=== PATIENT | female | born 1935 | race Caucasian/White ===

== ENCOUNTER 2016-07-20 14:30 | Inpatient (IN) | payer OTHER ==
--- NOTE | 2016-07-20 15:15 | PDOC ---
History of Present Illness - General Chief Complaint: Revisit, Lab Variance Stated Complaint: ABNORMAL, LabS Time Seen by Provider: 07/20/16 14:53 History Source: Patient Exam Limitations: No Limitations - History of Present Illness Initial Comments: 07/20/16 15:15 CHIEF COMPLAINT: Abnormal labs HISTORY OF PRESENT ILLNESS: This is an 81-year-old SNF resident with a history of atrial fibrillation (on digoxin and her friend), [id number] hypertension, hyperlipidemia, osteoarthritis, hypothyroidism, and dementia sent from her residence for abnormal labs. Labs dated 07/16 show H/H 5.6/22.6. She reports lightheadedness, weakness, and shortness of breath. She denies rectal bleeding or any other known bleeding. She reports that they do not serve Kosher food in her facility, so she has not been eating. V/s on arrival are unremarkable. PCP is Dr. Staton. REVIEW OF SYSTEMS: GENERAL/CONSTITUTIONAL: generalized weakness. No fever or chills. HEAD, EYES, EARS, NOSE AND THROAT: No change in vision. No ear pain or discharge. No sore throat. CARDIOVASCULAR: Lightheadedness, shortness of breath. No chest pain or palpitations. RESPIRATORY: No cough or wheezing. GASTROINTESTINAL: No nausea, vomiting, diarrhea or constipation. GENITOURINARY: No dysuria, frequency, or change in urination. MUSCULOSKELETAL: No joint or muscle swelling or pain. No neck or back pain. SKIN: No rash or easy bruising. NEUROLOGIC: No headache, vertigo, loss of consciousness, or loss of sensation. PSYCHIATRIC: No depression or anxiety. ENDOCRINE: No increased thirst. No abnormal weight change. HEMATOLOGIC/LYMPHATIC: History of anemia, s/p one transfusion - thinks it was earlier this year. ALLERGIC/IMMUNOLOGIC: No hives or skin allergy. No latex allergy. PHYSICAL EXAM: GENERAL: The patient is awake, alert, and fully oriented, in no acute distress. ENT: Pupils equal, round and reactive to light, extraocular movements intact, sclera anicteric, conjunctivae pale. Neck supple. LUNGS: Clear to auscultation bilaterally. Normal excursion. No respiratory distress or use of accessory muscles. CV: RRR, S1/S2, no MRG. Cap refill < 2 sec. ABDOMEN: Soft, non-distended, non-tender. EXTREMITIES: Normal range of motion, no edema. NEUROLOGICAL: Normal speech, normal gait. CN II-XII grossly intact. PSYCH: Normal mood, normal affect. SKIN: Warm, pale, normal turgor, no rashes or lesions noted. Past History - Past Medical History Allergies/Adverse Reactions: Allergies Allergy/AdvReac Type Severity Reaction Status Date / Time shellfish derived Allergy Verified 07/20/16 14:44 Home Medications: Ambulatory Orders Digoxin [Lanoxin -] 0.25 mg PO DAILY 07/20/16 Donepezil HCl [Aricept -] 10 mg PO DAILY 07/20/16 Glipizide [Glipizide ER] 10 mg PO DAILY 07/20/16 Levothyroxine [Synthroid -] 175 mcg PO DAILY 07/20/16 Metoprolol Tartrate 25 mg PO DAILY 07/20/16 Pioglitazone HCl/Metformin HCl [Actoplus Met 15 mg-500 mg Tab] 1 each PO DAILY 07/20/16 Simvastatin [Zocor -] 20 mg PO HS 07/20/16 Warfarin Na [Coumadin] 2 mg PO DAILY 07/20/16 Heart Score/ECG Review - ECG Intrepretation Comment:: 07/20/16 16:37 Sinus rhythm with 1st degree AVB; TWI in lateral leads (no prior available for comparison) ED Treatment Course - LABORATORY CBC & Chemistry Diagram: 07/20/16 16:08 07/20/16 16:08 - RADIOLOGY Radiology Studies Ordered: Category Date Time Status CHEST PA & LAT [RAD] Stat Radiology 07/20/16 15:13 Ordered Medical Decision Making - Medical Decision Making 07/20/16 16:33 A/P: 81 year old female with symptomatic anemia. 1. Labs: CBC, comp, PT/INR, cardiac profile 2. Stool guaiac 3. Likely transfusion, admission 07/20/16 17:11 Hgb 5.4/19.2 PRBCs ordered Troponin 0.06 TWI new when compared to office EKG from [address] Lester- will place on telemetry *DC/Admit/Observation/Transfer Diagnosis at time of Disposition: Symptomatic anemia, Acute electrocardiogram changes - Discharge Dispostion Admit: Yes - Referrals Referrals: Parul Staton MD [Primary Care Provider] -
[2016-07-20 16:52] LABS: INR 1.43 (0.82-1.09); PROTHROMBIN TIME (PATIENT) 15.9 SEC (9.98-11.88)
[2016-07-20 16:58] LABS: BASOPHIL 0.4 % (0-2.0); EOSINOPHIL 1.1 % (0-4.5); MCHC 28.3 g/dl (32.0-36.0); MEAN CELL VOLUME 56.7 fl (80-96); MEAN PLT VOLUME 8.8 fl (7.5-11.1); NEUTROPHILS 73.5 % (42.8-82.8); PLATELET COUNT 340 K/MM3 (134-434); WHITE BLOOD COUNT 4.5 K/mm3 (4.0-10.0)
[2016-07-20 16:59] LABS: ALBUMIN 3.1 g/dl (3.4-5.0); ANION GAP 14 (8-16); CALCIUM 8.4 mg/dL (8.5-10.1); CO2 20 mmol/L (21-32); COCKROFT - GAULT 68.8415; CREATININE 0.7 mg/dL (0.55-1.02); GLUCOSE,RANDOM 134 mg/dL (74-106); SGOT/AST 40 U/L (15-37); SGPT/ALT 25 U/L (12-78)
[2016-07-20 17:01] LABS: ALK PHOS 62 U/L (45-117); BILIRUBIN,TOTAL 0.6 mg/dL (0.2-1.0); TOT PROT 6.6 g/dl (6.4-8.2)
[2016-07-20 17:41] LABS: TROPONIN I 0.06 ng/ml (0.00-0.05)
[2016-07-20 20:07] LABS: PLATELET ESTIMATE ADEQUATE (NORMAL)
[2016-07-20 20:09] LABS: HYPOCHROMIA 3+; MICROCYTOSIS 3+; POIKILOCYTOSIS OCC; POLYCHROMASIA 1+
[2016-07-20 20:10] LABS: ANISOCYTOSIS 2+
[2016-07-20] MEDS ORDERED: INSULIN (NOVOLOG) ASPART 100 UNITS/ML 10ML VIAL SQ SCH (20:16)
--- NOTE | 2016-07-20 20:28 | HP ---
Admitting History and Physical - Primary Care Physician PCP: Parul Staton - Admission Chief Complaint: weakness and shortness of breath History of Present Illness: has been feeling faint and very weak with exertional dyspnea on minimal activity for month or two. saw had labs which showed severe anemia and was sent to er for further evaluation of note she has history of mild anemia, htc 30-33 at baseline and last available in may. History Source: Patient Limitations to Obtaining History: No Limitations - Past Medical History [employer]: Yes: Dementia (mild) Cardiovascular: Yes: AFIB, CAD (card cath with BMS to PDA on ), HTN Musculoskeletal: Yes: Chronic low back pain, Osteoarthritis Endocrine: Yes: Diabetes Mellitus, Hypothyroidism - Smoking History Smoking history: Never smoked - Social History Usual Living Arrangement: Yes: Assisted Living ADL: Support Services History of Recent Travel: No Home Medications - Allergies Allergies/Adverse Reactions: Allergies Allergy/AdvReac Type Severity Reaction Status Date / Time shellfish derived Allergy Verified 07/20/16 14:44 - Home Medications Home Medications: Ambulatory Orders Digoxin [Lanoxin -] 0.25 mg PO DAILY 07/20/16 Donepezil HCl [Aricept -] 10 mg PO DAILY 07/20/16 Glipizide [Glipizide ER] 10 mg PO DAILY 07/20/16 Levothyroxine [Synthroid -] 175 mcg PO DAILY 07/20/16 Metoprolol Tartrate 25 mg PO DAILY 07/20/16 Pioglitazone HCl/Metformin HCl [Actoplus Met 15 mg-500 mg Tab] 1 each PO DAILY 07/20/16 Simvastatin [Zocor -] 20 mg PO HS 07/20/16 Warfarin Na [Coumadin] 2 mg PO DAILY 07/20/16 Family Disease History - Family Disease History Family History: Unremarkable Review of Systems - Review of Systems Constitutional: reports: Malaise, Weakness. denies: Unintentional Wgt. Loss Cardiovascular: reports: Shortness of Breath Respiratory: reports: Exercise Intolerance, SOB on Exertion Gastrointestinal: reports: No Symptoms. denies: Abdominal Pain, Diarrhea, Melena, Rectal Bleeding, Vomiting Musculoskeletal: reports: Back Pain, Joint Pain Physical Examination Vital Signs: Vital Signs Temperature 98.6 F 07/20/16 19:31 Pulse Rate 61 07/20/16 19:31 Respiratory Rate 18 07/20/16 19:31 Blood Pressure 140/58 07/20/16 19:31 O2 Sat by Pulse Oximetry (%) 93 L 07/20/16 19:59 Constitutional: Yes: Calm, Pallor Eyes: Yes: Conjunctiva Clear HENT: Yes: Atraumatic, Normocephalic Neck: Yes: Supple, Trachea Midline Cardiovascular: Yes: Regular Rate and Rhythm, Murmur Respiratory: Yes: Regular, CTA Bilaterally Gastrointestinal: Yes: WNL, Normal Bowel Sounds ...Rectal Exam: Yes: Other (guiac negative in er) Edema: LLE: 1+, RLE: 1+ Peripheral Pulses WNL: Yes Neurological: Yes: WNL Labs: Laboratory Results - last 24 hr 07/20/16 07/20/16 07/20/16 16:08 16:08 16:08 WBC 4.5 RBC 3.39 L Hgb 5.4 L* Hct 19.2 L MCV 56.7 L MCHC 28.3 L RDW 20.0 H Plt Count 340 MPV 8.8 Neutrophils % 73.5 Lymphocytes % 15.3 Monocytes % 9.7 Eosinophils % 1.1 Basophils % 0.4 Differential Comment Slide scanned Platelet Estimate Adequate Polychromasia 1+ Hypochromic-Microcytic 3+ Poikilocytosis Occ Basophilic Stippling 1+ Anisocytosis 2+ Microcytosis 3+ INR 1.43 H Sodium Potassium Chloride Carbon Dioxide Anion Gap BUN Creatinine Creat Clearance w eGFR Random Glucose Calcium Total Bilirubin AST ALT Alkaline Phosphatase Creatine Kinase Troponin I Total Protein Albumin Stool Occult Blood Negative Blood Type Antibody Screen Crossmatch 07/20/16 07/20/16 07/20/16 16:08 16:08 16:39 WBC RBC Hgb Hct MCV MCHC RDW Plt Count MPV Neutrophils % Lymphocytes % Monocytes % Eosinophils % Basophils % Differential Comment Platelet Estimate Polychromasia Hypochromic-Microcytic Poikilocytosis Basophilic Stippling Anisocytosis Microcytosis INR Sodium 137 Potassium 4.1 Chloride 103 Carbon Dioxide 20 L Anion Gap 14 BUN 10 Creatinine 0.7 Creat Clearance w eGFR > 60 Random Glucose 134 H Calcium 8.4 L Total Bilirubin 0.6 AST 40 H ALT 25 Alkaline Phosphatase 62 Creatine Kinase 83 Troponin I 0.06 H Total Protein 6.6 Albumin 3.1 L Stool Occult Blood Blood Type A POSITIVE Antibody Screen Negative Crossmatch See Detail Imaging - Results Chest X-ray: Report Reviewed EKG: Image Reviewed Problem List - Problems (1) Symptomatic anemia Code(s): D64.9 - ANEMIA, UNSPECIFIED (2) Atrial fibrillation Code(s): I48.91 - UNSPECIFIED ATRIAL FIBRILLATION Qualifiers: Atrial fibrillation type: persistent Qualified Code(s): I48.1 - Persistent atrial fibrillation (3) Hypertension Code(s): I10 - ESSENTIAL (PRIMARY) HYPERTENSION Qualifiers: Hypertension type: essential hypertension Qualified Code(s): I10 - Essential (primary) hypertension (4) Diabetes mellitus Code(s): E11.9 - TYPE 2 DIABETES MELLITUS WITHOUT COMPLICATIONS Qualifiers: Diabetes mellitus type: type 2 (5) Hypothyroidism Code(s): E03.9 - HYPOTHYROIDISM, UNSPECIFIED Qualifiers: Hypothyroidism type: unspecified Qualified Code(s): E03.9 - Hypothyroidism, unspecified Assessment/Plan microcytic anemia r/o GI bleed hold warfarin transfuse 2 units PRBC, likely will need third in am guiac all stools GI evaluation cardiology f/up serial cardiac enzymes cont digoxin and BBlocker for now bedrest
[2016-07-20] MEDS: INSULIN SLIDING SCALE (NOVOLOG) 1 VIAL SQ SCH (21:45)
[2016-07-20] MEDS: PANTOPRAZOLE 40 MG TABLET (FP) PO SCH (21:45)
[2016-07-21 00:24] VITALS: BMI 24.7
[2016-07-21] MEDS ORDERED: FUROSEMIDE 40 MG/4 ML INJECTABLE VIAL ONE ×2 (05:42→17:15)
[2016-07-21] MEDS ORDERED: FUROSEMIDE 40 MG/4 ML INJECTABLE VIAL IVPUSH ONE ×2 (05:45→11:05)
[2016-07-21] MEDS: LEVOTHYROXINE NA 175 MCG TABLET PO SCH (06:17)
[2016-07-21] MEDS: INSULIN SLIDING SCALE (NOVOLOG) 1 VIAL SQ SCH ×4 (06:17→21:06)
--- NOTE | 2016-07-21 08:35 | PN ---
Progress Note (short form) - Note Progress Note: Chief Complaint: Events noted, notes reviewed, reports dyspnea with minimal activity, denies any chest pain History of Present Illness: Seen and examined on telemetry. Full consult dictated - Current Medication List Current Medications Digoxin (Lanoxin -) 0.25 mg PO DAILY [facility] Insulin Aspart (Novolog Vial Sliding Scale -) 1 vial SQ ACHS [facility] PRN Reason: Protocol Last Admin: 07/21/16 06:17 Dose: 2 units Levothyroxine Sodium (Synthroid -) 175 mcg PO ACBK [facility] Last Admin: 07/21/16 06:17 Dose: 175 mcg Metoprolol Tartrate (Lopressor -) 25 mg PO DAILY [facility] Pantoprazole Sodium (Protonix -) 40 mg PO DAILY [facility] Last Admin: 07/20/16 21:45 Dose: 40 mg Review of Systems Cardiovascular: As noted above Respiratory: denies: Cough or Sputum Production Gastrointestinal: denies: Nausea, Vomiting, Diarrhea, Constipation or Abdominal Discomfort Musculoskeletal: No Symptoms Reported Endocrine: No Symptoms Reported - Objective Vital Signs: Last Vital Signs Temp Pulse Resp BP Pulse Ox 98.0 F 65 22 168/70 97 07/21/16 06:25 07/21/16 06:25 07/21/16 06:25 07/21/16 06:25 07/20/16 20:30 HEENT: SOLO, EOMI Unicteric Sclera Neck: Supple Negative JVD Cardiovascular: S1 S2 Regular Rate and Rhythm Grade 2/6 ANDREA Respiratory: Clear to A&P Gastrointestinal: Soft Benign Normal Bowel Sounds Ext: Edema Labs: CBC, BMP 07/20/16 16:08 07/20/16 16:08 INR, PTT INR 1.43 (0.82-1.09) H 07/20/16 16:08 Hepatic Panel Total Bilirubin 0.6 mg/dL (0.2-1.0) 07/20/16 16:08 AST 40 U/L (15-37) H 07/20/16 16:08 ALT 25 U/L (12-78) 07/20/16 16:08 Alkaline Phosphatase 62 U/L (45-117) 07/20/16 16:08 Albumin 3.1 g/dl (3.4-5.0) L 07/20/16 16:08 Troponin, BNP 07/20/16 16:39 Troponin I 0.06 H Assessment/Plan ASSESSMENT: 1. CAD angina pectoris with evidence of demand ischemic injury in context of profound anemia 2. Diastolic LV dysfunction with class I NYHA classification LV failure 3. PAF currently in sinus rhythm, [id number] score of 6 on Coumadin therapy 4. Anemia, iron deficiency etiology to be determined, GI bleed to be considered as a differential 5. HTN 6. DM 7. Hypercholesterolemia 8. Organic brain syndrome 9. Hypothyroidism PLAN: 1. Continue B-Blockers but switch to Toprol XL 2. May D/C Digoxin (risk of toxicity considering her advanced age) 3. Recommend addition of ACCI or ARBS unless it is contraindicated 4. Transfuse to maintain Hg equal or > 8.0 5. Recommend GI evaluation to to determine source of bleed 6. Ideally A/C should be continued indefinitely unless source of bleed cannot be determined or treated, considering the above noted [id number] score of 6 Sohail Franco MD
--- NOTE | 2016-07-21 09:06 | PN ---
Progress Note (short form) - Note Progress Note: Received 2 units of PRBC overnight, developed wheezing and hypoxia at end of second unit. received iv lasix with good response. currently no complaints at rest, still dyspneic on exertion. am labs pending Vital Signs Period Temp Pulse Resp BP Sys/Gong Pulse Ox Last 24 Hr 97.9 F-99.2 F 53-88 18-22 136-168/46-74 93-100 S1S2 RRR +SM lungs occ exp.wheezing abd soft NT +BS tr edema Imp Sever, symptomatic anemia-likely GI bleed repeat CBC-will possibly need more transfusion cardiology evaluation greatly appreciated GI consult pending continue to hold ac Problem List - Problems (1) Symptomatic anemia Code(s): D64.9 - ANEMIA, UNSPECIFIED (2) Atrial fibrillation Code(s): I48.91 - UNSPECIFIED ATRIAL FIBRILLATION Qualifiers: Atrial fibrillation type: persistent Qualified Code(s): I48.1 - Persistent atrial fibrillation (3) Hypertension Code(s): I10 - ESSENTIAL (PRIMARY) HYPERTENSION Qualifiers: Hypertension type: essential hypertension Qualified Code(s): I10 - Essential (primary) hypertension (4) Diabetes mellitus Code(s): E11.9 - TYPE 2 DIABETES MELLITUS WITHOUT COMPLICATIONS Qualifiers: Diabetes mellitus type: type 2 (5) Hypothyroidism Code(s): E03.9 - HYPOTHYROIDISM, UNSPECIFIED Qualifiers: Hypothyroidism type: unspecified Qualified Code(s): E03.9 - Hypothyroidism, unspecified
[2016-07-21 09:18] LABS: BASOPHIL 0.5 % (0-2.0); EOSINOPHIL 1.6 % (0-4.5); MCHC 31.3 g/dl (32.0-36.0); MEAN CELL VOLUME 60.9 fl (80-96); MEAN PLT VOLUME 8.7 fl (7.5-11.1); NEUTROPHILS 75.5 % (42.8-82.8); PLATELET COUNT 310 K/MM3 (134-434); WHITE BLOOD COUNT 3.9 K/mm3 (4.0-10.0)
[2016-07-21 09:42] LABS: MCH 19.1 pg (25.7-33.7)
[2016-07-21 09:45] LABS: ALBUMIN 3.3 g/dl (3.4-5.0); ANION GAP 9 (8-16); BILIRUBIN,TOTAL 1.9 mg/dL (0.2-1.0); CALCIUM 8.2 mg/dL (8.5-10.1); CO2 28 mmol/L (21-32); COCKROFT - GAULT 70.295; CREATININE 0.7 mg/dL (0.55-1.02); GLUCOSE,RANDOM 148 mg/dL (74-106); SGOT/AST 43 U/L (15-37); TOT PROT 6.7 g/dl (6.4-8.2)
[2016-07-21 09:57] LABS: ALK PHOS 69 U/L (45-117); DIGOXIN LEVEL 0.9406 ng/ml (0.8-2.0); SGPT/ALT 25 U/L (12-78); TROPONIN I 0.07 ng/ml (0.00-0.05)
[2016-07-21] MEDS ORDERED: DIGOXIN 0.25 MG TABLET (FP) PO SCH (10:00)
[2016-07-21] MEDS ORDERED: METOPROLOL SUCCINATE 50 MG TAB.SR.24H (FP) PO SCH (10:00)
[2016-07-21] MEDS ORDERED: METOPROLOL TARTRATE 25 MG TABLET (FP) PO SCH (10:00)
[2016-07-21] MEDS: PANTOPRAZOLE 40 MG TABLET (FP) PO SCH (10:39)
--- NOTE | 2016-07-21 11:01 | EKG ---
Test Reason : Blood Pressure : / mmHG Vent. Rate : 064 BPM Atrial Rate : 064 BPM P-R Int : 212 ms QRS Dur : 074 ms QT Int : 414 ms P-R-T Axes : 019 074 -35 degrees QTc Int : 427 ms SINUS RHYTHM WITH 1ST DEGREE A-V BLOCK NONSPECIFIC ST AND T WAVE ABNORMALITY ABNORMAL ECG WHEN COMPARED WITH ECG OF 20-JUL-2016 16:21, NO SIGNIFICANT CHANGE WAS FOUND Confirmed by AVA SIU, LIZBET ([id number]) on 07/21/2016 11:01:18 AM Referred By: GERONIMO VICTORIA Confirmed By:LIZBET ESCALANTE MD
--- NOTE | 2016-07-21 11:45 | EKG ---
Test Reason : Blood Pressure : / mmHG Vent. Rate : 064 BPM Atrial Rate : 064 BPM P-R Int : 224 ms QRS Dur : 072 ms QT Int : 410 ms P-R-T Axes : 037 045 258 degrees QTc Int : 422 ms SINUS RHYTHM WITH 1ST DEGREE A-V BLOCK ABNORMAL ECG NO PREVIOUS ECGS AVAILABLE CLINICAL CORRELATION IS RECOMMENDED Confirmed by AVA SIU, LIZBET ([id number]) on 07/21/2016 11:44:43 AM Referred By: Confirmed By:LIZBET ESCALANTE MD
[2016-07-21] MEDS ORDERED: INSULIN (NOVOLOG) ASPART 100 UNITS/ML 10ML VIAL ONE (12:29)
--- NOTE | 2016-07-21 16:16 | CONS ---
DATE OF CONSULTATION: 07/21/2016 CONSULTATION REQUESTED BY: Sofía Lester MD CHIEF COMPLAINT: Dyspnea, cardiovascular evaluation. History was obtained from the patient partially and from the chart since patient has organic brain syndrome, dementia. An 81-year-old female with known history of coronary artery disease, angina pectoris, diastolic left ventricular dysfunction with chronic class 0 to 1 [place] [employer] classification left ventricular failure, paroxysmal atrial fibrillation ([id number] score of 6, on Coumadin therapy), hypertensive cardiovascular disease, diabetes mellitus, hypercholesterolemia, hypothyroidism, organic brain syndrome, dementia, who presented to [facility] with progressive dyspnea, which has been noted over the last several days. Dyspnea initially was noted with mild to moderate physical activity, and subsequently was noted with minimal physical exertion. Patient, on blood test, was noted to have profound anemia, and subsequently patient received 2 units of packed red blood cells. Patient denied any chest discomfort. Patient denied any orthopnea or paroxysmal nocturnal dyspnea. Patient reported intermittent bilateral lower extremity edema that worsens in the latter part of the day. Patient denied any palpitations. Patient reported intermittent dizziness and lightheadedness, specifically with postural changes. Patient denied any loss of consciousness. Patient reported profound fatigue and tiredness. Patient denied any bright red blood per rectum. In addition, patient denied any hematuria. PAST MEDICAL HISTORY: Coronary artery disease, angina pectoris, diastolic left ventricular dysfunction with class 0 to 1 [place] [employer] classification left ventricular failure, paroxysmal atrial fibrillation, [id number] score of 6 (on anticoagulation therapy with Coumadin), hypertensive cardiovascular disease, diabetes mellitus, hypercholesterolemia, organic brain syndrome, dementia, hypothyroidism. SOCIAL HISTORY: Denied tobacco abuse. FAMILY HISTORY: Positive for coronary artery disease. ALLERGIES: SHELLFISH. Medical therapy prior to admission included Coumadin 2 mg once a day, digoxin 0.25 mg once a day, glipizide 10 mg once a day, levothyroxine 175 mcg once a day, Toprol XL 25 mg once a day, Actos plus metformin 15/850 mg twice a day, Zocor 20 mg once a day, Aricept 10 mg once a day. REVIEW OF SYSTEMS: Head and Neck: Denies headache, photophobia, blurring of vision. Respiratory: No cough or sputum production. Cardiovascular: As noted above. Gastrointestinal: Denied nausea, vomiting, diarrhea, abdominal discomfort. Genitourinary: No symptoms reported. PHYSICAL EXAMINATION: Vital Signs: Blood pressure is 168/70 mmHg. Pulse rate is 68 beats per minute. Head and Neck: Pupils equal, react to light and accommodation. Extraocular muscles are intact. Anicteric sclerae. Negative JVD. No bruit appreciated. Chest: Clear to auscultation and percussion. Cardiovascular: S1, S2 regular. Grade 2/6 systolic ejection murmur. No clicks or gallops. Abdomen: Soft, benign. Normoactive bowel sound. Extremities: Trace edema. Decreased distal pulses. No calf tenderness. Electrocardiogram reveals sinus rhythm with an abnormal P wave and ST-T wave abnormalities suggestive of ischemia. CBC revealed a white cell count of 4.5, hemoglobin 5.4, platelet count 340. Basic metabolic profile revealed sodium 137, potassium 4.1, BUN 10, creatinine 0.7, glucose 134. INR 1.43. AST 40. Troponin I was noted at 0.06. ASSESSMENT: 1. Coronary artery disease, angina pectoris, with evidence of demand ischemic injury in context of profound anemia. 2. Diastolic left ventricular dysfunction with class 1 [place] [employer] classification left ventricular failure. 3. Paroxysmal atrial fibrillation, currently in sinus rhythm, CHADS-VASc score of 6, on Coumadin therapy, currently withheld. 4. Anemia, iron deficiency, etiology to be determined. Gastrointestinal bleed to be considered as a differential. 5. Hypertension. 6. [id number]-[id number] diabetes mellitus. 7. Hypercholesterolemia. 8. Organic brain syndrome/dementia. 9. Hypothyroidism. RECOMMENDATION: 1. Continuation of beta blockers and switch to Toprol XL. 2. May discontinue digoxin. Risk of toxicity, considering her advanced age. 3. Recommend addition of MODE inhibitors, angiotensin receptor blockers, unless it is contraindicated. 4. Transfusion to maintain hemoglobin equal or greater than 8. 5. Recommend GI evaluation to determine source of GI bleed. 6. Ideally anticoagulation should be continued indefinitely, unless source of bleed cannot be determined or treated, considering the above-noted CHADS-VASc score of 6. Thank you for the kind referral. LIZBET ESCALANTE M.D. [id number]
[2016-07-21] MEDS: amLODIPine BESYLATE 5 MG TABLET (FP) PO SCH (19:22)
--- NOTE | 2016-07-21 20:25 | CON.GI ---
Consult Consult Specialty:: GI Referred by:: Dr Toledo Reason for Consultation:: Anemia - History of Present Illness Chief Complaint: Sent from her facility for Hgb 5.6 History of Present Illness: 81 F with h/o CAD, PAF on AC, Anemia-patient states she has not had EGD or colon , HTN, DM,, HLD admitted with symptomatic anemia. - History Source History Provided By: Patient, Medical Record Limitations to Obtaining History: No Limitations - Past Medical History Cardio/Vascular: Yes: AFIB, CAD (card cath with BMS to PDA on ), HTN Musculoskeletal: Yes: Chronic low back pain, Osteoarthritis Endocrine: Yes: Diabetes Mellitus, Hypothyroidism - Alcohol/Substance Use Hx Alcohol Use: No - Smoking History Smoking history: Never smoked Have you smoked in the past 12 months: No - Social History ADL: Support Services History of Recent Travel: No Home Medications - Allergies Allergies/Adverse Reactions: Allergies Allergy/AdvReac Type Severity Reaction Status Date / Time shellfish derived Allergy Verified 07/20/16 14:44 - Home Medications Home Medications: Ambulatory Orders Digoxin [Lanoxin -] 0.25 mg PO DAILY 07/20/16 Donepezil HCl [Aricept -] 10 mg PO DAILY 07/20/16 Glipizide [Glipizide ER] 10 mg PO DAILY 07/20/16 Levothyroxine [Synthroid -] 175 mcg PO DAILY 07/20/16 Metoprolol Tartrate 25 mg PO DAILY 07/20/16 Pioglitazone HCl/Metformin HCl [Actoplus Met 15 mg-500 mg Tab] 1 each PO DAILY 07/20/16 Simvastatin [Zocor -] 20 mg PO HS 07/20/16 Warfarin Na [Coumadin] 2 mg PO DAILY 07/20/16 Physical Exam-GI Vital Signs: Vital Signs Temperature 98.9 F 07/21/16 14:41 Pulse Rate 58 L 07/21/16 18:45 Respiratory Rate 20 07/21/16 14:41 Blood Pressure 179/61 07/21/16 18:45 O2 Sat by Pulse Oximetry (%) 97 07/21/16 10:40 Constitutional: Yes: Well Nourished, No Distress HENT: Yes: Normocephalic Cardiovascular: Yes: Regular Rate and Rhythm, Murmur (2-3/6 blowing systolic murmur LSB) Respiratory: Yes: CTA Bilaterally Gastrointestinal Inspection: Yes: WNL ...Auscultate: Yes: Normoactive Bowel Sounds ...Palpate: Yes: Soft Labs: CBC, BMP 07/21/16 08:50 07/21/16 08:50 INR, PTT INR 1.43 (0.82-1.09) H 07/20/16 16:08 Hepatic Panel Total Bilirubin 1.9 mg/dL (0.2-1.0) H D 07/21/16 08:50 AST 43 U/L (15-37) H 07/21/16 08:50 ALT 25 U/L (12-78) 07/21/16 08:50 Alkaline Phosphatase 69 U/L (45-117) 07/21/16 08:50 Albumin 3.3 g/dl (3.4-5.0) L 07/21/16 08:50 Assessment/Plan Patient with profound microcytic anemia. Denies seeing black or red stools. Guaiac negative x 2 this admission. She states she is Kosher and at her facility, they don't serve Kosher food. As such, she hasn't eaten red meat for the past 3 years. She does not take an Fe supplement as per her med list This may be a nutritional deficiency or malabsorption. Unlikely bleeding and would refrain from endoscopy at this time due to co- morbids and age, unless she bleeds. Transfuse to Hgb of 9 Start PPI Full diet Trend H&H Consider heme consult
[2016-07-21] MEDS ORDERED: ACETAMINOPHEN 325 MG TABLET (FP) PO PRN (20:46)
[2016-07-22] MEDS ORDERED: PT OWN MED DRAWER 7, Y5N ONE ×2 (06:01→10:31)
[2016-07-22] MEDS: INSULIN SLIDING SCALE (NOVOLOG) 1 VIAL SQ SCH ×4 (06:20→21:19)
[2016-07-22] MEDS: LEVOTHYROXINE NA 175 MCG TABLET PO SCH (06:20)
[2016-07-22 07:17] LABS: ALBUMIN 3.2 g/dl (3.4-5.0); ANION GAP 8 (8-16); CO2 30 mmol/L (21-32); COCKROFT - GAULT 70.295; CREATININE 0.7 mg/dL (0.55-1.02); GLUCOSE,RANDOM 163 mg/dL (74-106); SGOT/AST 44 U/L (15-37); SGPT/ALT 25 U/L (12-78)
[2016-07-22 07:18] LABS: BASOPHIL 0.4 % (0-2.0); EOSINOPHIL 2.5 % (0-4.5); MCH 20.1 pg (25.7-33.7); MEAN CELL VOLUME 62.9 fl (80-96); MEAN PLT VOLUME 9.1 fl (7.5-11.1); NEUTROPHILS 77.4 % (42.8-82.8); PLATELET COUNT 301 K/MM3 (134-434); RDW 27.9 % (11.6-15.6); WHITE BLOOD COUNT 5.1 K/mm3 (4.0-10.0)
[2016-07-22 07:19] LABS: ALK PHOS 69 U/L (45-117); TOT PROT 6.6 g/dl (6.4-8.2)
--- NOTE | 2016-07-22 08:54 | PN ---
Progress Note (short form) - Note Progress Note: Received total of 3 units of PRBC, feels much better. Abnormal Lab Results 07/20/16 07/20/16 07/21/16 08:00 20:15 08:50 WBC 3.9 L Hgb 8.1 L D Hct 25.9 L D MCV 60.9 L MCHC 31.3 L RDW 26.0 H Potassium Random Glucose Calcium Iron 15 L Total Bilirubin AST Troponin I Albumin Crossmatch See Detail 07/21/16 07/22/16 07/22/16 08:50 05:38 05:38 WBC Hgb 9.6 L D Hct 29.9 L D MCV 62.9 L MCHC RDW 27.9 H Potassium 3.4 L Random Glucose 148 H 163 H Calcium 8.2 L 8.0 L Iron Total Bilirubin 1.9 H D AST 43 H 44 H Troponin I 0.07 H Albumin 3.3 L 3.2 L Crossmatch Vital Signs Period Temp Pulse Resp BP Sys/Gong Pulse Ox Last 24 Hr 98.2 F-99.9 F 53-76 18-20 148-179/47-85 97-97 S1S2 RRR +SM lungs clear abd soft NT +BS tr edema Imp Sever, symptomatic anemia-guiac negative twice CAD HTN NIDDM cardiology/GI evaluation greatly appreciated heme eval requested resume warfarin and dc planning if no further procedures planned physical therapy requested repeat CBC in am increase metoprolol Problem List - Problems (1) Symptomatic anemia Code(s): D64.9 - ANEMIA, UNSPECIFIED (2) Atrial fibrillation Code(s): I48.91 - UNSPECIFIED ATRIAL FIBRILLATION Qualifiers: Atrial fibrillation type: persistent Qualified Code(s): I48.1 - Persistent atrial fibrillation (3) Hypertension Code(s): I10 - ESSENTIAL (PRIMARY) HYPERTENSION Qualifiers: Hypertension type: essential hypertension Qualified Code(s): I10 - Essential (primary) hypertension (4) Diabetes mellitus Code(s): E11.9 - TYPE 2 DIABETES MELLITUS WITHOUT COMPLICATIONS Qualifiers: Diabetes mellitus type: type 2 (5) Hypothyroidism Code(s): E03.9 - HYPOTHYROIDISM, UNSPECIFIED Qualifiers: Hypothyroidism type: unspecified Qualified Code(s): E03.9 - Hypothyroidism, unspecified
[2016-07-22] MEDS ORDERED: POTASSIUM CHLORIDE TABS 20 MEQ TABLET.ER (FP) PO ONE (09:15)
--- NOTE | 2016-07-22 10:15 | PN ---
Progress Note (short form) - Note Progress Note: S: 81 year old female, history of noninsulin depended diabetes mellitus, coronary artery disease, hypertension, hyperlipidemia, history of atrial fibrillation, history of dementia as noted in the chart, admitted with history of weakness, lightheadedness and dypsnea. Found to have severe anemia, underwent multiple blood transfusions, history of hypothyroidism. Patient had mildly elevated troponin levels. She has a rattling cough, denies having chest pain or discomfort, no history of dyspnea, PND or orthopnea. Denies having palpitations, no presyncope or syncope reported. Active Medications Generic Name Dose Route Start Last Admin Trade Name Freq PRN Reason Stop Dose Admin Acetaminophen 650 mg 07/21/16 20:46 Tylenol - PO Q4H PRN PAIN OR FEVER >100.4 Amlodipine Besylate 5 mg 07/21/16 19:15 07/21/16 19:22 Norvasc - PO 5 mg DAILY CARO Administration Atorvastatin Calcium 10 mg 07/22/16 22:00 Lipitor - PO HS CARO Donepezil HCl 10 mg 07/22/16 10:00 Aricept - PO DAILY CARO Glipizide 10 mg 07/22/16 10:00 Glucotrol Xl - PO DAILY@0700 [facility]O Insulin Aspart 1 vial 07/20/16 20:26 07/22/16 06:20 Novolog Vial Sliding Scale - SQ 2 units ACHS CARO Administration Protocol Levothyroxine Sodium 175 mcg 07/21/16 07:00 07/22/16 06:20 Synthroid - PO 175 mcg ACBK CARO Administration Metoprolol Succinate 75 mg 07/22/16 08:29 Toprol Xl - PO DAILY CARO Pantoprazole Sodium 40 mg 07/20/16 20:30 07/21/16 10:39 Protonix - PO 40 mg DAILY [facility]O Administration O: 81 year old female was in no acute distress, no pallor, cyanosis, clubbing, or jaundice. Last Vital Signs Temp Pulse Resp BP Pulse Ox 98.8 F 72 20 152/66 97 07/22/16 05:58 07/22/16 05:58 07/22/16 05:58 07/22/16 05:58 07/21/16 21:00 Neck: Supple, no JVD, negative HJR, carotids were equal and upstrokes were normal, no thyromegaly appreciated. Heart: PMI was in the 5th intercostal space, no heaves or thrills, S1 and S2 were normal. Grade II/ ejection systolic heard at the second right intercoastal space and along the left sternal border. Grade I/ decresiando systolic murmur heard at the apex. No diastolic murmur heard. No gallops were appreciated. Lungs: Clear on auscultation bilaterally. Abdomen: Soft, nontender, no hepatosplenomegaly appreciated, and no palpable masses were felt. Extremities: No calf tenderness or dependent edema. Pulses are normal. CBC, BMP 07/22/16 05:38 07/22/16 05:38 Laboratory Results - last 24 hr 07/20/16 07/20/16 07/21/16 08:00 20:15 12:16 WBC RBC Hgb Hct MCV MCHC RDW Plt Count MPV Neutrophils % Lymphocytes % Monocytes % Eosinophils % Basophils % Sodium Potassium Chloride Carbon Dioxide Anion Gap BUN Creatinine Creat Clearance w eGFR POC Glucometer 187 Random Glucose Calcium Iron 15 L Total Bilirubin AST ALT Alkaline Phosphatase Total Protein Albumin Blood Type A POSITIVE Crossmatch See Detail 07/21/16 07/21/16 07/22/16 17:18 21:00 04:49 WBC RBC Hgb Hct MCV MCHC RDW Plt Count MPV Neutrophils % Lymphocytes % Monocytes % Eosinophils % Basophils % Sodium Potassium Chloride Carbon Dioxide Anion Gap BUN Creatinine Creat Clearance w eGFR POC Glucometer 228 154 168 Random Glucose Calcium Iron Total Bilirubin AST ALT Alkaline Phosphatase Total Protein Albumin Blood Type Crossmatch 07/22/16 07/22/16 05:38 05:38 WBC 5.1 D RBC 4.75 Hgb 9.6 L D Hct 29.9 L D MCV 62.9 L MCHC 32.0 RDW 27.9 H Plt Count 301 MPV 9.1 Neutrophils % 77.4 Lymphocytes % 11.7 Monocytes % 8.0 Eosinophils % 2.5 Basophils % 0.4 Sodium 138 Potassium 3.4 L Chloride 100 Carbon Dioxide 30 Anion Gap 8 BUN 16 D Creatinine 0.7 Creat Clearance w eGFR > 60 POC Glucometer Random Glucose 163 H Calcium 8.0 L Iron Total Bilirubin 1.0 D AST 44 H ALT 25 Alkaline Phosphatase 69 Total Protein 6.6 Albumin 3.2 L Blood Type Crossmatch Impression: (1) Hypertension, hypertensive cardiovascular disease Code(s): I10 - ESSENTIAL (PRIMARY) HYPERTENSION Qualifiers: Hypertension type: essential hypertension Qualified Code(s): I10 - Essential (primary) hypertension (2) Coronary artery disease Code(s): I25.10 - ATHSCL HEART DISEASE OF [place] CORONARY ARTERY W/O ANG PCTRS (3) Left ventricular diastolic dysfunction Code(s): I51.9 - HEART DISEASE, UNSPECIFIED (4) Anemia, etiology to be determined Code(s): D64.9 - ANEMIA, UNSPECIFIED (5) History of paroxysmal atrial fibrillation Code(s): I48.0 - PAROXYSMAL ATRIAL FIBRILLATION (6) Diabetes mellitus Code(s): E11.9 - TYPE 2 DIABETES MELLITUS WITHOUT COMPLICATIONS Qualifiers: Diabetes mellitus type: type 2 (7) Hypothyroidism Code(s): E03.9 - HYPOTHYROIDISM, UNSPECIFIED Qualifiers: Hypothyroidism type: unspecified Qualified Code(s): E03.9 - Hypothyroidism, unspecified (8) Hypercholesterolemia Code(s): E78.00 - PURE HYPERCHOLESTEROLEMIA, UNSPECIFIED (9) History of organic brain syndrome Code(s): F09 - UNSP MENTAL DISORDER DUE TO KNOWN PHYSIOLOGICAL CONDITION (10) Tricuspid regurgitation Code(s): I07.1 - RHEUMATIC TRICUSPID INSUFFICIENCY (11) Severe pulmonary hypertension (See echo report) Code(s): I27.2 - OTHER SECONDARY PULMONARY HYPERTENSION (12) Mitral valvular disease with moderate mitral regurgitation Code(s): I05.9 - RHEUMATIC MITRAL VALVE DISEASE, UNSPECIFIED (13) Aortic valve sclerosis Code(s): I35.0 - NONRHEUMATIC AORTIC (VALVE) (14) Mild to moderate aortic regurgitation Code(s): I35.1 - NONRHEUMATIC AORTIC (VALVE) INSUFFICIENCY (15) Chronic bronchitis / Interstitial pulmonary disease needs to be ruled out Code(s): J42 - UNSPECIFIED CHRONIC BRONCHITIS (16) Elevated troponin most likely related to demand injury due to severe anemia Code(s): R74.8 - ABNORMAL LEVELS OF OTHER SERUM ENZYMES Recommendations: 1. Consider pulmonary evaluation. 2. Continue current cardiac medication. 3. Evaluation for source of GI bleeding. Attestation: Documentation prepared by Ross Lezama, acting as emergency medical technician for Hawk Gonzales MD.
[2016-07-22] MEDS: amLODIPine BESYLATE 5 MG TABLET (FP) PO SCH (10:50)
[2016-07-22] MEDS: DONEPEZIL HCL 10 MG TABLET (FP) PO SCH (10:50)
[2016-07-22] MEDS: PANTOPRAZOLE 40 MG TABLET (FP) PO SCH (10:50)
[2016-07-22] MEDS: glipiZIDE-XL 10 MG TAB.ER.24 (FP) PO SCH (10:50)
[2016-07-22] MEDS: METOPROLOL SUCCINATE 50 MG TAB.SR.24H (FP) PO SCH (10:51)
[2016-07-22] MEDS: ATORVASTATIN CA 10 MG TABLET (FP) PO SCH (21:20)
--- NOTE | 2016-07-22 21:25 | CONSULT ---
Consult - text type - Consultation Consultation Note: 81 F with h/o CAD, PAF on AC, Anemia-patient states she has not had EGD or colonoscopy. 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 Denies any major complaints - History Source History Provided By: Patient, Medical Record - Past Medical History Cardio/Vascular: Yes: AFIB, CAD (card cath with BMS to PDA on ), HTN.hyperlipidemia Musculoskeletal: Yes: Chronic low back pain, Osteoarthritis Endocrine: Yes: Diabetes Mellitus, Hypothyroidism - Smoking History Smoking history: Never smoked - Social History ADL: Support Services Home Medications - Allergies Allergies/Adverse Reactions: Allergies Allergy/AdvReac Type Severity Reaction Status Date / Time shellfish derived Allergy Verified 07/20/16 14:44 - Home Medications Home Medications: Ambulatory Orders Digoxin [Lanoxin -] 0.25 mg PO DAILY 07/20/16 Donepezil HCl [Aricept -] 10 mg PO DAILY 07/20/16 Glipizide [Glipizide ER] 10 mg PO DAILY 07/20/16 Levothyroxine [Synthroid -] 175 mcg PO DAILY 07/20/16 Metoprolol Tartrate 25 mg PO DAILY 07/20/16 Pioglitazone HCl/Metformin HCl [Actoplus Met 15 mg-500 mg Tab] 1 each PO DAILY 07/20/16 Simvastatin [Zocor -] 20 mg PO HS 07/20/16 Warfarin Na [Coumadin] 2 mg PO DAILY 07/20/16 Active Medications Acetaminophen (Tylenol -) 650 mg PO Q4H PRN PRN Reason: PAIN OR FEVER >100.4 Amlodipine Besylate (Norvasc -) 5 mg PO DAILY [facility] Last Admin: 07/22/16 10:50 Dose: 5 mg Atorvastatin Calcium (Lipitor -) 10 mg PO HS [facility] Last Admin: 07/22/16 21:20 Dose: 10 mg Donepezil HCl (Aricept -) 10 mg PO DAILY [facility] Last Admin: 07/22/16 10:50 Dose: 10 mg Glipizide (Glucotrol Xl -) 10 mg PO DAILY@0700 [facility] Last Admin: 07/22/16 10:50 Dose: 10 mg Insulin Aspart (Novolog Vial Sliding Scale -) 1 vial SQ ACHS [facility] PRN Reason: Protocol Last Admin: 07/22/16 21:19 Dose: Not Given Levothyroxine Sodium (Synthroid -) 175 mcg PO ACBK [facility] Last Admin: 07/22/16 06:20 Dose: 175 mcg Metoprolol Succinate (Toprol Xl -) 75 mg PO DAILY [facility] Last Admin: 07/22/16 10:51 Dose: 75 mg Pantoprazole Sodium (Protonix -) 40 mg PO DAILY [facility] Last Admin: 07/22/16 10:50 Dose: 40 mg Physical Exam-GI Vital Signs: Last Vital Signs Temp Pulse Resp BP Pulse Ox 98.6 F 60 20 143/59 94 L 07/22/16 14:00 07/22/16 14:00 07/22/16 14:00 07/22/16 14:00 07/22/16 09:00 Constitutional: Yes: Well Nourished, No Distress HENT: Yes: Normocephalic Cardiovascular: Yes: Regular Rate and Rhythm, Murmur (2-3/6 blowing systolic murmur LSB) Respiratory: Yes: CTA Bilaterally Gastrointestinal Inspection: Yes: WNL ...Auscultate: Yes: Normoactive Bowel Sounds ext.--no c/c/e Abnormal Lab Results 07/20/16 07/22/16 07/22/16 08:00 05:38 05:38 Hgb 9.6 L D Hct 29.9 L D MCV 62.9 L RDW 27.9 H Potassium 3.4 L Random Glucose 163 H Calcium 8.0 L Iron 15 L AST 44 H Albumin 3.2 L Assessment/Plan Patient with profound microcytic anemia. Microcytosis is profound for degree of anemia. ? baseline thalassemia trait with worseing anemia Frrritin 14/stool occult neg. check iron saturation/ESR/CRP/B!@/folate/protein studies s/p transfusion Will replete iron based on above studies
[2016-07-23] MEDS ORDERED: PT OWN MED DRAWER 7, Y5N ONE (06:17)
[2016-07-23] MEDS: LEVOTHYROXINE NA 175 MCG TABLET PO SCH (06:40)
[2016-07-23] MEDS: INSULIN SLIDING SCALE (NOVOLOG) 1 VIAL SQ SCH ×4 (06:41→22:06)
[2016-07-23] MEDS: glipiZIDE-XL 10 MG TAB.ER.24 (FP) PO SCH (06:41)
[2016-07-23] MEDS: LEVOTHYROXINE 100 MCG, LEVOTHYROXINE 75 MCG PO SCH (06:53)
[2016-07-23 07:21] LABS: INR 1.13 (0.82-1.09); PROTHROMBIN TIME (PATIENT) 12.5 SEC (9.98-11.88)
[2016-07-23 07:40] LABS: ANION GAP 9 (8-16); CALCIUM 8.1 mg/dL (8.5-10.1); CO2 30 mmol/L (21-32); GLUCOSE,RANDOM 158 mg/dL (74-106)
[2016-07-23 07:42] LABS: BASOPHIL 0.6 % (0-2.0); MCHC 30.6 g/dl (32.0-36.0); MEAN CELL VOLUME 64.4 fl (80-96); MEAN PLT VOLUME 8.4 fl (7.5-11.1); NEUTROPHILS 68.9 % (42.8-82.8); PLATELET COUNT 311 K/MM3 (134-434); RDW 28.9 % (11.6-15.6); WHITE BLOOD COUNT 4.3 K/mm3 (4.0-10.0)
[2016-07-23 07:43] LABS: ALK PHOS 63 U/L (45-117); BILIRUBIN,TOTAL 0.6 mg/dL (0.2-1.0); COCKROFT - GAULT 70.295; CREATININE 0.7 mg/dL (0.55-1.02); SGOT/AST 51 U/L (15-37); SGPT/ALT 26 U/L (12-78); TOT PROT 6.4 g/dl (6.4-8.2)
[2016-07-23 08:14] LABS: MCH 19.7 pg (25.7-33.7)
[2016-07-23 09:08] LABS: C-REACTIVE PROTEIN 1.1 MG/DL (0.00-0.3)
[2016-07-23 09:14] LABS: FERRITIN 63.762 ng/ml (6.9-282.5)
[2016-07-23] MEDS: METOPROLOL SUCCINATE 50 MG TAB.SR.24H (FP) PO SCH (09:57)
[2016-07-23] MEDS: amLODIPine BESYLATE 5 MG TABLET (FP) PO SCH (09:57)
[2016-07-23] MEDS: PANTOPRAZOLE 40 MG TABLET (FP) PO SCH (09:57)
[2016-07-23] MEDS: DONEPEZIL HCL 10 MG TABLET (FP) PO SCH (09:58)
[2016-07-23] MEDS ORDERED: METOPROLOL SUCCINATE 50 MG TAB.SR.24H (FP) PO SCH (10:30)
--- NOTE | 2016-07-23 10:41 | PN ---
Progress Note, Physician History of Present Illness: No complaints, denies chest pain, dyspnea, bleeding. - Current Medication List Current Medications: Active Medications Acetaminophen (Tylenol -) 650 mg PO Q4H PRN PRN Reason: PAIN OR FEVER >100.4 Amlodipine Besylate (Norvasc -) 5 mg PO DAILY [facility] Last Admin: 07/23/16 09:57 Dose: 5 mg Atorvastatin Calcium (Lipitor -) 10 mg PO HS [facility] Last Admin: 07/22/16 21:20 Dose: 10 mg Donepezil HCl (Aricept -) 10 mg PO DAILY [facility] Last Admin: 07/23/16 09:58 Dose: 10 mg Glipizide (Glucotrol Xl -) 10 mg PO DAILY@0700 [facility] Last Admin: 07/23/16 06:41 Dose: 10 mg Insulin Aspart (Novolog Vial Sliding Scale -) 1 vial SQ ACHS [facility] PRN Reason: Protocol Last Admin: 07/23/16 06:41 Dose: 2 units Levothyroxine Sodium 100 mcg/ (Levothyroxine Sodium 75 mcg) 175 mcg PO DAILY@ 0700 [facility] Last Admin: 07/23/16 06:53 Dose: Not Given Metoprolol Succinate (Toprol Xl -) 50 mg PO DAILY [facility] Pantoprazole Sodium (Protonix -) 40 mg PO DAILY [facility] Last Admin: 07/23/16 09:57 Dose: 40 mg Warfarin Sodium (Coumadin -) 2 mg PO DAILY@1800 [facility] - Objective Vital Signs: Vital Signs Temperature 98.4 F 07/23/16 06:00 Pulse Rate 73 07/23/16 06:00 Respiratory Rate 18 07/23/16 08:43 Blood Pressure 153/70 07/23/16 06:00 O2 Sat by Pulse Oximetry (%) 96 07/23/16 08:43 Constitutional: Yes: No Distress, Calm Neck: Yes: Supple Cardiovascular: Yes: Regular Rate and Rhythm Respiratory: Yes: Regular, Diminished Gastrointestinal: Yes: Normal Bowel Sounds, Soft Edema: No Labs: CBC, BMP 07/23/16 05:35 07/23/16 05:35 INR, PTT INR 1.13 (0.82-1.09) 07/23/16 05:35 Problem List - Problems (1) CAD (coronary artery disease) Code(s): I25.10 - ATHSCL HEART DISEASE OF [place] CORONARY ARTERY W/O ANG PCTRS Qualifiers: Coronary Disease-Associated Artery/Lesion type: [place] artery [place] vs. transplanted heart: [place] heart Associated angina: without angina Qualified Code(s): I25.10 - Atherosclerotic heart disease of [place] coronary artery without angina pectoris (2) Diabetes mellitus Code(s): E11.9 - TYPE 2 DIABETES MELLITUS WITHOUT COMPLICATIONS Qualifiers: Diabetes mellitus type: type 2 (3) Hypercholesterolemia Code(s): E78.00 - PURE HYPERCHOLESTEROLEMIA, UNSPECIFIED (4) Hypertension Code(s): I10 - ESSENTIAL (PRIMARY) HYPERTENSION Qualifiers: Hypertension type: essential hypertension Qualified Code(s): I10 - Essential (primary) hypertension (5) Hypothyroidism Code(s): E03.9 - HYPOTHYROIDISM, UNSPECIFIED Qualifiers: Hypothyroidism type: unspecified Qualified Code(s): E03.9 - Hypothyroidism, unspecified (6) Left ventricular diastolic dysfunction Code(s): I51.9 - HEART DISEASE, UNSPECIFIED (7) Paroxysmal atrial fibrillation Code(s): I48.0 - PAROXYSMAL ATRIAL FIBRILLATION (8) Pulmonary hypertension Code(s): I27.2 - OTHER SECONDARY PULMONARY HYPERTENSION (9) Demand ischemia Code(s): I24.8 - OTHER FORMS OF ACUTE ISCHEMIC HEART DISEASE Assessment/Plan 1. CAD angina pectoris with evidence of demand ischemic injury in context of profound anemia 2. Diastolic LV dysfunction with class I NYHA classification LV failure and pulm HTN 3. PAF currently in sinus rhythm, [id number] score of 6 on Coumadin therapy with subtherapeutic INR 4. Anemia, iron deficiency etiology to be determined, GI bleed considered unlikely 5. HTN 6. DM 7. Hypercholesterolemia 8. Organic brain syndrome 9. Hypothyroidism PLAN: 1. Continue Toprol XL 50 qd and Lipitor 10 qhs, change Norvasc to losartan 25 qd and uptitrate as hemodynamics tolerate 2. Transfuse to maintain Hg equal or > 8.0 3. GI evaluation appreciated, continue PPI 4. Resumed coumadin per INR given above noted [id number] score of 6
--- NOTE | 2016-07-23 11:28 | PN ---
Progress Note (short form) - Note Progress Note: Received total of 3 units of PRBC, feels much better. Still dyspneic on exertion. Has wet cough. CBC, BMP 07/23/16 05:35 07/23/16 05:35 S1S2 RRR +SM lungs scattered rhonchi abd soft NT +BS tr edema Imp Sever, symptomatic anemia-guiac negative twice CAD HTN NIDDM cardiology/GI evaluation greatly appreciated heme eval and pulmonary evaluation resume warfarin repeat CBC in am check CXR dc planning in am Problem List - Problems (1) Symptomatic anemia Code(s): D64.9 - ANEMIA, UNSPECIFIED (2) Atrial fibrillation Code(s): I48.91 - UNSPECIFIED ATRIAL FIBRILLATION Qualifiers: Atrial fibrillation type: persistent Qualified Code(s): I48.1 - Persistent atrial fibrillation (3) Hypertension Code(s): I10 - ESSENTIAL (PRIMARY) HYPERTENSION Qualifiers: Hypertension type: essential hypertension Qualified Code(s): I10 - Essential (primary) hypertension (4) Diabetes mellitus Code(s): E11.9 - TYPE 2 DIABETES MELLITUS WITHOUT COMPLICATIONS Qualifiers: Diabetes mellitus type: type 2 (5) Hypothyroidism Code(s): E03.9 - HYPOTHYROIDISM, UNSPECIFIED Qualifiers: Hypothyroidism type: unspecified Qualified Code(s): E03.9 - Hypothyroidism, unspecified
[2016-07-23] MEDS: LOSARTAN POTASSIUM 25 MG TABLET PO SCH (12:36)
--- NOTE | 2016-07-23 15:21 | CON.PULM ---
Consult Consult Specialty:: PULMONARY Referred by:: Dr. Segovia Reason for Consultation:: shortness of breath - History of Present Illness Chief Complaint: generalized weakness History of Present Illness: 81yo female with h/o HTN, DM, hyperlipidemia, hypothyroidism, CAD, LV dysfunction, pulmonary HTN, atrial fibrillation who was admitted with generalized weakness and was found to be anemic. She has been transfused 3 units PRBC so far. Noted to have rhonchi on exam today, pulmonary consulted for evaluation. She denies any current shortness of breath. No cough or wheezing. No chest pain or palpitations. Denies any history of asthma or COPD. She is a never smoker. No fevers, chills or sweats. 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) Cardio/Vascular: Yes: AFIB, CAD (card cath with BMS to PDA on ), HTN Musculoskeletal: Yes: Chronic low back pain, Osteoarthritis Endocrine: Yes: Diabetes Mellitus, Hypothyroidism - Alcohol/Substance Use Hx Alcohol Use: No - Smoking History Smoking history: Never smoked Have you smoked in the past 12 months: No - Social History ADL: Support Services History of Recent Travel: No Home Medications - Allergies Allergies/Adverse Reactions: Allergies Allergy/AdvReac Type Severity Reaction Status Date / Time shellfish derived Allergy Verified 07/20/16 14:44 - Home Medications Home Medications: Ambulatory Orders Digoxin [Lanoxin -] 0.25 mg PO DAILY 07/20/16 Donepezil HCl [Aricept -] 10 mg PO DAILY 07/20/16 Glipizide [Glipizide ER] 10 mg PO DAILY 07/20/16 Levothyroxine [Synthroid -] 175 mcg PO DAILY 07/20/16 Metoprolol Tartrate 25 mg PO DAILY 07/20/16 Pioglitazone HCl/Metformin HCl [Actoplus Met 15 mg-500 mg Tab] 1 each PO DAILY 07/20/16 Simvastatin [Zocor -] 20 mg PO HS 07/20/16 Warfarin Na [Coumadin] 2 mg PO DAILY 07/20/16 Review of Systems - Review of Systems Constitutional: reports: Weakness. denies: Chills, Fever Eyes: denies: Recent Change in Vision HENT: denies: Nasal Congestion, Throat Pain Neck: denies: Stiffness, Tenderness Cardiovascular: denies: Chest Pain, Palpitations, Shortness of Breath Respiratory: denies: Cough, Hemoptysis, SOB, Wheezing Gastrointestinal: denies: Abdominal Pain, Nausea, Vomiting Genitourinary: denies: Dysuria, Hematuria Neurological: denies: Dizziness, Headache Physical Exam Vital Sings: Vital Signs Temperature 98.2 F 07/23/16 14:15 Pulse Rate 54 L 07/23/16 14:15 Respiratory Rate 18 07/23/16 14:15 Blood Pressure 115/54 07/23/16 14:15 O2 Sat by Pulse Oximetry (%) 96 07/23/16 08:43 Constitutional: Yes: Calm Eyes: Yes: Conjunctiva Clear, EOM Intact HENT: Yes: Atraumatic, Normocephalic Neck: Yes: Supple, Trachea Midline Cardiovascular: Yes: Pulse Irregular Respiratory: Yes: Rhonchi, Wheezes ...Clubbing: No Gastrointestinal: Yes: Normal Bowel Sounds, Soft. No: Tenderness Edema: No Neurological: Yes: Alert, Oriented Labs: CBC, BMP 07/23/16 05:35 07/23/16 05:35 Imaging - Results Chest X-ray: Report Reviewed, Image Reviewed (no infiltrates) Problem List - Problems (1) Anemia Code(s): D64.9 - ANEMIA, UNSPECIFIED (2) Atrial fibrillation Code(s): I48.91 - UNSPECIFIED ATRIAL FIBRILLATION Qualifiers: Atrial fibrillation type: persistent Qualified Code(s): I48.1 - Persistent atrial fibrillation (3) Diabetes mellitus Code(s): E11.9 - TYPE 2 DIABETES MELL[place]US WITHOUT COMPLICATIONS Qualifiers: Diabetes mellitus type: type 2 (4) Hypertension Code(s): I10 - ESSENTIAL (PRIMARY) HYPERTENSION Qualifiers: Hypertension type: essential hypertension Qualified Code(s): I10 - Essential (primary) hypertension (5) Left ventricular diastolic dysfunction Code(s): I51.9 - HEART DISEASE, UNSPECIFIED Assessment/Plan Anemia s/p PRBC transfusions LV Diastolic Dysfunction Atrial Fibrillation Pulmonary HTN CAD HTN DM - agree with CXR to rule out pulmonary vascular congestion - will start inhaled bronchodilators as pt wheezing on exam - O2 as needed - rate controlled - continue anticoagulation - further recommendations pending CXR Thank you for this consult Negro Pyle MD
[2016-07-23] MEDS: ALBUTEROL SO4 2.5/IPRATROPIUM 0.5 INH SOL 3 ML VIAL.NEB. NEB SCH ×2 (17:00→22:00)
[2016-07-23] MEDS: WARFARIN NA 2 MG TABLET (UD) PO SCH (17:22)
[2016-07-23] MEDS: ATORVASTATIN CA 10 MG TABLET (FP) PO SCH (22:05)
--- NOTE | 2016-07-23 22:15 | PN ---
Progress Note (short form) - Note Progress Note: Patient seen and examined vitals/labs/meds reviewed Denies any complaints AFVSS Cor: RSR, No murmurs, No gallops Lungs: decreased at bases Abd: Soft, Normal bowel sounds, No organomegaly Ext:No significant edema Abnormal Lab Results 07/20/16 07/23/16 07/24/16 16:08 05:35 05:35 Hgb 9.8 L Hct 31.3 L MCV 64.3 L MCHC 31.2 L RDW 29.4 H Monocytes % 11.9 H Eosinophils % 5.0 H Iron 23 L Iron Saturation 6 L Crossmatch See Detail A/P Patient with profound microcytic anemia. Microcytosis is profound for degree of anemia. ? baseline thalassemia trait with worseing anemia coumadin on hold for afib Frrritin 14/stool occult neg. check iron saturation/ESR/CRP/B 12/folate/protein studies s/p transfusion awaiting above w/u if iron saturation is low will replete iron
[2016-07-24 06:07] LABS: HEMATOCRIT 34.4 % (34.0-46.6); SERUM IRON 23 ug/dL (27-139); TOTAL IRON BINDING CAPACITY 378 ug/dL (250-450); UIBC 355 ug/dL (118-369)
[2016-07-24] MEDS ORDERED: LEVOTHYROXINE NA 100 MCG TABLET (FP) ONE (06:38)
[2016-07-24] MEDS ORDERED: LEVOTHYROXINE NA 75 MCG TABLET (FP) ONE (06:39)
[2016-07-24] MEDS ORDERED: PT OWN MED DRAWER 7, Y5N ONE (06:40)
[2016-07-24] MEDS: ALBUTEROL SO4 2.5/IPRATROPIUM 0.5 INH SOL 3 ML VIAL.NEB. NEB SCH ×3 (06:42→21:38)
[2016-07-24] MEDS ORDERED: INSULIN (NOVOLOG) ASPART 100 UNITS/ML 10ML VIAL ONE (06:47)
[2016-07-24 06:48] LABS: BASOPHIL 0.5 % (0-2.0); MCH 20.1 pg (25.7-33.7); MCHC 31.2 g/dl (32.0-36.0); MEAN CELL VOLUME 64.3 fl (80-96); MEAN PLT VOLUME 8.7 fl (7.5-11.1); NEUTROPHILS 52.9 % (42.8-82.8); PLATELET COUNT 263 K/MM3 (134-434); RDW 29.4 % (11.6-15.6); WHITE BLOOD COUNT 4.1 K/mm3 (4.0-10.0)
[2016-07-24] MEDS: glipiZIDE-XL 10 MG TAB.ER.24 (FP) PO SCH (06:50)
[2016-07-24] MEDS: INSULIN SLIDING SCALE (NOVOLOG) 1 VIAL SQ SCH ×4 (06:50→22:20)
[2016-07-24] MEDS: LEVOTHYROXINE 100 MCG, LEVOTHYROXINE 75 MCG PO SCH (06:50)
[2016-07-24 07:11] LABS: INR 1.12 (0.82-1.09); PROTHROMBIN TIME (PATIENT) 12.4 SEC (9.98-11.88)
--- NOTE | 2016-07-24 09:21 | DS ---
Physical Examination Vital Signs: Vital Signs Temperature 98.2 F 07/24/16 06:53 Pulse Rate 65 07/24/16 06:53 Respiratory Rate 20 07/24/16 06:53 Blood Pressure 144/55 07/24/16 06:53 O2 Sat by Pulse Oximetry (%) 91 L 07/23/16 22:14 Constitutional: Yes: No Distress Eyes: Yes: EOM Intact HENT: Yes: Normocephalic Neck: Yes: Trachea Midline Cardiovascular: Yes: Regular Rate and Rhythm Respiratory: Yes: CTA Bilaterally Gastrointestinal: Yes: Normal Bowel Sounds, Soft Edema: No Peripheral Pulses WNL: Yes Neurological: Yes: WNL Psychiatric: Yes: WNL Labs: CBC, BMP 07/24/16 05:35 07/23/16 05:35 Discharge Summary Reason For Visit: SECONDARY ANEMIA Current Active Problems Acute electrocardiogram changes (Acute) Anemia (Acute) Aortic regurgitation (Acute) Aortic valvar stenosis (Acute) Atrial fibrillation (Acute) CAD (coronary artery disease) (Acute) Chronic bronchitis (Acute) Demand ischemia (Acute) Diabetes mellitus (Acute) Elevated troponin (Acute) Hypercholesterolemia (Acute) Hypertension (Acute) Hypothyroidism (Acute) Left ventricular diastolic dysfunction (Acute) Mitral valvular disorder (Acute) Organic brain syndrome (Acute) Paroxysmal atrial fibrillation (Acute) Pulmonary hypertension (Acute) Symptomatic anemia (Acute) Tricuspid regurgitation (Acute) Hospital Course: Admitted for symptomatic anemia, received 3 unit PRBC transfusions. Echo showed pulmonary HTN. CXR repeatedly negative for CHF or PNA. iron studies low. guiac negative times two. d/w , given multiple comorbidities and history of poor nutrition, would treat with iron replacement first and defer endoscopy. heme evaluation was done, pt will start oral iron supplementation. resume low dose warfarin, monitor INR and CBC weekly. dc planning to SNF. - Instructions Referrals: Parul Staton MD [Primary Care Provider] - - Home Medications Comprehensive Discharge Medication List: Ambulatory Orders Digoxin [Lanoxin -] 0.25 mg PO DAILY 07/20/16 Donepezil HCl [Aricept -] 10 mg PO DAILY 07/20/16 Glipizide [Glipizide ER] 10 mg PO DAILY 07/20/16 Levothyroxine [Synthroid -] 175 mcg PO DAILY 07/20/16 Metoprolol Tartrate 25 mg PO DAILY 07/20/16 Pioglitazone HCl/Metformin HCl [Actoplus Met 15 mg-500 mg Tab] 1 each PO DAILY 07/20/16 Simvastatin [Zocor -] 20 mg PO HS 07/20/16 Warfarin Na [Coumadin] 2 mg PO DAILY 07/20/16
[2016-07-24 09:23] LABS: HYPOCHROMIA 1+; PLATELET ESTIMATE ADEQUATE (NORMAL); POLYCHROMASIA FEW
[2016-07-24 09:24] LABS: ANISOCYTOSIS 2+; MICROCYTOSIS 1+; OVALOCYTES 1+
[2016-07-24] MEDS: PANTOPRAZOLE 40 MG TABLET (FP) PO SCH (10:20)
[2016-07-24] MEDS: DONEPEZIL HCL 10 MG TABLET (FP) PO SCH (10:21)
[2016-07-24] MEDS: LOSARTAN POTASSIUM 25 MG TABLET PO SCH (10:21)
--- NOTE | 2016-07-24 11:00 | PN ---
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 repeat CBC in am Problem List - Problems (1) Symptomatic anemia Code(s): D64.9 - ANEMIA, UNSPECIFIED (2) Atrial fibrillation Code(s): I48.91 - UNSPECIFIED ATRIAL FIBRILLATION Qualifiers: Atrial fibrillation type: persistent Qualified Code(s): I48.1 - Persistent atrial fibrillation (3) Hypertension Code(s): I10 - ESSENTIAL (PRIMARY) HYPERTENSION Qualifiers: Hypertension type: essential hypertension Qualified Code(s): I10 - Essential (primary) hypertension (4) Diabetes mellitus Code(s): E11.9 - TYPE 2 DIABETES [place] WITHOUT COMPLICATIONS Qualifiers: Diabetes mellitus type: type 2 (5) Hypothyroidism Code(s): E03.9 - HYPOTHYROIDISM, UNSPECIFIED Qualifiers: Hypothyroidism type: unspecified Qualified Code(s): E03.9 - Hypothyroidism, unspecified
--- NOTE | 2016-07-24 13:11 | PN ---
Progress Note, Physician History of Present Illness: No complaints, denies chest pain, dyspnea, bleeding. Slow aflutter on telemetry. - Current Medication List Current Medications: Active Medications Acetaminophen (Tylenol -) 650 mg PO Q4H PRN PRN Reason: PAIN OR FEVER >100.4 Albuterol/Ipratropium (Duoneb -) 1 amp NEB TIDR [facility] Last Admin: 07/24/16 06:42 Dose: 1 amp Atorvastatin Calcium (Lipitor -) 10 mg PO HS [facility] Last Admin: 07/23/16 22:05 Dose: 10 mg Donepezil HCl (Aricept -) 10 mg PO DAILY [facility] Last Admin: 07/24/16 10:21 Dose: 10 mg Glipizide (Glucotrol Xl -) 10 mg PO DAILY@0700 [facility] Last Admin: 07/24/16 06:50 Dose: Not Given Guaifenesin (Robitussin Dm -) 10 ml PO Q6H PRN PRN Reason: COUGH Insulin Aspart (Novolog Vial Sliding Scale -) 1 vial SQ ACHS [facility] PRN Reason: Protocol Last Admin: 07/24/16 12:18 Dose: 2 units Levothyroxine Sodium 100 mcg/ (Levothyroxine Sodium 75 mcg) 175 mcg PO DAILY@ 0700 [facility] Last Admin: 07/24/16 06:50 Dose: Not Given Losartan Potassium (Cozaar -) 25 mg PO DAILY [facility] Last Admin: 07/24/16 10:21 Dose: 25 mg Metoprolol Succinate (Toprol Xl -) 50 mg PO DAILY [facility] Last Admin: 07/24/16 12:16 Dose: Not Given Pantoprazole Sodium (Protonix -) 40 mg PO DAILY [facility] Last Admin: 07/24/16 10:20 Dose: 40 mg Polysaccharide Iron Complex (Niferex-150 -) 150 mg PO DAILY [facility] Warfarin Sodium (Coumadin -) 2 mg PO DAILY@1800 [facility] Last Admin: 07/23/16 17:22 Dose: 2 mg - Objective Vital Signs: Vital Signs Temperature 98.2 F 07/24/16 06:53 Pulse Rate 65 07/24/16 06:53 Respiratory Rate 20 07/24/16 06:53 Blood Pressure 144/55 07/24/16 06:53 O2 Sat by Pulse Oximetry (%) 91 L 07/23/16 22:14 Constitutional: Yes: No Distress, Calm Neck: Yes: Supple Cardiovascular: Yes: Regular Rate and Rhythm Respiratory: Yes: Regular, Diminished Gastrointestinal: Yes: Normal Bowel Sounds, Soft Edema: No Labs: CBC, BMP 07/24/16 05:35 07/23/16 05:35 INR, PTT INR 1.12 (0.82-1.09) 07/24/16 05:35 - ....Imaging EKG: Report Reviewed (Tele: Slow aflutter) Problem List - Problems (1) CAD (coronary artery disease) Code(s): I25.10 - ATHSCL HEART DISEASE OF [place] CORONARY ARTERY W/O ANG PCTRS Qualifiers: Coronary Disease-Associated Artery/Lesion type: [place] artery [place] vs. transplanted heart: [place] heart Associated angina: without angina Qualified Code(s): I25.10 - Atherosclerotic heart disease of [place] coronary artery without angina pectoris (2) Diabetes mellitus Code(s): E11.9 - TYPE 2 DIABETES MELLITUS WITHOUT COMPLICATIONS Qualifiers: Diabetes mellitus type: type 2 (3) Hypercholesterolemia Code(s): E78.00 - PURE HYPERCHOLESTEROLEMIA, UNSPECIFIED (4) Hypertension Code(s): I10 - ESSENTIAL (PRIMARY) HYPERTENSION Qualifiers: Hypertension type: essential hypertension Qualified Code(s): I10 - Essential (primary) hypertension (5) Hypothyroidism Code(s): E03.9 - HYPOTHYROIDISM, UNSPECIFIED Qualifiers: Hypothyroidism type: unspecified Qualified Code(s): E03.9 - Hypothyroidism, unspecified (6) Left ventricular diastolic dysfunction Code(s): I51.9 - HEART DISEASE, UNSPECIFIED (7) Paroxysmal atrial fibrillation Code(s): I48.0 - PAROXYSMAL ATRIAL FIBRILLATION (8) Pulmonary hypertension Code(s): I27.2 - OTHER SECONDARY PULMONARY HYPERTENSION (9) Demand ischemia Code(s): I24.8 - OTHER FORMS OF ACUTE ISCHEMIC HEART DISEASE Assessment/Plan 1. CAD angina pectoris with evidence of demand ischemic injury in context of profound anemia 2. Diastolic LV dysfunction with class I NYHA classification LV failure and pulm HTN 3. PAF currently in sinus rhythm, [id number] score of 6 on Coumadin therapy with subtherapeutic INR 4. Anemia, iron deficiency etiology to be determined, GI bleed considered unlikely 5. HTN 6. DM 7. Hypercholesterolemia 8. Organic brain syndrome 9. Hypothyroidism PLAN: 1. Decrease Toprol XL 25 qd and continue Lipitor 10 qhs and losartan 25 qd and uptitrate as hemodynamics tolerate 2. Transfuse to maintain Hg equal or > 8.0 3. GI evaluation appreciated, continue PPI 4. Resumed coumadin per INR given above noted [id number] score of 6
--- NOTE | 2016-07-24 13:44 | PN ---
Progress Note, Physician History of Present Illness: PULMONARY ALERT,NAD,+TINEO,-CP - Current Medication List Current Medications: Active Medications Acetaminophen (Tylenol -) 650 mg PO Q4H PRN PRN Reason: PAIN OR FEVER >100.4 Albuterol/Ipratropium (Duoneb -) 1 amp NEB TIDR [facility] Last Admin: 07/24/16 06:42 Dose: 1 amp Atorvastatin Calcium (Lipitor -) 10 mg PO HS [facility] Last Admin: 07/23/16 22:05 Dose: 10 mg Donepezil HCl (Aricept -) 10 mg PO DAILY [facility] Last Admin: 07/24/16 10:21 Dose: 10 mg Glipizide (Glucotrol Xl -) 10 mg PO DAILY@0700 [facility] Last Admin: 07/24/16 06:50 Dose: Not Given Guaifenesin (Robitussin Dm -) 10 ml PO Q6H PRN PRN Reason: COUGH Insulin Aspart (Novolog Vial Sliding Scale -) 1 vial SQ ACHS [facility] PRN Reason: Protocol Last Admin: 07/24/16 12:18 Dose: 2 units Levothyroxine Sodium 100 mcg/ (Levothyroxine Sodium 75 mcg) 175 mcg PO DAILY@ 0700 [facility] Last Admin: 07/24/16 06:50 Dose: Not Given Losartan Potassium (Cozaar -) 25 mg PO DAILY [facility] Last Admin: 07/24/16 10:21 Dose: 25 mg Metoprolol Succinate (Toprol Xl -) 25 mg PO DAILY [facility] Pantoprazole Sodium (Protonix -) 40 mg PO DAILY [facility] Last Admin: 07/24/16 10:20 Dose: 40 mg Polysaccharide Iron Complex (Niferex-150 -) 150 mg PO DAILY [facility] Warfarin Sodium (Coumadin -) 2 mg PO DAILY@1800 [facility] Last Admin: 07/23/16 17:22 Dose: 2 mg - Objective Vital Signs: Vital Signs Temperature 97.8 F 07/24/16 10:00 Pulse Rate 65 07/24/16 10:00 Respiratory Rate 20 07/24/16 10:00 Blood Pressure 140/56 07/24/16 10:00 O2 Sat by Pulse Oximetry (%) 91 L 07/24/16 10:00 Constitutional: Yes: Well Nourished, Calm Eyes: Yes: WNL HENT: Yes: WNL Neck: Yes: WNL Cardiovascular: Yes: Pulse Irregular, S1, S2 Respiratory: Yes: Rales (FEW BIBASILAR CRACKLES) Gastrointestinal: Yes: WNL Extremities: Yes: WNL Edema: No Labs: CBC, BMP 07/24/16 05:35 INR, PTT INR 1.12 (0.82-1.09) 07/24/16 05:35 Assessment/Plan Problem List - Problems (1) Anemia Code(s): D64.9 - ANEMIA, UNSPECIFIED (2) Atrial fibrillation Code(s): I48.91 - UNSPECIFIED ATRIAL FIBRILLATION Qualifiers: Atrial fibrillation type: persistent Qualified Code(s): I48.1 - Persistent atrial fibrillation (3) Diabetes mellitus Code(s): E11.9 - TYPE 2 DIABETES MELLITUS WITHOUT COMPLICATIONS Qualifiers: Diabetes mellitus type: type 2 (4) Hypertension Code(s): I10 - ESSENTIAL (PRIMARY) HYPERTENSION Qualifiers: Hypertension type: essential hypertension Qualified Code(s): I10 - Essential (primary) hypertension (5) Left ventricular diastolic dysfunction Code(s): I51.9 - HEART DISEASE, UNSPECIFIED Assessment/Plan Anemia s/p PRBC transfusions LV Diastolic Dysfunction Atrial Fibrillation Pulmonary HTN CAD HTN DM - inhaled bronchodilators - O2 as needed - rate controlled - continue anticoagulation DR GAMBLE
[2016-07-24] MEDS: guaiFENesin/D-METHORPHAN HB 10 ML UNIT-DOSE CUPS PO PRN ×2 (14:29→20:23)
[2016-07-24] MEDS: IRON POLYSACCHARIDES 150 MG CAPSULE PO SCH (17:08)
[2016-07-24] MEDS: WARFARIN NA 2 MG TABLET (UD) PO SCH (17:09)
[2016-07-24] MEDS: ATORVASTATIN CA 10 MG TABLET (FP) PO SCH (22:20)
[2016-07-25 02:52] LABS: ALBUMIN 2.9 g/dL (2.9-4.4); ALPHA-1-GLOBULIN 0.3 g/dL (0.0-0.4); GLOBULIN, TOTAL 3.2 g/dL (2.2-3.9); M-SPIKE Not Observed g/dL (Not Observed); TOTAL PROTEIN 6.1 g/dL (6.0-8.5)
[2016-07-25] MEDS ORDERED: LEVOTHYROXINE NA 100 MCG TABLET (FP) ONE (06:26)
[2016-07-25] MEDS ORDERED: LEVOTHYROXINE NA 75 MCG TABLET (FP) ONE (06:27)
[2016-07-25] MEDS ORDERED: PT OWN MED DRAWER 7, Y5N ONE ×2 (06:27→09:23)
[2016-07-25] MEDS: ALBUTEROL SO4 2.5/IPRATROPIUM 0.5 INH SOL 3 ML VIAL.NEB. NEB SCH ×3 (06:37→22:10)
[2016-07-25] MEDS: glipiZIDE-XL 10 MG TAB.ER.24 (FP) PO SCH (06:44)
[2016-07-25] MEDS: LEVOTHYROXINE 100 MCG, LEVOTHYROXINE 75 MCG PO SCH (06:44)
[2016-07-25] MEDS: INSULIN SLIDING SCALE (NOVOLOG) 1 VIAL SQ SCH ×4 (06:45→22:47)
[2016-07-25 07:32] LABS: BASOPHIL 0.4 % (0-2.0); EOSINOPHIL 4.4 % (0-4.5); MCHC 31.1 g/dl (32.0-36.0); MEAN CELL VOLUME 64.1 fl (80-96); PLATELET COUNT 278 K/MM3 (134-434); RDW 30.5 % (11.6-15.6); WHITE BLOOD COUNT 3.8 K/mm3 (4.0-10.0)
[2016-07-25 07:45] LABS: MCH 19.9 pg (25.7-33.7)
--- NOTE | 2016-07-25 07:48 | PN ---
Progress Note (short form) - Note Progress Note: Cough-non productive, persistent, chronic as per pt. CBC, BMP 07/25/16 06:00 07/25/16 06:00 Vital Signs Period Temp Pulse Resp BP Sys/Gong Pulse Ox Last 24 Hr 97.8 F-98.8 F 57-89 18-20 128-148/56-76 91-97 S1S2 RRR Lungs cta Abd soft NT +BS no edema Imp anemia-iron deficient progressive again on warfarin HTN Pulmonary HTN Afib DM cough-no fever, no infiltrate in CXR add nasal spray and robitussin Plan repeat CBC GI f/up CT abd/pelvis r/o bleed PT warfarin if no endoscopy done with close monitoring Problem List - Problems (1) Symptomatic anemia Code(s): D64.9 - ANEMIA, UNSPECIFIED (2) Atrial fibrillation Code(s): I48.91 - UNSPECIFIED ATRIAL FIBRILLATION Qualifiers: Atrial fibrillation type: persistent Qualified Code(s): I48.1 - Persistent atrial fibrillation (3) Hypertension Code(s): I10 - ESSENTIAL (PRIMARY) HYPERTENSION Qualifiers: Hypertension type: essential hypertension Qualified Code(s): I10 - Essential (primary) hypertension (4) Diabetes mellitus Code(s): E11.9 - TYPE 2 DIABETES MELLITUS WITHOUT COMPLICATIONS Qualifiers: Diabetes mellitus type: type 2 (5) Hypothyroidism Code(s): E03.9 - HYPOTHYROIDISM, UNSPECIFIED Qualifiers: Hypothyroidism type: unspecified Qualified Code(s): E03.9 - Hypothyroidism, unspecified
[2016-07-25 08:00] LABS: ALBUMIN 2.9 g/dl (3.4-5.0); ALK PHOS 60 U/L (45-117); ANION GAP 9 (8-16); BILIRUBIN,TOTAL 0.4 mg/dL (0.2-1.0); CALCIUM 8.3 mg/dL (8.5-10.1); CO2 27 mmol/L (21-32); COCKROFT - GAULT 70.295; CREATININE 0.7 mg/dL (0.55-1.02); GLUCOSE,RANDOM 189 mg/dL (74-106); SGOT/AST 48 U/L (15-37); SGPT/ALT 31 U/L (12-78)
[2016-07-25 08:11] LABS: INR 1.2 (0.82-1.09); PROTHROMBIN TIME (PATIENT) 13.3 SEC (9.98-11.88)
[2016-07-25] MEDS: PANTOPRAZOLE 40 MG TABLET (FP) PO SCH (09:42)
[2016-07-25] MEDS: IRON POLYSACCHARIDES 150 MG CAPSULE PO SCH (09:42)
[2016-07-25] MEDS: METOPROLOL SUCCINATE 25 MG TAB.SR.24H (FP) PO SCH (09:42)
[2016-07-25] MEDS: LOSARTAN POTASSIUM 25 MG TABLET PO SCH (09:42)
[2016-07-25] MEDS: FLUTICASONE PROP 0.05% 16 GM NASAL SPRAY NS SCH ×2 (09:43→22:51)
[2016-07-25] MEDS: DONEPEZIL HCL 10 MG TABLET (FP) PO SCH (09:43)
--- NOTE | 2016-07-25 12:01 | PN ---
Progress Note (short form) - Note Progress Note: Chief Complaint: Events noted, notes reviewed, reports persistent dyspnea, denies any chest pain History of Present Illness: Seen and examined on telemetry. Events noted, notes reviewed, reports persistent dyspnea, denies any chest pain A/C resumed with Coumadin Echocardiography revealed normal LV size and function, moderate MR, mild to moderate TR with severe pulmonary HTN RVSP > 60 mmHg - Current Medication List Current Medications Acetaminophen (Tylenol -) 650 mg PO Q4H PRN PRN Reason: PAIN OR FEVER >100.4 Albuterol/Ipratropium (Duoneb -) 1 amp NEB TIDR [facility] Last Admin: 07/25/16 06:37 Dose: 1 amp Atorvastatin Calcium (Lipitor -) 10 mg PO HS [facility] Last Admin: 07/24/16 22:20 Dose: 10 mg Benzocaine/Menthol (Cepacol Lozenge -) 1 each MM Q2H PRN PRN Reason: SORE THROAT Donepezil HCl (Aricept -) 10 mg PO DAILY [facility] Last Admin: 07/25/16 09:43 Dose: 10 mg Fluticasone Propionate (Flonase -) 1 spray NS BID [facility] Last Admin: 07/25/16 09:43 Dose: Not Given Glipizide (Glucotrol Xl -) 10 mg PO DAILY@0700 [facility] Last Admin: 07/25/16 06:44 Dose: 10 mg Guaifenesin (Robitussin Dm -) 10 ml PO Q6H PRN PRN Reason: COUGH Last Admin: 07/24/16 20:23 Dose: 10 ml Insulin Aspart (Novolog Vial Sliding Scale -) 1 vial SQ ACHS [facility] PRN Reason: Protocol Last Admin: 07/25/16 11:52 Dose: 2 units Levothyroxine Sodium 100 mcg/ (Levothyroxine Sodium 75 mcg) 175 mcg PO DAILY@ 0700 [facility] Last Admin: 07/25/16 06:44 Dose: 175 mcg Losartan Potassium (Cozaar -) 25 mg PO DAILY [facility] Last Admin: 07/25/16 09:42 Dose: 25 mg Metoprolol Succinate (Toprol Xl -) 25 mg PO DAILY [facility] Last Admin: 07/25/16 09:42 Dose: 25 mg Pantoprazole Sodium (Protonix -) 40 mg PO DAILY [facility] Last Admin: 07/25/16 09:42 Dose: 40 mg Polysaccharide Iron Complex (Niferex-150 -) 150 mg PO DAILY [facility] Last Admin: 07/25/16 09:42 Dose: 150 mg Warfarin Sodium (Coumadin -) 2 mg PO DAILY@1800 [facility] Last Admin: 07/24/16 17:09 Dose: 2 mg Review of Systems Cardiovascular: As noted above Respiratory: denies: Cough or Sputum Production Gastrointestinal: denies: Nausea, Vomiting, Diarrhea, Constipation or Abdominal Discomfort Musculoskeletal: No Symptoms Reported Endocrine: No Symptoms Reported - Objective Vital Signs: Last Vital Signs Temp Pulse Resp BP Pulse Ox 97.9 F 69 18 148/64 97 07/25/16 06:21 07/25/16 06:21 07/25/16 06:21 07/25/16 06:21 07/24/16 20:54 HEENT: SOLO, EOMI Unicteric Sclera Neck: Supple Negative JVD Cardiovascular: S1 S2 Regular Rate and Rhythm Grade 2/6 ANDREA Respiratory: Minimal Scattered Ronchi Bilaterally Gastrointestinal: Soft Benign Normal Bowel Sounds Ext: Trace Edema Labs: CBC, BMP 07/25/16 06:00 07/25/16 06:00 Assessment/Plan ASSESSMENT: 1. CAD angina pectoris with evidence of demand ischemic injury in context of profound anemia 2. Diastolic LV dysfunction with class I NYHA classification LV failure, compensated 3. PAF currently in sinus rhythm, [id number] score of 6 on Coumadin therapy, therapy resumed 4. Anemia, iron deficiency etiology undetermined 5. HTN 6. DM 7. Hypercholesterolemia 8. 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 Hypothyroidism PLAN: 1. Continue Toprol XL 2. Continue Cozaar 3. Continue Coumadin with caution and close monitoring of CBC and INR 4. Continue Lipitor 5. Transfuse as needed to maintain Hg > 8.0 6. As outlined in prior notes A/C should be continued indefinitely unless source of bleed cannot be determined or treated, considering the above noted [id number] score of 6 Sohail Franco MD
[2016-07-25] MEDS ORDERED: IRON SUCROSE INJECTION 100 MG in SODIUM CHLORIDE 95 ML IVPB ONE (13:38)
--- NOTE | 2016-07-25 13:38 | PN ---
Progress Note (short form) - Note Progress Note: Patient seen and examined Offers no complaints of chest pains, SOB, dyspnea. No abdominal pain, nausea, vomiting, diarrhea, constipation Last Vital Signs Temp Pulse Resp BP Pulse Ox 97.9 F 59 L 18 150/68 96 07/25/16 10:00 07/25/16 10:00 07/25/16 10:00 07/25/16 10:00 07/25/16 09:00 HEENT: SOLO, EOM Intact Oropharynx: No thrush, No mucositis Neck: Supple Breasts: Without masses Cor: irregular systolic murmur Lungs: Clear to P&A Abd: Soft, Normal bowel sounds, No organomegaly Ext:No significant edema Skin: No rashes, Integument intact CBC, BMP 07/25/16 06:00 07/25/16 06:00 Current Medications Generic Name Dose Route Start Last Admin Trade Name Freq PRN Reason Stop Dose Admin Acetaminophen 650 mg 07/21/16 20:46 Tylenol - PO Q4H PRN PAIN OR FEVER >100.4 Albuterol/Ipratropium 1 amp 07/23/16 16:00 07/25/16 06:37 Duoneb - NEB 1 amp TIDR [facility] Administration Atorvastatin Calcium 10 mg 07/22/16 22:00 07/24/16 22:20 Lipitor - PO 10 mg HS [facility] Administration Benzocaine/Menthol 1 each 07/24/16 22:09 Cepacol Lozenge - MM Q2H PRN SORE THROAT Donepezil HCl 10 mg 07/22/16 10:00 07/25/16 09:43 Aricept - PO 10 mg DAILY [facility] Administration Fluticasone Propionate 1 spray 07/25/16 10:00 07/25/16 09:43 Flonase - NS Not Given BID [facility] Glipizide 10 mg 07/22/16 10:00 07/25/16 06:44 Glucotrol Xl - PO 10 mg DAILY@0700 [facility] Administration Guaifenesin 10 ml 07/24/16 10:50 07/24/16 20:23 Robitussin Dm - PO 10 ml Q6H PRN Administration COUGH Insulin Aspart 1 vial 07/20/16 20:26 07/25/16 11:52 Novolog Vial Sliding Scale - SQ 2 units ACHS [facility] Administration Protocol Levothyroxine Sodium 100 mcg/ 175 mcg 07/23/16 07:00 07/25/16 06:44 Levothyroxine Sodium 75 mcg PO 175 mcg DAILY@0700 [facility] Administration Losartan Potassium 25 mg 07/23/16 12:00 07/25/16 09:42 Cozaar - PO 25 mg DAILY [facility] Administration Metoprolol Succinate 25 mg 07/24/16 13:18 07/25/16 09:42 Toprol Xl - PO 25 mg DAILY [facility] Administration Pantoprazole Sodium 40 mg 07/20/16 20:30 07/25/16 09:42 Protonix - PO 40 mg DAILY [facility] Administration Polysaccharide Iron Complex 150 mg 07/24/16 10:00 07/25/16 09:42 Niferex-150 - PO 150 mg DAILY [facility] Administration Warfarin Sodium 2 mg 07/23/16 18:00 07/24/16 17:09 Coumadin - PO 2 mg DAILY@1800 [facility] Administration Impression: Symptomatic anemia Suspect thalassemia ( HbE -pending) and Fe ++ deficiency ( low Fe++ sat and low ferritin) Stool guaics negative Leukopenia Plan: IV Venofer In view of need for a/c with coumadin for Atrial fib- will need GI work up. Await HbE Repeat CBC
--- NOTE | 2016-07-25 13:56 | PN ---
Progress Note (short form) - Note Progress Note: PULMONARY States breathing much improved. Denies cough or wheezing. Last Vital Signs Temp Pulse Resp BP Pulse Ox 97.9 F 59 L 18 150/68 96 07/25/16 10:00 07/25/16 10:00 07/25/16 10:00 07/25/16 10:00 07/25/16 09:00 Gen: NAD at rest Heart: RRR Lung: scattered wheeze Abd: soft, nontender Ext: no edema CBC, BMP 07/25/16 06:00 07/25/16 06:00 Active Medications Acetaminophen (Tylenol -) 650 mg PO Q4H PRN PRN Reason: PAIN OR FEVER >100.4 Albuterol/Ipratropium (Duoneb -) 1 amp NEB TIDR [facility] Last Admin: 07/25/16 06:37 Dose: 1 amp Atorvastatin Calcium (Lipitor -) 10 mg PO HS [facility] Last Admin: 07/24/16 22:20 Dose: 10 mg Benzocaine/Menthol (Cepacol Lozenge -) 1 each MM Q2H PRN PRN Reason: SORE THROAT Donepezil HCl (Aricept -) 10 mg PO DAILY [facility] Last Admin: 07/25/16 09:43 Dose: 10 mg Fluticasone Propionate (Flonase -) 1 spray NS BID [facility] Last Admin: 07/25/16 09:43 Dose: Not Given Glipizide (Glucotrol Xl -) 10 mg PO DAILY@0700 [facility] Last Admin: 07/25/16 06:44 Dose: 10 mg Guaifenesin (Robitussin Dm -) 10 ml PO Q6H PRN PRN Reason: COUGH Last Admin: 07/24/16 20:23 Dose: 10 ml Iron Sucrose 100 mg/ Sodium (Chloride) 100 mls @ 200 mls/hr IVPB ONCE ONE Stop: 07/25/16 14:07 Insulin Aspart (Novolog Vial Sliding Scale -) 1 vial SQ ACHS [facility] PRN Reason: Protocol Last Admin: 07/25/16 11:52 Dose: 2 units Levothyroxine Sodium 100 mcg/ (Levothyroxine Sodium 75 mcg) 175 mcg PO DAILY@ 0700 [facility] Last Admin: 07/25/16 06:44 Dose: 175 mcg Losartan Potassium (Cozaar -) 25 mg PO DAILY [facility] Last Admin: 07/25/16 09:42 Dose: 25 mg Metoprolol Succinate (Toprol Xl -) 25 mg PO DAILY [facility] Last Admin: 07/25/16 09:42 Dose: 25 mg Pantoprazole Sodium (Protonix -) 40 mg PO DAILY [facility] Last Admin: 07/25/16 09:42 Dose: 40 mg Polysaccharide Iron Complex (Niferex-150 -) 150 mg PO DAILY [facility] Last Admin: 07/25/16 09:42 Dose: 150 mg Warfarin Sodium (Coumadin -) 2 mg PO DAILY@1800 [facility] Last Admin: 07/24/16 17:09 Dose: 2 mg A/P Anemia s/p PRBC transfusions LV Diastolic Dysfunction Atrial Fibrillation Pulmonary HTN CAD HTN DM - inhaled bronchodilators - O2 as needed - rate controlled - continue anticoagulation Problem List - Problems (1) Anemia Code(s): D64.9 - ANEMIA, UNSPECIFIED (2) Atrial fibrillation Code(s): I48.91 - UNSPECIFIED ATRIAL FIBRILLATION Qualifiers: Atrial fibrillation type: persistent Qualified Code(s): I48.1 - Persistent atrial fibrillation (3) Diabetes mellitus Code(s): E11.9 - TYPE 2 DIABETES MELLITUS WITHOUT COMPLICATIONS Qualifiers: Diabetes mellitus type: type 2 (4) Hypertension Code(s): I10 - ESSENTIAL (PRIMARY) HYPERTENSION Qualifiers: Hypertension type: essential hypertension Qualified Code(s): I10 - Essential (primary) hypertension (5) Left ventricular diastolic dysfunction Code(s): I51.9 - HEART DISEASE, UNSPECIFIED
[2016-07-25] MEDS: WARFARIN NA 2 MG TABLET (UD) PO SCH (17:04)
[2016-07-25] MEDS: BENZOCAINE/MENTH/CETYLPYRD CL 1 EACH LOZENGE MM PRN ×2 (20:18→22:52)
[2016-07-25] MEDS: ATORVASTATIN CA 10 MG TABLET (FP) PO SCH (22:52)
[2016-07-25] MEDS: guaiFENesin/D-METHORPHAN HB 10 ML UNIT-DOSE CUPS PO PRN (22:52)
[2016-07-26] MEDS: ALBUTEROL SO4 2.5/IPRATROPIUM 0.5 INH SOL 3 ML VIAL.NEB. NEB SCH ×3 (05:27→22:18)
[2016-07-26] MEDS ORDERED: LEVOTHYROXINE NA 100 MCG TABLET (FP) ONE (06:29)
[2016-07-26] MEDS ORDERED: LEVOTHYROXINE NA 75 MCG TABLET (FP) ONE (06:29)
[2016-07-26] MEDS ORDERED: PT OWN MED DRAWER 7, Y5N ONE ×3 (06:30→21:29)
[2016-07-26] MEDS ORDERED: INSULIN (NOVOLOG) ASPART 100 UNITS/ML 10ML VIAL ONE (06:35)
[2016-07-26] MEDS: LEVOTHYROXINE 100 MCG, LEVOTHYROXINE 75 MCG PO SCH (06:39)
[2016-07-26] MEDS: INSULIN SLIDING SCALE (NOVOLOG) 1 VIAL SQ SCH ×4 (06:39→21:34)
[2016-07-26] MEDS: BENZOCAINE/MENTH/CETYLPYRD CL 1 EACH LOZENGE MM PRN ×2 (06:40→21:39)
[2016-07-26] MEDS: glipiZIDE-XL 10 MG TAB.ER.24 (FP) PO SCH (06:53)
--- NOTE | 2016-07-26 07:16 | PN ---
Progress Note (short form) - Note Progress Note: Cough-non productive, persistent, chronic as per pt. No further complaints. CBC, BMP 07/25/16 06:00 07/25/16 06:00 Vital Signs Period Temp Pulse Resp BP Sys/Gong Pulse Ox Last 24 Hr 96.0 F-98.3 F 57-62 18-20 123-178/52-77 94-96 S1S2 RRR Lungs cta Abd soft NT +BS no edema Imp anemia-iron deficient progressive again on warfarin HTN Pulmonary HTN Afib DM cough-no fever, no infiltrate in CXR add nasal spray and robitussin Plan repeat CBC GI evaluation requested to reconsider endoscopy CT abd/pelvis r/o bleed PT warfarin if no endoscopy done with close monitoring Problem List - Problems (1) Symptomatic anemia Code(s): D64.9 - ANEMIA, UNSPECIFIED (2) Atrial fibrillation Code(s): I48.91 - UNSPECIFIED ATRIAL FIBRILLATION Qualifiers: Atrial fibrillation type: persistent Qualified Code(s): I48.1 - Persistent atrial fibrillation (3) Hypertension Code(s): I10 - ESSENTIAL (PRIMARY) HYPERTENSION Qualifiers: Hypertension type: essential hypertension Qualified Code(s): I10 - Essential (primary) hypertension (4) Diabetes mellitus Code(s): E11.9 - TYPE 2 DIABETES MELLITUS WITHOUT COMPLICATIONS Qualifiers: Diabetes mellitus type: type 2 (5) Hypothyroidism Code(s): E03.9 - HYPOTHYROIDISM, UNSPECIFIED Qualifiers: Hypothyroidism type: unspecified Qualified Code(s): E03.9 - Hypothyroidism, unspecified
[2016-07-26 07:33] LABS: MEAN CELL VOLUME 64.4 fl (80-96); MEAN PLT VOLUME 8.3 fl (7.5-11.1); PLATELET COUNT 258 K/MM3 (134-434); RDW 30.3 % (11.6-15.6); WHITE BLOOD COUNT 4.1 K/mm3 (4.0-10.0)
[2016-07-26 07:36] LABS: MCH 19.9 pg (25.7-33.7)
[2016-07-26 08:44] LABS: THYROID STIMULATING HORMONE 1.29 uIU/ml (0.358-3.74)
[2016-07-26] MEDS: FLUTICASONE PROP 0.05% 16 GM NASAL SPRAY NS SCH ×2 (09:39→21:39)
[2016-07-26] MEDS: PANTOPRAZOLE 40 MG TABLET (FP) PO SCH (09:40)
[2016-07-26] MEDS: IRON POLYSACCHARIDES 150 MG CAPSULE PO SCH (09:40)
[2016-07-26] MEDS: DONEPEZIL HCL 10 MG TABLET (FP) PO SCH (09:40)
[2016-07-26] MEDS: METOPROLOL SUCCINATE 25 MG TAB.SR.24H (FP) PO SCH (09:40)
[2016-07-26] MEDS: LOSARTAN POTASSIUM 25 MG TABLET PO SCH (09:40)
--- NOTE | 2016-07-26 09:58 | PN ---
Progress Note (short form) - Note Progress Note: Chief Complaint: Events noted, notes reviewed, reports persistent dyspnea, denies any chest pain, monitor reveals atrial flutter/atypical atrial tachycardia rate controlled History of Present Illness: Seen and examined on telemetry. Events noted, notes reviewed, reports persistent dyspnea, denies any chest pain, monitor reveals atrial flutter/ atypical atrial tachycardia rate controlled A/C resumed with Coumadin, and recommend continuation if no intervention is planned Echocardiography revealed normal LV size and function, moderate MR, mild to moderate TR with severe pulmonary HTN RVSP > 60 mmHg - Current Medication List Current Medications Acetaminophen (Tylenol -) 650 mg PO Q4H PRN PRN Reason: PAIN OR FEVER >100.4 Albuterol/Ipratropium (Duoneb -) 1 amp NEB TIDR [facility] Last Admin: 07/26/16 05:27 Dose: 1 amp Atorvastatin Calcium (Lipitor -) 10 mg PO HS [facility] Last Admin: 07/25/16 22:52 Dose: 10 mg Benzocaine/Menthol (Cepacol Lozenge -) 1 each MM Q2H PRN PRN Reason: SORE THROAT Last Admin: 07/26/16 06:40 Dose: 1 each Donepezil HCl (Aricept -) 10 mg PO DAILY [facility] Last Admin: 07/26/16 09:40 Dose: 10 mg Fluticasone Propionate (Flonase -) 1 spray NS BID [facility] Last Admin: 07/26/16 09:39 Dose: 1 spray Glipizide (Glucotrol Xl -) 10 mg PO DAILY@0700 [facility] Last Admin: 07/26/16 06:53 Dose: 10 mg Guaifenesin (Robitussin Dm -) 10 ml PO Q6H PRN PRN Reason: COUGH Last Admin: 07/25/16 22:52 Dose: 10 ml Insulin Aspart (Novolog Vial Sliding Scale -) 1 vial SQ ACHS [facility] PRN Reason: Protocol Last Admin: 07/26/16 06:39 Dose: 2 units Levothyroxine Sodium 100 mcg/ (Levothyroxine Sodium 75 mcg) 175 mcg PO DAILY@ 0700 [facility] Last Admin: 07/26/16 06:39 Dose: 175 mcg Losartan Potassium (Cozaar -) 25 mg PO DAILY [facility] Last Admin: 07/26/16 09:40 Dose: 25 mg Metoprolol Succinate (Toprol Xl -) 25 mg PO DAILY [facility] Last Admin: 07/26/16 09:40 Dose: 25 mg Pantoprazole Sodium (Protonix -) 40 mg PO DAILY [facility] Last Admin: 07/26/16 09:40 Dose: 40 mg Polysaccharide Iron Complex (Niferex-150 -) 150 mg PO DAILY [facility] Last Admin: 07/26/16 09:40 Dose: 150 mg Review of Systems Cardiovascular: As noted above Respiratory: denies: Cough or Sputum Production Gastrointestinal: denies: Nausea, Vomiting, Diarrhea, Constipation or Abdominal Discomfort Musculoskeletal: No Symptoms Reported Endocrine: No Symptoms Reported - Objective Vital Signs: Last Vital Signs Temp Pulse Resp BP Pulse Ox 96.0 F L 59 L 18 168/77 94 L 07/26/16 05:32 07/26/16 05:32 07/26/16 05:32 07/26/16 05:32 07/25/16 21:00 HEENT: SOLO, EOMI Unicteric Sclera Neck: Supple Negative JVD Cardiovascular: S1 S2 Regular Rate and Rhythm Grade 2/6 ANDREA Respiratory: Minimal Scattered Ronchi Bilaterally Gastrointestinal: Soft Benign Normal Bowel Sounds Ext: Trace Edema Labs: CBC, BMP 07/26/16 07:15 07/25/16 06:00 Assessment/Plan ASSESSMENT: 1. CAD angina pectoris with evidence of demand ischemic injury in context of profound anemia 2. Diastolic LV dysfunction with class I NYHA classification LV failure, compensated 3. PAF currently in atrial flutter/atypical atrial tachycardia, [id number] score of 6 on Coumadin therapy, therapy resumed 4. Anemia, iron deficiency etiology undetermined 5. HTN, not at goal 6. DM 7. Hypercholesterolemia 8. 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 Hypothyroidism PLAN: 1. Continue Toprol XL 2. Continue Cozaar and increase dosage 3. Continue Coumadin (as outlined above) with caution and close monitoring of CBC and INR 4. Continue Lipitor 5. Obtain EKG this AM 6. Transfuse as needed to maintain Hg > 8.0 7. As outlined in prior notes A/C should be continued indefinitely unless source of bleed cannot be determined or treated, considering the above noted [id number] score of 6 Sohail Franco MD
[2016-07-26 10:18] LABS: INR 1.44 (0.82-1.09)
--- NOTE | 2016-07-26 12:55 | PN ---
Progress Note (short form) - Note Progress Note: Patient seen and examined In wheel chair - for CT of abdomen On oxygen for Dyspnea and SOB Last Vital Signs Temp Pulse Resp BP Pulse Ox 96.0 F L 59 L 18 168/77 94 L 07/26/16 05:32 07/26/16 05:32 07/26/16 05:32 07/26/16 05:32 07/25/16 21:00 SOLO Lungs - rhonchi Cor-irregular Abd-soft Extremities- 1+ edema CBC, BMP 07/26/16 07:15 07/25/16 06:00 Current Medications Generic Name Dose Route Start Last Admin Trade Name Freq PRN Reason Stop Dose Admin Acetaminophen 650 mg 07/21/16 20:46 Tylenol - PO Q4H PRN PAIN OR FEVER >100.4 Albuterol/Ipratropium 1 amp 07/23/16 16:00 07/26/16 05:27 Duoneb - NEB 1 amp TIDR CARO Administration Atorvastatin Calcium 10 mg 07/22/16 22:00 07/25/16 22:52 Lipitor - PO 10 mg HS CARO Administration Benzocaine/Menthol 1 each 07/24/16 22:09 07/26/16 06:40 Cepacol Lozenge - MM 1 each Q2H PRN Administration SORE THROAT Donepezil HCl 10 mg 07/22/16 10:00 07/26/16 09:40 Aricept - PO 10 mg DAILY CARO Administration Fluticasone Propionate 1 spray 07/25/16 10:00 07/26/16 09:39 Flonase - NS 1 spray BID CARO Administration Glipizide 10 mg 07/22/16 10:00 07/26/16 06:53 Glucotrol Xl - PO 10 mg DAILY@0700 CARO Administration Guaifenesin 10 ml 07/24/16 10:50 07/25/16 22:52 Robitussin Dm - PO 10 ml Q6H PRN Administration COUGH Insulin Aspart 1 vial 07/20/16 20:26 07/26/16 06:39 Novolog Vial Sliding Scale - SQ 2 units ACHS CARO Administration Protocol Levothyroxine Sodium 100 mcg/ 175 mcg 07/23/16 07:00 07/26/16 06:39 Levothyroxine Sodium 75 mcg PO 175 mcg DAILY@0700 [facility]O Administration Losartan Potassium 50 mg 07/26/16 22:00 Cozaar - PO BID CARO Metoprolol Succinate 25 mg 07/24/16 13:18 07/26/16 09:40 Toprol Xl - PO 25 mg DAILY [facility]O Administration Pantoprazole Sodium 40 mg 07/20/16 20:30 07/26/16 09:40 Protonix - PO 40 mg DAILY CARO Administration Polysaccharide Iron Complex 150 mg 07/24/16 10:00 07/26/16 09:40 Niferex-150 - PO 150 mg DAILY [facility] Administration Impression 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 Lester--in view of need for a/c with coumadin and in view of Fe++ deficiency - would favor GI assessment.
--- NOTE | 2016-07-26 14:43 | PN ---
Progress Note (short form) - Note Progress Note: PULMONARY States breathing continues to improve. Denies cough or wheezing. Last Vital Signs Temp Pulse Resp BP Pulse Ox 97.1 F L 58 L 18 156/57 94 L 07/26/16 13:59 07/26/16 13:59 07/26/16 13:59 07/26/16 13:59 07/25/16 21:00 Gen: NAD at rest Heart: RRR Lung: no wheezes appreciated Abd: soft, nontender Ext: no edema CBC, BMP 07/26/16 07:15 07/25/16 06:00 Active Medications Acetaminophen (Tylenol -) 650 mg PO Q4H PRN PRN Reason: PAIN OR FEVER >100.4 Albuterol/Ipratropium (Duoneb -) 1 amp NEB TIDR [facility] Last Admin: 07/26/16 05:27 Dose: 1 amp Atorvastatin Calcium (Lipitor -) 10 mg PO HS [facility] Last Admin: 07/25/16 22:52 Dose: 10 mg Benzocaine/Menthol (Cepacol Lozenge -) 1 each MM Q2H PRN PRN Reason: SORE THROAT Last Admin: 07/26/16 06:40 Dose: 1 each Donepezil HCl (Aricept -) 10 mg PO DAILY [facility] Last Admin: 07/26/16 09:40 Dose: 10 mg Fluticasone Propionate (Flonase -) 1 spray NS BID [facility] Last Admin: 07/26/16 09:39 Dose: 1 spray Glipizide (Glucotrol Xl -) 10 mg PO DAILY@0700 [facility] Last Admin: 07/26/16 06:53 Dose: 10 mg Guaifenesin (Robitussin Dm -) 10 ml PO Q6H PRN PRN Reason: COUGH Last Admin: 07/25/16 22:52 Dose: 10 ml Insulin Aspart (Novolog Vial Sliding Scale -) 1 vial SQ ACHS [facility] PRN Reason: Protocol Last Admin: 07/26/16 13:20 Dose: 2 units Levothyroxine Sodium 100 mcg/ (Levothyroxine Sodium 75 mcg) 175 mcg PO DAILY@ 0700 [facility] Last Admin: 07/26/16 06:39 Dose: 175 mcg Losartan Potassium (Cozaar -) 50 mg PO BID [facility] Metoprolol Succinate (Toprol Xl -) 25 mg PO DAILY [facility] Last Admin: 07/26/16 09:40 Dose: 25 mg Pantoprazole Sodium (Protonix -) 40 mg PO DAILY [facility] Last Admin: 07/26/16 09:40 Dose: 40 mg Polysaccharide Iron Complex (Niferex-150 -) 150 mg PO DAILY [facility] Last Admin: 07/26/16 09:40 Dose: 150 mg A/P Anemia s/p PRBC transfusions LV Diastolic Dysfunction Atrial Fibrillation Pulmonary HTN CAD HTN DM - inhaled bronchodilators - O2 as needed - rate controlled - resume anticoagulation when anemia stable Problem List - Problems (1) Anemia Code(s): D64.9 - ANEMIA, UNSPECIFIED (2) Atrial fibrillation Code(s): I48.91 - UNSPECIFIED ATRIAL FIBRILLATION Qualifiers: Atrial fibrillation type: persistent Qualified Code(s): I48.1 - Persistent atrial fibrillation (3) Diabetes mellitus Code(s): E11.9 - TYPE 2 DIABETES MELLITUS WITHOUT COMPLICATIONS Qualifiers: Diabetes mellitus type: type 2 (4) Hypertension Code(s): I10 - ESSENTIAL (PRIMARY) HYPERTENSION Qualifiers: Hypertension type: essential hypertension Qualified Code(s): I10 - Essential (primary) hypertension (5) Left ventricular diastolic dysfunction Code(s): I51.9 - HEART DISEASE, UNSPECIFIED
--- NOTE | 2016-07-26 15:24 | EKG ---
Test Reason : Blood Pressure : / mmHG Vent. Rate : 044 BPM Atrial Rate : 293 BPM P-R Int : 000 ms QRS Dur : 078 ms QT Int : 524 ms P-R-T Axes : 260 046 262 degrees QTc Int : 448 ms ATRIAL FLUTTER WITH VARIABLE A-V BLOCK ABNORMAL ECG WHEN COMPARED WITH ECG OF 21-JUL-2016 08:44, ATRIAL FLUTTER HAS REPLACED SINUS RHYTHM CLINICAL CORRELATION IS RECOMMENDED Confirmed by AAV SIU, LIZBET ([id number]) on 07/26/2016 3:24:28 PM Referred By: Harrison TORO Confirmed By:LIZBET ESCALANTE MD
[2016-07-26] MEDS: guaiFENesin/D-METHORPHAN HB 10 ML UNIT-DOSE CUPS PO PRN (21:39)
[2016-07-26] MEDS: LOSARTAN POTASSIUM 50 MG TABLET (FP) PO SCH (21:39)
[2016-07-26] MEDS: ATORVASTATIN CA 10 MG TABLET (FP) PO SCH (21:39)
[2016-07-27] MEDS: BENZOCAINE/MENTH/CETYLPYRD CL 1 EACH LOZENGE MM PRN (02:52)
[2016-07-27] MEDS: ALBUTEROL SO4 2.5/IPRATROPIUM 0.5 INH SOL 3 ML VIAL.NEB. NEB SCH (06:34)
[2016-07-27] MEDS ORDERED: LEVOTHYROXINE NA 75 MCG TABLET (FP) ONE (06:50)
[2016-07-27] MEDS ORDERED: LEVOTHYROXINE NA 100 MCG TABLET (FP) ONE (06:50)
[2016-07-27] MEDS ORDERED: PT OWN MED DRAWER 7, Y5N ONE (06:50)
[2016-07-27] MEDS: glipiZIDE-XL 10 MG TAB.ER.24 (FP) PO SCH (06:53)
[2016-07-27] MEDS: LEVOTHYROXINE 100 MCG, LEVOTHYROXINE 75 MCG PO SCH (06:53)
[2016-07-27] MEDS: INSULIN SLIDING SCALE (NOVOLOG) 1 VIAL SQ SCH (06:53)
--- NOTE | 2016-07-27 09:20 | DS ---
Physical Examination Vital Signs: Vital Signs Temperature 97.4 F L 07/27/16 06:25 Pulse Rate 52 L 07/27/16 06:25 Respiratory Rate 18 07/27/16 06:25 Blood Pressure 172/64 07/27/16 06:25 O2 Sat by Pulse Oximetry (%) 96 07/26/16 21:00 Constitutional: Yes: No Distress, Calm Eyes: Yes: EOM Intact HENT: Yes: Normocephalic Neck: Yes: Trachea Midline Cardiovascular: Yes: Regular Rate and Rhythm Respiratory: Yes: CTA Bilaterally Gastrointestinal: Yes: Normal Bowel Sounds, Soft Labs: CBC, BMP 07/26/16 07:15 07/25/16 06:00 Discharge Summary Reason For Visit: SECONDARY ANEMIA Current Active Problems Acute electrocardiogram changes (Acute) Anemia (Acute) Aortic regurgitation (Acute) Aortic valvar stenosis (Acute) Atrial fibrillation (Acute) CAD (coronary artery disease) (Acute) Chronic bronchitis (Acute) Demand ischemia (Acute) Diabetes mellitus (Acute) Elevated troponin (Acute) Hypercholesterolemia (Acute) Hypertension (Acute) Hypothyroidism (Acute) Left ventricular diastolic dysfunction (Acute) Mitral valvular disorder (Acute) Organic brain syndrome (Acute) Paroxysmal atrial fibrillation (Acute) Pulmonary hypertension (Acute) Symptomatic anemia (Acute) Tricuspid regurgitation (Acute) Hospital Course: Admitted for symptomatic anemia, received 3 units PRBC and iv iron. Anemia is iron deficient, stool guiac negative times four. INR subtherapeutic on admission. Was seen and evaluated by GI/Heme/PUlm and cardiology. Case d/w all and patient regarding optimal care. CBC has been stable since transfusion, pt was started on oral iron supplement. For now is to plan for STR with weekly INR and CBC monitoring and follow up as out pt for possible GI work up. Condition: Fair - Instructions Diet, Activity, Other Instructions: monitor INR CBC end of this week and weekly afterwards Referrals: Parul Staton MD [Primary Care Provider] - Disposition: CUSTODIAL FACILITY - Home Medications Comprehensive Discharge Medication List: Ambulatory Orders Donepezil HCl [Aricept -] 10 mg PO DAILY 07/20/16 Glipizide [Glipizide ER] 10 mg PO DAILY 07/20/16 Levothyroxine [Synthroid -] 175 mcg PO DAILY 07/20/16 Simvastatin [Zocor -] 20 mg PO HS 07/20/16 Warfarin Na [Coumadin -] 2 mg PO DAILY 07/20/16 Albuterol 2.5/Ipratropium 0.5 [Duoneb -] 1 amp NEB TIDR amp 07/24/16 Iron Polysaccharides [Niferex-150 -] 150 mg PO DAILY #30 tablet 07/24/16 Pantoprazole Sodium [Protonix -] 40 mg PO DAILY #30 tablet 07/24/16 Acetaminophen [Tylenol .Regular Strength -] 650 mg PO Q4H PRN #0 tablet Fluticasone Prop 0.05% Nasal [Flonase -] 1 spray NS BID spray 07/27/16 Losartan Potassium [Cozaar -] 50 mg PO BID tablet 07/27/16 Metoprolol Succinate [Toprol Xl -] 25 mg PO DAILY #30 tab.sr.24h 07/27/16
[2016-07-27] MEDS: FLUTICASONE PROP 0.05% 16 GM NASAL SPRAY NS SCH (09:49)
[2016-07-27] MEDS: DONEPEZIL HCL 10 MG TABLET (FP) PO SCH (09:49)
[2016-07-27] MEDS: PANTOPRAZOLE 40 MG TABLET (FP) PO SCH (09:49)
[2016-07-27] MEDS: LOSARTAN POTASSIUM 50 MG TABLET (FP) PO SCH (09:49)
[2016-07-27] MEDS: METOPROLOL SUCCINATE 25 MG TAB.SR.24H (FP) PO SCH (09:49)
[2016-07-27] MEDS: IRON POLYSACCHARIDES 150 MG CAPSULE PO SCH (09:50)
[2016-07-27 10:10] LABS: Hgb A2 1.8 % (0.7-3.1)
[2016-07-27 10:36] VITALS: BP 171/81; PULSE 71; TEMP 98.2
== END 2016-07-27 11:10 | DRG 663 ==
LOC: JER 14:30 → JERBED 17:57 → J4S 20:33
PROVIDERS: ADMIT Internal Medicine; ATTEND Internal Medicine
PROC: 30233N1 Transfusion of Nonautologous Red Blood Cells into Peripheral Vein, Percutaneous Approach (ICD-10-PCS; principal; 2016-07-21)
DX: D50.9 Iron deficiency anemia, unspecified (principal); I10 Essential (primary) hypertension; E78.5 Hyperlipidemia, unspecified; E03.9 Hypothyroidism, unspecified; F03.90 Unspecified dementia, unspecified severity, without behavioral disturbance, psychotic disturbance, mood disturbance, and anxiety; E11.9 Type 2 diabetes mellitus without complications; Z79.84 Long term (current) use of oral hypoglycemic drugs; I25.10 Atherosclerotic heart disease of native coronary artery without angina pectoris; I48.0 Paroxysmal atrial fibrillation; Z79.01 Long term (current) use of anticoagulants; Z91.013 Allergy to seafood; I27.2 Other secondary pulmonary hypertension; I35.1 Nonrheumatic aortic (valve) insufficiency; I34.0 Nonrheumatic mitral (valve) insufficiency; I36.1 Nonrheumatic tricuspid (valve) insufficiency; I24.8 Other forms of acute ischemic heart disease; D56.3 Thalassemia minor
CPT/HCPCS: 36415; 36430; 71010-TC; 71020-TC; 74176-TC; 80053; 80162; 82272; 82550; 82607; 82728; 82746; 82747; 82784; 83021; 83516; 83540; 83550; 84155; 84156; 84157; 84165; 84443; 84484; 85014; 85025; 85027; 85044; 85610; 85651; 85660; 86038; 86140; 86334; 86850; 86900; 86901; 86922; 93005; 93010; 93306-TC; 94640; 97116-GP; 97161-GP; 99283-25; J1756; P9038; P9058; Q9967

== ENCOUNTER 2016-09-28 22:42 | Inpatient (IN) | payer OTHER ==
--- NOTE | 2016-09-28 23:54 | PDOC ---
Attending Attestation - Resident Resident Name: Wilder Barlow - ED Attending Attestation I have performed the following: I have examined & evaluated the patient, The case was reviewed & discussed with the resident, I agree w/resident's findings & plan, Exceptions are as noted - HPI HPI: 09/30/16 19:45 diarrhea for one that has not improved the entire day. Denies fever or recent travel. - Physicial Exam PE: 09/29/16 04:36 *Physical Exam General Appearance: Yes: Appropriately Dressed. No: Apparent Distress, Intoxicated HEENT: positive: EOMI, MODESTO, Normal ENT Inspection, Normal Voice, TMs Normal, Pharynx Normal. negative: Pale Conjunctivae, Photophobia, Scleral Icterus (R), Scleral Icterus (L) Neck: positive: Trachea midline, Normal Thyroid, Supple. negative: Tender, Rigid, Carotid bruit, Stridor, Lymphadenopathy (R), Lymphadenopathy (L), Thyromegaly Respiratory/Chest: positive: Lungs Clear, Normal Breath Sounds. negative: Chest Tender, Respiratory Distress, Accessory Muscle Use, Labored Respiration, RES, Crackles, Rales, Rhonchi, Stridor, Wheezing, Dullness Cardiovascular: positive: Regular Rhythm, Regular Rate, S1, S2. negative: Edema , JVD, Murmur, Bradycardia, Tachycardia Vascular Pulses: Dorsalis-Pedis (R): 2+, Doralis-Pedis (L): 2+ Gastrointestinal/Abdominal: positive: Normal Bowel Sounds, Flat, Soft. negative : Tender, Organomegaly, Pulsatile Mass, Increased Bowel Sounds, Decreased BS, Distended, Guarding, Rebound, Hernia, Hepatomegaly, Spleenomegaly Lymphatic: negative: Adenopathy, Tenderness Musculoskeletal: positive: Normal Inspection. negative: CVA Tenderness, Decreased Range of Motion Extremity: positive: Normal Capillary Refill, Normal Inspection, Normal Range of Motion, Pelvis Stable. negative: Tender, Pedal Edema, Swelling, Erythema Integumentary: positive: Normal Color, Dry, Warm. 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 negative: EOM Palsy, Facial Droop, Sensory Deficit - Medical Decision Making 09/29/16 19:51 Pt admitted for Colitis and treatment of diarrhea. Discharge Disposition - Diagnosis Colitis Diarrhea Qualifiers: Diarrhea type: unspecified type Qualified Code(s): R19.7 - Diarrhea, unspecified - Discharge Dispostion Condition at time of disposition: Good Last Admission D/C Date: 07/27/16 Admit: Yes
[2016-09-28] MEDS ORDERED: SODIUM CHLORIDE 1,000 ML IV STA (23:55)
--- NOTE | 2016-09-29 00:04 | PDOC ---
History of Present Illness - General Chief Complaint: Diarrhea Stated Complaint: Diarrhea Time Seen by Provider: 09/28/16 23:26 - History of Present Illness Initial Comments: 09/28/16 23:58 81F w/ hx of mild dementia, a-fib, hypothyroidism, CAD presenting from [facility] with acute diarrhea. Pt reports that she started having continuous diarrhea since yesterday that is watery, non-bloody, malodorous. She states that her new roommate has chronic diarrhea. She reports no appetite and has some dizziness. She denies fevers, chills, headache, chest pain, SOB, abdominal pain, dysuria, and any recent consumption of uncooked meat. 09/29/16 00:05 Past History - Past Medical History Allergies/Adverse Reactions: Allergies Allergy/AdvReac Type Severity Reaction Status Date / Time shellfish derived Allergy Verified 09/28/16 22:58 Home Medications: Ambulatory Orders Donepezil HCl [Aricept -] 10 mg PO DAILY 07/20/16 Levothyroxine [Synthroid -] 175 mcg PO DAILY 07/20/16 Simvastatin [Zocor -] 20 mg PO HS 07/20/16 Albuterol 2.5/Ipratropium 0.5 [Duoneb -] 1 amp NEB TIDR amp 07/24/16 Fluticasone Prop 0.05% Nasal [Flonase -] 1 spray NS BID spray 07/27/16 Metoprolol Succinate [Toprol XL -] 25 mg PO DAILY #30 tab.sr.24h 07/27/16 Insulin Sliding Scale [Novolog Vial Sliding Scale -] 1 vial SQ ACHS PRN #0 units 10/08/16 Losartan Potassium [Cozaar -] 50 mg PO DAILY tablet 10/08/16 Polyethylene Glycol 3350 [Miralax 119 gm Btl -] 17 gm PO DAILY bottle 10/08/16 Warfarin Na [Coumadin -] 3 mg PO DAILY #0 tablet 10/08/16 Anemia: Yes Cardiac Disorders: Yes (afib) Dementia: Yes Diabetes: Yes HTN: Yes Hypercholesterolemia: Yes Seizures: Yes Thyroid Disease: Yes (hypothyroid) Comment:: 09/29/16 00:01 PMH: a-fib, HTN, DM, hypothyroidism, anemia, dementia, CAD (cath in 2010), and osteoarthritis PSH: L hip surgery Meds: donepezil, glipizide, levothyroxine, warfarin, protonix, losartan, metoprolol Allergies: shellfish Social Hx: social drinker, denies toxic habits - Surgical History Orthopedic Surgery: Yes (left leg) - Psycho/Social/Smoking Cessation Hx Suicidal Ideation: No Smoking History: Never smoked Have you smoked in the past 12 months: No Information on smoking cessation initiated: No Hx Alcohol Use: No Drug/Substance Use Hx: No Substance Use Type: None Hx Substance Use Treatment: No Review of Systems - Review of Systems Comments:: 09/29/16 00:02 GENERAL: No fever, chills, night sweats, or weakness. HEAD, EYES, EARS, NOSE AND THROAT: No change in vision, ear pain, or sore throat CARDIOVASCULAR: No chest pain or palpitations RESPIRATORY: No cough, wheezing, or hemoptysis. GASTROINTESTINAL: no nausea, no vomiting, + diarrhea, no constipation, or blood in the stool. GENITOURINARY: No dysuria, frequency, or urgency MUSCULOSKELETAL: No joint or muscle swelling or pain. SKIN: No rashes or pruritis ENDOCRINE: No increased thirst. No abnormal weight change NEUROLOGIC: No headache, + dizziness, no loss of consciousness, or change in strength/sensation. *Physical Exam - Vital Signs Last Vital Signs Temp Pulse Resp BP Pulse Ox 97.9 F 67 14 155/69 96 09/28/16 22:58 09/28/16 22:58 09/28/16 22:58 09/28/16 22:58 09/28/16 22:58 - Physical Exam Comments: 09/29/16 00:04 GENERAL: Awake, alert in mild distress HEAD: normocephalic, atraumatic HEENT: PERRLA, EOMI NECK: Normal ROM, supple, no lymphadenopathy, JVD, or masses HEART: Regular rate and rhythm, normal S1 and S2, no murmurs, rubs or gallops, peripheral pulses normal and equal bilaterally. LUNGS: CTAB, no wheezing, no rales ABDOMEN: Soft, minimally tender to palpation in suprapubic region, nondistended , normoactive bowel sounds. No guarding, no rebound. No masses EXTREMITIES: Normal range of motion, no edema. SKIN: Warm, dry, no rashes or lesions noted. NEUROLOGICAL: Cranial nerves II through XII grossly intact. rapid speech ED Treatment Course - LABORATORY CBC & Chemistry Diagram: 10/08/16 08:20 10/08/16 08:20 Medical Decision Making - Medical Decision Making 09/29/16 00:05 81F w/ hx of mild dementia, a-fib, hypothyroidism, CAD presenting from [facility] with acute watery diarrhea after having new roommate with chronic diarrhea. Exam significant for minimal tenderness to palpation in suprapubic region. 10/11/16 13:28 Pt signed out to attending. *DC/Admit/Observation/Transfer Diagnosis at time of Disposition: Diarrhea, Colitis - Discharge Dispostion Disposition: ASSISTED LIVING FACILITY Condition at time of disposition: Good
[2016-09-29 00:40] LABS: BASOPHIL 0.3 % (0-2.0); MCH 22.6 pg (25.7-33.7); MCHC 31.9 g/dl (32.0-36.0); MEAN CELL VOLUME 70.8 fl (80-96); MEAN PLT VOLUME 9.1 fl (7.5-11.1); NEUTROPHILS 79.3 % (42.8-82.8); PLATELET COUNT 246 K/MM3 (134-434); RDW 22.8 % (11.6-15.6); WHITE BLOOD COUNT 4.6 K/mm3 (4.0-10.0)
[2016-09-29 00:53] LABS: INR 3.93 (0.82-1.09); PROTHROMBIN TIME (PATIENT) 44.4 SEC (9.98-11.88)
[2016-09-29 01:05] LABS: ALBUMIN 3.4 g/dl (3.4-5.0); AMYLASE 43 U/L (25-115); ANION GAP 10 (8-16); BILIRUBIN,TOTAL 0.4 mg/dL (0.2-1.0); CALCIUM 9.1 mg/dL (8.5-10.1); CO2 28 mmol/L (21-32); CREATININE 0.7 mg/dL (0.55-1.02); GLUCOSE,RANDOM 148 mg/dL (74-106); MAGNESIUM 1.4 mg/dL (1.8-2.4); SGOT/AST 15 U/L (15-37); SGPT/ALT 23 U/L (12-78); TOT PROT 7.1 g/dl (6.4-8.2)
[2016-09-29 01:06] LABS: ALK PHOS 69 U/L (45-117); CPK 74 IU/L (26-192); TROPONIN I 0.03 ng/ml (0.00-0.05)
[2016-09-29] MEDS ORDERED: MAGNESIUM SULF 50% (8.12 MEQ/2 ML-1 GM VIAL) IVPB ONE (01:19)
[2016-09-29] MEDS ORDERED: LOPERAMIDE HCL 2 MG CAPSULE PO ONE ×2 (01:46→03:15)
[2016-09-29] MEDS ORDERED: MAGNESIUM SULF 50% (8.12 MEQ/2 ML-1 GM VIAL) ONE (01:46)
[2016-09-29] MEDS ORDERED: LOPERAMIDE HCL 2 MG CAPSULE ONE (01:46)
[2016-09-29] MEDS ORDERED: POTASSIUM CHLORIDE ORAL LIQUID 20 MEQ/15 ML ONE (01:47)
[2016-09-29] MEDS: POTASSIUM CHLORIDE ORAL LIQUID 20 MEQ/15 ML PO SCH ×3 (02:01→21:15)
--- NOTE | 2016-09-29 02:07 | PDOC ---
*Physical Exam - Vital Signs Last Vital Signs Temp Pulse Resp BP Pulse Ox 97.9 F 67 14 155/69 96 09/28/16 22:58 09/28/16 22:58 09/28/16 22:58 09/28/16 22:58 09/28/16 22:58 - Physical Exam General Appearance: Yes: Nourished, Appropriately Dressed HEENT: positive: EOMI, MODESTO Neck: positive: Trachea midline, Supple Respiratory/Chest: positive: Lungs Clear, Normal Breath Sounds Cardiovascular: positive: Regular Rhythm, Regular Rate, S1, S2 Gastrointestinal/Abdominal: positive: Normal Bowel Sounds, Soft Musculoskeletal: positive: Normal Inspection Extremity: positive: Normal Capillary Refill, Normal Inspection Integumentary: positive: Normal Color, Dry, Warm Neurologic: 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: pi/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 NML intact, Fully Oriented, Alert ED Treatment Course - LABORATORY CBC & Chemistry Diagram: 09/29/16 00:20 09/29/16 05:15 - ADDITIONAL ORDERS Additional order review: Laboratory Results 09/29/16 09/29/16 09/29/16 00:20 00:20 00:20 INR 3.93 H D Sodium 139 Potassium 3.2 L Chloride 101 Carbon Dioxide 28 Anion Gap 10 BUN 16 Creatinine 0.7 Creat Clearance w eGFR > 60 Random Glucose 148 H D Lactic Acid 2.3 H* Calcium 9.1 Magnesium 1.4 L Total Bilirubin 0.4 AST 15 D ALT 23 D Alkaline Phosphatase 69 Creatine Kinase 74 Troponin I 0.03 B-Natriuretic Peptide 1216.98 H Total Protein 7.1 Albumin 3.4 Total Amylase 43 Lipase 252 09/29/16 00:20 RBC 4.39 MCV 70.8 L MCHC 31.9 L RDW 22.8 H D MPV 9.1 Neutrophils % 79.3 D Lymphocytes % 8.8 D Monocytes % 9.6 Eosinophils % 2.0 Basophils % 0.3 - Medications Given in the ED: ED Medications Discontinued Medications Generic Name Dose Route Start Last Admin Trade Name Freq PRN Reason Stop Dose Admin Sodium Chloride 1,000 mls @ 1,000 mls/hr 09/28/16 23:55 09/29/16 00:41 Normal Saline - IV 09/29/16 00:54 1,000 mls/hr ASDIR STA Administration Loperamide HCl 2 mg 09/29/16 01:46 09/29/16 02:01 Imodium - PO 09/29/16 01:47 2 mg ONCE ONE Administration Magnesium Sulfate 1 gm 09/29/16 01:19 09/29/16 02:01 Magnesium Sulfate IVPB 09/29/16 01:20 1 gm ONCE ONE Administration Medical Decision Making - Medical Decision Making 09/29/16 02:06 Patient is an 81 y.o. female who presents from her intermediate with a c/o of 1 day h/o watery diarrhea. Differential diagnosis included viral gastritis vs. diverticulitis vs. C. Difficile colitis. CT Abdomen/Pelvis showed small bowel wall thickening with superimposed mild ileus or partial small bowel obstruction as well as acute diverticulitis of descending and sigmoid colon. Patient's CMP was significant for hypokalemia and hypomagnesia and repeat labs were pending at time of patient's admission to inpatient medicine floor. As patient was experiencing intermittent associated suprapubic pain, UA and UC were ordered and were also pending at time of transfer to inpatient service. 05:[address] Thea Tello who requested patient be given a OTD of Vancomycin and stated he would place orders later in the morning of 09/29. *DC/Admit/Observation/Transfer Diagnosis at time of Disposition: Colitis Diarrhea Qualifiers: Diarrhea type: unspecified type Qualified Code(s): R19.7 - Diarrhea, unspecified - Discharge Dispostion Condition at time of disposition: Good Admit: Yes - Attestations Physician Attestion: 09/29/16 05:17 I, Dr. Isabelle Dempsey, attest that this document has been prepared under my direction and personally reviewed by me in its entirety. I further attest, that it accurately reflects all work, treatment, procedures and medical decision -making performed by me.
[2016-09-29] MEDS ORDERED: VANCOMYCIN 250 MG/5 ML ORAL SOLUTION PO SCH (06:00)
[2016-09-29] MEDS ORDERED: metroNIDAZOLE 500 MG TABLET PO ONE (06:28)
[2016-09-29 06:30] LABS: ALBUMIN 3.1 g/dl (3.4-5.0); ANION GAP 9 (8-16); BILIRUBIN,TOTAL 0.3 mg/dL (0.2-1.0); CALCIUM 8.6 mg/dL (8.5-10.1); CO2 27 mmol/L (21-32); CREATININE 0.6 mg/dL (0.55-1.02); GLUCOSE,RANDOM 93 mg/dL (74-106); MAGNESIUM 1.9 mg/dL (1.8-2.4); SGOT/AST 13 U/L (15-37); SGPT/ALT 21 U/L (12-78); TOT PROT 6.2 g/dl (6.4-8.2)
[2016-09-29 06:31] LABS: ALK PHOS 62 U/L (45-117)
--- NOTE | 2016-09-29 11:24 | EKG ---
Test Reason : Blood Pressure : / mmHG Vent. Rate : 062 BPM Atrial Rate : 062 BPM P-R Int : 212 ms QRS Dur : 074 ms QT Int : 400 ms P-R-T Axes : 026 057 254 degrees QTc Int : 406 ms SINUS RHYTHM WITH 1ST DEGREE A-V BLOCK PROMINENT U WAVESIN V4 V5 AND PROLONGATION OF QTc,CANSIDER ELECTROLYTE AND/OR METABOLIC IMBALANCE OR ISCHEMIA ABNORMAL ECG WHEN COMPARED WITH ECG OF 26-JUL-2016 10:42, SINUS RHYTHM HAS REPLACED ATRIAL FLUTTER F/U TRACING RECOMMENDED Confirmed by TYLER ZULETA MD ([id number]) on 09/29/2016 11:24:35 AM Referred By: Confirmed By:TYLER ZULETA MD
[2016-09-29 11:29] VITALS: BMI 22.6
[2016-09-29] MEDS ORDERED: metroNIDAZOLE 250 MG TABLET ONE ×2 (12:05→16:53)
[2016-09-29] MEDS: POTASSIUM CHLORIDE 10 MEQ in SODIUM CHLORIDE 1,000 ML IVPB SCH (12:06)
[2016-09-29] MEDS: SODIUM CHLORIDE 0.45% 1,000 ML IV ONE ×2 (12:18→21:16)
--- NOTE | 2016-09-29 14:03 | CONSULT ---
Consult Consult Specialty:: GI Referred by:: Dr. Lester Reason for Consultation:: acute diarrhea - History of Present Illness Chief Complaint: diarrhea x 1week History of Present Illness: 81yo woman with PMH of Afib (on coumadin), CAD, NIDDM, hypothyroidism (on synthroid), HTN, pulmHTN, and severe microcytic anemia s/p transfusion who presents with 1xweek of acute onset watery, non-bloody diarrhea. [facility] and was last hospitalized at [facility] two months ago for symptomatic anemia. She was discharged on 07/27 and was at her [facility] when she started to have profuse diarrhea 1 week ago. She describes having constant diarrhea without any associated abdominal pain or cramps. She denies any nausea or vomiting. Her appetite has been decreased, but she been able to maintain PO intake. Mrs. Mckeon's [place] roommate also has diarrhea with multiple recent hospital admissions. She states the roommate is "contagious", but can not provide any additional information. She denies any recent travel, and other than her roommate denies any sick contacts or visits with her grandchildren. 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: Dementia (mild) Cardio/Vascular: Yes: AFIB (on coumadin), CAD (card cath with BMS to PDA on ), HTN Heme/Onc: Yes: Anemia Musculoskeletal: Yes: Chronic low back pain, Osteoarthritis Endocrine: Yes: Diabetes Mellitus, Hypothyroidism - Past Surgical History Past Surgical History: Yes: Joint Replacement - Alcohol/Substance Use Hx Alcohol Use: No - Smoking History Smoking history: Never smoked Have you smoked in the past 12 months: No - Social History Usual Living Arrangement: [facility] ADL: Support Services History of Recent Travel: No Home Medications - Allergies Allergies/Adverse Reactions: Allergies Allergy/AdvReac Type Severity Reaction Status Date / Time shellfish derived Allergy Verified 09/28/16 22:58 - Home Medications Home Medications: Ambulatory Orders Donepezil HCl [Aricept -] 10 mg PO DAILY 07/20/16 Glipizide [Glipizide ER] 10 mg PO DAILY 07/20/16 Levothyroxine [Synthroid -] 175 mcg PO DAILY 07/20/16 Simvastatin [Zocor -] 20 mg PO HS 07/20/16 Warfarin Na [Coumadin -] 4 mg PO Q48H 07/20/16 Albuterol 2.5/Ipratropium 0.5 [Duoneb -] 1 amp NEB TIDR amp 07/24/16 Pantoprazole Sodium [Protonix -] 40 mg PO DAILY #30 tablet 07/24/16 Fluticasone Prop 0.05% Nasal [Flonase -] 1 spray NS BID spray 07/27/16 Losartan Potassium [Cozaar -] 50 mg PO BID tablet 07/27/16 Metoprolol Succinate [Toprol Xl -] 25 mg PO DAILY #30 tab.sr.24h 07/27/16 Digoxin 250 mcg PO DAILY 09/29/16 Ferrous Sulfate 325 mg PO TID 09/29/16 Pioglitazone HCl/Metformin HCl [Actoplus Met 15 mg-850 mg Tab] 1 each PO BID Warfarin Na [Coumadin] 3 mg PO Q48H 09/29/16 Family Disease History - Family Disease History Family History: Unremarkable (no h/o cancer) Review of Systems - Review of Systems Constitutional: reports: No Symptoms Eyes: reports: No Symptoms HENT: reports: No Symptoms Neck: reports: No Symptoms Cardiovascular: reports: No Symptoms Respiratory: reports: No Symptoms Gastrointestinal: reports: Diarrhea. denies: Abdominal Pain, Nausea, Vomiting Genitourinary: reports: No Symptoms Musculoskeletal: reports: No Symptoms Integumentary: reports: No Symptoms Neurological: reports: No Symptoms Endocrine: reports: No Symptoms Physical Exam Vital Signs: Vital Signs Temperature 98.0 F 09/29/16 08:44 Pulse Rate 56 L 09/29/16 13:45 Respiratory Rate 18 09/29/16 13:45 Blood Pressure 149/59 09/29/16 13:45 O2 Sat by Pulse Oximetry (%) 100 on RA 09/29/16 13:45 Constitutional: Yes: Well Nourished, No Distress Eyes: No: Sclera Icterus Cardiovascular: Yes: Bradycardia, Murmur (2/6 pansystolic murmur at LSB), S1, S2. No: Gallop Respiratory: Yes: CTA Bilaterally. No: Accessory Muscle Use Gastrointestinal: Yes: Normal Bowel Sounds. No: Distention, Palpable Mass, Tenderness ...Rectal Exam: Yes: Guaiac Trace (positive), Sphincter Tone Normal. No: Mass Edema: LLE: 2+ (pedal), RLE: 2+ (pedal) Peripheral Pulses WNL: Yes (2+ DP/PT bilaterally) Neurological: Yes: WNL, Alert, Oriented Labs: CBC, BMP 09/29/16 00:20 09/29/16 05:15 INR 3.93 (0.82-1.09) H D 09/29/16 00:20 09/29/16 00:20 Troponin I 0.03 B-Natriuretic Peptide 1216.98 H Total Bilirubin 0.3 mg/dL (0.2-1.0) D 09/29/16 05:15 AST 13 U/L (15-37) L 09/29/16 05:15 ALT 21 U/L (12-78) 09/29/16 05:15 Alkaline Phosphatase 62 U/L (45-117) 09/29/16 05:15 Albumin 3.1 g/dl (3.4-5.0) L 09/29/16 05:15 09/29/16 09/29/16 09/29/16 00:20 00:20 05:15 Lactic Acid 2.3 H* Calcium 9.1 8.6 Magnesium 1.4 L 1.9 D Total Amylase 43 Lipase 252 Imaging - Results Chest X-ray: Image Reviewed (No acute pathology) Cat Scan: Image Reviewed (Abd/Pelvis CT (09/29/2016) w/o contrast: large hiatal hernia, cholelithiasis (1x small GB stone), sigmoid diverticula with thickening of wall, possible mild diverticulitis without abscess) Assessment/Plan Assessment: 81yo woman who presents with acute diarrhea of likely infectious etiology. Inflammatory causes, such as diverticulitis, is possible, but given lack of abdominal tenderness on exam is lower on the differential. Her history is notable for a skilled nursing roommate with recurrent diarrhea and recent hospitalizations, as well as Ms. Mckeon's recent admission here. Her vital signs are stable with labs notable for microcytic anemia, no leukocytosis, and elevated INR. Review of her current medications include digoxin, which can be associated with diarrhea, although her digoxin levels two months ago were wnl. She continues to have microcytic anemia (hgb 9.9), and per the patient she has yet to have a colonoscopy. Plan: #acute diarrhea -Stool norovirus PCR -Stool O&P -Stool culture -Stool C dif toxin & Ag -Suggest repeating digoxin level -d/c PPI -Flagyl 500mg PO TID -Bacid 1 tablet PO daily #microcytic anemia -consider colonoscopy as out-patient d/w Dr. Azalea Matamoros MD PGY-1 Visit type - Emergency Visit Emergency Visit: Yes ED Registration Date: 09/29/16 Care time: The patient presented to the Emergency Department on the above date and was hospitalized for further evaluation of their emergent condition. - New Patient This patient is new to me today: Yes Date on this admission: 09/29/16 - Critical Care Critical Care patient: No
--- NOTE | 2016-09-29 14:55 | PN ---
Teaching Attending Note Name of Resident: Tanya Matamoros ATTENDING PHYSICIAN STATEMENT: Consult performed for Dr. Caldwell I saw and evaluated the patient. I reviewed the resident's note and discussed the case with the resident. I agree with the resident's findings and plan as documented. SUBJECTIVE: 81F admitted from [facility] for evaluation of diarrhea x 1 week No associated N/V rectal bleeding No abdominal pain Roommate with diarrhea frequently Given Imodium in ER. No BM as of yet while in ER She was recently hospitlized 08/01 for severe microcytic anemia. Seen by GI Dr. Rapp. No interventions performed OBJECTIVE: On exam: Anicteric Hrt: + 2/6 holosystolic murmur LSB>RSB Lungs: CTA B/L Abd: ? horizontal pelvic surgical scar, + normoactive BS, NT/D Ext: 1+ LE edema HAYLIE: light brown stool, trace guaiac positive ASSESSMENT Acute diarrhea Microcytic anemia PLAN: 1. Stool for C. Diff, O&P, culture, Norovirus 2. OK w/ Flagyl for now 500mg PO TID 3. Probiotic 4. Consider checking digoxin level. Uncertain if any medications recently started as an outpatient. To be reviewed by PMD 5. Avoid PPI (associated w/ incr. risk of C. Diff infxn) 6. When acute issues / diarrhea is resolved, colonoscopy could be considered to exclude intraluminal pathology that could be leading to Ms. Mckeon's microcytic anemia and tracely guaiac stool noted on exam. Ms. Mckeon would need risk stratification prior to the procedure and discussion would need to be had with her family and Ms. Mckeon re: risks of procedure. Left message to discuss with son. I discussed the case with Dr. Staton as well.
[2016-09-29] MEDS: metroNIDAZOLE 250 MG TABLET PO SCH ×2 (16:56→21:14)
--- NOTE | 2016-09-29 17:00 | CONSULT ---
Consultation: REQUESTING PROVIDER: CONSULT REQUEST: We have been asked to medically evaluate this patient for ( specify). HISTORY OF PRESENT ILLNESS: Patient is an 81 F with a history of mild dementia, Afib (on coumadin), DM, and HTN, severe microcytic anemia s/p transfusion presents to the ED from [facility] with a 1 week history of profuse watery diarrhea without associated abdominal pain and cramping. She says that she had over 10 bowel movements a day for the past week. She also says her roommate currently has been experiencing the same symptoms and has been in and out of the hospital because of her diarrhea. The patient believes she contracted the diarrhea from her roommate. She denies n/v, fever, abdominal pain , cough, dizziness, dysuria and recent travel. PMH: -Afib -CAD (s/p card cath) -HTN -Anemia -Dementia -DM -Osteoarthritis PSH: joint replacement SH: Denies alcohol use, tobacco Lives in a jail REVIEW OF SYSTEMS: CONSTITUTIONAL: Absent: fever, chills, diaphoresis, generalized weakness, malaise, loss of appetite, weight change HEENT: Absent: rhinorrhea, nasal congestion, throat pain, throat swelling, difficulty swallowing, mouth swelling, ear pain, eye pain, visual changes CARDIOVASCULAR: Absent: chest pain, syncope, palpitations, irregular heart rate, lightheadedness , peripheral edema RESPIRATORY: Absent: cough, shortness of breath, dyspnea with exertion, orthopnea, wheezing, stridor, hemoptysis GASTROINTESTINAL: Absent: abdominal pain, abdominal distension, nausea, vomiting, diarrhea, constipation, melena, hematochezia GENITOURINARY: Absent: dysuria, frequency, urgency, hesitancy, hematuria, flank pain, genital pain MUSCULOSKELETAL: Absent: myalgia, arthralgia, joint swelling, back pain, neck pain SKIN: Absent: rash, itching, pallor HEMATOLOGIC/IMMUNOLOGIC: Absent: easy bleeding, easy bruising, lymphadenopathy, frequent infections ENDOCRINE: Absent: unexplained weight gain, unexplained weight loss, heat intolerance, cold intolerance NEUROLOGIC: Absent: headache, focal weakness or paresthesias, dizziness, unsteady gait, seizure, mental status changes, bladder or bowel incontinence PSYCHIATRIC: Absent: anxiety, depression, suicidal or homicidal ideation, hallucinations. PHYSICAL EXAMINATION Vital Signs - 24 hr 09/29/16 09/29/16 09/29/16 06:50 08:44 10:30 Temperature 98.1 F 98.0 F Pulse Rate 57 L Pulse Rate [ 79 70 Left Apical] Respiratory 18 18 18 Rate Blood Pressure 114/45 Blood Pressure 131/66 132/62 [Right Arm] O2 Sat by Pulse 98 99 100 Oximetry (%) GENERAL: Awake, alert, and fully oriented, in no acute distress. HEAD: Normal with no signs of trauma. EYES: Pupils equal, round and reactive to light, extraocular movements intact, sclera anicteric, conjunctiva clear. No lid lag. EARS, NOSE, THROAT: Ears normal, nares patent, oropharynx clear without exudates. Moist mucous membranes. NECK: supple without lymphadenopathy, JVD, or masses. LUNGS: Breath sounds equal, clear to auscultation bilaterally. No wheezes, and no crackles. No accessory muscle use. HEART:Bradycardic, normal S1 and S2 without murmur, rub or gallop. ABDOMEN: Soft, nontender, not distended, normoactive bowel sounds, no guarding, no rebound, no masses. No hepatomegaly or splenomegaly. UPPER EXTREMITIES: 2+ pulses, warm, well-perfused. No cyanosis. No clubbing. Cap refill <2 seconds. No peripheral edema. LOWER EXTREMITIES: LLE 2+ pedal edema, RLE 2+ pedal edema. 2+ pulses, warm, well -perfused. No calf tenderness. PSYCHIATRIC: Cooperative. Good eye contact. Appropriate mood and affect. SKIN: Warm, dry, normal turgor, no rashes or lesions noted. Laboratory Results - last 24 hr 09/29/16 05:15 Sodium 141 Potassium 3.7 Chloride 105 Carbon Dioxide 27 Anion Gap 9 BUN 13 Creatinine 0.6 Creat Clearance w eGFR > 60 Random Glucose 93 D Calcium 8.6 Magnesium 1.9 D Total Bilirubin 0.3 D AST 13 L ALT 21 Alkaline Phosphatase 62 Total Protein 6.2 L Albumin 3.1 L Active Medications Generic Name Dose Route Start Last Admin Trade Name Freq PRN Reason Stop Dose Admin Potassium Chloride 10 meq/ 1,005 mls @ 75 mls/hr 09/29/16 10:45 09/29/16 12:06 Sodium Chloride IVPB Not Given Q13H CARO Sodium Chloride 1,000 mls @ 75 mls/hr 09/29/16 12:07 09/29/16 12:18 1/2 Normal Saline IV 09/30/16 01:26 75 mls/hr ASDIR ONE Administration Lactobacillus Acidophilus 1 tab 09/30/16 10:00 Bacid - PO DAILY [facility] Metronidazole 500 mg 09/29/16 14:00 Flagyl - PO TID [facility] Potassium Chloride 40 meq 09/29/16 01:30 09/29/16 12:06 Potassium Chloride Oral Liquid PO Not Given BID [facility] ASSESSMENT/PLAN: 1) Acute Diarrhea - asymptomatic, profuse watery diarrhea -pending stool cultures 2) Possible Diverticulosis -continue Flagyl 500mg TID Dispo: We will continue to follow the patient. Thank you for this consultative opportunity. Visit type - Emergency Visit Emergency Visit: No - New Patient This patient is new to me today: Yes Date on this admission: 09/29/16 - Critical Care Critical Care patient: No
--- NOTE | 2016-09-29 17:06 | PN ---
Teaching Attending Note Name of Resident: Jeanie Pastor ATTENDING PHYSICIAN STATEMENT I saw and evaluated the patient. I reviewed the resident's note and discussed the case with the resident. I agree with the resident's findings and plan as documented. SUBJECTIVE: one episode of loose nonbloody watery diarrhea in the ED (got immodium previously) no fevers, no abdominal pain +roommate with intermittent diarrhea OBJECTIVE: Vital Signs Period Temp Pulse Resp BP Sys/Gong Pulse Ox Last 24 Hr 97.9 F-98.1 F 57-79 14-18 114-155/45-69 96-100 cor-rrr lungs clear abd- soft,nt+BS ext no edema CBC, BMP 09/29/16 00:20 09/29/16 05:15 ASSESSMENT AND PLAN: acute diarrheal illness- no fevers, nonbloody stools, roommate with diarrhea agree with norovirus pcr and cdiff check stool WBC check ova and parasites stool culture continue flagyl for now will f/u stool studies
[2016-09-29 18:56] LABS: URINE APPEARANCE SLCLOUDY; URINE BILIRUBIN NEGATIVE (NEGATIVE); URINE BLOOD 1+ (NEGATIVE); URINE COLOR LTYELLOW; URINE GLUCOSE (UA) NEGATIVE (NEGATIVE); URINE KETONE NEGATIVE (NEGATIVE); URINE NITRITE NEGATIVE (NEGATIVE); URINE PROTEIN NEGATIVE (NEGATIVE); URINE UROBILINOGEN NEGATIVE mg/dL (0.2-1.0)
[2016-09-29 18:57] LABS: URINE LEUK ESTERASE 2+ (NEGATIVE)
[2016-09-29 20:44] LABS: URINE BACTERIA RARE /hpf (NONE SEEN); URINE MUCUS RARE; URINE WBC <1 /hpf (3-5)
[2016-09-30] MEDS: POTASSIUM CHLORIDE 10 MEQ in SODIUM CHLORIDE 1,000 ML IVPB SCH (02:01)
[2016-09-30] MEDS: metroNIDAZOLE 250 MG TABLET PO SCH ×3 (06:25→22:13)
[2016-09-30 07:26] LABS: BASOPHIL 0.1 % (0-2.0); EOSINOPHIL 4.2 % (0-4.5); MCH 22.4 pg (25.7-33.7); MCHC 31.4 g/dl (32.0-36.0); MEAN CELL VOLUME 71.5 fl (80-96); MEAN PLT VOLUME 8.7 fl (7.5-11.1); NEUTROPHILS 73.9 % (42.8-82.8); PLATELET COUNT 216 K/MM3 (134-434); RDW 22.3 % (11.6-15.6); WHITE BLOOD COUNT 5.4 K/mm3 (4.0-10.0)
[2016-09-30 08:05] LABS: ANION GAP 8 (8-16); CALCIUM 8.4 mg/dL (8.5-10.1); CO2 27 mmol/L (21-32); CREATININE 0.6 mg/dL (0.55-1.02); GLUCOSE,RANDOM 141 mg/dL (74-106)
[2016-09-30] MEDS: LACTOBACILLUS ACIDOPHILUS 1 EACH TAB (FP) PO SCH (09:14)
[2016-09-30] MEDS: POTASSIUM CHLORIDE ORAL LIQUID 20 MEQ/15 ML PO SCH (09:14)
--- NOTE | 2016-09-30 09:20 | HP ---
DATE OF ADMISSION: 09/29/2016 DATE OF DICTATION: 09/30/2016 CHIEF COMPLAINT: Diarrhea for two days. HISTORY OF PRESENT ILLNESS: This 81-year-old female who is a resident at a long-term care facility presents to the emergency room with two days of non-bloody, watery diarrhea with several bowel movements a day in the range of approximately three to six bowel movements. The patient has some abdominal cramping, but no significant abdominal pain. She has decreased appetite, but no significant nausea and no vomiting. There are no other associated complaints. The symptoms worsen with food and are relieved only slightly on an empty stomach. PAST MEDICAL HISTORY: Atrial fibrillation, dementia, hypothyroidism, coronary artery disease. PAST SURGICAL HISTORY: None. FAMILY AND SOCIAL HISTORY: Unremarkable. ALLERGIES: To SHELLFISH. HOME MEDICATIONS: Reviewed. REVIEW OF SYSTEMS: Unremarkable for presenting complaints. PHYSICAL EXAMINATION: General: This is an elderly female in no acute distress. Vital signs: Temperature on admission 98 degrees Fahrenheit, pulse 68 per minute regular, respiratory rate 18 per minute nonlabored, blood pressure 132/62, oxygen saturation 97% to 99%. HEENT: Within normal limits. Neck: Supple with no JVD. Chest: Clear to auscultation. Heart: Rate and rhythm regular. S1, S2 heard. Abdomen: Soft, nontender, nondistended, with hyperactive bowel sounds. Extremities: Had no edema. Neurological: The patient was awake, alert, oriented x2 to person and place. No gross focal neurological deficits. LABORATORY EXAMINATION: WBC count 4.6, hemoglobin 9.9, hematocrit 31.1%, platelet count 246. EKG shows nonspecific ST-T changes. Sodium 139, potassium 3.2, BUN 16, creatinine 0.7, and lactic acid level was 2.3. LFTs were not elevated. Lipase was normal. A chest x-ray upon admission did not show any acute infiltrates or effusions. An abdominopelvic CT upon admission showed large hiatal hernia, cholelithiasis, mild dilatation of fluid-filled small bowel loops, and possibility of mild sigmoid diverticulitis. No obstruction was noted. IMPRESSION: Enteritis, sepsis, hypokalemia, anemia, history of dementia, atrial fibrillation, hypothyroidism, and coronary artery disease. PLAN: The patient will be admitted and will be started on IV hydration. Potassium has been supplemented. The patients usual medications will be continued. Infectious disease and gastroenterology consultations have been requested, and at this time, treatment has been started empirically for infectious diarrhea, which will be reviewed as per ID recommendations. Further management will be according to the results of these interventions. ALEX SORIANO M.D. [id number]
--- NOTE | 2016-09-30 10:04 | PN ---
Progress Note (short form) - Note Progress Note: Diarrhea overnight, appetite is poor denies fever, chills, abdominal pain CBC, BMP 09/30/16 06:00 09/30/16 06:00 Vital Signs Period Temp Pulse Resp BP Sys/Gong Pulse Ox Last 24 Hr 98.6 F-99.8 F 57-70 18-20 114-153/45-76 95-100 Current Medications Albuterol/Ipratropium (Duoneb -) 1 amp NEB TIDR [facility] Donepezil HCl (Aricept -) 10 mg PO DAILY [facility] Lactobacillus Acidophilus (Bacid -) 1 tab PO DAILY [facility] Last Admin: 09/30/16 09:14 Dose: 1 tab Levothyroxine Sodium (Synthroid -) 175 mcg PO DAILY [facility] Metoprolol Succinate (Toprol Xl -) 25 mg PO DAILY [facility] Metronidazole (Flagyl -) 500 mg PO TID [facility] Last Admin: 09/30/16 06:25 Dose: 500 mg Non-Formulary Medication (Ferrous Sulfate [Ferrous Sulfate]) 325 mg PO TID [facility] Potassium Chloride (Potassium Chloride Oral Liquid) 40 meq PO BID [facility] Last Admin: 09/30/16 09:14 Dose: 40 meq S1S2 RRR Lungs cta Abd soft NT +BS no edema awake alert, oriented but extremely poor historian Imp/Plan 1 week diarrhea r/o infection check digoxin level-should not be on it...only metoprolol for rate control continue empiric flagyl microcytic, iron deficient anemia never followed up for outpt work up-will d/w GI Atrial fibrillation hypothyroidism CAD HTN resume levothyroxine, check levels resume metoprolol advance diet to full liquids, bethany consults appreciated
[2016-09-30 10:15] LABS: DIGOXIN LEVEL 0.6925 ng/ml (0.8-2.0); THYROID STIMULATING HORMONE 0.57 uIU/ml (0.358-3.74)
[2016-09-30 10:17] LABS: PROTHROMBIN TIME (PATIENT) 78.1 SEC (9.98-11.88)
[2016-09-30 11:02] LABS: INR 6.83 (0.82-1.09)
[2016-09-30] MEDS ORDERED: LEVOTHYROXINE NA 175 MCG TABLET PO SCH (11:45)
[2016-09-30] MEDS ORDERED: LEVOTHYROXINE NA 25 MCG TABLET (FP) ONE (12:52)
[2016-09-30] MEDS ORDERED: LEVOTHYROXINE NA 150 MCG TABLET ONE (12:52)
[2016-09-30] MEDS: LEVOTHYROXINE 150 MCG, LEVOTHYROXINE 25 MCG PO SCH (12:54)
[2016-09-30] MEDS: DONEPEZIL HCL 10 MG TABLET (FP) PO SCH (12:54)
[2016-09-30] MEDS: METOPROLOL SUCCINATE 25 MG TAB.SR.24H (FP) PO SCH (12:54)
--- NOTE | 2016-09-30 12:56 | PN ---
Teaching Attending Note Name of Resident: Jeanie Pastor ATTENDING PHYSICIAN STATEMENT I saw and evaluated the patient. I reviewed the resident's note and discussed the case with the resident. I agree with the resident's findings and plan as documented. SUBJECTIVE: no diarrhea today OBJECTIVE: Vital Signs Period Temp Pulse Resp BP Sys/Gong Pulse Ox Last 24 Hr 98.6 F-99.8 F 52-70 18-20 130-166/46-76 95-98 cor-rrr lungs clear abd soft,nt ext no edema stool studies pending CBC, BMP 09/30/16 06:00 09/30/16 06:00 ASSESSMENT AND PLAN: diarrhea- awaiting stool studies on empiric flagyl
[2016-09-30] MEDS: ALBUTEROL SO4 2.5/IPRATROPIUM 0.5 INH SOL 3 ML VIAL.NEB. NEB SCH ×2 (14:06→22:25)
[2016-09-30] MEDS ORDERED: PHYTONADIONE 5 MG TABLET PO ONE (15:00)
[2016-09-30] MEDS: FERROUS SO4 325 MG TABLET (FP) PO SCH ×2 (15:39→22:13)
--- NOTE | 2016-09-30 16:28 | PN ---
Physical Exam: SUBJECTIVE: Patient seen and examined. No overnight events and no new complaints. Patient states she feels much better than yesterday and had only 2 bowel movements since last night. She denies fever, chills, night sweats and urinary symptoms. OBJECTIVE: Vital Signs Period Temp Pulse Resp BP Sys/Gong Pulse Ox Last 24 Hr 98.2 F-99.8 F 52-70 18-20 130-166/46-76 95-98 GENERAL: The patient is awake, alert, and fully oriented, in no acute distress. HEAD: Normal with no signs of trauma. EYES: PERRL, extraocular movements intact, sclera anicteric, conjunctiva clear. No ptosis. ENT: Ears normal, nares patent, oropharynx clear without exudates, moist mucous membranes. NECK: Trachea midline, full range of motion, supple. LUNGS: Breath sounds equal, clear to auscultation bilaterally, no wheezes, no crackles, no accessory muscle use. HEART: Regular rate and rhythm, S1, S2 without murmur, rub or gallop. ABDOMEN: Soft, nontender, nondistended, normoactive bowel sounds, no guarding, no rebound, no hepatosplenomegaly, no masses. EXTREMITIES: 2+ pulses, warm, well-perfused, no edema. PSYCH: Normal mood, normal affect. SKIN: Warm, dry, normal turgor, no rashes or lesions noted Laboratory Results - last 24 hr 09/30/16 09/30/16 09/30/16 06:00 06:00 06:23 WBC 5.4 RBC 4.24 Hgb 9.5 L Hct 30.3 L MCV 71.5 L MCH 22.4 L MCHC 31.4 L RDW 22.3 H Plt Count 216 MPV 8.7 Neutrophils % 73.9 Lymphocytes % 10.9 D Monocytes % 10.9 H Eosinophils % 4.2 D Basophils % 0.1 INR Sodium 144 Potassium 3.7 Chloride 109 H Carbon Dioxide 27 Anion Gap 8 BUN 5 L D Creatinine 0.6 POC Glucometer 151 Random Glucose 141 H D Calcium 8.4 L TSH 0.57 D Digoxin 0.6925 L 09/30/16 09/30/16 06:30 06:30 WBC RBC Hgb Hct MCV MCH MCHC RDW Plt Count MPV Neutrophils % Lymphocytes % Monocytes % Eosinophils % Basophils % INR 6.83 H* D Sodium Potassium Chloride Carbon Dioxide Anion Gap BUN Creatinine POC Glucometer Random Glucose Calcium TSH Cancelled Digoxin Cancelled Active Medications Generic Name Dose Route Start Last Admin Trade Name Billie PRN Reason Stop Dose Admin Albuterol/Ipratropium 1 amp 09/30/16 14:00 09/30/16 14:06 Duoneb - NEB 1 amp TIDR CARO Administration Donepezil HCl 10 mg 09/30/16 10:00 09/30/16 12:54 Aricept - PO 10 mg DAILY [facility]O Administration Ferrous Sulfate 325 mg 09/30/16 14:00 09/30/16 15:39 Feosol - PO 325 mg TID CARO Administration Lactobacillus Acidophilus 1 tab 09/30/16 10:00 09/30/16 09:14 Bacid - PO 1 tab DAILY [facility] Administration Levothyroxine Sodium 150 mcg/ 175 mcg 09/30/16 12:30 09/30/16 12:54 Levothyroxine Sodium 25 mcg PO 175 mcg DAILY@0700 CARO Administration Metoprolol Succinate 25 mg 09/30/16 11:45 09/30/16 12:54 Toprol Xl - PO 25 mg DAILY [facility]O Administration Metronidazole 500 mg 09/29/16 14:00 09/30/16 15:39 Flagyl - PO 500 mg TID [facility]O Administration Potassium Chloride 40 meq 10/01/16 10:00 Potassium Chloride Oral Liquid PO DAILY [facility] ASSESSMENT/PLAN: 82 y/o female presented to the ED and admitted because of a 1 week history of profuse watery diarrhea. Problem List - Problems (1) Diarrhea Assessment/Plan: Continue Flagyl 500mg F/U with stool cultures Code(s): R19.7 - DIARRHEA, UNSPECIFIED Qualifiers: Diarrhea type: unspecified type Qualified Code(s): R19.7 - Diarrhea , unspecified Visit type - Emergency Visit Emergency Visit: Yes ED Registration Date: 09/29/16 Care time: The patient presented to the Emergency Department on the above date and was hospitalized for further evaluation of their emergent condition. - New Patient This patient is new to me today: No - Critical Care Critical Care patient: No
--- NOTE | 2016-09-30 16:44 | EKG ---
Test Reason : Blood Pressure : / mmHG Vent. Rate : 062 BPM Atrial Rate : 214 BPM P-R Int : 000 ms QRS Dur : 074 ms QT Int : 412 ms P-R-T Axes : 269 061 246 degrees QTc Int : 418 ms ATRIAL FLUTTER WITH VARIABLE A-V BLOCK ABNORMAL ECG WHEN COMPARED WITH ECG OF 29-SEP-2016 00:52, ATRIAL FLUTTER HAS REPLACED SINUS RHYTHM T WAVE INVERSION NO LONGER EVIDENT IN ANTERIOR LEADS Confirmed by TYLER ZULETA MD ([id number]) on 09/30/2016 4:44:00 PM Referred By: Harrison TORO Confirmed By:TYLER ZULETA MD
[2016-10-01] MEDS ORDERED: LEVOTHYROXINE NA 25 MCG TABLET (FP) ONE (06:06)
[2016-10-01] MEDS ORDERED: LEVOTHYROXINE NA 150 MCG TABLET ONE (06:06)
[2016-10-01] MEDS: LEVOTHYROXINE 150 MCG, LEVOTHYROXINE 25 MCG PO SCH (06:50)
[2016-10-01] MEDS: metroNIDAZOLE 250 MG TABLET PO SCH (06:50)
[2016-10-01] MEDS: FERROUS SO4 325 MG TABLET (FP) PO SCH ×2 (06:50→14:05)
[2016-10-01] MEDS: ALBUTEROL SO4 2.5/IPRATROPIUM 0.5 INH SOL 3 ML VIAL.NEB. NEB SCH ×3 (07:23→22:15)
[2016-10-01 07:59] LABS: ALBUMIN 2.7 g/dl (3.4-5.0); ALK PHOS 63 U/L (45-117); ANION GAP 6 (8-16); BILIRUBIN,TOTAL 0.2 mg/dL (0.2-1.0); CALCIUM 8.6 mg/dL (8.5-10.1); CO2 26 mmol/L (21-32); CREATININE 0.6 mg/dL (0.55-1.02); GLUCOSE,RANDOM 124 mg/dL (74-106); MAGNESIUM 1.6 mg/dL (1.8-2.4); SGOT/AST 11 U/L (15-37); SGPT/ALT 16 U/L (12-78); TOT PROT 5.7 g/dl (6.4-8.2)
[2016-10-01 08:01] LABS: BASOPHIL 0.3 % (0-2.0); EOSINOPHIL 4.5 % (0-4.5); MCH 22.8 pg (25.7-33.7); MCHC 32.4 g/dl (32.0-36.0); MEAN CELL VOLUME 70.6 fl (80-96); MEAN PLT VOLUME 9.1 fl (7.5-11.1); NEUTROPHILS 73.7 % (42.8-82.8); PLATELET COUNT 203 K/MM3 (134-434); WHITE BLOOD COUNT 4.8 K/mm3 (4.0-10.0)
--- NOTE | 2016-10-01 08:40 | PN ---
Progress Note (short form) - Note Progress Note: three soft bms yesterday, no fever, no pain INR supratherapeutic, received 2.5 mg vit.k yesterday ekg aflutter CBC, BMP 10/01/16 06:00 10/01/16 06:00 Vital Signs Period Temp Pulse Resp BP Sys/Gong Pulse Ox Last 24 Hr 97.8 F-98.8 F 50-61 18-18 132-166/56-71 98-98 S1S2 RRR Lungs cta Abd soft NT +BS no edema awake alert, oriented but extremely poor historian Imp/Plan 1 week diarrhea c.diff negative continue empiric flagyl for now microcytic, iron deficient anemia never followed up for outpt work up, should be done Atrial fibrillation/flutter hypothyroidism CAD HTN oral flagyl continue to hold warfarin physical therapy GI w/up to be discussed bgm bid-antiglycemics were held
[2016-10-01 09:06] LABS: PROTHROMBIN TIME (PATIENT) 55.5 SEC (9.98-11.88)
[2016-10-01 09:40] LABS: INR 4.88 (0.82-1.09)
--- NOTE | 2016-10-01 10:37 | PN ---
Progress Note, Physician Chief Complaint: 24H events: o/n: no acute events AM: diarrhea (dark brown, non-bloody), tolerated breakfast - Current Medication List Current Medications: Active Medications Albuterol/Ipratropium (Duoneb -) 1 amp NEB TIDR COUNTS INCLUDE 234 BEDS AT THE [facility] Last Admin: 10/01/16 07:23 Dose: Not Given Donepezil HCl (Aricept -) 10 mg PO DAILY COUNTS INCLUDE 234 BEDS AT THE [facility] Last Admin: 09/30/16 12:54 Dose: 10 mg Ferrous Sulfate (Feosol -) 325 mg PO TID COUNTS INCLUDE 234 BEDS AT THE [facility] Last Admin: 10/01/16 06:50 Dose: 325 mg Lactobacillus Acidophilus (Bacid -) 1 tab PO DAILY COUNTS INCLUDE 234 BEDS AT THE [facility] Last Admin: 09/30/16 09:14 Dose: 1 tab Levothyroxine Sodium 150 mcg/ (Levothyroxine Sodium 25 mcg) 175 mcg PO DAILY@ 0700 COUNTS INCLUDE 234 BEDS AT THE [facility] Last Admin: 10/01/16 06:50 Dose: 175 mcg Magnesium Oxide (Mag-Ox -) 400 mg PO BID COUNTS INCLUDE 234 BEDS AT THE [facility] Metoprolol Succinate (Toprol Xl -) 25 mg PO DAILY COUNTS INCLUDE 234 BEDS AT THE [facility] Last Admin: 09/30/16 12:54 Dose: 25 mg Metronidazole (Flagyl -) 500 mg PO TID COUNTS INCLUDE 234 BEDS AT THE [facility] Last Admin: 10/01/16 06:50 Dose: 500 mg Potassium Chloride (Potassium Chloride Oral Liquid) 40 meq PO DAILY COUNTS INCLUDE 234 BEDS AT THE [facility] - Objective Vital Signs: Vital Signs Temperature 98 F 10/01/16 05:17 Pulse Rate 54 L 10/01/16 05:17 Respiratory Rate 18 10/01/16 08:13 Blood Pressure 151/71 10/01/16 05:17 O2 Sat by Pulse Oximetry (%) 98 10/01/16 08:13 Labs: CBC, BMP 10/01/16 06:00 10/01/16 06:00 INR, PTT INR 4.88 (0.82-1.09) H* 10/01/16 06:00 Impression/Plan Impression/Plan: Assessment: 81yo woman who presents with acute diarrhea 2/2 infectious vs inflammatory etiology. Flagyl PO stopped due to negative C dif and supratherapeutic INR. Plan: #acute diarrhea -d/c Flagyl 500mg PO TID -d/c Ferrous sulfate - can cause diarrhea in elderly -Stool studies pending: norovirus PCR, culture, O&P -Bacid 1 tablet PO daily -Start low residue diet #microcytic anemia -consider colonoscopy as out-patient d/w Dr. Azalea Matamoros MD PGY-1 Visit type - Emergency Visit Emergency Visit: No - New Patient This patient is new to me today: No - Critical Care Critical Care patient: No
[2016-10-01] MEDS: METOPROLOL SUCCINATE 25 MG TAB.SR.24H (FP) PO SCH (10:44)
[2016-10-01] MEDS: LACTOBACILLUS ACIDOPHILUS 1 EACH TAB (FP) PO SCH (10:44)
[2016-10-01] MEDS: MAGNESIUM OXIDE 400 MG TABLET (FP) PO SCH ×2 (10:44→22:02)
[2016-10-01] MEDS: DONEPEZIL HCL 10 MG TABLET (FP) PO SCH (10:44)
[2016-10-01] MEDS: POTASSIUM CHLORIDE ORAL LIQUID 20 MEQ/15 ML PO SCH (10:44)
--- NOTE | 2016-10-01 11:45 | PN ---
Physical Exam: SUBJECTIVE: Patient seen and examined. She feels much better than yesterday. Denies any overnight events. She only had 1 bowel movement since last night which she describes as normal. She denies hematochezia, abdominal pain, urinary symptoms, and dizziness. OBJECTIVE: Vital Signs Period Temp Pulse Resp BP Sys/Gong Pulse Ox Last 24 Hr 97.8 F-98.2 F 50-61 18-18 132-151/56-71 98-98 GENERAL: The patient is awake, alert, and fully oriented, in no acute distress. HEAD: Normal with no signs of trauma. EYES: PERRL, extraocular movements intact, sclera anicteric, conjunctiva clear. No ptosis. ENT: Ears normal, nares patent, oropharynx clear without exudates, moist mucous membranes. NECK: supple. LUNGS: Breath sounds equal, clear to auscultation bilaterally, no wheezes, no crackles, no accessory muscle use. HEART: Regular rate and rhythm, S1, S2 without murmur, rub or gallop. ABDOMEN: Soft, nontender, nondistended, normoactive bowel sounds, no guarding, no rebound, no hepatosplenomegaly, no masses. EXTREMITIES: 2+ pulses, warm, well-perfused, no edema. PSYCH: Normal mood, normal affect. SKIN: Warm, dry, normal turgor, no rashes or lesions noted Laboratory Results - last 24 hr 10/01/16 10/01/16 10/01/16 06:00 06:00 06:00 WBC 4.8 RBC 4.05 Hgb 9.2 L Hct 28.6 L MCV 70.6 L MCH 22.8 L MCHC 32.4 RDW 22.0 H Plt Count 203 MPV 9.1 Neutrophils % 73.7 Lymphocytes % 11.9 Monocytes % 9.6 Eosinophils % 4.5 Basophils % 0.3 INR 4.88 H* Sodium 143 Potassium 3.7 Chloride 111 H Carbon Dioxide 26 Anion Gap 6 L BUN 3 L D Creatinine 0.6 Creat Clearance w eGFR > 60 Random Glucose 124 H Calcium 8.6 Magnesium 1.6 L Total Bilirubin 0.2 D AST 11 L ALT 16 D Alkaline Phosphatase 63 Total Protein 5.7 L Albumin 2.7 L Active Medications Generic Name Dose Route Start Last Admin Trade Name Freq PRN Reason Stop Dose Admin Albuterol/Ipratropium 1 amp 09/30/16 14:00 10/01/16 07:23 Duoneb - NEB Not Given TIDR CARO Donepezil HCl 10 mg 09/30/16 10:00 10/01/16 10:44 Aricept - PO 10 mg DAILY CARO Administration Ferrous Sulfate 325 mg 09/30/16 14:00 10/01/16 06:50 Feosol - PO 325 mg TID CARO Administration Lactobacillus Acidophilus 1 tab 09/30/16 10:00 10/01/16 10:44 Bacid - PO 1 tab DAILY CARO Administration Levothyroxine Sodium 150 mcg/ 175 mcg 09/30/16 12:30 10/01/16 06:50 Levothyroxine Sodium 25 mcg PO 175 mcg DAILY@0700 CARO Administration Magnesium Oxide 400 mg 10/01/16 10:00 10/01/16 10:44 Mag-Ox - PO 400 mg BID CARO Administration Metoprolol Succinate 25 mg 09/30/16 11:45 10/01/16 10:44 Toprol Xl - PO 25 mg DAILY CARO Administration Metronidazole 500 mg 09/29/16 14:00 10/01/16 06:50 Flagyl - PO 500 mg TID CARO Administration Potassium Chloride 40 meq 10/01/16 10:00 10/01/16 10:44 Potassium Chloride Oral Liquid PO 40 meq DAILY CAOR Administration ASSESSMENT/PLAN: 82 y/o female presented to the ED and admitted because of a 1 week history of profuse watery diarrhea. Problem List - Problems (1) Diarrhea Assessment/Plan: -F/up stool cultures -Stopped flagyl: c diff toxins negative Code(s): R19.7 - DIARRHEA, UNSPECIFIED Qualifiers: Diarrhea type: unspecified type Qualified Code(s): R19.7 - Diarrhea , unspecified Problem List - Problems (1) Diarrhea Code(s): R19.7 - DIARRHEA, UNSPECIFIED Qualifiers: Diarrhea type: unspecified type Qualified Code(s): R19.7 - Diarrhea , unspecified Visit type - Emergency Visit Emergency Visit: Yes ED Registration Date: 09/29/16 Care time: The patient presented to the Emergency Department on the above date and was hospitalized for further evaluation of their emergent condition. - New Patient This patient is new to me today: No - Critical Care Critical Care patient: No
--- NOTE | 2016-10-01 13:53 | PN ---
Teaching Attending Note Name of Resident: Jeanie Pastor ATTENDING PHYSICIAN STATEMENT I saw and evaluated the patient. I reviewed the resident's note and discussed the case with the resident. I agree with the resident's findings and plan as documented. SUBJECTIVE: continues to have loose watery stools 3 times today OBJECTIVE: Vital Signs Period Temp Pulse Resp BP Sys/Gong Pulse Ox Last 24 Hr 97.8 F-98.2 F 50-61 18-18 132-151/56-71 98-98 cor-rrr llungs clear abd soft,no distention +BS ext no edema CBC, BMP 10/01/16 06:00 10/01/16 06:00 Microbiology 09/29/16 18:00 Stool Salmonella/Shigella Culture - Preliminary NO ENTERIC PATHOGENS, 24 HOURS, ON PRIMARY PLATES 09/29/16 18:00 Stool Yersinia Culture - Preliminary NO ENTERIC PATHOGENS, 24 HOURS, ON PRIMARY PLATES 09/29/16 18:00 Stool Vibrio Culture - Final NO GROWTH OF VIBRIO SPECIES OBTAINED 09/29/16 18:00 Stool Escherichia coli 0157 Culture - Final NO GROWTH OF E COLI 0157 OBTAINED 09/28/16 23:54 Urine - Urine Clean Catch Urine Culture - Final 09/29/16 00:20 Blood - Peripheral Venous Blood Culture - Preliminary NO GROWTH OBTAINED AFTER 48 HOURS, INCUBATION TO CONTINUE FOR 3 DAYS. 09/28/16 00:20 Blood - Peripheral Venous Blood Culture - Preliminary NO GROWTH OBTAINED AFTER 48 HOURS, INCUBATION TO CONTINUE FOR 3 DAYS. 09/29/16 17:04 Stool Clostridium difficile Antigen (VISHNU) - Final 09/29/16 17:04 Stool Clostridium difficile Toxin Assay - Final ASSESSMENT AND PLAN: diarrhea- persistent d/c flagyl cdiff is negative GI f/u
[2016-10-01 13:58] LABS: ANISOCYTOSIS 2+; HYPOCHROMIA 1+; MICROCYTOSIS 1+
--- NOTE | 2016-10-01 18:13 | PN ---
Teaching Attending Note Name of Resident: Tanya Matamoros ATTENDING PHYSICIAN STATEMENT I saw and evaluated the patient. I reviewed the resident's note and discussed the case with the resident. I agree with the resident's findings and plan as documented. SUBJECTIVE: Diarrhea this AM No overt bleeding INR supratherapeutic C. Diff neg OBJECTIVE: Abd: Sft, NT/ND +BS ASSESSMENT Diarrhea microcytic anemia, guaiac + on exam PLAN: Stopped iron to see if this aids in relief of diarrhea. Iron can paradoxically cause diarrhea in the elderly and in the young Flagyl stopped in setting of elevated INR. C. Diff neg Awaiting stool studies Low fiber diet No call back from son as of yet to discuss eventual procedures
[2016-10-02] MEDS: ALBUTEROL SO4 2.5/IPRATROPIUM 0.5 INH SOL 3 ML VIAL.NEB. NEB SCH ×3 (05:55→21:49)
[2016-10-02] MEDS ORDERED: LEVOTHYROXINE NA 150 MCG TABLET ONE (06:04)
[2016-10-02] MEDS ORDERED: LEVOTHYROXINE NA 25 MCG TABLET (FP) ONE (06:04)
[2016-10-02] MEDS: LEVOTHYROXINE 150 MCG, LEVOTHYROXINE 25 MCG PO SCH (06:38)
[2016-10-02 07:50] LABS: BASOPHIL 0.4 % (0-2.0); EOSINOPHIL 4.1 % (0-4.5); MCH 22.4 pg (25.7-33.7); MCHC 31.8 g/dl (32.0-36.0); MEAN CELL VOLUME 70.2 fl (80-96); NEUTROPHILS 73.7 % (42.8-82.8); PLATELET COUNT 193 K/MM3 (134-434); RDW 22.1 % (11.6-15.6); WHITE BLOOD COUNT 6.2 K/mm3 (4.0-10.0)
[2016-10-02 08:03] LABS: INR 3.36 (0.82-1.09); PROTHROMBIN TIME (PATIENT) 37.9 SEC (9.98-11.88)
--- NOTE | 2016-10-02 08:08 | PN ---
Progress Note (short form) - Note Progress Note: multiple>5 loose/watery BMs during the day yesterday, pt reports nighttime diarrhea also . Vital Signs Period Temp Pulse Resp BP Sys/Gong Pulse Ox Last 24 Hr 98 F-98.9 F 58-78 18-20 140-153/69-77 95-98 S1S2 RRR Lungs cta Abd soft NT +BS no edema awake alert, oriented but extremely poor historian Imp/Plan 1 week diarrhea c.diff negative off of flagyl microcytic, iron deficient anemia never followed up for outpt work up, should be done Atrial fibrillation/flutter hypothyroidism CAD HTN continue to hold warfarin physical therapy GI w/up to be discussed bgm bid-antiglycemics were held advance diet
[2016-10-02 08:12] LABS: ALBUMIN 2.8 g/dl (3.4-5.0); ANION GAP 9 (8-16); CALCIUM 8.5 mg/dL (8.5-10.1); CO2 26 mmol/L (21-32); CREATININE 0.5 mg/dL (0.55-1.02); GLUCOSE,RANDOM 145 mg/dL (74-106); SGOT/AST 19 U/L (15-37); SGPT/ALT 20 U/L (12-78)
[2016-10-02 08:13] LABS: ALK PHOS 77 U/L (45-117); BILIRUBIN,TOTAL 0.4 mg/dL (0.2-1.0)
--- NOTE | 2016-10-02 09:25 | CON.CARD ---
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 diff. She also denies chest pain, dyspnea, near or true syncope, palpitations, orthopnea, PND or LE edema. - History Source History Provided By: Patient Limitations to Obtaining History: No Limitations - Past Medical History AT RISK SPECIALIST: Yes: Dementia (mild) Cardio/Vascular: Yes: AFIB (on coumadin), CAD (card cath with BMS to PDA on ), HTN Musculoskeletal: Yes: Chronic low back pain, Osteoarthritis Endocrine: Yes: Diabetes Mellitus, Hypothyroidism - Past Surgical History Past Surgical History: Yes: Joint Replacement - Alcohol/Substance Use Hx Alcohol Use: No - Smoking History Smoking history: Never smoked Have you smoked in the past 12 months: No - Social History Usual Living Arrangement: Correction ADL: Support Services History of Recent Travel: No Home Medications - Allergies Allergies/Adverse Reactions: Allergies Allergy/AdvReac Type Severity Reaction Status Date / Time shellfish derived Allergy Verified 09/28/16 22:58 - Home Medications Home Medications: Ambulatory Orders Donepezil HCl [Aricept -] 10 mg PO DAILY 07/20/16 Glipizide [Glipizide ER] 10 mg PO DAILY 07/20/16 Levothyroxine [Synthroid -] 175 mcg PO DAILY 07/20/16 Simvastatin [Zocor -] 20 mg PO HS 07/20/16 Warfarin Na [Coumadin -] 4 mg PO Q48H 07/20/16 Albuterol 2.5/Ipratropium 0.5 [Duoneb -] 1 amp NEB TIDR amp 07/24/16 Pantoprazole Sodium [Protonix -] 40 mg PO DAILY #30 tablet 07/24/16 Fluticasone Prop 0.05% Nasal [Flonase -] 1 spray NS BID spray 07/27/16 Losartan Potassium [Cozaar -] 50 mg PO BID tablet 07/27/16 Metoprolol Succinate [Toprol Xl -] 25 mg PO DAILY #30 tab.sr.24h 07/27/16 Digoxin 250 mcg PO DAILY 09/29/16 Ferrous Sulfate 325 mg PO TID 09/29/16 Pioglitazone HCl/Metformin HCl [Actoplus Met 15 mg-850 mg Tab] 1 each PO BID Warfarin Na [Coumadin] 3 mg PO Q48H 09/29/16 Review of Systems - Review of Systems Gastrointestinal: reports: Diarrhea Vital Signs: Vital Signs Temperature 98.0 F 10/02/16 06:00 Pulse Rate 78 10/02/16 06:00 Respiratory Rate 20 10/02/16 07:49 Blood Pressure 140/69 10/02/16 06:00 O2 Sat by Pulse Oximetry (%) 97 10/02/16 07:49 Constitutional: Yes: No Distress, Calm Neck: Yes: Supple Respiratory: Yes: Regular, Diminished Gastrointestinal: Yes: Normal Bowel Sounds, Soft Cardiovascular: Yes: Regular Rate and Rhythm JVD: No Carotid Bruit: No Heart Sounds: Yes: S1, S2 Murmur: Yes: Systolic Murmur, Grade 2 Edema: No - Other Data Labs, Other Data: CBC, BMP 10/02/16 06:00 10/02/16 06:00 INR, PTT INR 3.36 (0.82-1.09) H D 10/02/16 06:00 Aflutter with variable block 60's Ejection Fraction %: LVEF > or = 40 % Imaging - Results Chest X-ray: Report Reviewed (NAD) Cat Scan: Report Reviewed (Large hiatal hernia) Problem List - Problems (1) Diarrhea Code(s): R19.7 - DIARRHEA, UNSPECIFIED Qualifiers: Diarrhea type: unspecified type Qualified Code(s): R19.7 - Diarrhea , unspecified (2) CAD (coronary artery disease) Code(s): I25.10 - ATHSCL HEART DISEASE OF [place] CORONARY ARTERY W/O ANG PCTRS Qualifiers: Coronary Disease-Associated Artery/Lesion type: [place] artery [place] vs. transplanted heart: [place] heart Associated angina: without angina Qualified Code(s): I25.10 - Atherosclerotic heart disease of [place] coronary artery without angina pectoris (3) Hypercholesterolemia Code(s): E78.00 - PURE HYPERCHOLESTEROLEMIA, UNSPECIFIED (4) Hypertension Code(s): I10 - ESSENTIAL (PRIMARY) HYPERTENSION Qualifiers: Hypertension type: essential hypertension Qualified Code(s): I10 - Essential (primary) hypertension (5) Hypothyroidism Code(s): E03.9 - HYPOTHYROIDISM, UNSPECIFIED Qualifiers: Hypothyroidism type: unspecified Qualified Code(s): E03.9 - Hypothyroidism, unspecified (6) Left ventricular diastolic dysfunction Code(s): I51.9 - HEART DISEASE, UNSPECIFIED (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 MENTAL DISORDER DUE TO KNOWN PHYSIOLOGICAL CONDITION (8) Paroxysmal atrial fibrillation Code(s): I48.0 - PAROXYSMAL ATRIAL FIBRILLATION (9) Pulmonary hypertension Code(s): I27.2 - OTHER SECONDARY PULMONARY HYPERTENSION (10) Paroxysmal atrial flutter Code(s): I48.92 - UNSPECIFIED ATRIAL FLUTTER (11) Pre-procedural cardiovascular examination Code(s): Z01.810 - ENCOUNTER FOR PREPROCEDURAL CARDIOVASCULAR EXAMINATION (12) S/P coronary artery stent placement Code(s): Z95.5 - PRESENCE OF CORONARY ANGIOPLASTY IMPLANT AND GRAFT Assessment/Plan 07/21/2016 Echo: Normal LV size and fxn, severe LAE, mod MR, mild-mod TR RVSP>60 mmHg 1. Persistent diarrhea, c.diff negative 2. Pre-procedural cardiovascular evaluation 3. CAD s/p PCI (stent) angina pectoris 4. Diastolic LV dysfunction with class I NYHA classification LV failure, compensated 5. Persistent atrial flutter/atypical atrial tachycardia, [id number] score of 6 with supratherapeutic INR off Coumadin therapy pre-procedure 4. Microcytic anemia, iron deficiency etiology undetermined 5. HTN, 6. DM 7. Hypercholesterolemia 8. 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 Hypothyroidism PLAN: 1. Continue Toprol XL 25 qd 2. Resume Cozaar 50 qd 3. Hold Coumadin per INR pre-procedure 4. Continue Lipitor 20 qhs 5. Transfuse as needed to maintain Hg > 8.0 6. Patient may proceed with colonoscopy from CV standpoint given absence of sxs of acute coronary syndrome, decompensated CHF or malignant arrhythmia once INR decreases to acceptable level. 7. Resume coumadin post-procedure once hemostasis is assured 8. Thank you for consultative opportunity
[2016-10-02] MEDS ORDERED: PT OWN MED DRAWER 7, Y5N ONE (10:39)
[2016-10-02] MEDS: METOPROLOL SUCCINATE 25 MG TAB.SR.24H (FP) PO SCH (10:41)
[2016-10-02] MEDS: MAGNESIUM OXIDE 400 MG TABLET (FP) PO SCH ×2 (10:42→21:25)
[2016-10-02] MEDS: POTASSIUM CHLORIDE ORAL LIQUID 20 MEQ/15 ML PO SCH (10:42)
[2016-10-02] MEDS: DONEPEZIL HCL 10 MG TABLET (FP) PO SCH (10:42)
[2016-10-02] MEDS: LACTOBACILLUS ACIDOPHILUS 1 EACH TAB (FP) PO SCH (10:42)
[2016-10-02] MEDS: LOSARTAN POTASSIUM 50 MG TABLET (FP) PO SCH (10:42)
--- NOTE | 2016-10-02 11:17 | PN ---
Physical Exam: SUBJECTIVE: Patient seen and examined. She feels much better than yesterday. She had over 5 loose wattery bowel movements yesterday. She only had 1 bowel movement since last night which she describes as normal. She denies bloody stools, abdominal pain, urinary symptoms, and dizziness. OBJECTIVE: Vital Signs Period Temp Pulse Resp BP Sys/Gong Pulse Ox Last 24 Hr 98.0 F-98.9 F 61-78 18-20 140-153/69-74 95-97 GENERAL: The patient is awake, alert, and fully oriented, in no acute distress. HEAD: Normal with no signs of trauma. EYES: sclera anicteric, conjunctiva clear. ENT: Ears normal, nares patent, oropharynx clear without exudates, moist mucous membranes. NECK: supple. LUNGS: Breath sounds equal, clear to auscultation bilaterally, no wheezes, no crackles, no accessory muscle use. HEART: Regular rate and rhythm, S1, S2 without murmur, rub or gallop. ABDOMEN: Soft, nontender, nondistended, normoactive bowel sounds, no guarding, no rebound, no hepatosplenomegaly, no masses. EXTREMITIES: 2+ pulses, warm, well-perfused, no edema. PSYCH: Normal mood, normal affect. SKIN: Warm, dry, normal turgor, no rashes or lesions noted Laboratory Results - last 24 hr 10/01/16 10/01/16 10/02/16 06:00 17:06 06:00 WBC 4.8 6.2 RBC 4.05 4.38 Hgb 9.2 L 9.8 L Hct 28.6 L 30.8 L MCV 70.6 L 70.2 L MCH 22.8 L 22.4 L MCHC 32.4 31.8 L RDW 22.0 H 22.1 H Plt Count 203 193 MPV 9.1 9.0 Neutrophils % 73.7 73.7 Lymphocytes % 11.9 13.0 Monocytes % 9.6 8.8 Eosinophils % 4.5 4.1 Basophils % 0.3 0.4 Hypochromia 1+ Anisocytosis 2+ Microcytosis 1+ INR Sodium Potassium Chloride Carbon Dioxide Anion Gap BUN Creatinine Creat Clearance w eGFR POC Glucometer 188 Random Glucose Calcium Total Bilirubin AST ALT Alkaline Phosphatase Total Protein Albumin 10/02/16 10/02/16 10/02/16 06:00 06:00 06:37 WBC RBC Hgb Hct MCV MCH MCHC RDW Plt Count MPV Neutrophils % Lymphocytes % Monocytes % Eosinophils % Basophils % Hypochromia Anisocytosis Microcytosis INR 3.36 H D Sodium 139 Potassium 3.7 Chloride 104 Carbon Dioxide 26 Anion Gap 9 BUN 2 L* D Creatinine 0.5 L Creat Clearance w eGFR > 60 POC Glucometer 156 Random Glucose 145 H Calcium 8.5 Total Bilirubin 0.4 D AST 19 D ALT 20 D Alkaline Phosphatase 77 D Total Protein 6.0 L Albumin 2.8 L Active Medications Generic Name Dose Route Start Last Admin Trade Name Freq PRN Reason Stop Dose Admin Albuterol/Ipratropium 1 amp 09/30/16 14:00 10/02/16 05:55 Duoneb - NEB 1 amp TIDR CARO Administration Donepezil HCl 10 mg 09/30/16 10:00 10/02/16 10:42 Aricept - PO 10 mg DAILY CARO Administration Lactobacillus Acidophilus 1 tab 09/30/16 10:00 10/02/16 10:42 Bacid - PO 1 tab DAILY CARO Administration Levothyroxine Sodium 150 mcg/ 175 mcg 09/30/16 12:30 10/02/16 06:38 Levothyroxine Sodium 25 mcg PO 175 mcg DAILY@0700 CARO Administration Losartan Potassium 50 mg 10/02/16 10:00 10/02/16 10:42 Cozaar - PO 50 mg DAILY CARO Administration Magnesium Oxide 400 mg 10/01/16 10:00 10/02/16 10:42 Mag-Ox - PO 400 mg BID CARO Administration Metoprolol Succinate 25 mg 09/30/16 11:45 10/02/16 10:41 Toprol Xl - PO 25 mg DAILY CARO Administration Potassium Chloride 40 meq 10/01/16 10:00 10/02/16 10:42 Potassium Chloride Oral Liquid PO 40 meq DAILY CARO Administration ASSESSMENT/PLAN: (1) Persistent Diarrhea -Not likely infectious -afebrile, negative c diff toxin, blood cultures, urine cultures, stool cultures -Follow up with GI Problem List - Problems (1) Diarrhea Code(s): R19.7 - DIARRHEA, UNSPECIFIED Qualifiers: Diarrhea type: unspecified type Qualified Code(s): R19.7 - Diarrhea , unspecified Visit type - Emergency Visit Emergency Visit: Yes ED Registration Date: 09/29/16 Care time: The patient presented to the Emergency Department on the above date and was hospitalized for further evaluation of their emergent condition. - New Patient This patient is new to me today: No - Critical Care Critical Care patient: No
--- NOTE | 2016-10-02 12:01 | CON.PULM ---
Consult Consult Specialty:: PULMONARY Referred by:: GERMAINE Reason for Consultation:: PRE-PROCEDURE CLEARANCE - History of Present Illness Chief Complaint: DIARRHEA History of Present Illness: 81F w/ hx of mild dementia, a-fib, hypothyroidism, CAD presenting from [facility] with acute diarrhea. Pt reports that she started having continuous diarrhea since yesterday that is watery, non-bloody, malodorous. She states that her new roommate has chronic diarrhea. She reports no appetite and has some dizziness. She denies fevers, chills, headache, chest pain, SOB, abdominal pain, dysuria, and any recent consumption of uncooked meat. - History Source History Provided By: Patient Limitations to Obtaining History: Poor Historian - Past Medical History RIBBON HAND: Yes: Dementia (mild) Cardio/Vascular: Yes: AFIB (on coumadin), CAD (card cath with BMS to PDA on ), HTN Musculoskeletal: Yes: Chronic low back pain, Osteoarthritis Endocrine: Yes: Diabetes Mellitus, Hypothyroidism - Past Surgical History Past Surgical History: Yes: Joint Replacement - Alcohol/Substance Use Hx Alcohol Use: No - Smoking History Smoking history: Never smoked Have you smoked in the past 12 months: No - Social History Usual Living Arrangement: Detention ADL: Support Services History of Recent Travel: No Home Medications - Allergies Allergies/Adverse Reactions: Allergies Allergy/AdvReac Type Severity Reaction Status Date / Time shellfish derived Allergy Verified 09/28/16 22:58 - Home Medications Home Medications: Ambulatory Orders Donepezil HCl [Aricept -] 10 mg PO DAILY 07/20/16 Glipizide [Glipizide ER] 10 mg PO DAILY 07/20/16 Levothyroxine [Synthroid -] 175 mcg PO DAILY 07/20/16 Simvastatin [Zocor -] 20 mg PO HS 07/20/16 Warfarin Na [Coumadin -] 4 mg PO Q48H 07/20/16 Albuterol 2.5/Ipratropium 0.5 [Duoneb -] 1 amp NEB TIDR amp 07/24/16 Pantoprazole Sodium [Protonix -] 40 mg PO DAILY #30 tablet 07/24/16 Fluticasone Prop 0.05% Nasal [Flonase -] 1 spray NS BID spray 07/27/16 Losartan Potassium [Cozaar -] 50 mg PO BID tablet 07/27/16 Metoprolol Succinate [Toprol Xl -] 25 mg PO DAILY #30 tab.sr.24h 07/27/16 Digoxin 250 mcg PO DAILY 09/29/16 Ferrous Sulfate 325 mg PO TID 09/29/16 Pioglitazone HCl/Metformin HCl [Actoplus Met 15 mg-850 mg Tab] 1 each PO BID Warfarin Na [Coumadin] 3 mg PO Q48H 09/29/16 Family Disease History - Family Disease History Family History: Unremarkable Review of Systems - Review of Systems Constitutional: reports: Unintentional Wgt. Loss. denies: Fever Eyes: denies: Blurred Vision HENT: denies: Difficult Swallowing Neck: denies: Decreased ROM Cardiovascular: denies: Chest Pain Respiratory: denies: Cough Gastrointestinal: reports: Diarrhea. denies: Abdominal Pain Genitourinary: denies: Burning Physical Exam Vital Sings: Vital Signs Temperature 98.0 F 10/02/16 06:00 Pulse Rate 78 10/02/16 06:00 Respiratory Rate 20 10/02/16 07:49 Blood Pressure 140/69 10/02/16 06:00 O2 Sat by Pulse Oximetry (%) 97 10/02/16 07:49 Constitutional: Yes: Calm Eyes: Yes: EOM Intact HENT: Yes: Normocephalic Neck: Yes: Trachea Midline Cardiovascular: Yes: Pulse Irregular, S1, S2 Respiratory: Yes: CTA Bilaterally Gastrointestinal: Yes: Normal Bowel Sounds Edema: No Labs: CBC, BMP 10/02/16 06:00 10/02/16 06:00 Imaging - Results Chest X-ray: Report Reviewed, Image Reviewed EKG: Report Reviewed, Image Reviewed Problem List - Problems (1) Colitis Code(s): K52.9 - NONINFECTIVE GASTROENTERITIS AND COLITIS, UNSPECIFIED (2) Diarrhea Code(s): R19.7 - DIARRHEA, UNSPECIFIED Qualifiers: Diarrhea type: unspecified type Qualified Code(s): R19.7 - Diarrhea , unspecified (3) Paroxysmal atrial flutter Code(s): I48.92 - UNSPECIFIED ATRIAL FLUTTER (4) S/P coronary artery stent placement Code(s): Z95.5 - PRESENCE OF CORONARY ANGIOPLASTY IMPLANT AND GRAFT (5) Anemia Code(s): D64.9 - ANEMIA, UNSPECIFIED Assessment/Plan NO PULMONARY CONTRAINDICATION TO COLONOSCOPY PLANNED O2 SAT IS 97% ON ROOM AIR CXR IS CLEAR AGREE WITH RESUMING A/C ONCE PROCEDURE IS FINISHED AND CLEARED BY CAROL TALBOT MD
--- NOTE | 2016-10-02 15:52 | PN ---
Teaching Attending Note Name of Resident: Jeanie Pastor ATTENDING PHYSICIAN STATEMENT I saw and evaluated the patient. I reviewed the resident's note and discussed the case with the resident. I agree with the resident's findings and plan as documented. SUBJECTIVE: OBJECTIVE: ASSESSMENT AND PLAN: no diarrhea today infectious w/u unremarkable f/u with GI will sign off please call back if needed
[2016-10-03] MEDS ORDERED: LEVOTHYROXINE NA 25 MCG TABLET (FP) ONE (05:50)
[2016-10-03] MEDS ORDERED: LEVOTHYROXINE NA 150 MCG TABLET ONE (05:50)
[2016-10-03] MEDS: ALBUTEROL SO4 2.5/IPRATROPIUM 0.5 INH SOL 3 ML VIAL.NEB. NEB SCH ×3 (05:54→22:35)
[2016-10-03] MEDS: LEVOTHYROXINE 150 MCG, LEVOTHYROXINE 25 MCG PO SCH (06:04)
--- NOTE | 2016-10-03 07:38 | PN ---
Progress Note (short form) - Note Progress Note: had solid food yesterday with formed BM, feels much better Vital Signs Period Temp Pulse Resp BP Sys/Gong Pulse Ox Last 24 Hr 98.2 F-98.5 F 64-72 18-20 125-153/63-85 97-97 S1S2 RRR Lungs cta Abd soft NT +BS no edema awake alert, oriented Imp/Plan 1 week diarrhea c.diff negative off of flagyl microcytic, iron deficient anemia never followed up for outpt work up, should be done Atrial fibrillation/flutter hypothyroidism CAD HTN continue to hold warfarin physical therapy d/w , patient and her HCP Jonathan: planned colonoscopy with long h/o iron deficient anemia and new onset unexplained diarrhea. patient and HCP agree with procedure. continue to hold warfarin. pre colonoscopy consult evaluations are appreciated
[2016-10-03] MEDS: POTASSIUM CHLORIDE ORAL LIQUID 20 MEQ/15 ML PO SCH (09:11)
[2016-10-03] MEDS: METOPROLOL SUCCINATE 25 MG TAB.SR.24H (FP) PO SCH (09:11)
[2016-10-03] MEDS: LACTOBACILLUS ACIDOPHILUS 1 EACH TAB (FP) PO SCH (09:11)
[2016-10-03] MEDS: LOSARTAN POTASSIUM 50 MG TABLET (FP) PO SCH (09:12)
[2016-10-03] MEDS: DONEPEZIL HCL 10 MG TABLET (FP) PO SCH (09:12)
[2016-10-03] MEDS: MAGNESIUM OXIDE 400 MG TABLET (FP) PO SCH ×2 (09:12→21:32)
[2016-10-03] MEDS ORDERED: LOPERAMIDE HCL 2 MG CAPSULE PO PRN (18:07)
[2016-10-03] MEDS ORDERED: INSULIN (NOVOLOG) ASPART 100 UNITS/ML 10ML VIAL SQ ONE (19:00)
[2016-10-03] MEDS ORDERED: diphenhydrAMINE HCL 25 MG CAPSULE (FP) PO ONE (23:45)
[2016-10-04] MEDS ORDERED: LEVOTHYROXINE NA 25 MCG TABLET (FP) ONE (05:45)
[2016-10-04] MEDS ORDERED: LEVOTHYROXINE NA 150 MCG TABLET ONE (05:45)
[2016-10-04] MEDS: ALBUTEROL SO4 2.5/IPRATROPIUM 0.5 INH SOL 3 ML VIAL.NEB. NEB SCH ×3 (05:50→22:08)
[2016-10-04] MEDS: LEVOTHYROXINE 150 MCG, LEVOTHYROXINE 25 MCG PO SCH (06:25)
[2016-10-04] MEDS ORDERED: diphenhydrAMINE HCL 25 MG CAPSULE (FP) PO PRN (07:20)
[2016-10-04] MEDS ORDERED: INSULIN SLIDING SCALE (NOVOLOG) 1 VIAL SQ PRN (07:20)
--- NOTE | 2016-10-04 07:20 | PN ---
Progress Note (short form) - Note Progress Note: again diarrhea, watery BM yesterday afternoon x1, none since got imodium noted pruritic faint rash over arms and legs Vital Signs Period Temp Pulse Resp BP Sys/Gong Pulse Ox Last 24 Hr 98.2 F-98.6 F 68-89 16-20 113-124/46-69 95-97 S1S2 RRR Lungs cta Abd soft NT +BS no edema awake alert, oriented pruritic rash over arms and legs, no hives, no blisters, no petechiae Imp/Plan persistent diarrhea c.diff negative off of flagyl microcytic, iron deficient anemia Atrial fibrillation/flutter hypothyroidism CAD HTN continue to hold warfarin physical therapy d/w , patient and her HCP Jonathan: planned colonoscopy with long h/o iron deficient anemia and new onset unexplained diarrhea. patient and HCP agree with procedure. continue to hold warfarin. pre colonoscopy consult evaluations are appreciated prn benadryl for rash, encouraged shower
[2016-10-04 07:22] LABS: BASOPHIL 0.4 % (0-2.0); EOSINOPHIL 1.9 % (0-4.5); MCHC 32.7 g/dl (32.0-36.0); MEAN CELL VOLUME 70.4 fl (80-96); MEAN PLT VOLUME 9.1 fl (7.5-11.1); NEUTROPHILS 72.3 % (42.8-82.8); PLATELET COUNT 256 K/MM3 (134-434); RDW 21.5 % (11.6-15.6); WHITE BLOOD COUNT 7.4 K/mm3 (4.0-10.0)
[2016-10-04 07:34] LABS: INR 1.74 (0.82-1.09); PROTHROMBIN TIME (PATIENT) 19.4 SEC (9.98-11.88)
[2016-10-04 07:51] LABS: ALBUMIN 2.8 g/dl (3.4-5.0); ANION GAP 10 (8-16); CALCIUM 8.4 mg/dL (8.5-10.1); CO2 25 mmol/L (21-32); CREATININE 0.7 mg/dL (0.55-1.02); GLUCOSE,RANDOM 157 mg/dL (74-106); SGOT/AST 27 U/L (15-37); SGPT/ALT 29 U/L (12-78)
[2016-10-04 07:53] LABS: ALK PHOS 89 U/L (45-117); BILIRUBIN,TOTAL 0.6 mg/dL (0.2-1.0); TOT PROT 5.8 g/dl (6.4-8.2)
[2016-10-04] MEDS: POTASSIUM CHLORIDE ORAL LIQUID 20 MEQ/15 ML PO SCH (10:12)
[2016-10-04] MEDS: MAGNESIUM OXIDE 400 MG TABLET (FP) PO SCH ×2 (10:12→21:27)
[2016-10-04] MEDS: DONEPEZIL HCL 10 MG TABLET (FP) PO SCH (10:12)
[2016-10-04] MEDS: METOPROLOL SUCCINATE 25 MG TAB.SR.24H (FP) PO SCH (10:12)
[2016-10-04] MEDS: LACTOBACILLUS ACIDOPHILUS 1 EACH TAB (FP) PO SCH (10:12)
[2016-10-04] MEDS: LOSARTAN POTASSIUM 50 MG TABLET (FP) PO SCH (10:12)
--- NOTE | 2016-10-04 12:24 | PN ---
Progress Note, Physician History of Present Illness: No more diarrhea since last night, reports formed BM, awaiting colonoscopy. - Current Medication List Current Medications: Active Medications Albuterol/Ipratropium (Duoneb -) 1 amp NEB TIDR [facility] Last Admin: 10/04/16 05:50 Dose: 1 amp Diphenhydramine HCl (Benadryl -) 25 mg PO Q6H PRN PRN Reason: FOR ITCHING Donepezil HCl (Aricept -) 10 mg PO DAILY [facility] Last Admin: 10/04/16 10:12 Dose: 10 mg Insulin Aspart (Novolog Vial Sliding Scale -) 1 vial SQ ACHS PRN; Protocol PRN Reason: ELEVATED BLOOD SUGAR Lactobacillus Acidophilus (Bacid -) 1 tab PO DAILY [facility] Last Admin: 10/04/16 10:12 Dose: 1 tab Levothyroxine Sodium 150 mcg/ (Levothyroxine Sodium 25 mcg) 175 mcg PO DAILY@ 0700 [facility] Last Admin: 10/04/16 06:25 Dose: 175 mcg Loperamide HCl (Imodium -) 2 mg PO BID PRN PRN Reason: DIARRHEA Last Admin: 10/03/16 18:18 Dose: 2 mg Losartan Potassium (Cozaar -) 50 mg PO DAILY [facility] Last Admin: 10/04/16 10:12 Dose: 50 mg Magnesium Oxide (Mag-Ox -) 400 mg PO BID [facility] Last Admin: 10/04/16 10:12 Dose: 400 mg Metoprolol Succinate (Toprol Xl -) 25 mg PO DAILY [facility] Last Admin: 10/04/16 10:12 Dose: 25 mg Potassium Chloride (Potassium Chloride Oral Liquid) 40 meq PO DAILY [facility] Last Admin: 10/04/16 10:12 Dose: 40 meq - Objective Vital Signs: Vital Signs Temperature 98.4 F 10/04/16 10:20 Pulse Rate 66 10/04/16 10:20 Respiratory Rate 16 10/04/16 10:20 Blood Pressure 110/54 10/04/16 10:20 O2 Sat by Pulse Oximetry (%) 95 10/03/16 21:00 Constitutional: Yes: No Distress, Calm Neck: Yes: Supple Cardiovascular: Yes: Pulse Irregular Respiratory: Yes: Regular, Diminished Gastrointestinal: Yes: Soft, Hypoactive Bowel Sounds Edema: No Labs: CBC, BMP 10/04/16 06:00 10/04/16 06:00 INR, PTT INR 1.74 (0.82-1.09) H D 10/04/16 06:00 Problem List - Problems (1) Diarrhea Code(s): R19.7 - [place], UNSPECIFIED Qualifiers: Diarrhea type: unspecified type Qualified Code(s): R19.7 - Diarrhea , unspecified (2) CAD (coronary artery disease) Code(s): I25.10 - ATHSCL HEART DISEASE OF [place] CORONARY ARTERY W/O ANG PCTRS Qualifiers: Coronary Disease-Associated Artery/Lesion type: [place] artery [place] vs. transplanted heart: [place] heart Associated angina: without angina Qualified Code(s): I25.10 - Atherosclerotic heart disease of [place] coronary artery without angina pectoris (3) Hypercholesterolemia Code(s): E78.00 - PURE HYPERCHOLESTEROLEMIA, UNSPECIFIED (4) Hypertension Code(s): I10 - ESSENTIAL (PRIMARY) HYPERTENSION Qualifiers: Hypertension type: essential hypertension Qualified Code(s): I10 - Essential (primary) hypertension (5) Hypothyroidism Code(s): E03.9 - HYPOTHYROIDISM, UNSPECIFIED Qualifiers: Hypothyroidism type: unspecified Qualified Code(s): E03.9 - Hypothyroidism, unspecified (6) Left ventricular diastolic dysfunction Code(s): I51.9 - HEART DISEASE, UNSPECIFIED (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 MENTAL DISORDER DUE TO KNOWN PHYSIOLOGICAL CONDITION (8) Paroxysmal atrial fibrillation Code(s): I48.0 - PAROXYSMAL ATRIAL FIBRILLATION (9) Pulmonary hypertension Code(s): I27.2 - OTHER SECONDARY PULMONARY HYPERTENSION (10) Paroxysmal atrial flutter Code(s): I48.92 - UNSPECIFIED ATRIAL FLUTTER (11) Pre-procedural cardiovascular examination Code(s): Z01.810 - ENCOUNTER FOR PREPROCEDURAL CARDIOVASCULAR EXAMINATION (12) S/P coronary artery stent placement Code(s): Z95.5 - PRESENCE OF CORONARY ANGIOPLASTY IMPLANT AND GRAFT Assessment/Plan 07/21/2016 Echo: Normal LV size and fxn, severe LAE, mod MR, mild-mod TR RVSP>60 mmHg 1. Resolved diarrhea, c.diff negative 2. Pre-procedural cardiovascular evaluation 3. CAD s/p PCI (stent) angina pectoris 4. Diastolic LV dysfunction with class I NYHA classification LV failure, compensated 5. Persistent atrial flutter/atypical atrial tachycardia, [id number] score of 6 with subtherapeutic INR off Coumadin therapy pre-procedure 4. Microcytic anemia, iron deficiency etiology undetermined 5. HTN, 6. DM 7. Hypercholesterolemia 8. 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 Hypothyroidism PLAN: 1. Continue Toprol XL 25 qd, Cozaar 50 qd and resume Lipitor 20 qhs 2. Hold Coumadin per INR pre-procedure 3. Transfuse as needed to maintain Hg > 8.0 4. Patient may proceed with colonoscopy from CV standpoint given absence of sxs of acute coronary syndrome, decompensated CHF or malignant arrhythmia now that INR has decreased to acceptable level. 5. Resume coumadin post-procedure once hemostasis is assured
[2016-10-04] MEDS: ATORVASTATIN CA 20 MG TABLET (FP) PO SCH (21:27)
[2016-10-05] MEDS ORDERED: LEVOTHYROXINE NA 25 MCG TABLET (FP) ONE (06:02)
[2016-10-05] MEDS ORDERED: LEVOTHYROXINE NA 150 MCG TABLET ONE (06:02)
[2016-10-05] MEDS: ALBUTEROL SO4 2.5/IPRATROPIUM 0.5 INH SOL 3 ML VIAL.NEB. NEB SCH ×3 (06:06→22:35)
[2016-10-05] MEDS: LEVOTHYROXINE 150 MCG, LEVOTHYROXINE 25 MCG PO SCH (06:17)
--- NOTE | 2016-10-05 07:13 | PN ---
Progress Note (short form) - Note Progress Note: feels much better Vital Signs Period Temp Pulse Resp BP Sys/Gong Pulse Ox Last 24 Hr 97.5 F-98.4 F 59-73 16-20 110-153/54-78 96-98 Abnormal Lab Results 10/04/16 10/04/16 10/04/16 06:00 06:00 06:00 Hgb 10.4 L Hct 31.7 L MCV 70.4 L MCH 23.0 L RDW 21.5 H INR 1.74 H D Random Glucose 157 H Calcium 8.4 L Total Protein 5.8 L Albumin 2.8 L S1S2 RRR Lungs cta Abd soft NT +BS no edema awake alert, oriented pruritic rash resolved Imp/Plan persistent diarrhea c.diff negative off of flagyl microcytic, iron deficient anemia Atrial fibrillation/flutter hypothyroidism CAD HTN awaiting colonoscopy continue to hold warfarin physical therapy d/w , patient and her HCP Jonathan: planned colonoscopy with long h/o iron deficient anemia and new onset unexplained diarrhea. patient and HCP agree with procedure. pre colonoscopy consult evaluations are appreciated
[2016-10-05] MEDS: METOPROLOL SUCCINATE 25 MG TAB.SR.24H (FP) PO SCH (09:59)
[2016-10-05] MEDS: DONEPEZIL HCL 10 MG TABLET (FP) PO SCH (09:59)
[2016-10-05] MEDS: LOSARTAN POTASSIUM 50 MG TABLET (FP) PO SCH (09:59)
[2016-10-05] MEDS: LACTOBACILLUS ACIDOPHILUS 1 EACH TAB (FP) PO SCH (09:59)
[2016-10-05] MEDS: MAGNESIUM OXIDE 400 MG TABLET (FP) PO SCH ×2 (09:59→20:59)
[2016-10-05] MEDS: POTASSIUM CHLORIDE ORAL LIQUID 20 MEQ/15 ML PO SCH (09:59)
--- NOTE | 2016-10-05 11:25 | PN ---
Progress Note, Physician History of Present Illness: Diarrhea has resolved, reports formed BM, awaiting colonoscopy. - Current Medication List Current Medications: Active Medications Albuterol/Ipratropium (Duoneb -) 1 amp NEB TIDR [facility] Last Admin: 10/05/16 06:06 Dose: 1 amp Atorvastatin Calcium (Lipitor -) 20 mg PO HS [facility] Last Admin: 10/04/16 21:27 Dose: 20 mg Bisacodyl (Dulcolax -) 20 mg PO ONCE ONE Stop: 10/06/16 15:01 Diphenhydramine HCl (Benadryl -) 25 mg PO Q6H PRN PRN Reason: FOR ITCHING Donepezil HCl (Aricept -) 10 mg PO DAILY [facility] Last Admin: 10/05/16 09:59 Dose: 10 mg Insulin Aspart (Novolog Vial Sliding Scale -) 1 vial SQ ACHS PRN; Protocol PRN Reason: ELEVATED BLOOD SUGAR Lactobacillus Acidophilus (Bacid -) 1 tab PO DAILY [facility] Last Admin: 10/05/16 09:59 Dose: 1 tab Levothyroxine Sodium 150 mcg/ (Levothyroxine Sodium 25 mcg) 175 mcg PO DAILY@ 0700 [facility] Last Admin: 10/05/16 06:17 Dose: 175 mcg Loperamide HCl (Imodium -) 2 mg PO BID PRN PRN Reason: DIARRHEA Last Admin: 10/03/16 18:18 Dose: 2 mg Losartan Potassium (Cozaar -) 50 mg PO DAILY [facility] Last Admin: 10/05/16 09:59 Dose: 50 mg Magnesium Oxide (Mag-Ox -) 400 mg PO BID [facility] Last Admin: 10/05/16 09:59 Dose: 400 mg Metoprolol Succinate (Toprol Xl -) 25 mg PO DAILY [facility] Last Admin: 10/05/16 09:59 Dose: 25 mg Polyethylene Glycol (Miralax (For Bowel Prep) -) 255 gm PO ONCE ONE Stop: 10/06/16 16:01 Potassium Chloride (Potassium Chloride Oral Liquid) 40 meq PO DAILY [facility] Last Admin: 10/05/16 09:59 Dose: 40 meq - Objective Vital Signs: Vital Signs Temperature 98.1 F 10/05/16 05:46 Pulse Rate 59 L 10/05/16 05:46 Respiratory Rate 20 10/05/16 05:46 Blood Pressure 153/57 10/05/16 05:46 O2 Sat by Pulse Oximetry (%) 96 10/04/16 21:00 Constitutional: Yes: No Distress, Calm Neck: Yes: Supple Cardiovascular: Yes: Regular Rate and Rhythm Respiratory: Yes: Regular, CTA Bilaterally Gastrointestinal: Yes: Soft, Hypoactive Bowel Sounds Edema: No Labs: CBC, BMP 10/04/16 06:00 10/04/16 06:00 INR, PTT INR 1.74 (0.82-1.09) H D 10/04/16 06:00 Problem List - Problems (1) Diarrhea Code(s): R19.7 - [place], UNSPECIFIED Qualifiers: Diarrhea type: unspecified type Qualified Code(s): R19.7 - Diarrhea , unspecified (2) CAD (coronary artery disease) Code(s): I25.10 - ATHSCL HEART DISEASE OF [place] CORONARY ARTERY W/O ANG PCTRS Qualifiers: Coronary Disease-Associated Artery/Lesion type: [place] artery [place] vs. transplanted heart: [place] heart Associated angina: without angina Qualified Code(s): I25.10 - Atherosclerotic heart disease of [place] coronary artery without angina pectoris (3) Hypercholesterolemia Code(s): E78.00 - PURE HYPERCHOLESTEROLEMIA, UNSPECIFIED (4) Hypertension Code(s): I10 - ESSENTIAL (PRIMARY) HYPERTENSION Qualifiers: Hypertension type: essential hypertension Qualified Code(s): I10 - Essential (primary) hypertension (5) Hypothyroidism Code(s): E03.9 - HYPOTHYROIDISM, UNSPECIFIED Qualifiers: Hypothyroidism type: unspecified Qualified Code(s): E03.9 - Hypothyroidism, unspecified (6) Left ventricular diastolic dysfunction Code(s): I51.9 - HEART DISEASE, UNSPECIFIED (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 MENTAL DISORDER DUE TO KNOWN PHYSIOLOGICAL CONDITION (8) Paroxysmal atrial fibrillation Code(s): I48.0 - PAROXYSMAL ATRIAL FIBRILLATION (9) Pulmonary hypertension Code(s): I27.2 - OTHER SECONDARY PULMONARY HYPERTENSION (10) Paroxysmal atrial flutter Code(s): I48.92 - UNSPECIFIED ATRIAL FLUTTER (11) Pre-procedural cardiovascular examination Code(s): Z01.810 - ENCOUNTER FOR PREPROCEDURAL CARDIOVASCULAR EXAMINATION (12) S/P coronary artery stent placement Code(s): Z95.5 - PRESENCE OF CORONARY ANGIOPLASTY IMPLANT AND GRAFT Assessment/Plan 07/21/2016 Echo: Normal LV size and fxn, severe LAE, mod MR, mild-mod TR RVSP>60 mmHg 1. Resolved diarrhea, c.diff negative 2. Pre-procedural cardiovascular evaluation 3. CAD s/p PCI (stent) angina pectoris 4. Diastolic LV dysfunction with class I NYHA classification LV failure, compensated 5. Persistent atrial flutter/atypical atrial tachycardia, [id number] score of 6 with subtherapeutic INR off Coumadin therapy pre-procedure 4. Microcytic anemia, iron deficiency etiology undetermined 5. HTN, 6. DM 7. Hypercholesterolemia 8. 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 Hypothyroidism PLAN: 1. Continue Toprol XL 25 qd, Cozaar 50 qd and Lipitor 20 qhs 2. Hold Coumadin per INR pre-procedure 3. Transfuse as needed to maintain Hg > 8.0 4. Patient may proceed with colonoscopy from CV standpoint given absence of sxs of acute coronary syndrome, decompensated CHF or malignant arrhythmia now that INR has decreased to acceptable level. 5. Resume coumadin post-procedure once hemostasis is assured
--- NOTE | 2016-10-05 12:17 | PN ---
Progress Note (short form) - Note Progress Note: clearance noted appreciated Plan for EGD/Colon wed 10/07 Bowel prep written
[2016-10-05] MEDS: ATORVASTATIN CA 20 MG TABLET (FP) PO SCH (20:59)
[2016-10-06] MEDS ORDERED: LEVOTHYROXINE NA 25 MCG TABLET (FP) ONE (05:57)
[2016-10-06] MEDS ORDERED: LEVOTHYROXINE NA 150 MCG TABLET ONE (05:58)
[2016-10-06] MEDS: LEVOTHYROXINE 150 MCG, LEVOTHYROXINE 25 MCG PO SCH (06:33)
[2016-10-06] MEDS: ALBUTEROL SO4 2.5/IPRATROPIUM 0.5 INH SOL 3 ML VIAL.NEB. NEB SCH ×3 (06:35→22:02)
--- NOTE | 2016-10-06 07:23 | PN ---
Progress Note (short form) - Note Progress Note: feels much better Vital Signs Period Temp Pulse Resp BP Sys/Gong Pulse Ox Last 24 Hr 97.5 F-98.7 F 58-74 18-20 120-147/47-68 96-96 S1S2 RRR Lungs cta Abd soft NT +BS no edema awake alert, oriented pruritic rash resolved Imp/Plan persistent diarrhea c.diff negative off of flagyl microcytic, iron deficient anemia Atrial fibrillation/flutter hypothyroidism CAD HTN awaiting colonoscopy/EGD-prep to start today continue to hold warfarin physical therapy d/w , patient and her HCP Jonathan: planned colonoscopy with long h/o iron deficient anemia and new onset unexplained diarrhea. patient and HCP agree with procedure. pre colonoscopy consult evaluations are appreciated
[2016-10-06 07:35] LABS: BASOPHIL 0.4 % (0-2.0); EOSINOPHIL 3.5 % (0-4.5); MCH 22.4 pg (25.7-33.7); MCHC 31.6 g/dl (32.0-36.0); MEAN CELL VOLUME 70.9 fl (80-96); MEAN PLT VOLUME 8.7 fl (7.5-11.1); NEUTROPHILS 73.4 % (42.8-82.8); PLATELET COUNT 230 K/MM3 (134-434); WHITE BLOOD COUNT 6.3 K/mm3 (4.0-10.0)
[2016-10-06 07:56] LABS: INR 1.35 (0.82-1.09); PROTHROMBIN TIME (PATIENT) 14.9 SEC (9.98-11.88)
[2016-10-06 07:58] LABS: ALBUMIN 2.8 g/dl (3.4-5.0); ANION GAP 6 (8-16); BILIRUBIN,TOTAL 0.3 mg/dL (0.2-1.0); CALCIUM 8.8 mg/dL (8.5-10.1); CO2 27 mmol/L (21-32); CREATININE 0.6 mg/dL (0.55-1.02); GLUCOSE,RANDOM 166 mg/dL (74-106); SGOT/AST 30 U/L (15-37); SGPT/ALT 32 U/L (12-78); TOT PROT 6.3 g/dl (6.4-8.2)
[2016-10-06 07:59] LABS: ALK PHOS 115 U/L (45-117)
[2016-10-06 10:23] LABS: ANISOCYTOSIS 1+; HYPOCHROMIA FEW; MICROCYTOSIS 1+; OVALOCYTE 2+; TEAR DROP CELLS FEW
[2016-10-06] MEDS ORDERED: PT OWN MED DRAWER 7, Y5N ONE (10:23)
[2016-10-06] MEDS: LACTOBACILLUS ACIDOPHILUS 1 EACH TAB (FP) PO SCH (10:34)
[2016-10-06] MEDS: POTASSIUM CHLORIDE ORAL LIQUID 20 MEQ/15 ML PO SCH (10:35)
[2016-10-06] MEDS: METOPROLOL SUCCINATE 25 MG TAB.SR.24H (FP) PO SCH (10:35)
[2016-10-06] MEDS: MAGNESIUM OXIDE 400 MG TABLET (FP) PO SCH ×2 (10:35→21:01)
[2016-10-06] MEDS: DONEPEZIL HCL 10 MG TABLET (FP) PO SCH (10:35)
[2016-10-06] MEDS: LOSARTAN POTASSIUM 50 MG TABLET (FP) PO SCH (10:35)
--- NOTE | 2016-10-06 12:40 | PN ---
GI Progress Note Subjective: No acute events No abdominal pain Overall states feeling well Diarrhea improved - Objective Vital Signs: Vital Signs Temperature 97.5 F L 10/06/16 06:00 Pulse Rate 58 L 10/06/16 06:00 Respiratory Rate 18 10/06/16 06:00 Blood Pressure 136/54 10/06/16 06:00 O2 Sat by Pulse Oximetry (%) 96 10/05/16 20:18 Constitutional: Calm Eyes: No: Sclera Icterus Cardiovascular: Yes: Regular Rate and Rhythm ...Auscultate: Yes: Normoactive Bowel Sounds ...Palpate: No: Tenderness ...Percussion: No: Tympanitic Neurological: Yes: Alert Labs: CBC, BMP 10/06/16 06:00 10/06/16 06:00 INR, PTT INR 1.35 (0.82-1.09) H 10/06/16 06:00 Problem List - Problems (1) Diarrhea Assessment/Plan: Improving C. Diff neg Oral iron has been stopped Oral magenseium may contribute to looser bowel movements Code(s): R19.7 - DIARRHE[place], UNSPECIFIED Qualifiers: Diarrhea type: unspecified type Qualified Code(s): R19.7 - Diarrhea , unspecified (2) Anemia Assessment/Plan: Discussion w/ HCP and Dr. Lester noted Clearance noted from pulmonary / cardiology reviewed Discussed EGD/Colonoscopy With Ms. Mckeon again. Discussed options such as not having procedure performed as well. Discussed potential risks of the procedure like but not limited to bleeding, perforation requiring surgery to repair, infection and sedation medication effects all of which could be potentially life threatening. She has agreed to the procedures. Monitor H/H Code(s): D64.9 - ANEMIA, UNSPECIFIED
--- NOTE | 2016-10-06 14:51 | PN ---
Progress Note, Physician Chief Complaint: Not in distress History of Present Illness: Patient was seen and examined. Awake and alert. Chart was reviewed Denies chest pain, SOB or palpitations - Current Medication List Current Medications: Active Medications Albuterol/Ipratropium (Duoneb -) 1 amp NEB TIDR [facility] Last Admin: 10/06/16 13:45 Dose: 1 amp Atorvastatin Calcium (Lipitor -) 20 mg PO HS [facility] Last Admin: 10/05/16 20:59 Dose: 20 mg Bisacodyl (Dulcolax -) 20 mg PO ONCE ONE Stop: 10/06/16 15:01 Diphenhydramine HCl (Benadryl -) 25 mg PO Q6H PRN PRN Reason: FOR ITCHING Donepezil HCl (Aricept -) 10 mg PO DAILY [facility] Last Admin: 10/06/16 10:35 Dose: 10 mg Insulin Aspart (Novolog Vial Sliding Scale -) 1 vial SQ ACHS PRN; Protocol PRN Reason: ELEVATED BLOOD SUGAR Lactobacillus Acidophilus (Bacid -) 1 tab PO DAILY [facility] Last Admin: 10/06/16 10:34 Dose: 1 tab Levothyroxine Sodium 150 mcg/ (Levothyroxine Sodium 25 mcg) 175 mcg PO DAILY@ 0700 [facility] Last Admin: 10/06/16 06:33 Dose: 175 mcg Loperamide HCl (Imodium -) 2 mg PO BID PRN PRN Reason: DIARRHEA Last Admin: 10/03/16 18:18 Dose: 2 mg Losartan Potassium (Cozaar -) 50 mg PO DAILY [facility] Last Admin: 10/06/16 10:35 Dose: 50 mg Magnesium Oxide (Mag-Ox -) 400 mg PO BID [facility] Last Admin: 10/06/16 10:35 Dose: 400 mg Metoprolol Succinate (Toprol Xl -) 25 mg PO DAILY [facility] Last Admin: 10/06/16 10:35 Dose: 25 mg Polyethylene Glycol (Miralax (For Bowel Prep) -) 255 gm PO ONCE ONE Stop: 10/06/16 16:01 Potassium Chloride (Potassium Chloride Oral Liquid) 40 meq PO DAILY [facility] Last Admin: 10/06/16 10:35 Dose: 40 meq - Objective Vital Signs: Vital Signs Temperature 97.5 F L 10/06/16 06:00 Pulse Rate 58 L 10/06/16 06:00 Respiratory Rate 18 10/06/16 09:00 Blood Pressure 136/54 10/06/16 06:00 O2 Sat by Pulse Oximetry (%) 97 10/06/16 09:00 Neck: Yes: Supple Cardiovascular: Yes: Regular Rate and Rhythm, S1, S2 Respiratory: Yes: Diminished Gastrointestinal: Yes: Normal Bowel Sounds, Soft. No: Tenderness Edema: No Labs: CBC, BMP 10/06/16 06:00 10/06/16 06:00 INR, PTT INR 1.35 (0.82-1.09) H 10/06/16 06:00 Problem List - Problems (1) Colitis Code(s): K52.9 - NONINFECTIVE GASTROENTERITIS AND COLITIS, UNSPECIFIED (2) Diarrhea Code(s): R19.7 - DIARRHE[place], UNSPECIFIED Qualifiers: Diarrhea type: unspecified type Qualified Code(s): R19.7 - Diarrhea , unspecified (3) Paroxysmal atrial flutter Code(s): I48.92 - UNSPECIFIED ATRIAL FLUTTER (4) S/P coronary artery stent placement Code(s): Z95.5 - PRESENCE OF CORONARY ANGIOPLASTY IMPLANT AND GRAFT (5) Anemia Code(s): D64.9 - ANEMIA, UNSPECIFIED (6) CAD (coronary artery disease) Code(s): I25.10 - ATHSCL HEART DISEASE OF [place] CORONARY ARTERY W/O ANG PCTRS Qualifiers: Coronary Disease-Associated Artery/Lesion type: [place] artery [place] vs. transplanted heart: [place] heart Associated angina: without angina Qualified Code(s): I25.10 - Atherosclerotic heart disease of [place] coronary artery without angina pectoris (7) Diabetes mellitus Code(s): E11.9 - TYPE 2 DIABETES MELLITUS WITHOUT COMPLICATIONS Qualifiers: Diabetes mellitus type: type 2 (8) Hypercholesterolemia Code(s): E78.00 - PURE HYPERCHOLESTEROLEMIA, UNSPECIFIED (9) Hypertension Code(s): I10 - ESSENTIAL (PRIMARY) HYPERTENSION Qualifiers: Hypertension type: essential hypertension Qualified Code(s): I10 - Essential (primary) hypertension (10) Hypothyroidism Code(s): E03.9 - HYPOTHYROIDISM, UNSPECIFIED Qualifiers: Hypothyroidism type: unspecified Qualified Code(s): E03.9 - Hypothyroidism, unspecified (11) Left ventricular diastolic dysfunction Code(s): I51.9 - HEART DISEASE, UNSPECIFIED Assessment/Plan 1. Resolved diarrhea and c.diff negative 2. CAD s/p PCI (stent) angina pectoris 3. Diastolic LV dysfunction with class I NYHA classification LV failure, compensated 4. Persistent atrial flutter/atypical atrial tachycardia, [id number] score of 6 5. Microcytic anemia - likely iron deficiency, but etiology undetermined 6. HTN, 7. DM 8. Hypercholesterolemia 9. 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 Hypothyroidism PLAN: 1. Continue Toprol XL, Cozaar and Lipitor 2. Hold Coumadin per INR pre-procedure and then restart afterwards 3. Transfuse as needed to maintain Hg > 8.0 4. No absolute contraindication for colonoscopy in view of absence of ischemic symptoms, decompensated congestive heart failure or malignant arrhythmias Further plans are to follow Yury Hewitt MD
[2016-10-06] MEDS ORDERED: BISACODYL 5 MG TABLET.DR (FP) PO ONE (15:00)
[2016-10-06] MEDS: POLYETHYLENE GLYCOL 3350 255 GM BTL PO ONE ×2 (16:25→16:41)
[2016-10-06] MEDS: ATORVASTATIN CA 20 MG TABLET (FP) PO SCH (21:01)
[2016-10-07] MEDS: LEVOTHYROXINE 150 MCG, LEVOTHYROXINE 25 MCG PO SCH (07:26)
--- NOTE | 2016-10-07 07:36 | PN ---
Progress Note (short form) - Note Progress Note: no complaints CBC, BMP 10/06/16 06:00 10/06/16 06:00 Vital Signs Period Temp Pulse Resp BP Sys/Gong Pulse Ox Last 24 Hr 97.5 F-98 F 65-73 18-20 101-128/54-78 97-97 S1S2 RRR Lungs cta Abd soft NT +BS no edema awake alert, oriented Imp/Plan persistent diarrhea c.diff negative microcytic, iron deficient anemia Atrial fibrillation/flutter hypothyroidism CAD HTN awaiting colonoscopy/EGD-no contraindication to procedure continue to hold warfarin until cleared by GI physical therapy dc planning after procedure
[2016-10-07] MEDS ORDERED: PROPOFOL 20 ML ONE ×2 (08:39)
--- NOTE | 2016-10-07 10:56 | PN ---
Progress Note (short form) - Note Progress Note: GI Procedure Note: Please see EGD and flexible sigmoidoscopy reports. 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 NO inflammation was found. A gastrograffin enema will be ordered to assess the severity of the stricture and to determine whether or not she will need surgery or a repeat colonoscopy attempt. Biopsies were taken. Will need Miralax to facilitate stool passage.
[2016-10-07] MEDS: POTASSIUM CHLORIDE ORAL LIQUID 20 MEQ/15 ML PO SCH (11:28)
[2016-10-07] MEDS: MAGNESIUM OXIDE 400 MG TABLET (FP) PO SCH ×2 (11:29→22:21)
[2016-10-07] MEDS: DONEPEZIL HCL 10 MG TABLET (FP) PO SCH (11:29)
[2016-10-07] MEDS: LOSARTAN POTASSIUM 50 MG TABLET (FP) PO SCH (11:29)
[2016-10-07] MEDS: LACTOBACILLUS ACIDOPHILUS 1 EACH TAB (FP) PO SCH (11:30)
[2016-10-07] MEDS: METOPROLOL SUCCINATE 25 MG TAB.SR.24H (FP) PO SCH (11:30)
--- NOTE | 2016-10-07 13:46 | PN ---
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 - Current Medication List Current Medications: Active Medications Albuterol/Ipratropium (Duoneb -) 1 amp NEB TIDR [facility] Last Admin: 10/06/16 22:02 Dose: 1 amp Atorvastatin Calcium (Lipitor -) 20 mg PO HS [facility] Last Admin: 10/06/16 21:01 Dose: 20 mg Diphenhydramine HCl (Benadryl -) 25 mg PO Q6H PRN PRN Reason: FOR ITCHING Donepezil HCl (Aricept -) 10 mg PO DAILY [facility] Last Admin: 10/07/16 11:29 Dose: 10 mg Insulin Aspart (Novolog Vial Sliding Scale -) 1 vial SQ ACHS PRN; Protocol PRN Reason: ELEVATED BLOOD SUGAR Lactobacillus Acidophilus (Bacid -) 1 tab PO DAILY [facility] Last Admin: 10/07/16 11:30 Dose: 1 tab Levothyroxine Sodium 150 mcg/ (Levothyroxine Sodium 25 mcg) 175 mcg PO DAILY@ 0700 [facility] Last Admin: 10/07/16 07:26 Dose: Not Given Loperamide HCl (Imodium -) 2 mg PO BID PRN PRN Reason: DIARRHEA Last Admin: 10/03/16 18:18 Dose: 2 mg Losartan Potassium (Cozaar -) 50 mg PO DAILY [facility] Last Admin: 10/07/16 11:29 Dose: 50 mg Magnesium Oxide (Mag-Ox -) 400 mg PO BID [facility] Last Admin: 10/07/16 11:29 Dose: 400 mg Metoprolol Succinate (Toprol Xl -) 25 mg PO DAILY [facility] Last Admin: 10/07/16 11:30 Dose: 25 mg Polyethylene Glycol (Miralax (For Daily Use) -) 17 gm PO BID [facility] Potassium Chloride (Potassium Chloride Oral Liquid) 40 meq PO DAILY [facility] Last Admin: 10/07/16 11:28 Dose: 40 meq - Objective Vital Signs: Vital Signs Temperature 98.7 F 10/07/16 10:47 Pulse Rate 99 H 10/07/16 10:47 Respiratory Rate 20 10/07/16 10:47 Blood Pressure 145/68 10/07/16 10:47 O2 Sat by Pulse Oximetry (%) 100 10/07/16 10:47 Constitutional: Yes: No Distress, Calm, Thin Neck: Yes: Supple Cardiovascular: Yes: Regular Rate and Rhythm Respiratory: Yes: Regular, CTA Bilaterally Gastrointestinal: Yes: Soft, Hypoactive Bowel Sounds Edema: No Labs: CBC, BMP 10/06/16 06:00 10/06/16 06:00 INR, PTT INR 1.35 (0.82-1.09) H 10/06/16 06:00 Problem List - Problems (1) Diarrhea Code(s): R19.7 - DIARRHEA, UNSPECIFIED Qualifiers: Diarrhea type: unspecified type Qualified Code(s): R19.7 - Diarrhea , unspecified (2) CAD (coronary artery disease) Code(s): I25.10 - ATHSCL HEART DISEASE OF [place] CORONARY ARTERY W/O ANG PCTRS Qualifiers: Coronary Disease-Associated Artery/Lesion type: [place] artery [place] vs. transplanted heart: [place] heart Associated angina: without angina Qualified Code(s): I25.10 - Atherosclerotic heart disease of [place] coronary artery without angina pectoris (3) Hypercholesterolemia Code(s): E78.00 - PURE HYPERCHOLESTEROLEMIA, UNSPECIFIED (4) Hypertension Code(s): I10 - ESSENTIAL (PRIMARY) HYPERTENSION Qualifiers: Hypertension type: essential hypertension Qualified Code(s): I10 - Essential (primary) hypertension (5) Hypothyroidism Code(s): E03.9 - HYPOTHYROIDISM, UNSPECIFIED Qualifiers: Hypothyroidism type: unspecified Qualified Code(s): E03.9 - Hypothyroidism, unspecified (6) Left ventricular diastolic dysfunction Code(s): I51.9 - HEART DISEASE, UNSPECIFIED (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 MENTAL DISORDER DUE TO KNOWN PHYSIOLOGICAL CONDITION (8) Paroxysmal atrial fibrillation Code(s): I48.0 - PAROXYSMAL ATRIAL FIBRILLATION (9) Pulmonary hypertension Code(s): I27.2 - OTHER SECONDARY PULMONARY HYPERTENSION (10) Paroxysmal atrial flutter Code(s): I48.92 - UNSPECIFIED ATRIAL FLUTTER (11) Pre-procedural cardiovascular examination Code(s): Z01.810 - ENCOUNTER FOR PREPROCEDURAL CARDIOVASCULAR EXAMINATION (12) S/P coronary artery stent placement Code(s): Z95.5 - PRESENCE OF CORONARY ANGIOPLASTY IMPLANT AND GRAFT (13) Hiatal hernia Code(s): K44.9 - DIAPHRAGMATIC HERNIA WITHOUT OBSTRUCTION OR GANGRENE (14) Sigmoid stricture Code(s): K56.69 - OTHER INTESTINAL OBSTRUCTION Assessment/Plan 07/21/2016 Echo: Normal LV size and fxn, severe LAE, mod MR, mild-mod TR RVSP>60 mmHg 1. 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 Pre-procedural cardiovascular evaluation 3. CAD s/p PCI (stent) angina pectoris 4. Diastolic LV dysfunction with class I NYHA classification LV failure, compensated 5. Persistent atrial flutter/atypical atrial tachycardia, [id number] score of 6 with subtherapeutic INR off Coumadin therapy pre-procedure 4. Microcytic anemia, iron deficiency etiology undetermined 5. HTN, 6. DM 7. Hypercholesterolemia 8. 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 Hypothyroidism PLAN: 1. Continue Toprol XL 25 qd, Cozaar 50 qd and Lipitor 20 qhs 2. Hold Coumadin per INR pre-procedure 3. Transfuse as needed to maintain Hg > 8.0 4. F/u with gastrograffin enema to assess the severity of the stricture and to determine whether or not she will need surgery or a repeat colonoscopy attempt, Miralax as bowel regimen 5. Resume coumadin post-procedure once hemostasis is assured
[2016-10-07] MEDS: ALBUTEROL SO4 2.5/IPRATROPIUM 0.5 INH SOL 3 ML VIAL.NEB. NEB SCH ×2 (15:00→21:58)
[2016-10-07] MEDS: ATORVASTATIN CA 20 MG TABLET (FP) PO SCH (22:21)
[2016-10-07] MEDS: POLYETHYLENE GLYCOL 3350 119 GM BTL PO SCH (22:21)
[2016-10-08 06:11] VITALS: BP 122/56; PULSE 98; TEMP 98
[2016-10-08] MEDS: LEVOTHYROXINE 150 MCG, LEVOTHYROXINE 25 MCG PO SCH (06:11)
[2016-10-08] MEDS: ALBUTEROL SO4 2.5/IPRATROPIUM 0.5 INH SOL 3 ML VIAL.NEB. NEB SCH (06:39)
--- NOTE | 2016-10-08 07:18 | PN ---
Progress Note (short form) - Note Progress Note: no complaints Vital Signs Period Temp Pulse Resp BP Sys/Gong Pulse Ox Last 24 Hr 97.7 F-98.7 F 72-99 18-20 105-158/48-77 96-100 S1S2 irreg. Lungs cta Abd soft NT +BS no edema awake alert, oriented Imp/Plan persistent diarrhea EGD/colonosopcy reviewed-colonic stricture microcytic, iron deficient anemia Atrial fibrillation/flutter hypothyroidism CAD HTN colonoscopy/EGD-noted, appreciated gastrograffin eneam today continue to hold warfarin until cleared by GI physical therapy as tolerated dc planning depending on results
[2016-10-08 08:37] LABS: BASOPHIL 0.4 % (0-2.0); EOSINOPHIL 6.2 % (0-4.5); MCH 22.7 pg (25.7-33.7); MCHC 31.6 g/dl (32.0-36.0); MEAN CELL VOLUME 71.8 fl (80-96); MEAN PLT VOLUME 8.4 fl (7.5-11.1); NEUTROPHILS 78.2 % (42.8-82.8); PLATELET COUNT 288 K/MM3 (134-434); RDW 20.6 % (11.6-15.6); WHITE BLOOD COUNT 6.2 K/mm3 (4.0-10.0)
[2016-10-08 09:04] LABS: C-REACTIVE PROTEIN 1.9 MG/DL (0.00-0.3)
[2016-10-08 09:06] LABS: ANION GAP 6 (8-16); CALCIUM 9.2 mg/dL (8.5-10.1); CO2 29 mmol/L (21-32); CREATININE 0.7 mg/dL (0.55-1.02); GLUCOSE,RANDOM 157 mg/dL (74-106)
[2016-10-08 09:11] LABS: FERRITIN 61.371 ng/ml (6.9-282.5)
[2016-10-08] MEDS ORDERED: PT OWN MED DRAWER 7, Y5N ONE (10:40)
[2016-10-08] MEDS: POTASSIUM CHLORIDE ORAL LIQUID 20 MEQ/15 ML PO SCH (10:57)
[2016-10-08] MEDS: LOSARTAN POTASSIUM 50 MG TABLET (FP) PO SCH (10:57)
[2016-10-08] MEDS: METOPROLOL SUCCINATE 25 MG TAB.SR.24H (FP) PO SCH (10:57)
[2016-10-08] MEDS: MAGNESIUM OXIDE 400 MG TABLET (FP) PO SCH (10:57)
[2016-10-08] MEDS: DONEPEZIL HCL 10 MG TABLET (FP) PO SCH (10:57)
[2016-10-08] MEDS: POLYETHYLENE GLYCOL 3350 119 GM BTL PO SCH (10:58)
--- NOTE | 2016-10-08 11:45 | PN ---
Progress Note, Physician History of Present Illness: Diarrhea has resolved, contrast enema shows extensive sigmoid diverticulosis without obstructing lesions or strictures, remains on clears. - Current Medication List Current Medications: Active Medications Albuterol/Ipratropium (Duoneb -) 1 amp NEB TIDR [facility] Last Admin: 10/08/16 06:39 Dose: Not Given Atorvastatin Calcium (Lipitor -) 20 mg PO HS [facility] Last Admin: 10/07/16 22:21 Dose: 20 mg Diphenhydramine HCl (Benadryl -) 25 mg PO Q6H PRN PRN Reason: FOR ITCHING Donepezil HCl (Aricept -) 10 mg PO DAILY [facility] Last Admin: 10/08/16 10:57 Dose: 10 mg Insulin Aspart (Novolog Vial Sliding Scale -) 1 vial SQ ACHS PRN; Protocol PRN Reason: ELEVATED BLOOD SUGAR Lactobacillus Acidophilus (Bacid -) 1 tab PO DAILY [facility] Last Admin: 10/07/16 11:30 Dose: 1 tab Levothyroxine Sodium 150 mcg/ (Levothyroxine Sodium 25 mcg) 175 mcg PO DAILY@ 0700 [facility] Last Admin: 10/08/16 06:11 Dose: Not Given Loperamide HCl (Imodium -) 2 mg PO BID PRN PRN Reason: DIARRHEA Last Admin: 10/03/16 18:18 Dose: 2 mg Losartan Potassium (Cozaar -) 50 mg PO DAILY [facility] Last Admin: 10/08/16 10:57 Dose: 50 mg Magnesium Oxide (Mag-Ox -) 400 mg PO BID [facility] Last Admin: 10/08/16 10:57 Dose: 400 mg Metoprolol Succinate (Toprol Xl -) 25 mg PO DAILY [facility] Last Admin: 10/08/16 10:57 Dose: 25 mg Polyethylene Glycol (Miralax (For Daily Use) -) 17 gm PO BID [facility] Last Admin: 10/08/16 10:58 Dose: Not Given Potassium Chloride (Potassium Chloride Oral Liquid) 40 meq PO DAILY [facility] Last Admin: 10/08/16 10:57 Dose: 40 meq - Objective Vital Signs: Vital Signs Temperature 98 F 10/08/16 06:00 Pulse Rate 98 H 10/08/16 06:00 Respiratory Rate 20 10/08/16 08:24 Blood Pressure 122/56 10/08/16 06:00 O2 Sat by Pulse Oximetry (%) 96 10/08/16 08:24 Constitutional: Yes: No Distress, Calm, Thin Neck: Yes: Supple Cardiovascular: Yes: Regular Rate and Rhythm Respiratory: Yes: Regular, Diminished Gastrointestinal: Yes: Soft, Hypoactive Bowel Sounds Edema: No Labs: CBC, BMP 10/08/16 08:20 10/08/16 08:20 INR, PTT INR 1.35 (0.82-1.09) H 10/06/16 06:00 Problem List - Problems (1) Diarrhea Code(s): R19.7 - DIARRHEA, UNSPECIFIED Qualifiers: Diarrhea type: unspecified type Qualified Code(s): R19.7 - Diarrhea , unspecified (2) CAD (coronary artery disease) Code(s): I25.10 - ATHSCL HEART DISEASE OF [place] CORONARY ARTERY W/O ANG PCTRS Qualifiers: Coronary Disease-Associated Artery/Lesion type: [place] artery [place] vs. transplanted heart: [place] Associated angina: without angina Qualified Code(s): I25.10 - Atherosclerotic heart disease of [place] coronary artery without angina pectoris (3) Hypercholesterolemia Code(s): E78.00 - PURE HYPERCHOLESTEROLEMIA, UNSPECIFIED (4) Hypertension Code(s): I10 - ESSENTIAL (PRIMARY) HYPERTENSION Qualifiers: Hypertension type: essential hypertension Qualified Code(s): I10 - Essential (primary) hypertension (5) Hypothyroidism Code(s): E03.9 - HYPOTHYROIDISM, UNSPECIFIED Qualifiers: Hypothyroidism type: unspecified Qualified Code(s): E03.9 - Hypothyroidism, unspecified (6) Left ventricular diastolic dysfunction Code(s): I51.9 - HEART DISEASE, UNSPECIFIED (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 MENTAL DISORDER DUE TO KNOWN PHYSIOLOGICAL CONDITION (8) Paroxysmal atrial fibrillation Code(s): I48.0 - PAROXYSMAL ATRIAL FIBRILLATION (9) Pulmonary hypertension Code(s): I27.2 - OTHER SECONDARY PULMONARY HYPERTENSION (10) Paroxysmal atrial flutter Code(s): I48.92 - UNSPECIFIED ATRIAL FLUTTER (11) Pre-procedural cardiovascular examination Code(s): Z01.810 - ENCOUNTER FOR PREPROCEDURAL CARDIOVASCULAR EXAMINATION (12) S/P coronary artery stent placement Code(s): Z95.5 - PRESENCE OF CORONARY ANGIOPLASTY IMPLANT AND GRAFT (13) Hiatal hernia Code(s): K44.9 - DIAPHRAGMATIC HERNIA WITHOUT OBSTRUCTION OR GANGRENE Assessment/Plan 07/21/2016 Echo: Normal LV size and fxn, severe LAE, mod MR, mild-mod TR RVSP>60 mmHg 1. Sigmoid diverticulosis and large hiatal hernia 2. Pre-procedural cardiovascular evaluation 3. CAD s/p PCI (stent) angina pectoris 4. Diastolic LV dysfunction with class I NYHA classification LV failure, compensated 5. Persistent atrial flutter/atypical atrial tachycardia, [id number] score of 6 with subtherapeutic INR off Coumadin therapy pre-procedure 4. Microcytic anemia, iron deficiency etiology undetermined 5. HTN, 6. DM 7. Hypercholesterolemia 8. 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 Hypothyroidism PLAN: 1. Continue Toprol XL 25 qd, Cozaar 50 qd and Lipitor 20 qhs 2. Hold Coumadin per INR pre-procedure, possible reattempt at colonoscopy 3. Transfuse as needed to maintain Hg > 8.0 4. Miralax as bowel regimen 5. Resume coumadin post-procedure once hemostasis is assured
--- NOTE | 2016-10-08 12:22 | DS ---
Physical Examination Vital Signs: Vital Signs Temperature 98 F 10/08/16 06:00 Pulse Rate 98 H 10/08/16 06:00 Respiratory Rate 20 10/08/16 08:24 Blood Pressure 122/56 10/08/16 06:00 O2 Sat by Pulse Oximetry (%) 96 10/08/16 08:24 Constitutional: Yes: Well Nourished, No Distress Eyes: Yes: Conjunctiva Clear HENT: Yes: Normocephalic Neck: Yes: Trachea Midline Cardiovascular: Yes: Pulse Irregular Respiratory: Yes: Regular, CTA Bilaterally Gastrointestinal: Yes: Normal Bowel Sounds, Soft Edema: No Peripheral Pulses WNL: Yes Neurological: Yes: WNL Labs: CBC, BMP 10/08/16 08:20 10/08/16 08:20 Discharge Summary Reason For Visit: COLITIS DIARRHEA Current Active Problems Colitis (Acute) Diarrhea (Acute) Hiatal hernia (Acute) Paroxysmal atrial flutter (Acute) Pre-procedural cardiovascular examination (Acute) S/P coronary artery stent placement (Acute) Hospital Course: admitted for 1 week h/o diarrhea, abd CT showed hiatal hernia, gallstones, fluid filled bowel loops possibly enteritis and sigmoid diverticulosis. stool studies were negative for c.diff and norovirus. her warfarin was held and pt had EGD and colonoscopy which showed hiatal hernia and sigmoid stricture, scope was not passed past stricture. f/up gastrograffin enema showed no obstruction, possible sigmoid spasm. diarrhea was likely overflow diarrhea, colonoscopy showed retained stool in rectum. she is medically stable to dc to SNF should continue laxatives. will follow up as outpt to discuss possible surgical evaluation, called son Jonathan and also d/w him. Condition: Good - Instructions Referrals: Chalo Caldwell MD [Staff Physician] - 1 Month - Home Medications Comprehensive Discharge Medication List: Ambulatory Orders RX: Donepezil HCl [Aricept -] 10 mg PO DAILY 07/20/16 RX: Glipizide [Glipizide ER] 10 mg PO DAILY 07/20/16 RX: Levothyroxine [Synthroid -] 175 mcg PO DAILY 07/20/16 RX: Simvastatin [Zocor -] 20 mg PO HS 07/20/16 RX: Warfarin Na [Coumadin -] 4 mg PO Q48H 07/20/16 RX: Albuterol 2.5/Ipratropium 0.5 [Duoneb -] 1 amp NEB TIDR amp 07/24/16 RX: Pantoprazole Sodium [Protonix -] 40 mg PO DAILY #30 tablet 07/24/16 Metoprolol Succinate [Toprol Xl -] 25 mg PO DAILY #30 tab.sr.24h 07/27/16 RX: Fluticasone Prop 0.05% Nasal [Flonase -] 1 spray NS BID spray 07/27/16 RX: Losartan Potassium [Cozaar -] 50 mg PO BID tablet 07/27/16 Pioglitazone HCl/Metformin HCl [Actoplus Met 15 mg-850 mg Tab] 1 each PO BID RX: Digoxin 250 mcg PO DAILY 09/29/16 RX: Ferrous Sulfate 325 mg PO TID 09/29/16 Warfarin Na [Coumadin] 3 mg PO Q48H 09/29/16
--- NOTE | 2016-10-08 12:53 | PATH ---
Surgical Pathology Report Patient Name: ERMELINDA MORTENSEN Med. Rec. #: [id number] /Age/Gender: 1935 (Age: 81) / F Account: [id number] Location: [facility] MED/SURG Taken: 10/07/2016 Received: 10/07/2016 Reported: 10/08/2016 Physicians: Chalo Caldwell M.D. Specimen(s) Received A: BX 2ND PORTION OF DUODENUM / BULB B: BX ANTRUM C: BX SIGMOID STRICTURE AT 25 CM Clinical History Diarrhea/anemia Hiatal hernia, diverticular sigmoid stricture Final Diagnosis A. DUODENUM, SECOND PORTION AND BULB, BIOPSY: DUODENAL MUCOSA WITH FOCAL MARCIAL'S GLANDS HYPERPLASIA. NO HISTOLOGIC EVIDENCE OF GLUTEN SENSITIVE ENTEROPATHY (CELIAC DISEASE). B. STOMACH, ANTRUM, BIOPSY: GASTRIC ANTRAL MUCOSA WITH ACTIVE MODERATE CHRONIC GASTRITIS AND MILD REACTIVE GASTROPATHY. IMMUNOSTAIN FOR H. PYLORI IS NEGATIVE FOR ORGANISMS. C. COLON, SIGMOID, STRICTURE AT 25 CM, BIOPSY: COLONIC MUCOSA WITH FOCAL LAMINA PROPRIA FIBROSIS AND HYPERPLASTIC CHANGE. NO EVIDENCE OF ACTIVE INFLAMMATION, SIGNIFICANT ARCHITECTURAL DISTORTION, GRANULOMAS OR DYSPLASIA/ADENOMA OR CARCINOMA. Electronically Signed Maik Ortega M.D. Gross Description A. Received in formalin, labeled "second portion of duodenum/bulb" are two fragments of iqbal tissue measuring 0.3 cm in greatest dimension. The specimen is submitted in toto in one cassette. B. Received in formalin, labeled "biopsy antrum" are two iqbal fragments of soft tissue measuring 0.2 and 0.4 cm in greatest dimension. The specimen is submitted in toto in one cassette. C. Received in formalin, labeled "sigmoid stricture 25 cm" are two fragments of iqbal tissue and measuring 0.3 cm in greatest dimension. The specimen is submitted in toto in one cassette. AF/10/07/2016 final/10/07/2016
[2016-10-08] MEDS: LACTOBACILLUS ACIDOPHILUS 1 EACH TAB (FP) PO SCH (13:52)
== END 2016-10-08 16:21 | DRG 249 ==
LOC: JER 22:42 → JERBED 09-29 04:38 → UNDOADMIN 09-29 05:43 → JERBED 09-29 05:43 → J7W 09-29 18:02
PROVIDERS: ADMIT Internal Medicine; ATTEND Internal Medicine
PROC: 0DB68ZX Excision of Stomach, Via Natural or Artificial Opening Endoscopic, Diagnostic (ICD-10-PCS; 2016-10-07)
PROC: 0DBN8ZX Excision of Sigmoid Colon, Via Natural or Artificial Opening Endoscopic, Diagnostic (ICD-10-PCS; 2016-10-07)
PROC: 0DB98ZX Excision of Duodenum, Via Natural or Artificial Opening Endoscopic, Diagnostic (ICD-10-PCS; principal; 2016-10-07 09:00)
DX: K52.89 Other specified noninfective gastroenteritis and colitis (principal); K57.30 Diverticulosis of large intestine without perforation or abscess without bleeding; I48.91 Unspecified atrial fibrillation; F03.90 Unspecified dementia, unspecified severity, without behavioral disturbance, psychotic disturbance, mood disturbance, and anxiety; I25.10 Atherosclerotic heart disease of native coronary artery without angina pectoris; E03.9 Hypothyroidism, unspecified; D64.9 Anemia, unspecified; E78.00 Pure hypercholesterolemia, unspecified; E11.9 Type 2 diabetes mellitus without complications; M19.91 Primary osteoarthritis, unspecified site; I10 Essential (primary) hypertension; I27.2 Other secondary pulmonary hypertension; M54.5 Low back pain; K44.9 Diaphragmatic hernia without obstruction or gangrene; K64.8 Other hemorrhoids; I48.92 Unspecified atrial flutter; I47.1 Supraventricular tachycardia; K56.69 Other intestinal obstruction; Z79.01 Long term (current) use of anticoagulants; Z95.5 Presence of coronary angioplasty implant and graft
CPT/HCPCS: 36415; 71010-TC; 74176-TC; 74270-TC; 80048; 80053; 80162; 81003; 81015; 82150; 82378; 82728; 83540; 83550; 83605; 83690; 83735; 83880; 84443; 84484; 85025; 85044; 85610; 86140; 86870; 86902; 87040; 87045; 87046; 87086; 87177; 87205; 87209; 87324; 87449; 87798; 88305-TC; 93005; 93010; 94640; 97116-GP; 97161-GP; 99285-25

== ENCOUNTER 2016-10-29 15:09 | Observation (INO) | payer OTHER ==
--- NOTE | 2016-10-29 15:25 | PDOC ---
History of Present Illness - History of Present Illness Initial Comments: 10/29/16 15:43 The patient is a 81 year old female with a significant past medical history of dementia, a-fib, hypothyroidism, CAD, who presents to the emergency department from [facility] for altered mental status today. The patient states she was "sent to [facility] from [facility]" and as per the nursing notes, was sent here for AMS today. Allergies: NKDA <Alicia Dyson - Last Filed: 10/29/16 17:42> <Carina Schultz - Last Filed: 10/31/16 08:34> - General Chief Complaint: Altered Mental Status Stated Complaint: ALTERED MENTAL STATUS Time Seen by Provider: 10/29/16 15:24 Past History <Alicia Dyson - Last Filed: 10/29/16 17:42> - Past Medical History Anemia: Yes Cardiac Disorders: Yes (afib) Dementia: Yes Diabetes: Yes HTN: Yes Hypercholesterolemia: Yes Seizures: Yes Thyroid Disease: Yes (hypothyroid) - Surgical History Orthopedic Surgery: Yes (left leg) - Immunization History Immunization Up to Date: No - Psycho/Social/Smoking Cessation Hx Anxiety: No Suicidal Ideation: No Smoking History: Never smoked Have you smoked in the past 12 months: No Hx Alcohol Use: No Drug/Substance Use Hx: No Substance Use Type: None Hx Substance Use Treatment: No <Carina Schultz - Last Filed: 10/31/16 08:34> - Past Medical History Allergies/Adverse Reactions: Allergies Allergy/AdvReac Type Severity Reaction Status Date / Time shellfish derived Allergy Verified 09/28/16 22:58 Home Medications: Ambulatory Orders Donepezil HCl [Aricept -] 10 mg PO DAILY 07/20/16 Levothyroxine [Synthroid -] 175 mcg PO DAILY 07/20/16 Simvastatin [Zocor -] 20 mg PO HS 07/20/16 Albuterol 2.5/Ipratropium 0.5 [Duoneb -] 1 amp NEB TIDR amp 07/24/16 Metoprolol Succinate [Toprol XL -] 25 mg PO DAILY #30 tab.sr.24h 07/27/16 Losartan Potassium [Cozaar -] 50 mg PO DAILY tablet 10/08/16 Ferrous Sulfate 325 mg PO TID 10/29/16 Pantoprazole Sodium [Protonix] 40 mg PO DAILY 10/29/16 Docusate Sodium [Colace -] 200 mg PO HS tab 10/30/16 Warfarin Na [Coumadin -] 3 mg PO Q2D@1800 #30 tablet 10/30/16 Warfarin Na [Coumadin -] 4 mg PO Q2D@1800 #30 tablet 10/30/16 Review of Systems - Review of Systems Able to Perform ROS?: No (AMS) <Alicia Dyson - Last Filed: 10/29/16 17:42> *Physical Exam - Vital Signs Last Vital Signs Temp Pulse Resp BP Pulse Ox 98.6 F 79 16 178/102 100 10/29/16 15:22 10/29/16 15:22 10/29/16 15:22 10/29/16 15:22 10/29/16 15:22 - Physical Exam Comments: 10/29/16 17:12 GENERAL: Awake, alert, and confused. conversational. in no acute distress HEAD: No signs of trauma EYES: PERRLA, EOMI, sclera anicteric, conjunctiva clear ENT: Auricles normal inspection, hearing grossly normal, nares patent, oropharynx clear without exudates. Moist mucosa NECK: Normal ROM, supple, no lymphadenopathy, JVD, or masses LUNGS: Breath sounds equal, clear to auscultation bilaterally. No wheezes, and no crackles HEART: Regular rate and rhythm, normal S1 and S2, no murmurs, rubs or gallops ABDOMEN: Soft, nontender, normoactive bowel sounds. No guarding, no rebound. No masses EXTREMITIES: Normal range of motion, no edema. No clubbing or cyanosis. No cords, erythema, or tenderness NEUROLOGICAL: Cranial nerves II through XII grossly intact. Normal speech, normal gait SKIN: Warm, Dry, normal turgor, no rashes or lesions noted. <Alicia Dyson - Last Filed: 10/29/16 17:42> ED Treatment Course - LABORATORY CBC & Chemistry Diagram: 10/29/16 17:22 10/29/16 17:22 <Alicia Dyson - Last Filed: 10/29/16 17:42> - LABORATORY CBC & Chemistry Diagram: 10/30/16 07:30 10/30/16 07:30 <Carina Schultz - Last Filed: 10/31/16 08:34> Medical Decision Making - Medical Decision Making 10/29/16 17:14 At 16:31 the [facility] (assisted living facility) was called and a voicemail was left for the case packer, Jaqui, requesting a call back. ) At 16:45, I spoke with case packer, Jaqui, who reports the patient's RN left for the evening and she is unaware of how the patient is clinically altered. Jaqui informed me the patient was staying in [facility] for a little over a week after a recent hospitalization, and brought to [facility] today. Jaqui reports she is unsure if Patti Mckeon still has a bed at the [facility] facility because she "was told to refuse if she requests to return." At 16:56, I called the continuous pillowcase cutter, Jaqui, who then referred me to Merle case packer. Merle informed me that upon the patients return to [facility], she was extremely agitated and "refusing to enter our facility." Joanne also states the patient's son was called to help calm the patient, and for concern of AMS with increased agitation, the patient was sent to the ED for further evaluation. I was informed the patient does not have her bed at this time. 10/29/16 17:10 The patient's case was discussed with PADMINI Alaniz case packer. Katty states she will attempt to reach out to the case workers at [facility]. 10/29/16 17:39 Dr. Janet Mccain, patient's PCP, was called at the office at this time and the patient's case was discussed. <Alicia Dyson - Last Filed: 10/29/16 17:42> - Medical Decision Making 10/29/16 17:57 Pt presents to the ED after sent in from [facility] for altered mental status. patient has a history of dememtia, and is at her baseline as per her PMD. Sydnee was apparently discharged to [facility], then sent back to [facility]. Patient either refused to enter [facility] or [facility] refused to accept her. Patient is now in the ED awaiting placement. Spoke to patient's son, who does not want the patient to be referred back to [facility]. Will check labs and CT head to rule out acute medical illness. Case discussed with case packer Katty, who will evaluate the patient. <Carina Schultz - Last Filed: 10/31/16 08:34> *DC/Admit/Observation/Transfer - Attestations Scribe Attestion: 10/29/16 17:13 Documentation prepared by Alicia Dyson, acting as medical certification specialist for Carina Schultz MD, <Alicia Dyson - Last Filed: 10/29/16 17:42> <Carina Schultz - Last Filed: 10/31/16 08:34> Diagnosis at time of Disposition: Dementia Qualifiers: Dementia type: unspecified type Dementia behavioral disturbance: with behavioral disturbance Qualified Code(s): F03.91 - Unspecified dementia with behavioral disturbance - Discharge Dispostion Disposition: PENITENTIARY FACILITY Condition at time of disposition: Unchanged/Unknown - Referrals
[2016-10-29 15:39] VITALS: BMI 25.2
[2016-10-29 17:41] LABS: BASOPHIL 1.1 % (0-2.0); EOSINOPHIL 2.7 % (0-4.5); MCH 23.5 pg (25.7-33.7); MEAN CELL VOLUME 73.2 fl (80-96); MEAN PLT VOLUME 8.6 fl (7.5-11.1); NEUTROPHILS 68.4 % (42.8-82.8); PLATELET COUNT 286 K/MM3 (134-434); RDW 18.5 % (11.6-15.6); WHITE BLOOD COUNT 6.5 K/mm3 (4.0-10.0)
[2016-10-29 17:42] LABS: URINE APPEARANCE CLEAR; URINE BILIRUBIN NEGATIVE (NEGATIVE); URINE BLOOD NEGATIVE (NEGATIVE); URINE COLOR STRAW; URINE GLUCOSE (UA) 2+ (NEGATIVE); URINE KETONE NEGATIVE (NEGATIVE); URINE LEUK ESTERASE NEGATIVE (NEGATIVE); URINE NITRITE NEGATIVE (NEGATIVE); URINE PROTEIN NEGATIVE (NEGATIVE); URINE UROBILINOGEN NEGATIVE mg/dL (0.2-1.0)
[2016-10-29 18:09] LABS: ALK PHOS 92 U/L (45-117); ANION GAP 10 (8-16); BILIRUBIN,TOTAL 0.3 mg/dL (0.2-1.0); CALCIUM 9.3 mg/dL (8.5-10.1); CO2 23 mmol/L (21-32); CREATININE 0.8 mg/dL (0.55-1.02); GLUCOSE,RANDOM 128 mg/dL (74-106); SGOT/AST 40 U/L (15-37); SGPT/ALT 50 U/L (12-78); TOT PROT 7.8 g/dl (6.4-8.2)
--- NOTE | 2016-10-29 19:45 | PDOC ---
*Physical Exam - Vital Signs Last Vital Signs Temp Pulse Resp BP Pulse Ox 98.6 F 79 16 178/102 100 10/29/16 15:22 10/29/16 15:22 10/29/16 15:22 10/29/16 15:22 10/29/16 15:22 <Lito Gautam - Last Filed: 10/29/16 22:18> - Vital Signs Last Vital Signs Temp Pulse Resp BP Pulse Ox 98.6 F 79 16 178/102 100 10/29/16 15:22 10/29/16 15:22 10/29/16 15:22 10/29/16 15:22 10/29/16 15:22 <Lainey Jennings - Last Filed: 10/29/16 22:28> Heart Score/ECG Review - ECG Impressions Comment:: 10/29/16 20:07 Atrial flutter with variable AV block @59bpm Same compared to previous ECG done on 09/30/2016 <Laniey Jennings - Last Filed: 10/29/16 22:28> ED Treatment Course - LABORATORY CBC & Chemistry Diagram: 10/29/16 17:22 10/29/16 17:22 - ADDITIONAL ORDERS Additional order review: Laboratory Results 10/29/16 10/29/16 10/29/16 17:22 17:22 17:22 Sodium 138 Potassium 3.6 Chloride 105 Carbon Dioxide 23 D Anion Gap 10 BUN 22 H D Creatinine 0.8 Creat Clearance w eGFR > 60 POC Glucometer Random Glucose 128 H Lactic Acid 1.7 Calcium 9.3 Total Bilirubin 0.3 AST 40 H D ALT 50 D Alkaline Phosphatase 92 Total Protein 7.8 D Albumin 4.0 D Urine Color Straw Urine Appearance Clear Urine pH 5.0 Urine Protein Negative Urine Glucose (UA) 2+ H Urine Ketones Negative Urine Blood Negative Urine Nitrite Negative Urine Bilirubin Negative Urine Urobilinogen Negative 10/29/16 15:30 Sodium Potassium Chloride Carbon Dioxide Anion Gap BUN Creatinine Creat Clearance w eGFR POC Glucometer [phone] Random Glucose Lactic Acid Calcium Total Bilirubin AST ALT Alkaline Phosphatase Total Protein Albumin Urine Color Urine Appearance Urine pH Urine Protein Urine Glucose (UA) Urine Ketones Urine Blood Urine Nitrite Urine Bilirubin Urine Urobilinogen 10/29/16 10/29/16 17:22 15:30 RBC 4.80 MCV 73.2 L MCHC 32.0 RDW 18.5 H D MPV 8.6 Neutrophils % 68.4 Lymphocytes % 22.0 D Monocytes % 5.8 Eosinophils % 2.7 Basophils % 1.1 POC Glucometer [phone] <Lito Gautam - Last Filed: 10/29/16 22:18> - LABORATORY CBC & Chemistry Diagram: 10/29/16 17:22 10/29/16 17:22 - ADDITIONAL ORDERS Additional order review: Laboratory Results 10/29/16 10/29/16 10/29/16 17:22 17:22 17:22 Sodium 138 Potassium 3.6 Chloride 105 Carbon Dioxide 23 D Anion Gap 10 BUN 22 H D Creatinine 0.8 Creat Clearance w eGFR > 60 POC Glucometer Random Glucose 128 H Lactic Acid 1.7 Calcium 9.3 Total Bilirubin 0.3 AST 40 H D ALT 50 D Alkaline Phosphatase 92 Total Protein 7.8 D Albumin 4.0 D Urine Color Straw Urine Appearance Clear Urine pH 5.0 Urine Protein Negative Urine Glucose (UA) 2+ H Urine Ketones Negative Urine Blood Negative Urine Nitrite Negative Urine Bilirubin Negative Urine Urobilinogen Negative 10/29/16 15:30 Sodium Potassium Chloride Carbon Dioxide Anion Gap BUN Creatinine Creat Clearance w eGFR POC Glucometer [phone] Random Glucose Lactic Acid Calcium Total Bilirubin AST ALT Alkaline Phosphatase Total Protein Albumin Urine Color Urine Appearance Urine pH Urine Protein Urine Glucose (UA) Urine Ketones Urine Blood Urine Nitrite Urine Bilirubin Urine Urobilinogen 10/29/16 10/29/16 17:22 15:30 RBC 4.80 MCV 73.2 L MCHC 32.0 RDW 18.5 H D MPV 8.6 Neutrophils % 68.4 Lymphocytes % 22.0 D Monocytes % 5.8 Eosinophils % 2.7 Basophils % 1.1 POC Glucometer [phone] <Lainey Jennings - Last Filed: 10/29/16 22:28> Medical Decision Making - Medical Decision Making 10/29/16 20:48 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 Janet Staton (via answering service) Awaiting call back 10/29/16 22:14 Second call placed to Dr. Staton and patient's case was discussed. Dr. Staton asked if patient can be admitted under hospitalist service since he is unable to have access to [facility]. <Lainey Jennings - Last Filed: 10/29/16 22:28> *DC/Admit/Observation/Transfer - Discharge Dispostion Admit: Yes - Attestations Physician Attestion: 10/29/16 19:44 <Lito Gautam - Last Filed: 10/29/16 22:18> <Lainey Jennings - Last Filed: 10/29/16 22:28> Diagnosis at time of Disposition: Dementia Qualifiers: Dementia type: unspecified type - Discharge Dispostion Condition at time of disposition: Unchanged/Unknown - Referrals Referrals: Parul Staton MD [Primary Care Provider] - - Patient Instructions - Post Discharge Activity
--- NOTE | 2016-10-30 00:43 | PN ---
Teaching Attending Note Name of Resident: Briana Quijano ATTENDING PHYSICIAN STATEMENT I saw and evaluated the patient. I reviewed the resident's note and discussed the case with the resident. I agree with the resident's findings and plan as documented. SUBJECTIVE: 81 year old female who presents to the emergency department from [facility] home due to altered mental status, agitation. No further details available from records. Family does not want patient to be re admitted to [facility] stating that she was left unattended for days . PMH : Dementia A -fib Hypothyroidism CAD Home Medication List Medication Instructions Recorded Confirmed Type Donepezil HCl [Aricept -] 10 mg PO DAILY 07/20/16 10/29/16 History Levothyroxine [Synthroid -] 175 mcg PO DAILY 07/20/16 10/29/16 History Simvastatin [Zocor -] 20 mg PO HS 07/20/16 10/29/16 History Digoxin 250 mcg PO DAILY 10/29/16 10/29/16 History Ferrous Sulfate 325 mg PO TID 10/29/16 10/29/16 History Glipizide 10 mg PO DAILY 10/29/16 10/29/16 History Pantoprazole Sodium [Protonix] 40 mg PO DAILY 10/29/16 10/29/16 History Pioglitazone HCl/Metformin HCl 1 each PO DAILY 10/29/16 10/29/16 History [Actoplus Met 15 mg-850 mg Tab] Warfarin Na [Coumadin -] 3 mg PO ASDIR 10/29/16 10/29/16 History Warfarin Sodium 4 mg PO ASDIR 10/29/16 10/29/16 History Active Medications Generic Name Dose Route Start Last Admin Trade Name Billie PRN Reason Stop Dose Admin Albuterol/Ipratropium 1 amp 10/30/16 06:00 Duoneb - NEB TIDR CARO Atorvastatin Calcium 10 mg 10/30/16 22:00 Lipitor - PO HS CARO Digoxin 0.25 mg 10/30/16 10:00 Lanoxin - PO DAILY CARO Donepezil HCl 10 mg 10/30/16 10:00 Aricept - PO DAILY CARO Ferrous Sulfate 325 mg 10/30/16 06:00 Feosol - PO TID CARO Fluticasone Propionate 1 spray 10/30/16 10:00 Flonase - NS BID CARO Insulin Aspart 1 vial 10/30/16 07:00 Novolog Vial Sliding Scale - SQ ACHS [facility] Protocol Levothyroxine Sodium 175 mcg 10/30/16 07:00 Synthroid - PO AM CARO Losartan Potassium 50 mg 10/30/16 10:00 Cozaar - PO DAILY [facility] Metoprolol Succinate 25 mg 10/30/16 10:00 Toprol Xl - PO DAILY [facility] Pantoprazole Sodium 40 mg 10/30/16 10:00 Protonix - PO DAILY [facility] Warfarin Sodium 3 mg 10/30/16 18:00 Coumadin - PO Q2D@1800 CARO Warfarin Sodium 4 mg 10/31/16 18:00 Coumadin - PO Q2D@1800 [facility] OBJECTIVE: Vital Signs Temperature 97.7 F 10/29/16 22:45 Pulse Rate 89 10/29/16 22:45 Respiratory Rate 18 10/29/16 22:45 Blood Pressure 164/95 10/29/16 22:45 O2 Sat by Pulse Oximetry (%) 98 10/29/16 22:45 EYES: PERRLA, EOMI, sclera anicteric, conjunctiva clear ENT: Auricles normal inspection, hearing grossly normal, nares patent, oropharynx clear without exudates. Moist mucosa NECK: Normal ROM, supple, no lymphadenopathy, JVD, or masses LUNGS: Breath sounds equal, clear to auscultation bilaterally. No wheezes, and no crackles HEART: Regular rate and rhythm, normal S1 and S2, no murmurs, rubs or gallops ABDOMEN: Soft, nontender, normoactive bowel sounds. No guarding, no rebound. No masses EXTREMITIES: Normal range of motion, no edema. No clubbing or cyanosis. No cords, erythema, or tenderness NEUROLOGICAL: Cranial nerves II through XII grossly intact. Normal speech, normal gait CBC, BMP 10/29/16 17:22 10/29/16 17:22 Urine Test Results Urine Color Straw 10/29/16 17:22 Urine Appearance Clear 10/29/16 17:22 Urine pH 5.0 (5.0-8.0) 10/29/16 17:22 Ur Specific [place] <= 1.005 (1.005-1.025) 10/29/16 17:22 Urine Protein Negative (NEGATIVE) 10/29/16 17:22 Urine Glucose (UA) 2+ (NEGATIVE) H 10/29/16 17:22 Urine Ketones Negative (NEGATIVE) 10/29/16 17:22 Urine Blood Negative (NEGATIVE) 10/29/16 17:22 Urine Nitrite Negative (NEGATIVE) 10/29/16 17:22 Urine Bilirubin Negative (NEGATIVE) 10/29/16 17:22 Atrial flutter with variable AV block @59bpm Same compared to previous ECG done on 09/30/2016 CT brain - no acute changes ASSESSMENT: 1. Dementia with psychotic features - stable 2. Afib -rate controlled 3. HTN - suboptimal control PLAN 1. evaluation for placement 2. INR 3. C/w home meds Observation
--- NOTE | 2016-10-30 02:57 | HP ---
CHIEF COMPLAINT: " Sent from [facility] for AMS" PCP: Dr. Yariel Staton HISTORY OF PRESENT ILLNESS: Patient is an 81-year-old female with significant past medical history of Atrial fib on coumadin, CAD (cardiac cath), HTN, Chronic low back pain, osteoarthritis, Diabetes Mellitus, Hypothyroidism, diverticulosis, CAD s/p PCI ( stent) angina pectoris was sent to the ED from [facility] for altered mental status. As per the patient, there are no complaints. She feels very well. Denies chest pain, sob, cough, palpitation, abdominal pain, nausea or vomiting. Bowel/Bladder habit normal. Sleep/Appetite normal. Patient mentions that she was sent to [facility] from [facility] [place] where she wasn't treated well and would never want to go back. She also says that she cannot stay with her children especially her son and would like to be sent to a detention in [place] closer to where her daughter lives. Call placed to [facility] at 10 pm, who mentioned that there was no case management rn at night and to call back in the morning. Call placed to the son at 10:10 pm, mentioned that she wasn't being taken care so well at that facility hence wanted us to find her a new detention. Call placed to Dr. Saldivar by ED physician who requested Hospitalist service to admit the patient. ER course was notable for: (1) Afebrile, hemodynamically stable (2) CT head: Chronic right parietal cortical/subcortical infarct. Recent Travel: None PAST MEDICAL HISTORY: Atrial fib on coumadin, CAD (cardiac cath), HTN, Chronic low back pain, osteoarthritis, Diabetes Mellitus, Hypothyroidism PAST SURGICAL HISTORY: Left hip replacement. Social History: Smoking: Denies Alcohol: Denies Drugs: Denies Family History: Unknown. Allergies shellfish derived Allergy (Verified 09/28/16 22:58) HOME MEDICATIONS: Home Medications Medication Instructions Recorded Donepezil HCl [Aricept -] 10 mg PO DAILY 07/20/16 Levothyroxine [Synthroid -] 175 mcg PO DAILY 07/20/16 Simvastatin [Zocor -] 20 mg PO HS 07/20/16 Albuterol 2.5/Ipratropium 0.5 1 amp NEB TIDR amp 07/24/16 [Duoneb -] Fluticasone Prop 0.05% Nasal 1 spray NS BID spray 07/27/16 [Flonase -] Metoprolol Succinate [Toprol XL -] 25 mg PO DAILY #30 tab.sr.24h 07/27/16 Losartan Potassium [Cozaar -] 50 mg PO DAILY tablet 10/08/16 Digoxin 250 mcg PO DAILY 10/29/16 Ferrous Sulfate 325 mg PO TID 10/29/16 Glipizide 10 mg PO DAILY 10/29/16 Pantoprazole Sodium [Protonix] 40 mg PO DAILY 10/29/16 Pioglitazone HCl/Metformin HCl 1 each PO DAILY 10/29/16 [Actoplus Met 15 mg-850 mg Tab] Warfarin Na [Coumadin -] 3 mg PO ASDIR 10/29/16 Warfarin Sodium 4 mg PO ASDIR 10/29/16 REVIEW OF SYSTEMS CONSTITUTIONAL: Absent: fever, chills, diaphoresis, generalized weakness, malaise, loss of appetite, weight change HEENT: Absent: rhinorrhea, nasal congestion, throat pain, throat swelling, difficulty swallowing, mouth swelling, ear pain, eye pain, visual changes CARDIOVASCULAR: Absent: chest pain, syncope, palpitations, irregular heart rate, lightheadedness , peripheral edema RESPIRATORY: Absent: cough, shortness of breath, dyspnea with exertion, orthopnea, wheezing, stridor, hemoptysis GASTROINTESTINAL: Absent: abdominal pain, abdominal distension, nausea, vomiting, diarrhea, constipation, melena, hematochezia GENITOURINARY: Absent: dysuria, frequency, urgency, hesitancy, hematuria, flank pain, genital pain MUSCULOSKELETAL: Absent: myalgia, arthralgia, joint swelling, back pain, neck pain SKIN: Absent: rash, itching, pallor HEMATOLOGIC/IMMUNOLOGIC: Absent: easy bleeding, easy bruising, lymphadenopathy, frequent infections ENDOCRINE: Absent: unexplained weight gain, unexplained weight loss, heat intolerance, cold intolerance NEUROLOGIC: Absent: headache, focal weakness or paresthesias, dizziness, unsteady gait, seizure, mental status changes, bladder or bowel incontinence PSYCHIATRIC: Absent: anxiety, depression, suicidal or homicidal ideation, hallucinations. PHYSICAL EXAMINATION Vital Signs - 24 hr 10/29/16 22:45 Temperature 97.7 F Pulse Rate [ 89 Left Apical] Respiratory 18 Rate Blood Pressure 164/95 [Right Arm] O2 Sat by Pulse 98 Oximetry (%) GENERAL: Elderly female, Awake, alert, and fully oriented x 3, in no acute distress. HEAD: Normal with no signs of trauma. EYES: EOM intact, no pallor or icterus. EARS, NOSE, THROAT: Ears normal, nares patent, oropharynx clear without exudates. Moist mucous membranes. NECK: Normal range of motion, supple without lymphadenopathy, JVD, or masses. LUNGS: Breath sounds equal, clear to auscultation bilaterally. No wheezes, and no crackles. No accessory muscle use. HEART: Regular rate and rhythm, normal S1 and S2 without murmur, rub or gallop. ABDOMEN: Soft, nontender, not distended, normoactive bowel sounds, no guarding, no rebound, no masses. No hepatomegaly or splenomegaly. MUSCULOSKELETAL: Normal range of motion at all joints. No bony deformities or tenderness. No CVA tenderness. UPPER EXTREMITIES: 2+ pulses, warm, well-perfused. No cyanosis. No clubbing. No peripheral edema. LOWER EXTREMITIES: 2+ pulses, warm, well-perfused. No calf tenderness. No peripheral edema. NEUROLOGICAL: No facial droop, Power 3/5 in all extremities; Reflexes intact, Cranial nerves II-XII intact. Normal speech. Normal gait. PSYCHIATRIC: Cooperative. Good eye contact. Appropriate mood and affect. SKIN: Warm, dry, normal turgor, no rashes or lesions noted, normal capillary refill. ASSESSMENT/PLAN: Patient is an 81-year-old female with significant past medical history of Atrial fib on coumadin, CAD s/p PCI (stent) angina pectoris, HTN, Chronic low back pain, osteoarthritis, Diabetes Mellitus, Hypothyroidism, diverticulosis was sent to the ED from [facility] for altered mental status. # Altered mental status- Now at baseline ruled out CVA, UTI, electrolyte imbalance CT head showed Chronic right parietal cortical/subcortical infarct. Given stable vitals, normal labs, CT head unchanged from prior, she could have been discharged. However, upon calling [facility], found out there are no beds for her, psych social worker wasn't available. Patient and her son doesn't want her to go to the same facility. No family members could take the patient home. Hence will place her on observation and find a placement. # Atrial fibrillation- rate controlled [id number] score of 6 INR pending Takes Warfarin 3mg and 4mg alternatively. Continue Digoxin 0.25mg Daily, dig level ordered for am # Diastolic LV dysfunction with class I NYHA classification LV failure, compensated # Hypertension-Stable Continue Losartan 50mg Daily # Hyperlipidemia Atorvastain 10mg HS # Diabetes Mellitus A1c pending Hold her home meds ISS, Finger stick glucose monitoring. # Hypothyroidism Continue Levothyroxine TSH level pending # FEN Not on IV fluids, can tolerate PO Electrolytes within normal limits Diabetic diet # Prophylaxis For DVT: already on warfarin For GI: Pantoprazole 40 mg Daily # Code Status: Full Code # Dispo: Placed in observation in Med-Surg. tankroom worker request for NH placement. Illness, Investigation and Plan of care explained to the patient. She verbalized understanding. Case discussed with Dr. Timmons. Visit type - Emergency Visit Emergency Visit: Yes ED Registration Date: 10/29/16 Care time: The patient presented to the Emergency Department on the above date and was hospitalized for further evaluation of their emergent condition. - New Patient This patient is new to me today: Yes Date on this admission: 10/29/16 - Critical Care Critical Care patient: No
[2016-10-30] MEDS ORDERED: ALBUTEROL SO4 2.5/IPRATROPIUM 0.5 INH SOL 3 ML VIAL.NEB. NEB SCH (06:00)
[2016-10-30] MEDS ORDERED: LEVOTHYROXINE NA 75 MCG TABLET (FP) ONE (06:05)
[2016-10-30] MEDS ORDERED: LEVOTHYROXINE NA 100 MCG TABLET (FP) ONE (06:05)
[2016-10-30] MEDS: FERROUS SO4 325 MG TABLET (FP) PO SCH ×2 (06:36→13:09)
[2016-10-30] MEDS: INSULIN SLIDING SCALE (NOVOLOG) 1 VIAL SQ SCH ×3 (06:37→15:38)
[2016-10-30] MEDS ORDERED: LEVOTHYROXINE NA 175 MCG TABLET PO SCH (07:00)
[2016-10-30] MEDS ORDERED: LEVOTHYROXINE 100 MCG, LEVOTHYROXINE 75 MCG PO SCH (07:00)
[2016-10-30 08:01] LABS: BASOPHIL 0.8 % (0-2.0); MCH 23.3 pg (25.7-33.7); MCHC 32.4 g/dl (32.0-36.0); MEAN CELL VOLUME 71.9 fl (80-96); MEAN PLT VOLUME 8.7 fl (7.5-11.1); NEUTROPHILS 54.1 % (42.8-82.8); PLATELET COUNT 254 K/MM3 (134-434); RDW 17.8 % (11.6-15.6); WHITE BLOOD COUNT 4.8 K/mm3 (4.0-10.0)
[2016-10-30 08:23] LABS: INR 1.76 (0.82-1.09); PROTHROMBIN TIME (PATIENT) 19.6 SEC (9.98-11.88)
[2016-10-30 08:29] LABS: ALBUMIN 3.3 g/dl (3.4-5.0); ANION GAP 6 (8-16); BILIRUBIN,TOTAL 0.4 mg/dL (0.2-1.0); CALCIUM 9.2 mg/dL (8.5-10.1); CO2 25 mmol/L (21-32); CREATININE 0.7 mg/dL (0.55-1.02); GLUCOSE,RANDOM 127 mg/dL (74-106); SGOT/AST 28 U/L (15-37); SGPT/ALT 38 U/L (12-78); TOT PROT 6.7 g/dl (6.4-8.2)
[2016-10-30 08:42] LABS: ALK PHOS 78 U/L (45-117); THYROID STIMULATING HORMONE 3.39 uIU/ml (0.358-3.74)
[2016-10-30] MEDS ORDERED: PT OWN MED DRAWER 7, Y5N ONE (09:30)
--- NOTE | 2016-10-30 09:34 | PN ---
Progress Note (short form) - Note Progress Note: DC planning to assisted. See dc summary.
[2016-10-30] MEDS ORDERED: DIGOXIN 0.25 MG TABLET (FP) PO SCH (10:00)
[2016-10-30] MEDS ORDERED: PANTOPRAZOLE 40 MG TABLET (FP) PO SCH (10:00)
[2016-10-30] MEDS ORDERED: METOPROLOL SUCCINATE 25 MG TAB.SR.24H (FP) PO SCH (10:00)
[2016-10-30] MEDS ORDERED: FLUTICASONE PROP 0.05% 16 GM NASAL SPRAY NS SCH (10:00)
[2016-10-30] MEDS ORDERED: DONEPEZIL HCL 10 MG TABLET (FP) PO SCH (10:00)
[2016-10-30] MEDS ORDERED: ENOXAPARIN NA (PORCINE) 80 MG/0.8 ML DISP.SYRIN SQ SCH (10:00)
[2016-10-30] MEDS ORDERED: LOSARTAN POTASSIUM 50 MG TABLET (FP) PO SCH (10:00)
[2016-10-30] MEDS ORDERED: INSULIN (NOVOLOG) ASPART 100 UNITS/ML 10ML VIAL ONE ×2 (10:21→15:34)
[2016-10-30 15:50] VITALS: BP 156/82; PULSE 77; TEMP 98.1
[2016-10-30] MEDS ORDERED: WARFARIN NA 2 MG TABLET (UD) PO ONE (18:00)
[2016-10-30] MEDS ORDERED: WARFARIN NA 3 MG TABLET PO SCH (18:00)
[2016-10-30] MEDS ORDERED: WARFARIN NA 2 MG TABLET (UD) PO SCH (18:00)
[2016-10-30] MEDS ORDERED: DOCUSATE SODIUM 100 MG CAPSULE (FP) PO SCH (22:00)
[2016-10-30] MEDS ORDERED: ATORVASTATIN CA 10 MG TABLET (FP) PO SCH (22:00)
--- NOTE | 2016-10-31 07:56 | DS ---
Physical Examination Vital Signs: Vital Signs Temperature 98.1 F 10/30/16 15:49 Pulse Rate 77 10/30/16 15:49 Respiratory Rate 20 10/30/16 15:49 Blood Pressure 156/82 10/30/16 15:49 O2 Sat by Pulse Oximetry (%) 98 10/30/16 08:00 Constitutional: Yes: Calm Eyes: Yes: EOM Intact HENT: Yes: Normocephalic Neck: Yes: Trachea Midline Cardiovascular: Yes: Regular Rate and Rhythm Respiratory: Yes: CTA Bilaterally Gastrointestinal: Yes: Normal Bowel Sounds, Soft Edema: No Peripheral Pulses WNL: Yes Neurological: Yes: WNL Labs: CBC, BMP 10/30/16 07:30 10/30/16 07:30 Discharge Summary Reason For Visit: DEMENTIA Hospital Course: Admitted for observation because refused to return to assisted living and they sent her in for evaluation for change in mental status. patient has baseline mild to moderate dementia, refuses to return to assisted living. 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 Condition: Unchanged/Unknown - Instructions Diet, Activity, Other Instructions: cbc, INR in 1 week Referrals: Parul Staton MD [Primary Care Provider] - Disposition: [facility] - Home Medications Comprehensive Discharge Medication List: Ambulatory Orders Donepezil HCl [Aricept -] 10 mg PO DAILY 07/20/16 Levothyroxine [Synthroid -] 175 mcg PO DAILY 07/20/16 Simvastatin [Zocor -] 20 mg PO HS 07/20/16 Albuterol 2.5/Ipratropium 0.5 [Duoneb -] 1 amp NEB TIDR amp 07/24/16 Metoprolol Succinate [Toprol XL -] 25 mg PO DAILY #30 tab.sr.24h 07/27/16 Losartan Potassium [Cozaar -] 50 mg PO DAILY tablet 10/08/16 Ferrous Sulfate 325 mg PO TID 10/29/16 Pantoprazole Sodium [Protonix] 40 mg PO DAILY 10/29/16 Docusate Sodium [Colace -] 200 mg PO HS tab 10/30/16 Warfarin Na [Coumadin -] 3 mg PO Q2D@1800 #30 tablet 10/30/16 Warfarin Na [Coumadin -] 4 mg PO Q2D@1800 #30 tablet 10/30/16
[2016-10-31] MEDS ORDERED: WARFARIN NA 2 MG TABLET (UD) PO SCH (18:00)
--- NOTE | 2016-11-02 17:00 | EKG ---
Test Reason : Blood Pressure : / mmHG Vent. Rate : 059 BPM Atrial Rate : 315 BPM P-R Int : 000 ms QRS Dur : 076 ms QT Int : 440 ms P-R-T Axes : 083 066 049 degrees QTc Int : 435 ms ATRIAL FLUTTER WITH VARIABLE A-V BLOCK NONSPECIFIC ST ABNORMALITY ABNORMAL ECG WHEN COMPARED WITH ECG OF 30-SEP-2016 11:23, Confirmed by TINY FOFANA MD ([id number]) on 11/02/2016 5:00:28 PM Referred By: Confirmed By:TINY FOFANA MD
== END 2016-10-30 17:32 ==
LOC: JER 15:09 → JERBED 22:24 → J6S 23:07
PROVIDERS: ADMIT Internal Medicine; ATTEND Internal Medicine
DX: F03.91 Unspecified dementia, unspecified severity, with behavioral disturbance (principal); I48.91 Unspecified atrial fibrillation; Z79.01 Long term (current) use of anticoagulants; I25.10 Atherosclerotic heart disease of native coronary artery without angina pectoris; I11.9 Hypertensive heart disease without heart failure; Z95.5 Presence of coronary angioplasty implant and graft; E11.9 Type 2 diabetes mellitus without complications; E03.9 Hypothyroidism, unspecified; G40.909 Epilepsy, unspecified, not intractable, without status epilepticus; D64.9 Anemia, unspecified; E78.00 Pure hypercholesterolemia, unspecified; Z87.19 Personal history of other diseases of the digestive system
CPT/HCPCS: 36415; 70450-TC; 71010-TC; 80053; 80162; 81003; 83605; 84443; 85025; 85610; 93005; 93010; 94640; 97116-GP; 97161-GP; 99284-25; G0378

== ENCOUNTER 2017-04-01 20:51 | Emergency (ER) | payer OTHER ==
[2017-04-01 21:01] VITALS: BP 136/74; PULSE 74; TEMP 97.1; BMI 27.4
--- NOTE | 2017-04-01 21:07 | PDOC ---
Attending Attestation - Resident Resident Name: Tristin Altamirano - ED Attending Attestation I have performed the following: I have examined & evaluated the patient, The case was reviewed & discussed with the resident, I agree w/resident's findings & plan, Exceptions are as noted <Ross Darby - Last Filed: 04/01/17 21:06> - HPI HPI: 04/01/17 22:00 The patient is an 81 year old female with a significant PMH of AFIb (on Coumadin ), CAD, HTN, chronic lower back pain, osteoporosis, and dementia who presents to the emergency department from [facility] for evaluation of fall. skilled nursing reports the patient lost her balance and hit her head, and are requesting a head CT due to head trauma and Coumadin use. Allergies: NKDA PCP: Dr. Quinn <Ron Wynn - Last Filed: 04/01/17 22:12>
--- NOTE | 2017-04-01 22:19 | PDOC ---
History of Present Illness - General Chief Complaint: Injury Stated Complaint: INJURY Time Seen by Provider: 04/01/17 21:05 History Source: Patient, [facility] - History of Present Illness Initial Comments: 04/01/17 22:13 81F coming from [facility] with pmh of Dm2, DVT, afib on coumadin , hypothyroidism, presents to the Ed after sustaining a fall on the head of mechanical etiology. Patient has no complaints and presents with no visible signs of injury. Past History - Past Medical History Allergies/Adverse Reactions: Allergies Allergy/AdvReac Type Severity Reaction Status Date / Time shellfish derived Allergy Verified 04/01/17 20:59 Home Medications: Ambulatory Orders Donepezil HCl [Aricept -] 10 mg PO DAILY 07/20/16 Levothyroxine [Synthroid -] 175 mcg PO DAILY 07/20/16 Simvastatin [Zocor -] 20 mg PO HS 07/20/16 Albuterol 2.5/Ipratropium 0.5 [Duoneb -] 1 amp NEB TIDR amp 07/24/16 Metoprolol Succinate [Toprol XL -] 25 mg PO DAILY #30 tab.sr.24h 07/27/16 Losartan Potassium [Cozaar -] 50 mg PO DAILY tablet 10/08/16 Ferrous Sulfate 325 mg PO TID 10/29/16 Pantoprazole Sodium [Protonix] 40 mg PO DAILY 10/29/16 Docusate Sodium [Colace -] 200 mg PO HS tab 10/30/16 Warfarin Na [Coumadin -] 3 mg PO Q2D@1800 #30 tablet 10/30/16 Warfarin Na [Coumadin -] 4 mg PO Q2D@1800 #30 tablet 10/30/16 Anemia: Yes Cardiac Disorders: Yes (afib) Dementia: Yes Diabetes: Yes HTN: Yes Hypercholesterolemia: Yes Seizures: Yes Thyroid Disease: Yes (hypothyroid) - Surgical History Orthopedic Surgery: Yes (left leg) - Immunization History Immunization Up to Date: No - Suicide/Smoking/Psychosocial Hx Smoking History: Never smoked Have you smoked in the past 12 months: No Information on smoking cessation initiated: No Hx Alcohol Use: No Drug/Substance Use Hx: No Substance Use Type: None Hx Substance Use Treatment: No Review of Systems - Review of Systems Able to Perform ROS?: Yes Is the patient limited Georgian proficient: No Constitutional: No: Symptoms Reported HEENTM: No: Symptoms Reported Respiratory: No: Symptoms reported Cardiac (ROS): No: Symptoms Reported ABD/GI: No: Symptoms Reported : No: Symptoms Reported Musculoskeletal: No: Symptoms Reported Integumentary: No: Symptoms Reported Neurological: No: Symptoms reported All Other Systems: Reviewed and Negative *Physical Exam - Vital Signs Last Vital Signs Temp Pulse Resp BP Pulse Ox 97.1 F L 74 20 136/74 97 04/01/17 20:59 04/01/17 20:59 04/01/17 20:59 04/01/17 20:59 04/01/17 20:59 - Physical Exam General Appearance: Yes: Nourished, Appropriately Dressed. No: Apparent Distress HEENT: positive: EOMI, [place], Normal ENT Inspection Neck: negative: Tender Respiratory/Chest: positive: Lungs Clear, Normal Breath Sounds. negative: Chest Tender, Respiratory Distress Cardiovascular: positive: Regular Rhythm, Regular Rate, S1, S2 Gastrointestinal/Abdominal: positive: Normal Bowel Sounds, Flat, Soft. negative : Tender Musculoskeletal: positive: Normal Inspection. negative: CVA Tenderness Extremity: positive: Normal Capillary Refill, Normal Inspection, Normal Range of Motion Integumentary: positive: Normal Color, Dry, Warm Neurologic: positive: Fully Oriented, Alert, Normal Mood/Affect ED Treatment Course - RADIOLOGY Radiology Studies Ordered: Category Date Time Status HEAD CT WITHOUT CONTRAST [CT] Stat CT Scan 04/01/17 21:05 Completed Medical Decision Making - Medical Decision Making 04/01/17 22:17 CT head negative for acute hemorrhages., Patient ok to be sent back to [facility]. *DC/Admit/Observation/Transfer Diagnosis at time of Disposition: Closed head injury - Discharge Dispostion Disposition: HOME Condition at time of disposition: Fair Admit: No - Referrals Referrals: Kayla Quinn MD [Primary Care Provider] - - Patient Instructions Printed Discharge Instructions: DI for Closed Head Injury Additional Instructions: Follow up with your primary doctor tomorrow. Come back to the ER immediately for any new, concerning or worsening symptom such as change in vision, confusion, weakness or motor difficulties. - Post Discharge Activity
== END 2017-04-02 00:33 | disposition home or self-care (01) ==
LOC: JER 20:51
DX: S09.8XXA Other specified injuries of head, initial encounter (principal); W18.39XA Other fall on same level, initial encounter; Y93.89 Activity, other specified; Y92.128 Other place in nursing home as the place of occurrence of the external cause; I48.91 Unspecified atrial fibrillation; Z79.01 Long term (current) use of anticoagulants; I25.10 Atherosclerotic heart disease of native coronary artery without angina pectoris; I10 Essential (primary) hypertension; E03.9 Hypothyroidism, unspecified; M54.5 Low back pain; G89.29 Other chronic pain; M19.90 Unspecified osteoarthritis, unspecified site; F03.90 Unspecified dementia, unspecified severity, without behavioral disturbance, psychotic disturbance, mood disturbance, and anxiety; Z86.73 Personal history of transient ischemic attack (TIA), and cerebral infarction without residual deficits
CPT/HCPCS: 70450-TC; 99281-25

== ENCOUNTER 2017-10-16 09:15 | Emergency (ER) | payer OTHER ==
[2017-10-16 09:32] VITALS: BP 160/82; PULSE 60; TEMP 97.5; BMI 24.2
--- NOTE | 2017-10-16 09:33 | PDOC ---
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 The patient reports she was trying to ambulate from her bed to the other side of the room to get her walker when she suffered a fall. The patient reports she landed on her head, injuring left side of her forehead, denies LOC or a headache. The patient states she stayed on the floor until she was assisted up. The patient isnt sure if she on blood thinners or anticoagulation medications. The patient reports chronic pain to the L. leg secondary to the prior L. hip replacement. Denies numbness, tingling or loss of sensation. 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 hip replacement. SHx: None reported PCP: Dr. Yariel Staton <Leatha Britton - Last Filed: 10/16/17 10:19> - General History Source: Patient Exam Limitations: No Limitations <Ron Geller - Last Filed: 10/16/17 10:33> - General Chief Complaint: Injury Stated Complaint: FALL Time Seen by Provider: 10/16/17 09:22 Past History <Leatha Britton - Last Filed: 10/16/17 10:19> - Past Medical History Anemia: Yes Cardiac Disorders: Yes (afib) COPD: No Dementia: Yes Diabetes: Yes HTN: Yes Hypercholesterolemia: Yes Psychiatric Problems: Yes (bipolar) Seizures: Yes Thyroid Disease: Yes (hypothyroid) - Surgical History Orthopedic Surgery: Yes (left leg) - Immunization History Immunization Up to Date: No - Suicide/Smoking/Psychosocial Hx Smoking History: Never smoked Have you smoked in the past 12 months: No Hx Alcohol Use: No Drug/Substance Use Hx: No Substance Use Type: None Hx Substance Use Treatment: No <Ron Geller - Last Filed: 10/16/17 10:33> - Past Medical History Allergies/Adverse Reactions: Allergies Allergy/AdvReac Type Severity Reaction Status Date / Time shellfish derived Allergy Verified 10/16/17 09:27 Home Medications: Ambulatory Orders Divalproex Sodium [Depakote] 250 mg PO TID 10/16/17 Docusate Sodium [Colace] 200 mg PO HS 10/16/17 Donepezil HCl [Aricept] 10 mg PO HS 10/16/17 Ferrous Sulfate 325 mg PO DAILY 10/16/17 Levothyroxine Sodium [Levoxyl] 125 mcg PO DAILY 10/16/17 Losartan Potassium [Cozaar] 100 mg PO DAILY 10/16/17 Metoprolol Succinate [Toprol Xl -] 50 mg PO DAILY 10/16/17 Olanzapine [Zyprexa -] 5 mg PO BID 10/16/17 Warfarin Sodium [Coumadin] 4 mg PO DAILY 10/16/17 Review of Systems - Review of Systems Able to Perform ROS?: Yes Comments:: 10/16/17 10:04 GENERAL/CONSTITUTIONAL: No fever or chills. No weakness. HEAD, EYES, EARS, NOSE AND THROAT: (+) Injury to the L. side of the forehead. No change in vision. No ear pain or discharge. No sore throat. CARDIOVASCULAR: No chest pain or shortness of breath. RESPIRATORY: No cough, wheezing, or hemoptysis. GASTROINTESTINAL: No nausea, vomiting, diarrhea or constipation. GENITOURINARY: No dysuria, frequency, or change in urination. MUSCULOSKELETAL: No joint or muscle swelling or pain. No neck or back pain. SKIN: No rash NEUROLOGIC: No headache, vertigo, loss of consciousness, or change in strength/ sensation. ENDOCRINE: No increased thirst. No abnormal weight change. HEMATOLOGIC/LYMPHATIC: No anemia, easy bleeding, or history of blood clots. ALLERGIC/IMMUNOLOGIC: No hives or skin allergy. <Leatha Britton - Last Filed: 10/16/17 10:19> *Physical Exam - Vital Signs Last Vital Signs Temp Pulse Resp BP Pulse Ox 97.5 F L 60 18 160/82 100 10/16/17 09:21 10/16/17 09:21 10/16/17 09:21 10/16/17 09:21 10/16/17 09:21 - Physical Exam Comments: 10/16/17 10:19 Patient is awake, alert and in no acute distress. Speech is clear and appropriate. HEAD: (+) 3x3 forehead hematoma Atraumatic and nontender. HEENT: Pupils are equal round and reactive to light, extraocular movements are intact. The tympanic membranes are clear, no hemotympanum. No facial deformity. No facial bone tenderness or step-off. No nasal septal hematoma. The oropharynx is clear. NECK: The trachea is midline, there is no stridor. There is no midline cervical spine tenderness, full range of motion of neck. CHEST: Non-tender, no ecchymosis or abrasions. Equal chest wall expansion bilaterally. No flail segments. Lungs are clear to auscultation bilaterally. CARDIOVASCULAR: S1-S2, regular rate and rhythm. No murmurs or rubs. ABDOMEN: Soft, nontender, nondistended. Bowel sounds are normoactive. There is no abdominal or flank ecchymosis. BACK/PELVIS: There is no midline thoracic or lumbosacral spine tenderness or step-off. Pelvis is stable and nontender. EXTREMITIES: There is no extremity deformity or joint swelling. No focal bony tenderness throughout. 2+ distal pulses throughout. NEURO: Alert and oriented x3. Cranial nerves II through XII are intact. 5 out of 5 motor strength x4 extremities. No gross sensory deficits. [id number] is intact. No pronator drift. SKIN: No abrasions, hematomas, lacerations. PSYCH: Affect is appropriate <Leatha Britton - Last Filed: 10/16/17 10:19> - Vital Signs Last Vital Signs Temp Pulse Resp BP Pulse Ox 97.5 F L 60 18 160/82 100 10/16/17 09:21 10/16/17 09:21 10/16/17 09:21 10/16/17 09:21 10/16/17 09:21 <Ron Geller - Last Filed: 10/16/17 10:33> ED Treatment Course - ADDITIONAL ORDERS Additional order review: Laboratory Results 10/16/17 09:34 PT with INR 19.50 H INR 1.73 H <Leatha Britton - Last Filed: 10/16/17 10:19> - RADIOLOGY Radiology Studies Ordered: Category Date Time Status HEAD CT WITHOUT CONTRAST [CT] Stat CT Scan 10/16/17 09:29 Ordered <Ron Geller - Last Filed: 10/16/17 10:33> Medical Decision Making - Medical Decision Making 10/16/17 09:30 Portion of this note was written by my scribe, that my supervision. Vital Signs Temp Pulse Resp BP Pulse Ox 97.5 F L 60 18 160/82 100 10/16/17 09:21 10/16/17 09:21 10/16/17 09:21 10/16/17 09:21 10/16/17 09:21 82-year-old female with past medical history of atrial fibrillation on Coumadin , coronary artery disease, hypertension, osteoporosis and presents from [facility], presents with mechanical fall. The patient was attempted to go from bed to her wheelchair when she fell and hit her head. Brielle initially dizzy but no symptoms. Denies headache. He takes Coumadin. Sustained a bruise on the forehead. But denies other symptoms. She reports feeling well. Came to emergency for further rash. The patient is well-appearing. We'll obtain a head CT given that she is on Coumadin. She has no C-spine tenderness at this time, not concern for cervical spine fracture. We'll obtain an INR level. Work was unremarkable, the patient can be discharged back to the nursing facility. 10/16/17 10:30 CT head reviewed. No acute findings. INR, PTT INR 1.73 (0.83-1.09) H 10/16/17 09:34 Will contact [facility] and send patient back to the facility. PENNY Stevens at [facility] accepted patient to facility. <Ron Geller - Last Filed: 10/16/17 10:33> *DC/Admit/Observation/Transfer - Attestations Scribe Attestion: 10/16/17 10:20 Documentation prepared by Leatha Britton, acting as medical affairs leader for Ron Geller MD. <Leatha Britton - Last Filed: 10/16/17 10:19> - Discharge Dispostion Decision to Admit order: No <Ron Geller - Last Filed: 10/16/17 10:33> Diagnosis at time of Disposition: Closed head injury Qualifiers: Encounter type: initial encounter Qualified Code(s): S09.90XA - Unspecified injury of head, initial encounter - Discharge Dispostion Disposition: HOME Condition at time of disposition: Stable - Referrals Referrals: Negro Condon [Primary Care Provider] - - Patient Instructions Printed Discharge Instructions: DI for Closed Head Injury Additional Instructions: The head CT is negative for acute injuries. INR is 1.73 today. Please follow up with your doctor. To Noble Avilez, if she appears increasingly drowsy, or has persistent uncontrollable headaches or vomiting, please call her doctor or return to the ER for further evaluation. - Post Discharge Activity
[2017-10-16 09:56] LABS: INR 1.73 (0.83-1.09); PROTHROMBIN TIME (PATIENT) 19.5 SEC (9.7-13.0)
== END 2017-10-16 11:48 ==
LOC: JER 09:15
DX: S00.83XA Contusion of other part of head, initial encounter (principal); W18.39XA Other fall on same level, initial encounter; Y93.89 Activity, other specified; Y92.122 Bedroom in nursing home as the place of occurrence of the external cause; Y99.8 Other external cause status; I25.119 Atherosclerotic heart disease of native coronary artery with unspecified angina pectoris; I10 Essential (primary) hypertension; Z95.5 Presence of coronary angioplasty implant and graft; E11.9 Type 2 diabetes mellitus without complications; E03.9 Hypothyroidism, unspecified; M19.90 Unspecified osteoarthritis, unspecified site; Z87.19 Personal history of other diseases of the digestive system; Z96.642 Presence of left artificial hip joint; F31.9 Bipolar disorder, unspecified; Z91.013 Allergy to seafood
CPT/HCPCS: 36415; 70450-TC; 85610; 99282-25

== ENCOUNTER 2020-11-13 14:35 | Inpatient (IN) | payer OTHER ==
[2020-11-13] MEDS ORDERED: SODIUM CHLORIDE IV ONE (15:23)
[2020-11-13] MEDS ORDERED: LACTATED RINGERS SOLUTION 1000 ML INFUS.BAG IV ONE (15:26)
[2020-11-13] MEDS ORDERED: VANCOMYCIN 1 GM in D5W (PRE-DOCKED) 1,000 MG/250 ML IVPB ONE (15:45)
[2020-11-13] MEDS ORDERED: PIPERACILLIN/TAZOB 4.5 GM 4.5 GM in DEXTROSE 5%-WATER 100 ML IVPB ONE (15:45)
[2020-11-13] MEDS ORDERED: VANCOMYCIN 1 GRAM (PRE-DOCKED) 1,000 MG/250 ML BAG IVPB ONE (16:22)
[2020-11-13] MEDS ORDERED: PIPERACILLIN/TAZOB 4.5 GM 4.5 GM/100 ML BAG IVPB ONE (16:22)
[2020-11-13 16:34] LABS: BASO % 0.4 % (0-2.0); EOS % 0.8 % (0-4.5); HEMATOCRIT 23.8 % (32.4-45.2); HEMOGLOBIN 7.5 GM/dL (10.7-15.3); LYMPH % 7.6 % (8-40); MCH 27.5 pg (25.7-33.7); MCHC 31.7 g/dl (32.0-36.0); MEAN CELL VOLUME 86.8 fl (80-96); MONO % 6.3 % (3.8-10.2); NEUT % 84.9 % (42.8-82.8); PLATELET COUNT 155 10^3/uL (134-434); RBC 2.74 M/mm3 (3.60-5.2); RDW 17.9 % (11.6-15.6); WHITE BLOOD COUNT 5.3 K/mm3 (4.0-10.0)
[2020-11-13 16:41] LABS: CHLORIDE 122 mmol/L (98-107); SODIUM 151 mmol/L (136-145)
[2020-11-13 16:42] LABS: EPI CELLS >36 /uL (0-25.1); HYALINE CASTS 8 /uL (0-3.1); INR 1.03 (0.83-1.09); PROTHROMBIN TIME (PATIENT) 12.7 SEC (9.7-13.0); URINE APPEARANCE CLOUDY; URINE BACTERIA 722 /uL (0-1359); URINE BILIRUBIN NEGATIVE (NEGATIVE); URINE COLOR YELLOW; URINE GLUCOSE (UA) TRACE (NEGATIVE); URINE KETONE TRACE (NEGATIVE); URINE LEUK ESTERASE 1+ (NEGATIVE); URINE NITRITE NEGATIVE (NEGATIVE); URINE PROTEIN TRACE (NEGATIVE); URINE UROBILINOGEN 0.2 mg/dL (0.2-1.0); URINE WBC 30 /uL (0-25.8)
[2020-11-13 16:44] LABS: ALBUMIN 3.1 g/dl (3.4-5.0); ANION GAP 10 MMOL/L (8-16); BLOOD UREA NITROGEN 30.7 mg/dL (7-18); CALCIUM 8.6 mg/dL (8.5-10.1); CO2 18 mmol/L (21-32)
[2020-11-13 16:45] LABS: ACTIVATED PTT 34.9 SECONDS (25.2-36.5); GLUCOSE,RANDOM 162 mg/dL (74-106)
[2020-11-13] MEDS ORDERED: SODIUM CHLORIDE 0.45% 1,000 ML IV SCH ×3 (16:45→23:45)
[2020-11-13 16:48] LABS: CREATININE 2.6 mg/dL (0.55-1.3); SGOT/AST 11 U/L (15-37); SGPT/ALT 8 U/L (13-61)
[2020-11-13 16:49] LABS: BILIRUBIN,TOTAL 0.4 mg/dL (0.2-1); LACTIC ACID 6.9 mmol/L (0.4-2.0); TOT PROT 6.6 g/dl (6.4-8.2)
[2020-11-13 16:50] LABS: ALK PHOS 91 U/L (45-117)
[2020-11-13] MEDS ORDERED: CEFTRIAXONE 1,000 MG in DEXTROSE 5%-WATER - 50 ML IVPB ONE (16:51)
[2020-11-13] MEDS ORDERED: CEFTRIAXONE 1 GM in DEXTROSE 5%-WATER - 50 ML IVPB ONE (16:55)
[2020-11-13] MEDS ORDERED: CEFTRIAXONE 1 GM/50 ML BAG ONE (16:58)
[2020-11-13 17:19] LABS: VENOUS BASE EXCESS -10.8 mmol/L (-2-2); VENOUS O2 SATURATION 76.8 % (70-80); VENOUS PH 7.26 (7.310-7.410)
[2020-11-13 17:54] LABS: URINE RBC 34.1 /uL (0-23.9)
[2020-11-13 22:08] LABS: N-TERMINAL BNP 1552.1 pg/ml (5-450)
[2020-11-13 22:30] LABS: LACTIC ACID 6.8 mmol/L (0.4-2.0)
[2020-11-13 22:31] LABS: CALCIUM 8.2 mg/dL (8.5-10.1)
[2020-11-13 22:32] LABS: BLOOD UREA NITROGEN 26.8 mg/dL (7-18)
[2020-11-13 22:35] LABS: CREATININE 2.2 mg/dL (0.55-1.3)
[2020-11-13] MEDS ORDERED: ALBUTEROL SO4 0.083% IH SOL 2.5 MG/3 ML VIAL.NEB. NEB PRN (23:15)
[2020-11-14] MEDS ORDERED: PIPERACILLIN/TAZOB 2.25 GM 2.25 GM/50 ML BAG IVPB ONE ×2 (02:04→08:14)
[2020-11-14] MEDS: PIPERACILLIN/TAZOB 2.25 GM 2.25 GM in DEXTROSE 5%-WATER - 50 ML IVPB SCH ×2 (02:10→10:00)
[2020-11-14] MEDS ORDERED: LEVOTHYROXINE NA 25 MCG TABLET (FP) ONE (06:36)
[2020-11-14] MEDS ORDERED: CARBIDOPA/LEVODOPA 25/100 TABLET (FP) ONE ×2 (06:37→15:41)
[2020-11-14 06:43] LABS: HEMATOCRIT 25.1 % (32.4-45.2); HEMOGLOBIN 8.4 GM/dL (10.7-15.3); MCH 28.8 pg (25.7-33.7); MCHC 33.7 g/dl (32.0-36.0); MEAN CELL VOLUME 85.7 fl (80-96); MEAN PLT VOLUME 8.3 fl (7.5-11.1); PLATELET COUNT 153 10^3/uL (134-434); RBC 2.93 M/mm3 (3.60-5.2); RDW 16.7 % (11.6-15.6); WHITE BLOOD COUNT 5.3 K/mm3 (4.0-10.0)
[2020-11-14] MEDS: CARBIDOPA/LEVODOPA 25/100 TABLET (FP) PO SCH ×3 (06:43→22:25)
[2020-11-14] MEDS: LEVOTHYROXINE NA 75 MCG TABLET (FP) PO SCH (06:43)
[2020-11-14 06:48] LABS: INR 1.01 (0.83-1.09); PROTHROMBIN TIME (PATIENT) 12.4 SEC (9.7-13.0)
[2020-11-14 07:13] LABS: CALCIUM 8.4 mg/dL (8.5-10.1)
[2020-11-14 07:14] LABS: ALBUMIN 2.9 g/dl (3.4-5.0); BLOOD UREA NITROGEN 23.4 mg/dL (7-18)
[2020-11-14 07:18] LABS: BILIRUBIN,TOTAL 0.5 mg/dL (0.2-1)
[2020-11-14 07:19] LABS: LACTIC ACID 2.2 mmol/L (0.4-2.0)
[2020-11-14 07:19] LABS: TOT PROT 6.2 g/dl (6.4-8.2)
[2020-11-14] MEDS ORDERED: PANTOPRAZOLE 40 MG TABLET ONE (08:12)
[2020-11-14] MEDS ORDERED: ASCORBIC ACID 500 MG TABLET (FP) ONE (08:12)
[2020-11-14] MEDS ORDERED: OLANZapine 10 MG TABLET ONE (08:13)
[2020-11-14] MEDS ORDERED: metoPROLOL SUCCINATE 25 MG TAB.SR.24H (FP) ONE (08:13)
[2020-11-14] MEDS ORDERED: ZINC SULFATE 220 MG CAPSULE (FP) ONE (08:13)
[2020-11-14] MEDS ORDERED: FERROUS SO4 325 MG TABLET (FP) ONE (08:14)
[2020-11-14] MEDS ORDERED: PANTOPRAZOLE 40 MG TABLET PO SCH (10:00)
[2020-11-14] MEDS: ASCORBIC ACID 500 MG TABLET (FP) PO SCH (10:46)
[2020-11-14] MEDS: FERROUS SO4 325 MG TABLET (FP) PO SCH (10:46)
[2020-11-14] MEDS: OLANZapine 5 MG TABLET PO SCH ×2 (10:46→22:25)
[2020-11-14] MEDS: metoPROLOL SUCCINATE 25 MG TAB.SR.24H (FP) PO SCH (10:46)
[2020-11-14] MEDS: ZINC SULFATE 220 MG CAPSULE (FP) PO SCH (10:46)
[2020-11-14 12:51] LABS: BASO % 0.4 % (0-2.0); EOS % 2.6 % (0-4.5); HEMATOCRIT 26.8 % (32.4-45.2); LYMPH % 9.9 % (8-40); MCH 28.8 pg (25.7-33.7); MCHC 33.5 g/dl (32.0-36.0); MEAN CELL VOLUME 85.9 fl (80-96); MEAN PLT VOLUME 8.1 fl (7.5-11.1); MONO % 8.5 % (3.8-10.2); NEUT % 78.6 % (42.8-82.8); PLATELET COUNT 146 10^3/uL (134-434); RBC 3.12 M/mm3 (3.60-5.2); RDW 17.2 % (11.6-15.6); WHITE BLOOD COUNT 5.4 K/mm3 (4.0-10.0)
[2020-11-14 13:20] LABS: BLOOD UREA NITROGEN 22.2 mg/dL (7-18)
[2020-11-14 13:21] LABS: CALCIUM 8.3 mg/dL (8.5-10.1)
[2020-11-14 13:42] LABS: ERYTHROCYTE SEDIMENTATION RATE 58 mm/hr (0-30)
[2020-11-14] MEDS ORDERED: PANTOPRAZOLE SODIUM 40 MG VIAL ONE (15:41)
[2020-11-14] MEDS: PANTOPRAZOLE SODIUM 40 MG VIAL IVPUSH SCH ×2 (15:48→22:26)
[2020-11-14] MEDS ORDERED: VANCOMYCIN 1 GM in D5W (PRE-DOCKED) 1,000 MG/250 ML IVPB SCH (17:00)
[2020-11-14] MEDS: SODIUM CHLORIDE 0.45% 1,000 ML IV SCH (17:13)
[2020-11-14] MEDS: ATORVASTATIN CA 40 MG TABLET (FP) PO SCH (22:25)
[2020-11-14] MEDS: DONEPEZIL HCL 10 MG TABLET (FP) PO SCH (22:25)
[2020-11-15] MEDS ORDERED: PIPERACILLIN/TAZOB 2.25 GM 2.25 GM in DEXTROSE 5%-WATER - 50 ML IVPB SCH (02:00)
[2020-11-15] MEDS: LEVOTHYROXINE NA 75 MCG TABLET (FP) PO SCH (06:20)
[2020-11-15] MEDS: CARBIDOPA/LEVODOPA 25/100 TABLET (FP) PO SCH ×3 (06:20→22:42)
[2020-11-15 08:13] LABS: BASO % 0.4 % (0-2.0); EOS % 3.3 % (0-4.5); HEMATOCRIT 25.9 % (32.4-45.2); HEMOGLOBIN 8.7 GM/dL (10.7-15.3); LYMPH % 11.9 % (8-40); MCH 29.1 pg (25.7-33.7); MCHC 33.7 g/dl (32.0-36.0); MEAN CELL VOLUME 86.4 fl (80-96); MEAN PLT VOLUME 8.6 fl (7.5-11.1); NEUT % 76.4 % (42.8-82.8); PLATELET COUNT 140 10^3/uL (134-434); RDW 17.1 % (11.6-15.6); WHITE BLOOD COUNT 4.5 K/mm3 (4.0-10.0)
[2020-11-15 08:23] LABS: BLOOD UREA NITROGEN 20.1 mg/dL (7-18)
[2020-11-15 08:24] LABS: CALCIUM 8.3 mg/dL (8.5-10.1)
[2020-11-15 08:26] LABS: CREATININE 1.8 mg/dL (0.55-1.3)
[2020-11-15] MEDS ORDERED: PT OWN MED DRAWER 7, Y5N ONE ×3 (08:56→22:22)
[2020-11-15] MEDS ORDERED: cefTRIAXone SODIUM 1 GM VIAL ONE (08:56)
[2020-11-15] MEDS ORDERED: DEXTROSE 5%-WATER - 50 ML IVPB ONE (08:56)
[2020-11-15 09:10] LABS: INR 0.97 (0.83-1.09); PROTHROMBIN TIME (PATIENT) 11.9 SEC (9.7-13.0)
[2020-11-15] MEDS: FERROUS SO4 325 MG TABLET (FP) PO SCH (10:35)
[2020-11-15] MEDS: ASCORBIC ACID 500 MG TABLET (FP) PO SCH (10:35)
[2020-11-15] MEDS: ZINC SULFATE 220 MG CAPSULE (FP) PO SCH (10:35)
[2020-11-15] MEDS: PANTOPRAZOLE SODIUM 40 MG VIAL IVPUSH SCH ×2 (10:35→22:50)
[2020-11-15] MEDS: CEFTRIAXONE 1 GM in DEXTROSE 5%-WATER - 50 ML IVPB SCH (10:35)
[2020-11-15] MEDS: metoPROLOL SUCCINATE 25 MG TAB.SR.24H (FP) PO SCH (10:43)
[2020-11-15] MEDS: OLANZapine 5 MG TABLET PO SCH ×2 (10:44→22:42)
[2020-11-15] MEDS ORDERED: VANCOMYCIN 1 GM in D5W (PRE-DOCKED) 1,000 MG/250 ML IVPB SCH (17:00)
[2020-11-15] MEDS: SODIUM CHLORIDE 0.45% 1,000 ML IV SCH (18:31)
[2020-11-15] MEDS: ATORVASTATIN CA 40 MG TABLET (FP) PO SCH (22:42)
[2020-11-15] MEDS: DONEPEZIL HCL 10 MG TABLET (FP) PO SCH (22:42)
[2020-11-16] MEDS ORDERED: PT OWN MED DRAWER 7, Y5N ONE (06:03)
[2020-11-16] MEDS: LEVOTHYROXINE NA 75 MCG TABLET (FP) PO SCH (06:26)
[2020-11-16] MEDS: CARBIDOPA/LEVODOPA 25/100 TABLET (FP) PO SCH ×3 (06:26→22:14)
[2020-11-16] MEDS ORDERED: DEXTROSE 5%-WATER - 50 ML IVPB ONE (08:37)
[2020-11-16] MEDS ORDERED: cefTRIAXone SODIUM 1 GM VIAL ONE (08:37)
[2020-11-16 09:27] LABS: BASO % 0.2 % (0-2.0); EOS % 3.1 % (0-4.5); HEMATOCRIT 25.3 % (32.4-45.2); HEMOGLOBIN 8.5 GM/dL (10.7-15.3); LYMPH % 10.2 % (8-40); MCH 28.8 pg (25.7-33.7); MCHC 33.4 g/dl (32.0-36.0); MEAN CELL VOLUME 86.1 fl (80-96); MEAN PLT VOLUME 8.6 fl (7.5-11.1); MONO % 6.7 % (3.8-10.2); NEUT % 79.8 % (42.8-82.8); PLATELET COUNT 142 10^3/uL (134-434); RBC 2.94 M/mm3 (3.60-5.2); RDW 17.1 % (11.6-15.6); WHITE BLOOD COUNT 4.6 K/mm3 (4.0-10.0)
[2020-11-16 09:33] LABS: INR 0.93 (0.83-1.09); PROTHROMBIN TIME (PATIENT) 11.4 SEC (9.7-13.0)
[2020-11-16 09:47] LABS: CHLORIDE 116 mmol/L (98-107); SODIUM 143 mmol/L (136-145)
[2020-11-16 09:54] LABS: ANION GAP 5 MMOL/L (8-16); CALCIUM 8.1 mg/dL (8.5-10.1); CO2 22 mmol/L (21-32); GLUCOSE,RANDOM 84 mg/dL (74-106)
[2020-11-16 09:55] LABS: ALBUMIN 2.6 g/dl (3.4-5.0); BLOOD UREA NITROGEN 16.9 mg/dL (7-18); CREATININE 1.7 mg/dL (0.55-1.3); SGPT/ALT < 6 U/L (13-61)
[2020-11-16 09:56] LABS: BILIRUBIN,TOTAL 0.6 mg/dL (0.2-1); TOT PROT 5.6 g/dl (6.4-8.2)
[2020-11-16 09:58] LABS: ALK PHOS 82 U/L (45-117); SGOT/AST 14 U/L (15-37)
[2020-11-16] MEDS: ASCORBIC ACID 500 MG TABLET (FP) PO SCH (09:58)
[2020-11-16] MEDS: FERROUS SO4 325 MG TABLET (FP) PO SCH (09:58)
[2020-11-16] MEDS: ZINC SULFATE 220 MG CAPSULE (FP) PO SCH (09:58)
[2020-11-16] MEDS: OLANZapine 5 MG TABLET PO SCH ×2 (09:59→22:14)
[2020-11-16] MEDS: PANTOPRAZOLE SODIUM 40 MG VIAL IVPUSH SCH ×2 (10:05→22:15)
[2020-11-16] MEDS: CEFTRIAXONE 1 GM in DEXTROSE 5%-WATER - 50 ML IVPB SCH (10:06)
[2020-11-16] MEDS: SODIUM CHLORIDE 0.45% 1,000 ML IV SCH ×2 (13:59→19:13)
[2020-11-16] MEDS: ATORVASTATIN CA 40 MG TABLET (FP) PO SCH (22:15)
[2020-11-16] MEDS: DONEPEZIL HCL 10 MG TABLET (FP) PO SCH (22:15)
[2020-11-17] MEDS: CARBIDOPA/LEVODOPA 25/100 TABLET (FP) PO SCH ×3 (06:15→22:37)
[2020-11-17] MEDS: SODIUM CHLORIDE 0.45% 1,000 ML IV SCH ×2 (06:16→20:00)
[2020-11-17] MEDS: LEVOTHYROXINE NA 75 MCG TABLET (FP) PO SCH (06:16)
[2020-11-17] MEDS ORDERED: cefTRIAXone SODIUM 1 GM VIAL ONE (07:44)
[2020-11-17] MEDS ORDERED: DEXTROSE 5%-WATER - 50 ML IVPB ONE (07:44)
[2020-11-17 08:12] LABS: BLOOD UREA NITROGEN 13.7 mg/dL (7-18); CHLORIDE 115 mmol/L (98-107); CO2 22 mmol/L (21-32); CREATININE 1.6 mg/dL (0.55-1.3); GLUCOSE,RANDOM 78 mg/dL (74-106); SODIUM 142 mmol/L (136-145)
[2020-11-17 08:13] LABS: HEMATOCRIT 26.2 % (32.4-45.2); HEMOGLOBIN 8.8 GM/dL (10.7-15.3); MCH 28.7 pg (25.7-33.7); MCHC 33.6 g/dl (32.0-36.0); MEAN CELL VOLUME 85.6 fl (80-96); MEAN PLT VOLUME 8.3 fl (7.5-11.1); NEUT % 84.6 % (42.8-82.8); PLATELET COUNT 157 10^3/uL (134-434); RBC 3.06 M/mm3 (3.60-5.2); RDW 16.7 % (11.6-15.6); WHITE BLOOD COUNT 5.7 K/mm3 (4.0-10.0)
[2020-11-17 08:14] LABS: BASO % 0.2 % (0-2.0); EOS % 2.4 % (0-4.5); LYMPH % 6.6 % (8-40); MONO % 6.2 % (3.8-10.2)
[2020-11-17 08:36] LABS: INR 0.95 (0.83-1.09); PROTHROMBIN TIME (PATIENT) 11.7 SEC (9.7-13.0)
[2020-11-17] MEDS: metoPROLOL SUCCINATE 25 MG TAB.SR.24H (FP) PO SCH (09:33)
[2020-11-17] MEDS: CEFTRIAXONE 1 GM in DEXTROSE 5%-WATER - 50 ML IVPB SCH (09:33)
[2020-11-17] MEDS: FERROUS SO4 325 MG TABLET (FP) PO SCH (09:33)
[2020-11-17] MEDS: ZINC SULFATE 220 MG CAPSULE (FP) PO SCH (09:33)
[2020-11-17] MEDS: PANTOPRAZOLE SODIUM 40 MG VIAL IVPUSH SCH ×2 (09:33→22:37)
[2020-11-17] MEDS: OLANZapine 5 MG TABLET PO SCH ×2 (09:34→22:36)
[2020-11-17] MEDS: ASCORBIC ACID 500 MG TABLET (FP) PO SCH (09:34)
[2020-11-17] MEDS ORDERED: PT OWN MED DRAWER 7, Y5N ONE ×2 (21:33→21:36)
[2020-11-17] MEDS: ATORVASTATIN CA 40 MG TABLET (FP) PO SCH (22:37)
[2020-11-17] MEDS: DONEPEZIL HCL 10 MG TABLET (FP) PO SCH (22:37)
[2020-11-18] MEDS ORDERED: HALOPERIDOL LACTATE 5 MG/ML IM ONE (00:48)
[2020-11-18] MEDS: LEVOTHYROXINE NA 75 MCG TABLET (FP) PO SCH (06:16)
[2020-11-18] MEDS: CARBIDOPA/LEVODOPA 25/100 TABLET (FP) PO SCH ×3 (06:16→22:06)
[2020-11-18 08:04] LABS: CALCIUM 8.4 mg/dL (8.5-10.1)
[2020-11-18 08:05] LABS: BLOOD UREA NITROGEN 11.7 mg/dL (7-18)
[2020-11-18 08:08] LABS: CREATININE 1.5 mg/dL (0.55-1.3)
[2020-11-18] MEDS: metoPROLOL SUCCINATE 25 MG TAB.SR.24H (FP) PO SCH (09:00)
[2020-11-18] MEDS: OLANZapine 5 MG TABLET PO SCH ×2 (09:00→22:06)
[2020-11-18] MEDS: FERROUS SO4 325 MG TABLET (FP) PO SCH (09:00)
[2020-11-18] MEDS: ASCORBIC ACID 500 MG TABLET (FP) PO SCH (09:00)
[2020-11-18] MEDS: ZINC SULFATE 220 MG CAPSULE (FP) PO SCH (09:00)
[2020-11-18] MEDS ORDERED: BUPIVACAINE HCL/PF 0.5% (5MG/ML) 10 ML VIAL ONE (09:33)
[2020-11-18] MEDS ORDERED: SUCCINYLCHOLINE CHLORIDE 200 MG/10 ML SYRINGE ONE (09:34)
[2020-11-18] MEDS ORDERED: PROPOFOL 20 ML ONE ×2 (09:34)
[2020-11-18] MEDS ORDERED: MIDAZOLAM HCL 2 MG/2 ML SINGLE DOSE VIAL ONE (09:35)
[2020-11-18] MEDS ORDERED: ALBUTEROL SO4 0.083% IH SOL 2.5 MG/3 ML VIAL.NEB. NEB PRN (10:55)
[2020-11-18] MEDS ORDERED: ACETAMINOPHEN 1000 MG/100 ML VIAL IVPB ONE (11:03)
[2020-11-18] MEDS ORDERED: ONDANSETRON 4 MG/2 ML VIAL IVPUSH PRN (11:03)
[2020-11-18] MEDS ORDERED: LACTATED RINGERS SOLUTION 1,000 ML IV SCH (11:15)
[2020-11-18] MEDS: SODIUM CHLORIDE 0.45% 1,000 ML IV SCH (11:35)
[2020-11-18 12:19] LABS: PHOSPHOROUS 2.6 mg/dL (2.5-4.9)
[2020-11-18 12:30] LABS: PHOSPHOROUS 2.1 mg/dL (2.5-4.9)
[2020-11-18] MEDS: PANTOPRAZOLE SODIUM 40 MG VIAL IVPUSH SCH ×2 (14:34→22:06)
[2020-11-18] MEDS: CEFTRIAXONE 1 GM in DEXTROSE 5%-WATER - 50 ML IVPB SCH (14:34)
[2020-11-18] MEDS ORDERED: PT OWN MED DRAWER 7, Y5N ONE ×2 (14:55→21:49)
[2020-11-18] MEDS ORDERED: QUEtiapine FUMARATE 25 MG TABLET PO SCH (22:00)
[2020-11-18] MEDS: ATORVASTATIN CA 40 MG TABLET (FP) PO SCH (22:06)
[2020-11-18] MEDS: QUEtiapine FUMARATE 25 MG TABLET PO SCH (22:06)
[2020-11-18] MEDS: DONEPEZIL HCL 10 MG TABLET (FP) PO SCH (22:06)
[2020-11-19] MEDS ORDERED: PT OWN MED DRAWER 7, Y5N ONE ×3 (05:52→21:07)
[2020-11-19] MEDS: CARBIDOPA/LEVODOPA 25/100 TABLET (FP) PO SCH ×3 (06:20→21:10)
[2020-11-19] MEDS: LEVOTHYROXINE NA 75 MCG TABLET (FP) PO SCH (06:21)
[2020-11-19 08:27] LABS: HEMATOCRIT 23.5 % (32.4-45.2); HEMOGLOBIN 7.9 GM/dL (10.7-15.3); MCH 28.4 pg (25.7-33.7); MCHC 33.8 g/dl (32.0-36.0); MEAN CELL VOLUME 84.1 fl (80-96); MEAN PLT VOLUME 8.3 fl (7.5-11.1); PLATELET COUNT 161 10^3/uL (134-434); RBC 2.79 M/mm3 (3.60-5.2); RDW 16.6 % (11.6-15.6); WHITE BLOOD COUNT 6.6 K/mm3 (4.0-10.0)
[2020-11-19 08:31] LABS: CHLORIDE 116 mmol/L (98-107); SODIUM 141 mmol/L (136-145)
[2020-11-19 08:43] LABS: ALBUMIN 2.3 g/dl (3.4-5.0); ANION GAP 7 MMOL/L (8-16); CALCIUM 8.1 mg/dL (8.5-10.1); CO2 18 mmol/L (21-32); GLUCOSE,RANDOM 90 mg/dL (74-106)
[2020-11-19] MEDS ORDERED: DEXTROSE 5%-WATER - 50 ML IVPB ONE (08:44)
[2020-11-19] MEDS ORDERED: cefTRIAXone SODIUM 1 GM VIAL ONE (08:44)
[2020-11-19 08:46] LABS: CREATININE 1.5 mg/dL (0.55-1.3); SGOT/AST 8 U/L (15-37); SGPT/ALT < 6 U/L (13-61)
[2020-11-19 08:48] LABS: BILIRUBIN,TOTAL 0.7 mg/dL (0.2-1); TOT PROT 5.3 g/dl (6.4-8.2)
[2020-11-19 08:49] LABS: ALK PHOS 89 U/L (45-117)
[2020-11-19 08:55] LABS: BLOOD UREA NITROGEN 14.6 mg/dL (7-18)
[2020-11-19] MEDS: metoPROLOL SUCCINATE 25 MG TAB.SR.24H (FP) PO SCH (09:06)
[2020-11-19] MEDS: ASCORBIC ACID 500 MG TABLET (FP) PO SCH (09:06)
[2020-11-19] MEDS: FERROUS SO4 325 MG TABLET (FP) PO SCH (09:07)
[2020-11-19] MEDS: CEFTRIAXONE 1 GM in DEXTROSE 5%-WATER - 50 ML IVPB SCH (09:07)
[2020-11-19] MEDS: ZINC SULFATE 220 MG CAPSULE (FP) PO SCH (09:07)
[2020-11-19] MEDS: OLANZapine 5 MG TABLET PO SCH ×2 (09:09→21:10)
[2020-11-19] MEDS: PANTOPRAZOLE SODIUM 40 MG VIAL IVPUSH SCH ×2 (09:11→21:10)
[2020-11-19 09:51] LABS: ANISOCYTOSIS 0; HELMET CELLS 0; HOWELL-JOLLY BODIES 0; MACROCYTOSIS 0; OVALOCYTE 0; PLATELET ESTIMATE DECREASED; ROULEAU 0; SICKELED CELLS 0; TARGET CELLS 0; TEAR DROP CELLS 0; TOXIC GRANULATION 0
[2020-11-19] MEDS: SODIUM CHLORIDE 0.45% 1,000 ML IV SCH (10:16)
[2020-11-19] MEDS: DONEPEZIL HCL 10 MG TABLET (FP) PO SCH (21:10)
[2020-11-19] MEDS: QUEtiapine FUMARATE 25 MG TABLET PO SCH (21:10)
[2020-11-19] MEDS: ATORVASTATIN CA 40 MG TABLET (FP) PO SCH (21:10)
[2020-11-20] MEDS ORDERED: PT OWN MED DRAWER 7, Y5N ONE (06:25)
[2020-11-20] MEDS: LEVOTHYROXINE NA 75 MCG TABLET (FP) PO SCH (06:35)
[2020-11-20] MEDS: CARBIDOPA/LEVODOPA 25/100 TABLET (FP) PO SCH ×3 (06:35→22:09)
[2020-11-20] MEDS ORDERED: cefTRIAXone SODIUM 1 GM VIAL ONE (10:15)
[2020-11-20] MEDS ORDERED: DEXTROSE 5%-WATER - 50 ML IVPB ONE (10:16)
[2020-11-20] MEDS: CEFTRIAXONE 1 GM in DEXTROSE 5%-WATER - 50 ML IVPB SCH (10:36)
[2020-11-20] MEDS: ASCORBIC ACID 500 MG TABLET (FP) PO SCH (10:37)
[2020-11-20] MEDS: ZINC SULFATE 220 MG CAPSULE (FP) PO SCH (10:37)
[2020-11-20] MEDS: metoPROLOL SUCCINATE 25 MG TAB.SR.24H (FP) PO SCH (10:37)
[2020-11-20] MEDS: PANTOPRAZOLE SODIUM 40 MG VIAL IVPUSH SCH ×2 (10:37→22:09)
[2020-11-20] MEDS: OLANZapine 5 MG TABLET PO SCH ×2 (10:37→22:09)
[2020-11-20] MEDS: FERROUS SO4 325 MG TABLET (FP) PO SCH (10:37)
[2020-11-20] MEDS: SODIUM CHLORIDE 0.45% 1,000 ML IV SCH (10:51)
[2020-11-20 14:18] LABS: BASO % 0.3 % (0-2.0); EOS % 1.9 % (0-4.5); HEMATOCRIT 33.6 % (32.4-45.2); LYMPH % 5.8 % (8-40); MCH 28.9 pg (25.7-33.7); MCHC 32.8 g/dl (32.0-36.0); MEAN PLT VOLUME 8.9 fl (7.5-11.1); MONO % 5.5 % (3.8-10.2); NEUT % 86.5 % (42.8-82.8); PLATELET COUNT 179 10^3/uL (134-434); RBC 3.82 M/mm3 (3.60-5.2); RDW 16.5 % (11.6-15.6); WHITE BLOOD COUNT 7.2 K/mm3 (4.0-10.0)
[2020-11-20 15:28] LABS: ALBUMIN 2.6 g/dl (3.4-5.0); BLOOD UREA NITROGEN 12.1 mg/dL (7-18); CALCIUM 8.4 mg/dL (8.5-10.1)
[2020-11-20 15:31] LABS: CREATININE 1.6 mg/dL (0.55-1.3)
[2020-11-20 15:33] LABS: BILIRUBIN,TOTAL 0.6 mg/dL (0.2-1)
[2020-11-20] MEDS ORDERED: DEXTROSE 50%-WATER - 25 GM/50 ML VIAL IVPUSH ONE ×2 (17:21→17:22)
[2020-11-20] MEDS ORDERED: DEXTROSE 50%-WATER 25 GM/50 ML DISP.SYRIN ONE (17:23)
[2020-11-20] MEDS ORDERED: SODIUM CHLORIDE 1,000 ML IV SCH (17:30)
[2020-11-20] MEDS ORDERED: DEXTROSE 50%-WATER - 25 GM/50 ML VIAL IVPUSH PRN (18:03)
[2020-11-20 19:02] LABS: BASO % 0.2 % (0-2.0); EOS % 2.1 % (0-4.5); HEMATOCRIT 29.9 % (32.4-45.2); LYMPH % 6.6 % (8-40); MCH 28.8 pg (25.7-33.7); MCHC 33.4 g/dl (32.0-36.0); MEAN CELL VOLUME 86.4 fl (80-96); MEAN PLT VOLUME 7.9 fl (7.5-11.1); MONO % 6.1 % (3.8-10.2); PLATELET COUNT 221 10^3/uL (134-434); RBC 3.46 M/mm3 (3.60-5.2); RDW 16.7 % (11.6-15.6); WHITE BLOOD COUNT 6.9 K/mm3 (4.0-10.0)
[2020-11-20 19:10] LABS: INR 1.2 (0.83-1.09); PROTHROMBIN TIME (PATIENT) 14.8 SEC (9.7-13.0)
[2020-11-20 19:13] LABS: ACTIVATED PTT 30.1 SECONDS (25.2-36.5)
[2020-11-20 19:22] LABS: CHLORIDE 117 mmol/L (98-107); SODIUM 145 mmol/L (136-145)
[2020-11-20 19:24] LABS: CALCIUM 8.1 mg/dL (8.5-10.1)
[2020-11-20 19:25] LABS: ALBUMIN 2.5 g/dl (3.4-5.0); ANION GAP 6 MMOL/L (8-16); BLOOD UREA NITROGEN 12.4 mg/dL (7-18); CO2 23 mmol/L (21-32); GLUCOSE,RANDOM 173 mg/dL (74-106); MAGNESIUM 1.4 mg/dL (1.8-2.4)
[2020-11-20 19:27] LABS: CHOLESTEROL 102 mg/dL (50-200)
[2020-11-20 19:28] LABS: CREATININE 1.7 mg/dL (0.55-1.3); SGOT/AST 11 U/L (15-37); SGPT/ALT < 6 U/L (13-61); TRIGLYCERIDES 118 mg/dL (0-150)
[2020-11-20 19:29] LABS: BILIRUBIN,TOTAL 0.5 mg/dL (0.2-1); LDL CHOLESTEROL (ONLY SJRH) 32 mg/dL (5-100); TOT PROT 5.6 g/dl (6.4-8.2)
[2020-11-20 19:30] LABS: ALK PHOS 89 U/L (45-117); HDL CHOLESTEROL 63 mg/dL (40-60)
[2020-11-20] MEDS ORDERED: ENOXAPARIN NA (PORCINE) 60 MG/0.6 ML DISP.SYRIN SQ ONE (22:00)
[2020-11-20] MEDS ORDERED: ENOXAPARIN NA (PORCINE) 60 MG/0.6 ML DISP.SYRIN SQ SCH (22:00)
[2020-11-20] MEDS: ATORVASTATIN CA 40 MG TABLET (FP) PO SCH (22:09)
[2020-11-20] MEDS: DONEPEZIL HCL 10 MG TABLET (FP) PO SCH (22:09)
[2020-11-20] MEDS: QUEtiapine FUMARATE 25 MG TABLET PO SCH (22:09)
[2020-11-21] MEDS: LEVOTHYROXINE NA 75 MCG TABLET (FP) PO SCH (06:10)
[2020-11-21] MEDS: CARBIDOPA/LEVODOPA 25/100 TABLET (FP) PO SCH ×3 (06:10→22:26)
[2020-11-21 06:52] LABS: BASO % 0.3 % (0-2.0); EOS % 2.6 % (0-4.5); HEMATOCRIT 29.1 % (32.4-45.2); HEMOGLOBIN 9.7 GM/dL (10.7-15.3); LYMPH % 10.5 % (8-40); MCH 29.5 pg (25.7-33.7); MCHC 33.5 g/dl (32.0-36.0); MEAN CELL VOLUME 87.9 fl (80-96); MEAN PLT VOLUME 8.1 fl (7.5-11.1); MONO % 7.9 % (3.8-10.2); NEUT % 78.7 % (42.8-82.8); PLATELET COUNT 207 10^3/uL (134-434); RBC 3.31 M/mm3 (3.60-5.2); RDW 16.5 % (11.6-15.6); WHITE BLOOD COUNT 5.7 K/mm3 (4.0-10.0)
[2020-11-21 07:04] LABS: CHLORIDE 119 mmol/L (98-107); SODIUM 146 mmol/L (136-145)
[2020-11-21 07:10] LABS: BLOOD UREA NITROGEN 11.2 mg/dL (7-18)
[2020-11-21 07:11] LABS: ALBUMIN 2.4 g/dl (3.4-5.0); ANION GAP 7 MMOL/L (8-16); CO2 20 mmol/L (21-32); GLUCOSE,RANDOM 87 mg/dL (74-106)
[2020-11-21 07:14] LABS: SGPT/ALT < 6 U/L (13-61)
[2020-11-21 07:15] LABS: CREATININE 1.5 mg/dL (0.55-1.3); SGOT/AST 12 U/L (15-37)
[2020-11-21 07:16] LABS: BILIRUBIN,TOTAL 0.6 mg/dL (0.2-1); TOT PROT 5.5 g/dl (6.4-8.2)
[2020-11-21 07:17] LABS: ALK PHOS 88 U/L (45-117)
[2020-11-21] MEDS ORDERED: POTASSIUM CHLORIDE TABS 10 MEQ TABLET.ER (FP) PO ONE (09:15)
[2020-11-21] MEDS: FERROUS SO4 325 MG TABLET (FP) PO SCH (12:22)
[2020-11-21] MEDS: ZINC SULFATE 220 MG CAPSULE (FP) PO SCH (12:23)
[2020-11-21] MEDS: PANTOPRAZOLE SODIUM 40 MG VIAL IVPUSH SCH ×2 (12:23→22:25)
[2020-11-21] MEDS: OLANZapine 5 MG TABLET PO SCH ×2 (12:24→22:26)
[2020-11-21] MEDS: metoPROLOL SUCCINATE 25 MG TAB.SR.24H (FP) PO SCH (12:24)
[2020-11-21] MEDS: ASCORBIC ACID 500 MG TABLET (FP) PO SCH (12:25)
[2020-11-21] MEDS ORDERED: cefTRIAXone SODIUM 1 GM VIAL ONE (12:46)
[2020-11-21] MEDS ORDERED: DEXTROSE 5%-WATER - 50 ML IVPB ONE (12:46)
[2020-11-21] MEDS: CEFTRIAXONE 1 GM in DEXTROSE 5%-WATER - 50 ML IVPB SCH (13:03)
[2020-11-21] MEDS ORDERED: DEXTROSE 50%-WATER - 25 GM/50 ML VIAL IVPUSH ONE (14:08)
[2020-11-21] MEDS ORDERED: DEXTROSE 50%-WATER 25 GM/50 ML DISP.SYRIN ONE (14:10)
[2020-11-21] MEDS ORDERED: MAGNESIUM SULF 50% (8.12 MEQ/2 ML-1 GM VIAL) IVPB ONE (14:23)
[2020-11-21 14:27] LABS: ARTERIAL BLD GAS O2 SATURATION 98.3 % (95-98); ARTERIAL BLOOD GAS BASE EXCESS -4.9 mmol/L (-2-2); ARTERIAL BLOOD GAS PO2 124.5 mmHg (80-100); ARTERIAL BLOOD GAS pH 7.341 (7.350-7.450)
[2020-11-21 14:29] LABS: ALLENS TEST POSITIVE
[2020-11-21 14:59] LABS: MAGNESIUM 1.3 mg/dL (1.8-2.4)
[2020-11-21 15:03] LABS: PHOSPHOROUS 1.9 mg/dL (2.5-4.9)
[2020-11-21] MEDS ORDERED: MAGNESIUM 4GM/H20 - 4 GM/100 ML IVPB IVPB ONE (15:15)
[2020-11-21] MEDS ORDERED: POTASSIUM PHOSPHATE 45 MM in DEXTROSE 5%-WATER - 500 ML IVPB ONE ×2 (16:00→17:11)
[2020-11-21] MEDS ORDERED: levETIRAcetam 500 MG/5 ML INJECTION VIAL IVPB ONE ×2 (16:01→17:11)
[2020-11-21] MEDS ORDERED: ENOXAPARIN NA (PORCINE) 40 MG/0.4 ML DISP.SYRIN SQ SCH (17:00)
[2020-11-21] MEDS ORDERED: SODIUM CHLORIDE 1,000 ML IV SCH (17:00)
[2020-11-21] MEDS ORDERED: DEXTROSE 50%-WATER - 25 GM/50 ML VIAL IVPUSH PRN (17:11)
[2020-11-21] MEDS ORDERED: ALBUTEROL SO4 0.083% IH SOL 2.5 MG/3 ML VIAL.NEB. NEB PRN (17:11)
[2020-11-21 19:46] LABS: CHLORIDE 118 mmol/L (98-107); SODIUM 146 mmol/L (136-145)
[2020-11-21 19:47] LABS: ALBUMIN 2.3 g/dl (3.4-5.0); ANION GAP 6 MMOL/L (8-16); BLOOD UREA NITROGEN 10.9 mg/dL (7-18); CALCIUM 7.7 mg/dL (8.5-10.1); CO2 23 mmol/L (21-32); MAGNESIUM 2.6 mg/dL (1.8-2.4)
[2020-11-21 19:48] LABS: GLUCOSE,RANDOM 112 mg/dL (74-106)
[2020-11-21 19:51] LABS: CREATININE 1.5 mg/dL (0.55-1.3)
[2020-11-21 19:54] LABS: PHOSPHOROUS 2.3 mg/dL (2.5-4.9); SGOT/AST 11 U/L (15-37); SGPT/ALT < 6 U/L (13-61)
[2020-11-21 19:55] LABS: BILIRUBIN,TOTAL 0.4 mg/dL (0.2-1); TOT PROT 5.3 g/dl (6.4-8.2)
[2020-11-21 19:57] LABS: ALK PHOS 86 U/L (45-117)
[2020-11-21] MEDS: CHLORHEXIDINE GLUCONATE 4% CLEANSER FOR DECOLONIZATION TP SCH (22:24)
[2020-11-21] MEDS: MUPIROCIN 2% TOPICAL OINTMENT FOR DECOLONIZATION NS SCH (22:24)
[2020-11-21] MEDS: levETIRAcetam 500 MG/5 ML INJECTION VIAL IVPB SCH (22:24)
[2020-11-21] MEDS: DONEPEZIL HCL 10 MG TABLET (FP) PO SCH (22:26)
[2020-11-21] MEDS: ATORVASTATIN CA 40 MG TABLET (FP) PO SCH (22:26)
[2020-11-22] MEDS: LEVOTHYROXINE NA 75 MCG TABLET (FP) PO SCH (06:06)
[2020-11-22] MEDS: CARBIDOPA/LEVODOPA 25/100 TABLET (FP) PO SCH ×3 (06:06→21:41)
[2020-11-22 06:58] LABS: BASO % 0.4 % (0-2.0); EOS % 3.9 % (0-4.5); HEMATOCRIT 27.1 % (32.4-45.2); HEMOGLOBIN 8.9 GM/dL (10.7-15.3); LYMPH % 16.9 % (8-40); MCH 28.6 pg (25.7-33.7); MCHC 32.9 g/dl (32.0-36.0); MEAN CELL VOLUME 86.8 fl (80-96); MEAN PLT VOLUME 8.2 fl (7.5-11.1); MONO % 13.6 % (3.8-10.2); NEUT % 65.2 % (42.8-82.8); PLATELET COUNT 171 10^3/uL (134-434); RBC 3.13 M/mm3 (3.60-5.2); RDW 16.7 % (11.6-15.6); WHITE BLOOD COUNT 4.2 K/mm3 (4.0-10.0)
[2020-11-22 07:14] LABS: ALBUMIN 2.1 g/dl (3.4-5.0); BLOOD UREA NITROGEN 9.8 mg/dL (7-18); CALCIUM 7.7 mg/dL (8.5-10.1)
[2020-11-22 07:15] LABS: MAGNESIUM 2.5 mg/dL (1.8-2.4)
[2020-11-22 07:17] LABS: CREATININE 1.3 mg/dL (0.55-1.3); PHOSPHOROUS 5.6 mg/dL (2.5-4.9)
[2020-11-22 07:21] LABS: BILIRUBIN,TOTAL 0.4 mg/dL (0.2-1)
[2020-11-22] MEDS: FERROUS SO4 325 MG TABLET (FP) PO SCH (09:31)
[2020-11-22] MEDS: OLANZapine 5 MG TABLET PO SCH ×2 (09:32→21:41)
[2020-11-22] MEDS: SODIUM CHLORIDE 1,000 ML IV SCH (09:32)
[2020-11-22] MEDS: MUPIROCIN 2% TOPICAL OINTMENT FOR DECOLONIZATION NS SCH ×2 (09:32→21:35)
[2020-11-22] MEDS: ZINC SULFATE 220 MG CAPSULE (FP) PO SCH (09:32)
[2020-11-22] MEDS: ASCORBIC ACID 500 MG TABLET (FP) PO SCH (09:32)
[2020-11-22] MEDS ORDERED: CEFTRIAXONE 1 GM in DEXTROSE 5%-WATER - 50 ML IVPB SCH (10:00)
[2020-11-22] MEDS: PANTOPRAZOLE SODIUM 40 MG VIAL IVPUSH SCH ×2 (10:01→21:35)
[2020-11-22] MEDS: levETIRAcetam 500 MG/5 ML INJECTION VIAL IVPB SCH ×2 (10:01→21:35)
[2020-11-22 12:09] LABS: EPI CELLS 3 /uL (0-25.1); HYALINE CASTS 7 /uL (0-3.1); URINE APPEARANCE CLOUDY; URINE BACTERIA 22 /uL (0-1359); URINE BILIRUBIN NEGATIVE (NEGATIVE); URINE COLOR ORANGE; URINE GLUCOSE (UA) NEGATIVE (NEGATIVE); URINE KETONE NEGATIVE (NEGATIVE); URINE LEUK ESTERASE 2+ (NEGATIVE); URINE NITRITE NEGATIVE (NEGATIVE); URINE PROTEIN 3+ (NEGATIVE); URINE UROBILINOGEN 0.2 mg/dL (0.2-1.0); URINE WBC 927 /uL (0-25.8)
[2020-11-22 12:10] LABS: URINE RBC 13172.5 /uL (0-23.9)
[2020-11-22 12:45] LABS: URINE CRYSTALS NONE SEEN /hpf
[2020-11-22] MEDS ORDERED: DEXTROSE 5%-WATER - 50 ML IVPB ONE ×3 (15:19→23:37)
[2020-11-22] MEDS ORDERED: PIPERACILLIN/TAZOBACTAM 2.25 GM VIAL IVPB ONE ×3 (15:19→23:37)
[2020-11-22] MEDS: PIPERACILLIN/TAZOB 2.25 GM 2.25 GM in DEXTROSE 5%-WATER - 50 ML IVPB SCH ×2 (15:30→21:34)
[2020-11-22] MEDS ORDERED: PT OWN MED DRAWER 7, Y5N ONE (21:29)
[2020-11-22] MEDS: CHLORHEXIDINE GLUCONATE 4% CLEANSER FOR DECOLONIZATION TP SCH (21:35)
[2020-11-22] MEDS: ATORVASTATIN CA 40 MG TABLET (FP) PO SCH (21:40)
[2020-11-22] MEDS: DONEPEZIL HCL 10 MG TABLET (FP) PO SCH (21:40)
[2020-11-23] MEDS: PIPERACILLIN/TAZOB 2.25 GM 2.25 GM in DEXTROSE 5%-WATER - 50 ML IVPB SCH ×4 (02:30→21:26)
[2020-11-23] MEDS: CARBIDOPA/LEVODOPA 25/100 TABLET (FP) PO SCH ×3 (06:03→21:26)
[2020-11-23] MEDS: LEVOTHYROXINE NA 75 MCG TABLET (FP) PO SCH (06:03)
[2020-11-23 07:49] LABS: ALBUMIN 2.2 g/dl (3.4-5.0); BLOOD UREA NITROGEN 9.7 mg/dL (7-18); CALCIUM 7.3 mg/dL (8.5-10.1)
[2020-11-23 07:53] LABS: CREATININE 1.3 mg/dL (0.55-1.3)
[2020-11-23 07:54] LABS: BILIRUBIN,TOTAL 0.6 mg/dL (0.2-1); TOT PROT 5.4 g/dl (6.4-8.2)
[2020-11-23] MEDS ORDERED: METOPROLOL TARTRATE 5 MG/5 ML VIAL IVPUSH ONE (09:12)
[2020-11-23] MEDS ORDERED: PIPERACILLIN/TAZOBACTAM 2.25 GM VIAL IVPB ONE ×3 (09:15→21:15)
[2020-11-23] MEDS ORDERED: DEXTROSE 5%-WATER - 50 ML IVPB ONE ×3 (09:15→21:16)
[2020-11-23] MEDS: levETIRAcetam 500 MG/5 ML INJECTION VIAL IVPB SCH ×2 (09:26→21:25)
[2020-11-23] MEDS: PANTOPRAZOLE SODIUM 40 MG VIAL IVPUSH SCH ×2 (09:27→21:30)
[2020-11-23] MEDS: ASCORBIC ACID 500 MG TABLET (FP) PO SCH (09:27)
[2020-11-23] MEDS: FERROUS SO4 325 MG TABLET (FP) PO SCH (09:27)
[2020-11-23] MEDS: MUPIROCIN 2% TOPICAL OINTMENT FOR DECOLONIZATION NS SCH ×2 (09:27→21:27)
[2020-11-23] MEDS: ZINC SULFATE 220 MG CAPSULE (FP) PO SCH (09:28)
[2020-11-23] MEDS: OLANZapine 5 MG TABLET PO SCH ×2 (09:48→21:30)
[2020-11-23] MEDS ORDERED: metoPROLOL SUCCINATE 25 MG TAB.SR.24H (FP) PO SCH (10:00)
[2020-11-23] MEDS ORDERED: LOSARTAN POTASSIUM 50 MG TABLET PO SCH (10:00)
[2020-11-23] MEDS ORDERED: APIXABAN 2.5 MG TABLET PO SCH (10:00)
[2020-11-23 14:25] LABS: BASO % 0.3 % (0-2.0); EOS % 1.9 % (0-4.5); HEMATOCRIT 29.3 % (32.4-45.2); HEMOGLOBIN 9.8 GM/dL (10.7-15.3); LYMPH % 6.2 % (8-40); MCH 29.1 pg (25.7-33.7); MCHC 33.6 g/dl (32.0-36.0); MEAN CELL VOLUME 86.5 fl (80-96); MEAN PLT VOLUME 8.1 fl (7.5-11.1); MONO % 8.1 % (3.8-10.2); NEUT % 83.5 % (42.8-82.8); PLATELET COUNT 180 10^3/uL (134-434); RBC 3.38 M/mm3 (3.60-5.2); RDW 16.6 % (11.6-15.6); WHITE BLOOD COUNT 6.9 K/mm3 (4.0-10.0)
[2020-11-23] MEDS ORDERED: PT OWN MED DRAWER 7, Y5N ONE ×2 (21:18→21:29)
[2020-11-23] MEDS: CHLORHEXIDINE GLUCONATE 4% CLEANSER FOR DECOLONIZATION TP SCH (21:25)
[2020-11-23] MEDS: ATORVASTATIN CA 40 MG TABLET (FP) PO SCH (21:26)
[2020-11-23] MEDS: DONEPEZIL HCL 10 MG TABLET (FP) PO SCH (21:26)
[2020-11-23] MEDS: HEPARIN NA (PORCINE) 5,000 UNITS/ML 1ML VIAL SQ SCH (21:26)
[2020-11-24] MEDS ORDERED: DEXTROSE 5%-WATER - 50 ML IVPB ONE ×4 (00:38→21:46)
[2020-11-24] MEDS ORDERED: PIPERACILLIN/TAZOBACTAM 2.25 GM VIAL IVPB ONE ×4 (00:38→21:45)
[2020-11-24] MEDS: PIPERACILLIN/TAZOB 2.25 GM 2.25 GM in DEXTROSE 5%-WATER - 50 ML IVPB SCH ×3 (02:12→21:52)
[2020-11-24] MEDS: SODIUM CHLORIDE 1,000 ML IV SCH (03:26)
[2020-11-24] MEDS: LEVOTHYROXINE NA 75 MCG TABLET (FP) PO SCH (06:13)
[2020-11-24] MEDS: CARBIDOPA/LEVODOPA 25/100 TABLET (FP) PO SCH ×3 (06:13→21:53)
[2020-11-24 07:10] LABS: BASO % 0.4 % (0-2.0); EOS % 2.6 % (0-4.5); HEMATOCRIT 27.3 % (32.4-45.2); HEMOGLOBIN 9.3 GM/dL (10.7-15.3); LYMPH % 5.7 % (8-40); MCH 29.3 pg (25.7-33.7); MCHC 34.2 g/dl (32.0-36.0); MEAN CELL VOLUME 85.6 fl (80-96); MONO % 8.9 % (3.8-10.2); NEUT % 82.4 % (42.8-82.8); PLATELET COUNT 199 10^3/uL (134-434); RBC 3.19 M/mm3 (3.60-5.2); RDW 17.1 % (11.6-15.6); WHITE BLOOD COUNT 7.4 K/mm3 (4.0-10.0)
[2020-11-24 07:30] LABS: CHLORIDE 118 mmol/L (98-107); SODIUM 146 mmol/L (136-145)
[2020-11-24 07:35] LABS: ALBUMIN 2.1 g/dl (3.4-5.0); ANION GAP 9 MMOL/L (8-16); CALCIUM 7.6 mg/dL (8.5-10.1); CO2 19 mmol/L (21-32)
[2020-11-24 07:36] LABS: BLOOD UREA NITROGEN 11.4 mg/dL (7-18); MAGNESIUM 1.8 mg/dL (1.8-2.4)
[2020-11-24 07:38] LABS: CREATININE 1.4 mg/dL (0.55-1.3); SGPT/ALT < 6 U/L (13-61)
[2020-11-24 07:39] LABS: GLUCOSE,RANDOM 116 mg/dL (74-106); PHOSPHOROUS 2.2 mg/dL (2.5-4.9); SGOT/AST 10 U/L (15-37)
[2020-11-24 07:40] LABS: BILIRUBIN,TOTAL 0.8 mg/dL (0.2-1); TOT PROT 5.2 g/dl (6.4-8.2)
[2020-11-24 07:41] LABS: ALK PHOS 83 U/L (45-117)
[2020-11-24] MEDS ORDERED: ALBUTEROL SO4 0.083% IH SOL 2.5 MG/3 ML VIAL.NEB. NEB PRN (08:29)
[2020-11-24] MEDS ORDERED: DEXTROSE 50%-WATER - 25 GM/50 ML VIAL IVPUSH PRN (08:29)
[2020-11-24] MEDS ORDERED: PIPERACILLIN/TAZOB 2.25 GM 2.25 GM in DEXTROSE 5%-WATER - 50 ML IVPB SCH (09:00)
[2020-11-24] MEDS ORDERED: PT OWN MED DRAWER 7, Y5N ONE (09:52)
[2020-11-24] MEDS: PANTOPRAZOLE SODIUM 40 MG VIAL IVPUSH SCH ×2 (09:54→21:54)
[2020-11-24] MEDS: levETIRAcetam 500 MG/5 ML INJECTION VIAL IVPB SCH ×2 (09:55→21:49)
[2020-11-24] MEDS: FERROUS SO4 325 MG TABLET (FP) PO SCH (09:56)
[2020-11-24] MEDS: LOSARTAN POTASSIUM 50 MG TABLET PO SCH (09:56)
[2020-11-24] MEDS: OLANZapine 5 MG TABLET PO SCH ×2 (09:56→21:53)
[2020-11-24] MEDS: HEPARIN NA (PORCINE) 5,000 UNITS/ML 1ML VIAL SQ SCH ×2 (09:56→21:52)
[2020-11-24] MEDS: ASCORBIC ACID 500 MG TABLET (FP) PO SCH (09:56)
[2020-11-24] MEDS: ZINC SULFATE 220 MG CAPSULE (FP) PO SCH (09:57)
[2020-11-24] MEDS: hydrALAZINE HCL 25 MG TABLET (FP) PO SCH ×2 (14:29→21:53)
[2020-11-24] MEDS: DEXTROSE 5%-WATER - 1,000 ML IV SCH (17:43)
[2020-11-24] MEDS: ATORVASTATIN CA 40 MG TABLET (FP) PO SCH (21:53)
[2020-11-24] MEDS: DONEPEZIL HCL 10 MG TABLET (FP) PO SCH (21:53)
[2020-11-25] MEDS ORDERED: PIPERACILLIN/TAZOBACTAM 2.25 GM VIAL IVPB ONE ×4 (01:24→21:21)
[2020-11-25] MEDS ORDERED: DEXTROSE 5%-WATER - 50 ML IVPB ONE ×4 (01:24→21:21)
[2020-11-25] MEDS: PIPERACILLIN/TAZOB 2.25 GM 2.25 GM in DEXTROSE 5%-WATER - 50 ML IVPB SCH ×4 (02:01→21:34)
[2020-11-25] MEDS: CARBIDOPA/LEVODOPA 25/100 TABLET (FP) PO SCH ×3 (06:04→21:37)
[2020-11-25] MEDS: LEVOTHYROXINE NA 75 MCG TABLET (FP) PO SCH (06:04)
[2020-11-25] MEDS: hydrALAZINE HCL 25 MG TABLET (FP) PO SCH ×3 (06:04→21:37)
[2020-11-25] MEDS: ASCORBIC ACID 500 MG TABLET (FP) PO SCH (09:11)
[2020-11-25] MEDS: LOSARTAN POTASSIUM 50 MG TABLET PO SCH (09:12)
[2020-11-25] MEDS: ZINC SULFATE 220 MG CAPSULE (FP) PO SCH (09:12)
[2020-11-25] MEDS: HEPARIN NA (PORCINE) 5,000 UNITS/ML 1ML VIAL SQ SCH ×2 (09:12→21:37)
[2020-11-25] MEDS: PANTOPRAZOLE SODIUM 40 MG VIAL IVPUSH SCH ×2 (09:12→21:33)
[2020-11-25] MEDS: FERROUS SO4 325 MG TABLET (FP) PO SCH (09:13)
[2020-11-25] MEDS ORDERED: PT OWN MED DRAWER 7, Y5N ONE ×2 (09:21→21:40)
[2020-11-25] MEDS: OLANZapine 5 MG TABLET PO SCH ×2 (09:22→21:41)
[2020-11-25] MEDS: levETIRAcetam 500 MG/5 ML INJECTION VIAL IVPB SCH ×2 (10:57→21:34)
[2020-11-25] MEDS: DEXTROSE 5%-WATER - 1,000 ML IV SCH (13:00)
[2020-11-25] MEDS ORDERED: GLYCOPYRROLATE 0.2 MG/1 ML VIAL IVPB ONE (17:45)
[2020-11-25] MEDS ORDERED: LACTATED RINGERS SOLUTION 1,000 ML/1,000 ML INFUS.BAG IV SCH (18:00)
[2020-11-25 19:35] LABS: BASO % 0.2 % (0-2.0); EOS % 2.9 % (0-4.5); HEMATOCRIT 25.4 % (32.4-45.2); HEMOGLOBIN 8.5 GM/dL (10.7-15.3); LYMPH % 7.7 % (8-40); MCH 28.5 pg (25.7-33.7); MCHC 33.6 g/dl (32.0-36.0); MEAN CELL VOLUME 84.7 fl (80-96); MEAN PLT VOLUME 7.9 fl (7.5-11.1); NEUT % 83.2 % (42.8-82.8); PLATELET COUNT 162 10^3/uL (134-434); RBC 2.99 M/mm3 (3.60-5.2); RDW 17.3 % (11.6-15.6); WHITE BLOOD COUNT 4.9 K/mm3 (4.0-10.0)
[2020-11-25 19:51] LABS: CHLORIDE 114 mmol/L (98-107); SODIUM 146 mmol/L (136-145)
[2020-11-25 19:53] LABS: ALBUMIN 1.8 g/dl (3.4-5.0); CALCIUM 7.3 mg/dL (8.5-10.1)
[2020-11-25 19:54] LABS: ANION GAP 11 MMOL/L (8-16); BLOOD UREA NITROGEN 10.6 mg/dL (7-18); CO2 21 mmol/L (21-32)
[2020-11-25 19:57] LABS: CREATININE 1.6 mg/dL (0.55-1.3); SGOT/AST 7 U/L (15-37); SGPT/ALT < 6 U/L (13-61)
[2020-11-25 19:58] LABS: BILIRUBIN,TOTAL 0.5 mg/dL (0.2-1)
[2020-11-25 19:59] LABS: TOT PROT 4.9 g/dl (6.4-8.2)
[2020-11-25 20:18] LABS: ALK PHOS 72 U/L (45-117)
[2020-11-25 20:22] LABS: GLUCOSE,RANDOM 183 mg/dL (74-106)
[2020-11-25] MEDS: DONEPEZIL HCL 10 MG TABLET (FP) PO SCH (21:37)
[2020-11-25] MEDS: ATORVASTATIN CA 40 MG TABLET (FP) PO SCH (21:38)
[2020-11-26] MEDS ORDERED: PIPERACILLIN/TAZOBACTAM 2.25 GM VIAL IVPB ONE ×4 (01:11→23:02)
[2020-11-26] MEDS ORDERED: DEXTROSE 5%-WATER - 50 ML IVPB ONE ×4 (01:11→23:02)
[2020-11-26] MEDS: PIPERACILLIN/TAZOB 2.25 GM 2.25 GM in DEXTROSE 5%-WATER - 50 ML IVPB SCH ×4 (03:00→23:10)
[2020-11-26] MEDS: hydrALAZINE HCL 25 MG TABLET (FP) PO SCH ×3 (05:10→23:08)
[2020-11-26] MEDS: LEVOTHYROXINE NA 75 MCG TABLET (FP) PO SCH ×2 (05:10→13:48)
[2020-11-26] MEDS: CARBIDOPA/LEVODOPA 25/100 TABLET (FP) PO SCH ×3 (05:10→23:09)
[2020-11-26 06:49] LABS: BASO % 0.4 % (0-2.0); EOS % 3.7 % (0-4.5); HEMATOCRIT 30.2 % (32.4-45.2); HEMOGLOBIN 10.2 GM/dL (10.7-15.3); LYMPH % 7.1 % (8-40); MCH 28.7 pg (25.7-33.7); MCHC 33.9 g/dl (32.0-36.0); MEAN CELL VOLUME 84.8 fl (80-96); MEAN PLT VOLUME 8.6 fl (7.5-11.1); MONO % 10.2 % (3.8-10.2); NEUT % 78.6 % (42.8-82.8); PLATELET COUNT 225 10^3/uL (134-434); RBC 3.56 M/mm3 (3.60-5.2); RDW 17.3 % (11.6-15.6); WHITE BLOOD COUNT 6.4 K/mm3 (4.0-10.0)
[2020-11-26 07:08] LABS: BLOOD UREA NITROGEN 10.2 mg/dL (7-18); CALCIUM 8.2 mg/dL (8.5-10.1); MAGNESIUM 1.7 mg/dL (1.8-2.4)
[2020-11-26 07:11] LABS: CREATININE 1.5 mg/dL (0.55-1.3); PHOSPHOROUS 1.5 mg/dL (2.5-4.9)
[2020-11-26 07:13] LABS: BILIRUBIN,TOTAL 0.7 mg/dL (0.2-1); TOT PROT 5.7 g/dl (6.4-8.2)
[2020-11-26 07:23] LABS: ALBUMIN 2.3 g/dl (3.4-5.0)
[2020-11-26] MEDS ORDERED: MAGNESIUM SULF 50% (8.12 MEQ/2 ML-1 GM VIAL) IVPB ONE (08:15)
[2020-11-26] MEDS ORDERED: POTASSIUM PHOSPHATE 30 MM in SODIUM CHLORIDE 250 ML IVPB ONE (09:00)
[2020-11-26] MEDS ORDERED: MAGNESIUM SULF 50% (8.12 MEQ/2 ML-1 GM VIAL) ONE (09:40)
[2020-11-26] MEDS: HEPARIN NA (PORCINE) 5,000 UNITS/ML 1ML VIAL SQ SCH (10:06)
[2020-11-26] MEDS: PANTOPRAZOLE SODIUM 40 MG VIAL IVPUSH SCH ×2 (10:06→23:21)
[2020-11-26] MEDS: levETIRAcetam 500 MG/5 ML INJECTION VIAL IVPB SCH ×2 (10:07→23:12)
[2020-11-26] MEDS: OLANZapine 5 MG TABLET PO SCH ×2 (10:07→23:09)
[2020-11-26] MEDS: FERROUS SO4 325 MG TABLET (FP) PO SCH (10:07)
[2020-11-26] MEDS: LOSARTAN POTASSIUM 50 MG TABLET PO SCH (10:13)
[2020-11-26] MEDS: ASCORBIC ACID 500 MG TABLET (FP) PO SCH (10:13)
[2020-11-26] MEDS: ZINC SULFATE 220 MG CAPSULE (FP) PO SCH (10:14)
[2020-11-26] MEDS ORDERED: DEXTROSE 50%-WATER - 25 GM/50 ML VIAL IVPUSH PRN (18:00)
[2020-11-26] MEDS ORDERED: ALBUTEROL SO4 0.083% IH SOL 2.5 MG/3 ML VIAL.NEB. NEB PRN (18:00)
[2020-11-26 18:13] LABS: EPI CELLS 23 /uL (0-25.1); HYALINE CASTS 5 /uL (0-3.1); PH,URINE 5.5 (5.0-8.0); URINE APPEARANCE TURBID; URINE BACTERIA 238 /uL (0-1359); URINE BILIRUBIN NEGATIVE (NEGATIVE); URINE COLOR YELLOW; URINE GLUCOSE (UA) NEGATIVE (NEGATIVE); URINE KETONE NEGATIVE (NEGATIVE); URINE LEUK ESTERASE 3+ (NEGATIVE); URINE NITRITE NEGATIVE (NEGATIVE); URINE PROTEIN 3+ (NEGATIVE); URINE UROBILINOGEN 0.2 mg/dL (0.2-1.0); URINE WBC 7707 /uL (0-25.8)
[2020-11-26 19:10] LABS: URINE RBC 857.1 /uL (0-23.9); YEAST FEW (NEGATIVE)
[2020-11-26] MEDS ORDERED: APIXABAN 2.5 MG TABLET PO SCH (22:00)
[2020-11-26] MEDS: APIXABAN 2.5 MG TABLET PO SCH (23:06)
[2020-11-26] MEDS: DONEPEZIL HCL 10 MG TABLET (FP) PO SCH (23:08)
[2020-11-26] MEDS: ATORVASTATIN CA 40 MG TABLET (FP) PO SCH (23:09)
[2020-11-27] MEDS ORDERED: PIPERACILLIN/TAZOBACTAM 2.25 GM VIAL IVPB ONE ×5 (03:13→20:48)
[2020-11-27] MEDS ORDERED: DEXTROSE 5%-WATER - 50 ML IVPB ONE ×4 (03:13→20:47)
[2020-11-27] MEDS: PIPERACILLIN/TAZOB 2.25 GM 2.25 GM in DEXTROSE 5%-WATER - 50 ML IVPB SCH ×4 (03:54→21:02)
[2020-11-27] MEDS: hydrALAZINE HCL 25 MG TABLET (FP) PO SCH ×4 (06:16→23:10)
[2020-11-27] MEDS: CARBIDOPA/LEVODOPA 25/100 TABLET (FP) PO SCH ×5 (06:17→23:20)
[2020-11-27] MEDS: LEVOTHYROXINE NA 75 MCG TABLET (FP) PO SCH ×2 (06:18→06:30)
[2020-11-27] MEDS ORDERED: PT OWN MED DRAWER 7, Y5N ONE ×2 (09:58→14:13)
[2020-11-27] MEDS: LOSARTAN POTASSIUM 50 MG TABLET PO SCH (10:30)
[2020-11-27] MEDS: APIXABAN 2.5 MG TABLET PO SCH ×2 (10:30→23:20)
[2020-11-27] MEDS: PANTOPRAZOLE SODIUM 40 MG VIAL IVPUSH SCH ×2 (10:31→23:11)
[2020-11-27] MEDS ORDERED: FUROSEMIDE 40 MG/4 ML INJECTABLE VIAL IVPUSH ONE (10:31)
[2020-11-27] MEDS: ASCORBIC ACID 500 MG TABLET (FP) PO SCH (10:39)
[2020-11-27] MEDS: levETIRAcetam 500 MG/5 ML INJECTION VIAL IVPB SCH ×2 (10:40→23:12)
[2020-11-27] MEDS: OLANZapine 5 MG TABLET PO SCH ×2 (10:40→23:20)
[2020-11-27] MEDS: FERROUS SO4 325 MG TABLET (FP) PO SCH (10:42)
[2020-11-27] MEDS: ZINC SULFATE 220 MG CAPSULE (FP) PO SCH (10:42)
[2020-11-27] MEDS: DONEPEZIL HCL 10 MG TABLET (FP) PO SCH (23:19)
[2020-11-27] MEDS: ATORVASTATIN CA 40 MG TABLET (FP) PO SCH (23:20)
[2020-11-28] MEDS ORDERED: PIPERACILLIN/TAZOBACTAM 2.25 GM VIAL IVPB ONE ×4 (03:19→20:01)
[2020-11-28] MEDS ORDERED: DEXTROSE 5%-WATER - 50 ML IVPB ONE ×4 (03:20→20:01)
[2020-11-28] MEDS: PIPERACILLIN/TAZOB 2.25 GM 2.25 GM in DEXTROSE 5%-WATER - 50 ML IVPB SCH ×4 (03:22→21:33)
[2020-11-28] MEDS: hydrALAZINE HCL 25 MG TABLET (FP) PO SCH ×3 (06:30→22:05)
[2020-11-28] MEDS: CARBIDOPA/LEVODOPA 25/100 TABLET (FP) PO SCH ×4 (06:30→22:07)
[2020-11-28] MEDS: LEVOTHYROXINE NA 75 MCG TABLET (FP) PO SCH (06:31)
[2020-11-28 08:05] LABS: CHLORIDE 119 mmol/L (98-107); SODIUM 149 mmol/L (136-145)
[2020-11-28 08:08] LABS: GLUCOSE,RANDOM 99 mg/dL (74-106)
[2020-11-28 08:09] LABS: CALCIUM 7.7 mg/dL (8.5-10.1)
[2020-11-28 08:10] LABS: ALBUMIN 1.9 g/dl (3.4-5.0); ANION GAP 9 MMOL/L (8-16); BLOOD UREA NITROGEN 16.3 mg/dL (7-18); CO2 22 mmol/L (21-32)
[2020-11-28 08:13] LABS: CREATININE 1.9 mg/dL (0.55-1.3); SGOT/AST 9 U/L (15-37); SGPT/ALT < 6 U/L (13-61)
[2020-11-28 08:14] LABS: BILIRUBIN,TOTAL 0.7 mg/dL (0.2-1)
[2020-11-28 08:15] LABS: TOT PROT 5.2 g/dl (6.4-8.2)
[2020-11-28 08:16] LABS: ALK PHOS 78 U/L (45-117)
[2020-11-28] MEDS ORDERED: PT OWN MED DRAWER 7, Y5N ONE ×2 (09:04→20:01)
[2020-11-28] MEDS: PANTOPRAZOLE SODIUM 40 MG VIAL IVPUSH SCH ×2 (09:41→22:06)
[2020-11-28] MEDS: levETIRAcetam 500 MG/5 ML INJECTION VIAL IVPB SCH ×2 (09:45→22:06)
[2020-11-28 10:05] LABS: BASO % 0.8 % (0-2.0); EOS % 4.5 % (0-4.5); HEMATOCRIT 25.5 % (32.4-45.2); HEMOGLOBIN 8.5 GM/dL (10.7-15.3); LYMPH % 9.6 % (8-40); MCH 28.2 pg (25.7-33.7); MCHC 33.2 g/dl (32.0-36.0); MEAN CELL VOLUME 84.8 fl (80-96); MEAN PLT VOLUME 8.6 fl (7.5-11.1); MONO % 8.9 % (3.8-10.2); NEUT % 76.2 % (42.8-82.8); PLATELET COUNT 210 10^3/uL (134-434); RBC 3.01 M/mm3 (3.60-5.2); RDW 17.5 % (11.6-15.6); WHITE BLOOD COUNT 6.3 K/mm3 (4.0-10.0)
[2020-11-28] MEDS: APIXABAN 2.5 MG TABLET PO SCH ×2 (10:35→22:06)
[2020-11-28] MEDS: LOSARTAN POTASSIUM 50 MG TABLET PO SCH (10:35)
[2020-11-28] MEDS: OLANZapine 5 MG TABLET PO SCH ×2 (11:17→22:07)
[2020-11-28] MEDS: FERROUS SO4 325 MG TABLET (FP) PO SCH (11:18)
[2020-11-28] MEDS: ZINC SULFATE 220 MG CAPSULE (FP) PO SCH (11:18)
[2020-11-28] MEDS: FUROSEMIDE 40 MG TABLET (FP) PO SCH (11:18)
[2020-11-28] MEDS: ASCORBIC ACID 500 MG TABLET (FP) PO SCH (11:18)
[2020-11-28] MEDS ORDERED: DEXTROSE 5%-WATER - 1,000 ML with POTASSIUM CHLORIDE 10 MEQ IV SCH ×2 (16:30→16:32)
[2020-11-28 20:32] VITALS: BMI 24.9
[2020-11-28] MEDS: DONEPEZIL HCL 10 MG TABLET (FP) PO SCH (22:05)
[2020-11-28] MEDS: ATORVASTATIN CA 40 MG TABLET (FP) PO SCH (22:06)
[2020-11-29] MEDS ORDERED: PIPERACILLIN/TAZOBACTAM 2.25 GM VIAL IVPB ONE ×3 (01:21→15:32)
[2020-11-29] MEDS ORDERED: DEXTROSE 5%-WATER - 50 ML IVPB ONE ×3 (01:22→15:32)
[2020-11-29] MEDS: PIPERACILLIN/TAZOB 2.25 GM 2.25 GM in DEXTROSE 5%-WATER - 50 ML IVPB SCH ×3 (02:13→15:51)
[2020-11-29] MEDS: hydrALAZINE HCL 25 MG TABLET (FP) PO SCH ×3 (06:24→22:12)
[2020-11-29] MEDS: LEVOTHYROXINE NA 75 MCG TABLET (FP) PO SCH (06:24)
[2020-11-29] MEDS: CARBIDOPA/LEVODOPA 25/100 TABLET (FP) PO SCH ×3 (06:24→22:13)
[2020-11-29 08:09] LABS: CHLORIDE 115 mmol/L (98-107); SODIUM 146 mmol/L (136-145)
[2020-11-29 08:10] LABS: BASO % 0.5 % (0-2.0); EOS % 3.2 % (0-4.5); HEMATOCRIT 25.5 % (32.4-45.2); HEMOGLOBIN 8.6 GM/dL (10.7-15.3); LYMPH % 10.3 % (8-40); MCH 28.6 pg (25.7-33.7); MCHC 33.6 g/dl (32.0-36.0); MEAN CELL VOLUME 85.1 fl (80-96); MEAN PLT VOLUME 8.3 fl (7.5-11.1); MONO % 8.9 % (3.8-10.2); NEUT % 77.1 % (42.8-82.8); PLATELET COUNT 202 10^3/uL (134-434); RBC 2.99 M/mm3 (3.60-5.2); RDW 17.5 % (11.6-15.6)
[2020-11-29 08:11] LABS: CALCIUM 7.8 mg/dL (8.5-10.1)
[2020-11-29 08:12] LABS: ALBUMIN 1.8 g/dl (3.4-5.0); ANION GAP 9 MMOL/L (8-16); BLOOD UREA NITROGEN 15.7 mg/dL (7-18); CO2 22 mmol/L (21-32)
[2020-11-29 08:15] LABS: SGOT/AST 10 U/L (15-37); SGPT/ALT < 6 U/L (13-61)
[2020-11-29 08:16] LABS: GLUCOSE,RANDOM 134 mg/dL (74-106)
[2020-11-29 08:17] LABS: BILIRUBIN,TOTAL 0.5 mg/dL (0.2-1); TOT PROT 5.1 g/dl (6.4-8.2)
[2020-11-29 08:18] LABS: ALK PHOS 78 U/L (45-117)
[2020-11-29] MEDS ORDERED: POTASSIUM CHLORIDE 10 MEQ in DEXTROSE 5%-WATER - 1,000 ML IV SCH ×2 (08:51→15:00)
[2020-11-29] MEDS: LOSARTAN POTASSIUM 50 MG TABLET PO SCH (10:06)
[2020-11-29] MEDS: APIXABAN 2.5 MG TABLET PO SCH ×2 (10:16→22:12)
[2020-11-29] MEDS: FERROUS SO4 325 MG TABLET (FP) PO SCH (10:16)
[2020-11-29] MEDS: ZINC SULFATE 220 MG CAPSULE (FP) PO SCH (10:17)
[2020-11-29] MEDS: FUROSEMIDE 40 MG TABLET (FP) PO SCH (10:17)
[2020-11-29] MEDS: ASCORBIC ACID 500 MG TABLET (FP) PO SCH (10:18)
[2020-11-29] MEDS: OLANZapine 5 MG TABLET PO SCH ×2 (10:18→22:30)
[2020-11-29] MEDS: levETIRAcetam 500 MG/5 ML INJECTION VIAL IVPB SCH ×2 (10:23→22:12)
[2020-11-29] MEDS: PANTOPRAZOLE SODIUM 40 MG VIAL IVPUSH SCH ×2 (10:36→22:12)
[2020-11-29] MEDS ORDERED: PT OWN MED DRAWER 7, Y5N ONE (21:16)
[2020-11-29] MEDS: DONEPEZIL HCL 10 MG TABLET (FP) PO SCH (22:12)
[2020-11-29] MEDS: ATORVASTATIN CA 40 MG TABLET (FP) PO SCH (22:12)
[2020-11-30] MEDS: hydrALAZINE HCL 25 MG TABLET (FP) PO SCH ×3 (06:20→21:55)
[2020-11-30] MEDS: LEVOTHYROXINE NA 75 MCG TABLET (FP) PO SCH (06:20)
[2020-11-30] MEDS: CARBIDOPA/LEVODOPA 25/100 TABLET (FP) PO SCH ×3 (06:43→21:59)
[2020-11-30] MEDS ORDERED: PT OWN MED DRAWER 7, Y5N ONE ×2 (09:49→14:02)
[2020-11-30] MEDS: APIXABAN 2.5 MG TABLET PO SCH ×2 (10:06→21:55)
[2020-11-30] MEDS: LOSARTAN POTASSIUM 50 MG TABLET PO SCH (10:06)
[2020-11-30] MEDS: ASCORBIC ACID 500 MG TABLET (FP) PO SCH (10:07)
[2020-11-30] MEDS: FUROSEMIDE 40 MG TABLET (FP) PO SCH (10:07)
[2020-11-30] MEDS: PANTOPRAZOLE SODIUM 40 MG VIAL IVPUSH SCH ×2 (10:07→21:58)
[2020-11-30] MEDS: ZINC SULFATE 220 MG CAPSULE (FP) PO SCH (10:07)
[2020-11-30] MEDS: levETIRAcetam 500 MG/5 ML INJECTION VIAL IVPB SCH ×2 (10:11→21:55)
[2020-11-30] MEDS: FERROUS SO4 325 MG TABLET (FP) PO SCH (10:11)
[2020-11-30] MEDS: OLANZapine 5 MG TABLET PO SCH ×2 (10:12→21:58)
[2020-11-30] MEDS: DONEPEZIL HCL 10 MG TABLET (FP) PO SCH (21:55)
[2020-11-30] MEDS: ATORVASTATIN CA 40 MG TABLET (FP) PO SCH (21:55)
[2020-12-01] MEDS: hydrALAZINE HCL 25 MG TABLET (FP) PO SCH ×3 (06:13→21:49)
[2020-12-01] MEDS: CARBIDOPA/LEVODOPA 25/100 TABLET (FP) PO SCH ×3 (06:13→21:40)
[2020-12-01] MEDS: LEVOTHYROXINE NA 75 MCG TABLET (FP) PO SCH (06:17)
[2020-12-01 08:29] LABS: HEMATOCRIT 28.9 % (32.4-45.2); HEMOGLOBIN 9.7 GM/dL (10.7-15.3); MCH 28.3 pg (25.7-33.7); MCHC 33.5 g/dl (32.0-36.0); MEAN CELL VOLUME 84.4 fl (80-96); MEAN PLT VOLUME 8.9 fl (7.5-11.1); PLATELET COUNT 248 10^3/uL (134-434); RBC 3.43 M/mm3 (3.60-5.2); RDW 16.7 % (11.6-15.6); WHITE BLOOD COUNT 8.2 K/mm3 (4.0-10.0)
[2020-12-01 08:49] LABS: CHLORIDE 109 mmol/L (98-107); SODIUM 142 mmol/L (136-145)
[2020-12-01] MEDS ORDERED: PT OWN MED DRAWER 7, Y5N ONE ×2 (09:08→20:02)
[2020-12-01 09:15] LABS: ALBUMIN 1.9 g/dl (3.4-5.0); ANION GAP 10 MMOL/L (8-16); BLOOD UREA NITROGEN 16.6 mg/dL (7-18); CALCIUM 7.6 mg/dL (8.5-10.1); CO2 23 mmol/L (21-32); GLUCOSE,RANDOM 120 mg/dL (74-106)
[2020-12-01 09:19] LABS: CREATININE 2.1 mg/dL (0.55-1.3); SGOT/AST 12 U/L (15-37); SGPT/ALT < 6 U/L (13-61)
[2020-12-01 09:20] LABS: BILIRUBIN,TOTAL 0.4 mg/dL (0.2-1); TOT PROT 5.5 g/dl (6.4-8.2)
[2020-12-01 09:21] LABS: ALK PHOS 84 U/L (45-117)
[2020-12-01] MEDS: PANTOPRAZOLE SODIUM 40 MG VIAL IVPUSH SCH ×2 (10:30→21:49)
[2020-12-01] MEDS: levETIRAcetam 500 MG/5 ML INJECTION VIAL IVPB SCH ×2 (10:32→21:49)
[2020-12-01] MEDS: FERROUS SO4 325 MG TABLET (FP) PO SCH (10:35)
[2020-12-01] MEDS: LOSARTAN POTASSIUM 50 MG TABLET PO SCH (10:35)
[2020-12-01] MEDS: ASCORBIC ACID 500 MG TABLET (FP) PO SCH (10:36)
[2020-12-01] MEDS: FUROSEMIDE 40 MG TABLET (FP) PO SCH (10:36)
[2020-12-01] MEDS: ZINC SULFATE 220 MG CAPSULE (FP) PO SCH (10:36)
[2020-12-01] MEDS: APIXABAN 2.5 MG TABLET PO SCH ×2 (10:36→21:49)
[2020-12-01] MEDS: OLANZapine 5 MG TABLET PO SCH ×2 (10:37→21:40)
[2020-12-01 11:11] LABS: ANISOCYTOSIS 2+; MACROCYTOSIS 0; OVALOCYTE 2+; PLATELET ESTIMATE NORMAL
[2020-12-01] MEDS: NYSTATIN POWDER 100,000 UNITS/GM - 15 GM TOPICAL POWDER TP SCH (17:42)
[2020-12-01] MEDS: DONEPEZIL HCL 10 MG TABLET (FP) PO SCH (21:49)
[2020-12-01] MEDS: ATORVASTATIN CA 40 MG TABLET (FP) PO SCH (21:49)
[2020-12-02] MEDS: hydrALAZINE HCL 25 MG TABLET (FP) PO SCH ×3 (06:23→21:38)
[2020-12-02] MEDS: LEVOTHYROXINE NA 75 MCG TABLET (FP) PO SCH (06:23)
[2020-12-02] MEDS: CARBIDOPA/LEVODOPA 25/100 TABLET (FP) PO SCH ×3 (06:23→21:38)
[2020-12-02 08:11] LABS: CHLORIDE 114 mmol/L (98-107); SODIUM 145 mmol/L (136-145)
[2020-12-02 08:13] LABS: CALCIUM 7.7 mg/dL (8.5-10.1)
[2020-12-02 08:15] LABS: ALBUMIN 1.8 g/dl (3.4-5.0); ANION GAP 5 MMOL/L (8-16); BLOOD UREA NITROGEN 21.4 mg/dL (7-18); CO2 26 mmol/L (21-32); GLUCOSE,RANDOM 112 mg/dL (74-106)
[2020-12-02 08:17] LABS: CREATININE 2.2 mg/dL (0.55-1.3); SGOT/AST 10 U/L (15-37)
[2020-12-02 08:19] LABS: BILIRUBIN,TOTAL 0.5 mg/dL (0.2-1)
[2020-12-02 08:20] LABS: ALK PHOS 75 U/L (45-117)
[2020-12-02 08:27] LABS: SGPT/ALT < 6 U/L (13-61)
[2020-12-02] MEDS ORDERED: PT OWN MED DRAWER 7, Y5N ONE ×4 (09:08→21:30)
[2020-12-02] MEDS: levETIRAcetam 500 MG/5 ML INJECTION VIAL IVPB SCH ×2 (10:20→21:39)
[2020-12-02] MEDS: PANTOPRAZOLE SODIUM 40 MG VIAL IVPUSH SCH ×2 (10:20→21:38)
[2020-12-02] MEDS: FUROSEMIDE 40 MG TABLET (FP) PO SCH (10:20)
[2020-12-02] MEDS: ZINC SULFATE 220 MG CAPSULE (FP) PO SCH (10:21)
[2020-12-02] MEDS: LOSARTAN POTASSIUM 50 MG TABLET PO SCH (10:21)
[2020-12-02] MEDS: NYSTATIN POWDER 100,000 UNITS/GM - 15 GM TOPICAL POWDER TP SCH (10:21)
[2020-12-02] MEDS: APIXABAN 2.5 MG TABLET PO SCH ×2 (10:21→21:38)
[2020-12-02] MEDS: ASCORBIC ACID 500 MG TABLET (FP) PO SCH (10:21)
[2020-12-02] MEDS: FERROUS SO4 325 MG TABLET (FP) PO SCH (10:21)
[2020-12-02] MEDS: OLANZapine 5 MG TABLET PO SCH ×2 (10:22→21:38)
[2020-12-02] MEDS: DONEPEZIL HCL 10 MG TABLET (FP) PO SCH (21:38)
[2020-12-02] MEDS: ATORVASTATIN CA 40 MG TABLET (FP) PO SCH (21:38)
[2020-12-03 05:36] VITALS: TEMP 97.7
[2020-12-03] MEDS: CARBIDOPA/LEVODOPA 25/100 TABLET (FP) PO SCH (05:37)
[2020-12-03] MEDS: hydrALAZINE HCL 25 MG TABLET (FP) PO SCH (05:38)
[2020-12-03] MEDS: LEVOTHYROXINE NA 75 MCG TABLET (FP) PO SCH (06:08)
[2020-12-03] MEDS ORDERED: PT OWN MED DRAWER 7, Y5N ONE (09:17)
[2020-12-03] MEDS: PANTOPRAZOLE SODIUM 40 MG VIAL IVPUSH SCH (10:16)
[2020-12-03] MEDS: levETIRAcetam 500 MG/5 ML INJECTION VIAL IVPB SCH (10:16)
[2020-12-03] MEDS: APIXABAN 2.5 MG TABLET PO SCH (10:17)
[2020-12-03] MEDS: OLANZapine 5 MG TABLET PO SCH (10:17)
[2020-12-03] MEDS: FUROSEMIDE 40 MG TABLET (FP) PO SCH (10:17)
[2020-12-03] MEDS: LOSARTAN POTASSIUM 50 MG TABLET PO SCH (10:17)
[2020-12-03] MEDS: FERROUS SO4 325 MG TABLET (FP) PO SCH ×2 (10:18→12:27)
[2020-12-03] MEDS: ASCORBIC ACID 500 MG TABLET (FP) PO SCH ×2 (10:18→12:27)
[2020-12-03] MEDS: ZINC SULFATE 220 MG CAPSULE (FP) PO SCH ×2 (10:19→12:27)
[2020-12-03] MEDS: NYSTATIN POWDER 100,000 UNITS/GM - 15 GM TOPICAL POWDER TP SCH (10:20)
[2020-12-03 10:58] VITALS: BP 113/56; PULSE 66
== END 2020-12-03 16:41 | DRG 682 ==
LOC: JER 14:35 → JERBED 22:05 → J4W 11-14 20:08 → JICU 11-21 16:54 → J4W 11-26 17:32
PROVIDERS: ADMIT Internal Medicine; ATTEND Family Medicine
PROC: 30233N1 Transfusion of Nonautologous Red Blood Cells into Peripheral Vein, Percutaneous Approach (ICD-10-PCS; 2020-11-13)
PROC: 0T767DZ Dilation of Right Ureter with Intraluminal Device, Via Natural or Artificial Opening (ICD-10-PCS; principal; 2020-11-18 10:00)
PROC: BT1DZZZ Fluoroscopy of Right Kidney, Ureter and Bladder (ICD-10-PCS; 2020-11-18 10:00)
DX: N17.9 Acute kidney failure, unspecified (principal); G92.9 Unspecified toxic encephalopathy; E87.0 Hyperosmolality and hypernatremia; N13.4 Hydroureter; F03.91 Unspecified dementia, unspecified severity, with behavioral disturbance; N39.0 Urinary tract infection, site not specified; E87.2 Acidosis; G45.9 Transient cerebral ischemic attack, unspecified; I13.0 Hypertensive heart and chronic kidney disease with heart failure and stage 1 through stage 4 chronic kidney disease, or unspecified chronic kidney disease; N13.30 Unspecified hydronephrosis; I25.10 Atherosclerotic heart disease of native coronary artery without angina pectoris; E11.9 Type 2 diabetes mellitus without complications; R00.1 Bradycardia, unspecified; E03.9 Hypothyroidism, unspecified; R41.82 Altered mental status, unspecified; I48.0 Paroxysmal atrial fibrillation; I27.20 Pulmonary hypertension, unspecified; N18.9 Chronic kidney disease, unspecified; G20 Parkinson's disease; D64.9 Anemia, unspecified; I50.9 Heart failure, unspecified; R13.10 Dysphagia, unspecified; R31.9 Hematuria, unspecified; Z98.61 Coronary angioplasty status
CPT/HCPCS: 36415; 36430; 36511; 36600; 70450-TC; 70551-TC; 71045-TC-FY; 71250-TC; 74018-TC-FY; 74176-TC; 76000-TC-FY; 76856-TC; 80048; 80053; 80061; 81003; 82272; 82550; 82728; 82803; 82962; 83036; 83540; 83550; 83605; 83735; 83880; 83930; 84100; 84146; 84443; 84484; 85025; 85027; 85610; 85651; 85730; 86140; 86304; 86850; 86900; 86901; 86902; 86922; 87040; 87077; 87086; 87186; 93005; 93010; 93306-TC; 94760; 95816; 99285-25; C9803; J0131; J1644; P9038; P9058; U0003; U0005